=== PATIENT | female | born 1950 | race Caucasian/White ===

== ENCOUNTER 2019-12-28 12:51 | Emergency (ER) | payer MEDICARE, SELFPAY ==
--- NOTE | 2019-12-28 12:58 | ED.GENADULT ---
HPI - General Adult General Chief complaint: Urogenital-Female Stated complaint: POS UTI Time Seen by Provider: 12/28/19 13:18 Source: patient and RN notes reviewed Mode of arrival: ambulatory Limitations: no limitations History of Present Illness HPI narrative: This patient has had frequency of urination with suprapubic discomfort which feels like a cramping sensation of her bladder. This started on 12/24/2019. She is also had malodor to the urine. She is not had any back pain or fever. There has been no dysuria. She has had no vaginal discharge or bleeding. She has had no rashes. She has not had any ear pain, no nasal drainage, no sore throat, and no cough. She has had no nausea, no vomiting, no diarrhea. She has had previous history of cystitis but never any history of pyelonephritis. Her last episode of the cystitis was approximately 1/2 years ago. She has never had any history of kidney stones. She has otherwise felt well and has had no exposure to anyone with respiratory infections that she is aware of. Related Data Home Medications Medication Instructions Recorded Confirmed Vitamin D 12/28/19 amlodipine [Norvasc] 5 mg PO DAILY 12/28/19 12/28/19 aspirin 81 mg PO DAILY 12/28/19 12/28/19 atorvastatin 10 mg PO DAILY 12/28/19 12/28/19 citalopram [Celexa] 20 mg PO DAILY 12/28/19 12/28/19 clopidogrel [Plavix] 75 mg PO DAILY 12/28/19 12/28/19 fluticasone propionate [Flonase 2 spray INTRANASAL DAILY 12/28/19 12/28/19 Allergy Relief] metoprolol tartrate 100 mg PO BID 12/28/19 12/28/19 olmesartan [Benicar] 40 mg PO DAILY 12/28/19 12/28/19 pantoprazole [Protonix] 40 mg PO QAM 12/28/19 12/28/19 ranitidine HCl [Zantac] 150 mg PO DAILY 12/28/19 12/28/19 Allergies Allergy/AdvReac Type Severity Reaction Status Date / Time egg Allergy Severe DIFFICULTY Verified 01/30/18 22:40 BEATHING azithromycin Allergy Mild RASH Verified 01/30/18 22:40 erythromycin base Allergy Mild RASH,HIVES Verified 01/30/18 22:40 iodine Allergy Mild RASH,HIVES Verified 01/30/18 22:40 Penicillins Allergy Mild RASH Verified 01/30/18 22:40 Sulfa (Sulfonamide Allergy Mild RASH Verified 01/30/18 22:40 Antibiotics) trimethoprim Allergy Mild RASH Verified 01/30/18 22:40 sulfite Allergy Unknown Other Verified 01/30/18 22:40 Chocolate Allergy Severe DIFFICULTY Uncoded 01/30/18 22:40 BREATHING Review of Systems Review of Systems: Narrative: CONSTITUTIONAL: Denies fever, chills, or sweats. Noncontributory except as pertains to the past medical history and the history of present illness. EYES: Denies visual changes, redness, or discharge. ENT: Denies rhinorrhea, congestion, sore throat, or otalgia. CARDIOVASCULAR: Denies chest pain, palpitations, or edema. RESPIRATORY: Denies cough or dyspnea. GASTROINTESTINAL: Denies abdominal pain, nausea, vomiting, or diarrhea. GENITOURINARY: Denies dysuria or hematuria. SKIN: Denies rash or itching. MUSCULOSKELETAL: Denies back pain, joint pain, or myalgia. NEUROLOGIC: Denies headache, numbness, or weakness. PSYCHIATRIC: Denies anxiety or depression. PMFSH Social History Social History Gender identity (if verbalized by the patient): Female Comments At time of signature, I have reviewed and agree with nursing past medical, surgical, social, and family history.Please see nursing chart for further information. There is no relevant family history pertinent to the presenting complaint. Exam Narrative: Exam Narrative: GENERAL: Well-appearing, well-nourished, and in no acute distress. HEAD: Normocephalic, atraumatic. EYES: PERRLA and EOMI. EARS: TM's clear bilaterally and the canals are clear. NOSE: Nares clear, no rhinorrhea or epistaxis. THROAT:Mucous membranes moist.Oropharynx normal without erythema or exudates. NECK: Supple. No adenopathy of the neck, supraclavicular, axillary, or inguinal areas. RESPIRATORY: No respiratory distress. Airway patent. Respirations non-labored. Clear to ausculta
[2019-12-28 13:03] VITALS: BP 148/72; PULSE 62; RESP 18; TEMP 36.4; O2SAT 98
== END 2019-12-28 13:32 | disposition home or self-care (01) ==
PROVIDERS: Emergency Provider Family Medicine; PCP Internal Medicine
DX: N30.00 Acute cystitis without hematuria (principal)
CPT/HCPCS: 81003; 87086; 99213; G0463

== ENCOUNTER → 2020-06-26 09:50 | Outpatient (CLI) | payer MEDICARE, SELFPAY ==
--- NOTE | ~2020-06-26 | MM_ITS ---
EXAMINATION: MM screening [facility] BI w damien HISTORY: Screening mammogram TECHNIQUE: Craniocaudal and mediolateral oblique 3-D tomosynthesis images were obtained and synthetic 2-D images were generated. CAD analysis was submitted and interpreted. COMPARISON: 02/15/2018, 11/14/2016, 10/16/2015 bilateral digital screening mammogram examinations BREAST PARENCHYMAL COMPOSITION: There are scattered areas of fibroglandular density. FINDINGS: A child monitor device is present at the upper inner left breast. There is a circumscribed 3 mm opacity in the inferomedial subareolar area of the left breast (cranioc audal Tomosynthesis image 18/76). There is possible additional approximately 4.8 mm subareolar left b reast opacity (CC Tomosynthesis image 22/76). There is an approximately 3 mm circumscribed opacity in the lower inner quadrant of the left breast ( MLO Tomosynthesis image 51/81). Otherwise there is no evidence of suspicious mass, calcification, or architectural distortion to sugg est malignancy in either breast. There has been no other suspicious interval change. IMPRESSION: 1. Bilateral breast masses 2. Bilateral diagnostic mammography and bilateral breast ultrasound examination are recommended. BI-RADS Category 0: Incomplete: Needs additional imaging evaluation. Reviewed, dictated and finalized at location A.
== END ==
PROVIDERS: Visit Provider Obstetrics & Gynecology
DX: Z12.31 Encounter for screening mammogram for malignant neoplasm of breast (principal); R92.8 Other abnormal and inconclusive findings on diagnostic imaging of breast
CPT/HCPCS: 77063; 77067

== ENCOUNTER → 2020-07-11 07:54 | Outpatient (CLI) | payer MEDICARE, SELFPAY ==
--- NOTE | ~2020-07-11 | MMUS_ITS ---
EXAMINATION: MM diagnostic mammo BI, US breast BI complete HISTORY: Follow-up bilateral breast masses TECHNIQUE: Additional 3-D tomosynthesis images of the breasts were performed and synthetic 2-D images were generated. CAD analysis was submitted and interpreted. High resolution bilateral breast ultraso und was performed. COMPARISON: Comparison to multiple prior studies sequentially, with oldest reviewed study dated 08/11. BREAST PARENCHYMAL COMPOSITION: BREAST PARENCHYMAL COMPOSITION: There are scattered areas of fibroglandular density. FINDINGS: MAMMOGRAPHIC FINDINGS: There are persistent small 3 mm periareolar nodules which have a benign appearance in both breasts. T here are benign-appearing calcifications. No suspicious architectural distortion. ULTRASOUND: There are 2 right periareolar cysts, largest measuring 4 mm. There is a left periareolar cyst measuri ng 3 mm. No suspicious masses to suggest malignancy. IMPRESSION: 1. No evidence for malignancy in either breast. Benign findings. 2. Routine yearly screening mammogram and regular clinical breast examination are recommended. BI-RADS Category 2: Benign finding(s). Reviewed, dictated and finalized at location A. IMPRESSION: 1. No evidence for malignancy in either breast. Benign findings. 2. Routine yearly screening mammogram and regular clinical breast examination a re recommended. BI-RADS Category 2: Benign finding(s).
== END ==
PROVIDERS: Visit Provider Obstetrics & Gynecology
DX: R92.8 Other abnormal and inconclusive findings on diagnostic imaging of breast (principal)
CPT/HCPCS: 76641; 77066

== ENCOUNTER 2020-08-23 08:12 | Outpatient (CLI) | payer MEDICARE, SELFPAY ==
--- NOTE | 2020-08-23 08:14 | ECG_ITS ---
Measurements Intervals [place] Rate: 67 P: 62 RI: 227 QRS: 75 QRSD: 149 T: 14 QT: 430 QTc: 455 Interpretive Statements SINUS RHYTHM WITH FIRST DEGREE AV BLOCK RIGHT BUNDLE BRANCH BLOCK BASELINE ARTIFACT- I, II, III, AVR, AVL, AVF ABNORMAL ECG Electronically Signed On 08-23-2020 8:31:20 CDT by Jimbo Ojeda D.O.
== END 2020-08-23 08:13 | disposition home or self-care (01) ==
PROVIDERS: PCP Internal Medicine; Visit Provider Obstetrics & Gynecology
DX: N81.4 Uterovaginal prolapse, unspecified (principal); Z01.818 Encounter for other preprocedural examination; E78.5 Hyperlipidemia, unspecified; I45.10 Unspecified right bundle-branch block
CPT/HCPCS: 36415; 86850; 86900; 86901; 93005

== ENCOUNTER 2020-08-25 00:14 | Outpatient (CLI) | payer MEDICARE, SELFPAY ==
[2020-08-25 18:02] LABS: SARS-CoV-2 RNA PCR Negative
== END 2020-08-25 00:15 | disposition home or self-care (01) ==
LOC: ANHCOVIDDT 00:15
PROVIDERS: PCP Internal Medicine; Visit Provider Obstetrics & Gynecology
DX: Z01.812 Encounter for preprocedural laboratory examination (principal); Z20.828 Contact with and (suspected) exposure to other viral communicable diseases
CPT/HCPCS: 87635; C9803; U0003

== ENCOUNTER 2020-08-28 00:18 | Day surgery (SDC) | payer MEDICARE, SELFPAY ==
[2020-08-18 13:46] VITALS: BMI 29.5
--- NOTE | 2020-08-25 14:06 | PM.IMHP ---
H&P: HPI History of Present Illness Date/Time: 08/25/20 14:06 Chief complaint: uterine prolapse Narrative: Emely Womack is a 70 year old female with prolapse, worse with prolonged sitting, standing, or gardening. She is unable to have intercourse but would like to be able Review of Systems Review of Systems: All systems reviewed & are unremarkable except as noted in HPI and below PMFSH Past Medical History Medical History Acid reflux Cholecystectomy planned Heart attack History of basal cell cancer Hyperlipidemia Hypertension Irritable bowel Migraines Mitral valve disorder Pre-diabetes Stroke Surgical History Surgical History H/O angioplasty H/O dilation and curettage History of cryosurgery Cervical History of removal of cyst Family History Family History Sibling Breast cancer Hypertension Hyperlipidemia Mother Diabetes mellitus Hypertension Social History Social History Smoking status: Never smoker Alcohol intake: never Substance use: never Gender identity (if verbalized by the patient): Female Spiritual care concerns: No Meds Home Medications and Allergies Home Medications Medication Instructions Recorded Confirmed Type amlodipine [Norvasc] 5 mg PO DAILY 12/28/19 08/18/20 History aspirin 81 mg PO DAILY 12/28/19 08/18/20 History atorvastatin 10 mg PO HS 12/28/19 08/18/20 History clopidogrel [Plavix] 75 mg PO DAILY 12/28/19 08/18/20 History fluticasone propionate [Flonase 2 spray INTRANASAL DAILY PRN 12/28/19 08/18/20 History Allergy Relief] metoprolol tartrate 100 mg PO BID 12/28/19 08/18/20 History olmesartan [Benicar] 40 mg PO DAILY 12/28/19 08/18/20 History pantoprazole [Protonix] 40 mg PO QAM 12/28/19 08/18/20 History cholecalciferol (vitamin D3) 25 25 mcg PO DAILY 07/06/20 08/18/20 History mcg (1,000 unit) capsule famotidine 40 mg tablet 40 mg PO HS 07/06/20 08/18/20 History Allergies Allergy/AdvReac Type Severity Reaction Status Date / Time egg Allergy Severe DIFFICULTY Verified 08/18/20 13:36 BEATHING azithromycin Allergy Mild RASH Verified 08/18/20 13:36 erythromycin base Allergy Mild RASH,HIVES Verified 08/18/20 13:36 Penicillins Allergy Mild RASH Verified 08/18/20 13:36 Sulfa (Sulfonamide Allergy Mild RASH Verified 08/18/20 13:36 Antibiotics) trimethoprim Allergy Mild RASH Verified 08/18/20 13:36 sulfite Allergy Unknown Anaphylaxis Verified 08/18/20 13:46 iohexol AdvReac Hives Verified 08/18/20 13:36 [From contrast - CT, X-RAY] Chocolate Allergy Severe DIFFICULTY Uncoded 08/18/20 13:36 BREATHING Exam Const: General: no acute distress Resp: Auscultation: clear to auscultation bilaterally Cardio: Rate: regular rate Rhythm: regular rhythm GI: Inspection: non-distended GI Palp: Yes Soft to palpation and No Tenderness to palpation present (GI) : Other: uterine prolapse. no adnexal masses Assessment and Plan Assessment and plan (1) Uterine prolapse: Code(s): N81.4 - Uterovaginal prolapse, unspecified Status: Acute Assessment and Plan: She opts for TVH/BSO and signed consent after risks, benefits, complications, and alternatives were discussed. She expressed understanding and wishes to proceed. Her manager of photography did give clearance, stating she is at intermediate risk. She was advised to stop plavix 5 days prior to surgery
[2020-08-28] VITALS (16 sets, daily range): BP systolic 122–154; BP diastolic 61–83; PULSE 63–95; RESP 12–18; TEMP 36.3–37.2; O2SAT 94–100
[2020-08-28] MEDS: LACTATED RINGERS 1,000 ML 30 ML IV CONT ×2 (11:00→13:03)
[2020-08-28] MEDS: ACETAMINOPHEN 500 MG TABLET 1000 MG PO (11:03)
[2020-08-28] MEDS: KETOROLAC 15 MG/ML VIAL (*BKC) IV PUSH (11:09)
--- NOTE | 2020-08-28 11:14 | WPDANESEPPF ---
Anes - Initial Pre Proc Eval Procedure: Operation Date: 08/28/20 12:00 Proposed Procedures p Total Vaginal Hysterectomy with Bilateral Salpingo-Oophorectomy - Radha Juarez MD Date/Time: 08/28/20 11:14 Surgeon: Radha Juarez MD Pre Op Diagnosis: uterine prolapse Patient Data Age: 70 Gender: F Height: 5 ft 4 in Weight: 77.2 kg Last Vital Signs Temp 98.9 F 08/28/20 11:10 Pulse 66 08/28/20 11:10 Resp 18 08/28/20 11:10 BP 154/71 H 08/28/20 11:10 Pulse Ox 100 08/28/20 11:10 Allergies Allergy/AdvReac Type Severity Reaction Status Date / Time egg Allergy Severe DIFFICULTY Verified 08/18/20 13:36 BEATHING azithromycin Allergy Mild RASH Verified 08/18/20 13:36 erythromycin base Allergy Mild RASH,HIVES Verified 08/18/20 13:36 Penicillins Allergy Mild RASH Verified 08/18/20 13:36 Sulfa (Sulfonamide Allergy Mild RASH Verified 08/18/20 13:36 Antibiotics) trimethoprim Allergy Mild RASH Verified 08/18/20 13:36 sulfite Allergy Unknown Anaphylaxis Verified 08/18/20 13:46 iohexol AdvReac Hives Verified 08/18/20 13:36 [From contrast - CT, X-RAY] Chocolate Allergy Severe DIFFICULTY Uncoded 08/18/20 13:36 BREATHING Home Medications Medication Instructions Recorded Confirmed Type amlodipine [Norvasc] 5 mg PO DAILY 12/28/19 08/28/20 History aspirin 81 mg PO DAILY 12/28/19 08/28/20 History atorvastatin 10 mg PO HS 12/28/19 08/28/20 History clopidogrel [Plavix] 75 mg PO DAILY 12/28/19 08/28/20 History fluticasone propionate [Flonase 2 spray INTRANASAL DAILY PRN 12/28/19 08/28/20 History Allergy Relief] metoprolol tartrate 100 mg PO BID 12/28/19 08/28/20 History olmesartan [Benicar] 40 mg PO DAILY 12/28/19 08/18/20 History pantoprazole [Protonix] 40 mg PO QAM 12/28/19 08/18/20 History cholecalciferol (vitamin D3) 25 25 mcg PO DAILY 07/06/20 08/28/20 History mcg (1,000 unit) capsule famotidine 40 mg tablet 40 mg PO HS 07/06/20 08/28/20 History olmesartan [Benicar] 40 mg PO DAILY 08/28/20 08/28/20 History pantoprazole 40 mg PO QAM 08/28/20 08/28/20 History Patient hx anesthesia problems: none Family hx anesthesia problems: none PMFSH Past Medical History Medical History Acid reflux Cholecystectomy planned Heart attack History of basal cell cancer Hyperlipidemia Hypertension Irritable bowel Migraines Mitral valve disorder Pre-diabetes Stroke Surgical History Surgical History H/O angioplasty H/O dilation and curettage History of cryosurgery Cervical History of removal of cyst Family History Family History Sibling Breast cancer Hypertension Hyperlipidemia Mother Diabetes mellitus Hypertension Social History Social History Smoking status: Never smoker Alcohol intake: never Substance use: never Living arrangements: with family Gender identity (if verbalized by the patient): Female Spiritual care concerns: No Anes - Eval Final PreProcedure Day of Procedure 08/28/20 11:14 Patient weight: overweight Heart: regular rate and rhythm Lungs: clear to auscultation Airway: Mallampati scale class II Neurological: alert and oriented Last oral intake: >/= 8 hours ASA classification: III Anesthetic plan: proceed Anesthesia type and monitoring: general ETT and standard monitoring Informed Consent: The patient's anesthetic plan and its attendant risks and benefits were discussed with the patient/family/POA. Questions were solicited and answers provided to the satisfaction of the patient/family/POA.
[2020-08-28] MEDS: ONDANSETRON INJ 4 MG/2 ML VIAL IV PUSH ×2 (11:18→14:00)
[2020-08-28] MEDS: SCOPOLAMINE 1.5 MG PATCH TRANSDERM (11:18)
--- NOTE | 2020-08-28 11:44 | WPDHPUPDATE1 ---
History and Physical Update Update Date/Time: 08/28/20 11:44 History and Physical has been reviewed, including an updated exam of the patient. There are NO changes in the patient's condition. Risks, benefits, and alternatives have been discussed and questions answered. Patient agrees to proceed with procedure.
--- NOTE | 2020-08-28 11:57 | SUR.PREOP ---
1150-ANTIBIOTICS AND ALLERGIES DISCUSSED WITH DR. MURCIA, PT WILL RECEIVE ONLY CLINDAMYCIN.
[2020-08-28] MEDS: CLINDAMYCIN 900 MG/NS 50 ML 900 MG/50 ML PIGGYBACK 50 MG IVPB (11:59)
--- NOTE | 2020-08-28 13:03 | P.OP_ITS ---
Procedure Note - Detailed Date of procedure: 08/28/20 Pre-op diagnosis: uterine prolapse Post-op diagnosis: same Procedure performed: TVH Description of procedure: She was taken to the operating room where general anesthesia was obtained. She was prepared and draped in the normal sterile fashion in the dorsal lithotomy position. A weighted speculum was placed in the vagina. The cervix was grasped with 2 single-tooth tenaculum. The cervix was circumferentially incised using a scalpel. The underlying vaginal tissue was dissected off using the Osorio scissors. The posterior cul-de-sac was then entered sharply using the Osorio scissors. That incision was stretched by using the scissors. The long Myke weighted vaginal speculum then was placed. The same procedure was performed on the anterior side of the cervix. The vesicouterine peritoneum was then entered. The LigaSure was then used to clamp coagulate and transect the cardinal and uterosacral ligaments on each side. The uterine arteries were then clamped coagulated and transected. Several more bites were taken up the broad ligament until the cornua were reached. The right coronary was clamped coagulated and transected freeing the right side of the uterus. The same procedure was then performed ligating the left cornua. Using a sponge stick and retractors, attempt was made to visualize the tubes and ovaries. A small paratubal cyst was seen on the left fallopian tube. Attempt was made to grasp that for better visualization of the remainder of the tube; and the cyst pulled away from the remaining fallopian tube. After several minutes of attempting to find the tubes and ovaries without success, that procedure was abandoned and the ovaries were left in place. The peritoneum was then closed using 2 0 Vicryl in a pursestring fashion. The uterosacral liga ments were then tied together using an 0 Vicryl [id number] suture for support of the vaginal cuff. All instruments were removed from the vagina to evaluate for rectocele or cystocele. No cystocele was noted. Very mild grade 1 rectocele was noted. Since the rectocele was minimal, decision was made not to repair it. The vaginal cuff was then closed using 2 0 Vicryl [id number] sutures. All instruments were then removed from the vagina. Sponge, lap, needle, and instrument counts were correct x2. She was taken to the recovery room in stable condition. Anesthesia: GETA Surgeon: Radha Juarez MD Estimated blood loss (mL): 25 Drains: Yes ([place]) Packing: No Pathology: yes Complications: No immediate complications Condition: stable Disposition: PACU Findings: Small uterus with grade III prolapse. Mild rectocele. Ovaries and tubes not visualized
[2020-08-28] MEDS: DEXTROSE 5%/LACTATED RINGERS 1,000 ML 125 ML IV CONT ×2 (15:10→22:54)
[2020-08-28] MEDS: METOCLOPRAMIDE HCL INJ 10 MG/2 ML VIAL IV PUSH (15:43)
--- NOTE | 2020-08-28 16:28 | PC.NURSE ---
1412 Pt admitted to room 285 per bed from PACU after vaginal hysterectomy with Dr. Juarez today at 1200. Pt sleepy. VSS and assessment WNL. Pt is alone at this time. No family present.
[2020-08-28] MEDS: METOPROLOL TARTRATE 50 MG TAB 100 MG PO (18:05)
[2020-08-28] MEDS: ENOXAPARIN 40 MG/0.4 ML SYRINGE SUB-Q (19:58)
[2020-08-28] MEDS: FAMOTIDINE 20 MG TABLET 40 MG PO (21:14)
[2020-08-28] MEDS: ATORVASTATIN 10 MG TABLET PO (21:15)
--- NOTE | 2020-08-28 23:00 | PC.NURSE ---
IV bag hanging was D5 1/2NS at 125 ml/hr. Order is for D5LR. New bag of D5LR hung at 125 ml/hr.
[2020-08-29 05:22] VITALS: BP 156/78; PULSE 88; RESP 14; TEMP 36.7; O2SAT 98
[2020-08-29 05:50] LABS: Basophils Percent Auto 0.2 % (0.2-1.2); Hemoglobin 14.6 g/dL (12.0-15.0); Immature Granulocyte Absolute 0.14 K/mm3 (0.00-0.031); Immature Granulocyte Percent A 0.9 % (0-0.5); Lymphocytes Absolute Auto 1.84 K/mm3 (0.9-3.2); Lymphocytes Percent Auto 12.4 % (18.3-44.2); Mean Corpuscular HGB Conc 33.2 g/dl (32-36); Mean Corpuscular Hemoglobin 29.3 pg (26-34); Mean Corpuscular Volume 88.2 fl (80-100); Mean Platelet Volume 10.1 fl (7.4-10.4); Monocytes Percent Auto 6.7 % (2.6-8.5); Neutrophils Absolute Auto 11.9 K/mm3 (1.3-6.7); Neutrophils Percent Auto 79.8 % (45.5-73.1); Platelet Count Result 291 k/mm3 (150-375); Red Blood Count 4.99 M/mm3 (4.2-5.4); Red Cell Distribution Width 12.9 % (11.5-14.5); White Blood Count 14.9 K/mm3 (4.5-10.0)
[2020-08-29 06:05] LABS: Anion Gap 8 mmol/L (8-16); Blood Urea Nitrogen 9 mg/dL (7-17); Calcium 9.9 mg/dL (8.4-10.2); Carbon Dioxide 30 mmol/L (22-30); Chloride 103 mmol/L (98-107); Estimated CRCL calculation 65 ml/min; Estimated Glomerular Filt Rate > 60; Glucose 162 mg/dL (65-105); Potassium 4.3 mmol/L (3.4-5.0); Sodium 141 mmol/L (137-145)
[2020-08-29 07:09] VITALS: BP 148/88; PULSE 86; RESP 18; TEMP 36.9; O2SAT 99
--- NOTE | 2020-08-29 07:20 | PC.NURSE ---
This RN into room to inquire about pain meds. Pt states she rates pain a 4 but declines any pain medication. This RN informed pt that she will be getting up to use restroom and going home. Pt states she understands and still declines pain meds.
--- NOTE | 2020-08-29 07:47 | PM.GYNPNOP ---
RECEIVING BARN CUSTODIAN - A/P Postoperative Procedures: Procedures Operation Date: 08/28/20 12:00 Actual Procedures Side Surgeon p Total Vaginal Hysterectomy Bilateral Radha Juarez MD Postoperative day: 1 (s/p hysterectomy) Postoperative status: doing well Postoperative plan: routine post-op care and discharge (and follow up in office in 1 week) Time Spent With Patient Time: Total time spent is greater than 50% in coordination of care (as documented) at patient's floor/unit and/or counseling patient: Time with patient: less than 15 minutes RECEIVING BARN CUSTODIAN- PN:Subj Post-Op Subjective Date/time seen: 08/29/20 07:47 Subjective: patient has no complaints, pain is well controlled and other (Tolerating regular diet. + flatus. ) Exam Const: General: no acute distress Resp: Auscultation: clear to auscultation bilaterally Cardio: Rate: regular rate Rhythm: regular rhythm GI: Inspection: non-distended and no incisions (Intact without erythema, drainage, or induration) GI Palp: Yes abdominal tenderness (appropriate) and Yes Soft to palpation Extrem: General: no edema RECEIVING BARN CUSTODIAN - PN: Obj Data Vital Signs Vital Signs: Vital Signs - 24 hr 08/28/20 11:10 08/28/20 13:03 08/28/20 13:15 Temperature 37.2 C 36.4 C L Pulse Rate 66 79 72 Respiratory Rate 18 12 18 Blood Pressure 154/71 H 141/71 H 138/68 Pulse Oximetry 100 98 98 08/28/20 13:30 08/28/20 13:45 08/28/20 14:00 Temperature Pulse Rate 74 63 72 Respiratory Rate 18 18 14 Blood Pressure 122/78 131/67 138/61 Pulse Oximetry 95 96 96 08/28/20 14:15 08/28/20 14:30 08/28/20 15:00 Temperature 36.3 C L Pulse Rate 65 70 67 Respiratory Rate 16 16 16 Blood Pressure 148/64 H 142/66 H 137/66 Pulse Oximetry 94 97 99 08/28/20 15:30 08/28/20 16:00 08/28/20 17:00 Temperature Pulse Rate 78 81 88 Respiratory Rate 16 Blood Pressure 148/75 H 150/71 H 154/82 H Pulse Oximetry 100 100 97 08/28/20 18:00 08/28/20 18:05 08/28/20 20:00 Temperature 36.9 C Pulse Rate 93 95 95 Respiratory Rate 16 Blood Pressure 146/83 H 149/82 H Pulse Oximetry 99 95 08/28/20 23:05 08/29/20 05:22 08/29/20 07:09 Temperature 36.4 C L 36.7 C 36.9 C Pulse Rate 81 88 86 Respiratory Rate 16 14 18 Blood Pressure 147/80 H 156/78 H 148/88 H Pulse Oximetry 95 98 99 Intake/Output Intake/Output: Intake & Output 08/26/20 08/27/20 08/28/20 08/29/20 23:59 23:59 23:59 23:59 Intake Total 2850 Output Total 1375 1425 Balance 1475 -1425 Meds/Results Medications: Active Medications Generic Name Dose Route Start Last Admin Trade Name Freq PRN Reason Stop Dose Admin Hydrocodone Bitart/Acetaminophen 1 tab 08/28/20 14:06 [place] 5-325 Mg PO Q3H PRN Pain Rated 5 or Less Hydrocodone Bitart/Acetaminophen 1 tab 08/28/20 14:06 [place] 10-325 Mg PO Q3H PRN Pain Rated 6 or Greater Amlodipine Besylate 5 mg 08/29/20 09:00 Norvasc PO DAILY ERICH Aspirin 81 mg 08/29/20 09:00 Aspirin Chewable PO DAILY ERICH Atorvastatin Calcium 10 mg 08/28/20 21:00 08/28/20 21:15 Lipitor PO 10 mg HS ERICH Administration Enoxaparin Sodium 40 mg 08/28/20 20:00 08/28/20 19:58 Lovenox SUB-Q 40 mg DAILY ERICH Administration Famotidine 40 mg 08/28/20 21:00 08/28/20 21:14 Pepcid PO 40 mg HS ERICH Administration Fluticasone Propionate 2 spray 08/28/20 14:06 Flonase 0.05% Nasal [place] NASAL DAILY PRN Congestion Dextrose/Lactated Ringer's 1,000 mls @ 125 mls/hr 08/28/20 14:06 08/28/20 22:54 Dextrose 5%/Lactated Ringers IV CONT 125 mls/hr .Q8H ERICH Administration Ibuprofen 600 mg 08/28/20 14:06 Motrin PO Q6H PRN Cramping Ketorolac Tromethamine 30 mg 08/28/20 14:06 Toradol Inj IV PUSH 09/02/20 14:07 Q6H PRN Pain Rated 4-6 Metoclopramide HCl 10 mg 08/28/20 15:31 08/28/20 15:43 Reglan IV PUSH 10 mg Q6HR PRN Administration Nausea Metoprolol Tartrate 100 mg 08/28/20 17
--- NOTE | 2020-08-29 07:49 | PM.DS ---
DS: Admitting Diagnosis Admitting Diagnosis Admitting Diagnosis: uterine prolapse DS: Discharge Diagnosis Discharge Diagnosis (1) Uterine prolapse: Code(s): N81.4 - Uterovaginal prolapse, unspecified Status: Acute DS: Summary Status at Discharge Functional status at discharge: independent ambulation Overall status at discharge: patient is progressing back to baseline Time Spent with Patient Time attestation: Total time spent providing and/or coordinating discharge services: Time spent: Less than 30 minutes DS: Data Data Completed and Pending Pending studies at discharge: Pending at discharge 08/28/20 12:37 Surgical [PTH] Routine Labs on day of discharge: Labs from last 24 hours 08/29/20 08/29/20 04:11 04:11 WBC 14.9 H RBC 4.99 Hgb 14.6 Hct 44.0 MCV 88.2 MCH 29.3 MCHC 33.2 RDW 12.9 Plt Count 291 MPV 10.1 Immature Gran % (Auto) 0.9 H Neut % (Auto) 79.8 H Lymph % (Auto) 12.4 L [place] % (Auto) 6.7 Eos % (Auto) 0.0 Baso % (Auto) 0.2 Lymph # (Auto) 1.84 [place] # (Auto) 1.0 H Eos # (Auto) 0.0 Baso # (Auto) 0.0 Abs Immat Gran (auto) 0.14 H Absolute Neuts (auto) 11.9 H Absolute Nucleated RBC 0.0 Nucleated RBC % 0.0 Sodium 141 Potassium 4.3 Chloride 103 Carbon Dioxide 30 Anion Gap 8 BUN 9 Creatinine 0.70 Estim Creat Clear Calc 65 Estimated GFR > 60 Glucose 162 H Calcium 9.9 Discharge Plan Discharge Patient Disposition: Home, Self-Care Stand Alone Forms: General Discharge Instructions Follow-up/Referrals: Radha Juarez MD [Physician] - 1 Week Discharge Medications: New hydrocodone-acetaminophen 5-325 mg Tablet 1 tab PO Q4H PRN (Reason: Pain Rated 5 Or Less) Qty: 30 RF: 0 Continued atorvastatin 10 mg Tablet 10 mg PO HS RF: 0 metoprolol tartrate 100 mg Tablet 100 mg PO BID RF: 0 clopidogrel [Plavix] 75 mg Tablet 75 mg PO DAILY RF: 0 amlodipine [Norvasc] 5 mg Tablet 5 mg PO DAILY RF: 0 pantoprazole [Protonix] 40 mg Tablet,Delayed Release (Dr/Ec) 40 mg PO QAM RF: 0 aspirin 81 mg Tablet,Chewable 81 mg PO DAILY RF: 0 fluticasone propionate [Flonase Allergy Relief] 50 mcg/actuation [place],Suspension 2 spray INTRANASAL DAILY PRN (Reason: Congestion) RF: 0 olmesartan [Benicar] 40 mg Tablet 40 mg PO DAILY RF: 0 famotidine 40 mg tablet 40 mg PO HS RF: 0 cholecalciferol (vitamin D3) 25 mcg (1,000 unit) capsule 25 mcg PO DAILY RF: 0 pantoprazole 40 mg Tablet,Delayed Release (Dr/Ec) 40 mg PO QAM RF: 0 olmesartan [Benicar] 40 mg Tablet 40 mg PO DAILY RF: 0 Primary Care Provider: Mary,Nina Domínguez Attending physician on admission: Radha Juarez Quality VTE Prophylaxis VTE prophylaxis: mechanical ordered and pharmacologic ordered
[2020-08-29 08:53] VITALS: PULSE 77
[2020-08-29] MEDS: METOPROLOL TARTRATE 50 MG TAB 100 MG PO (08:53)
[2020-08-29] MEDS: OLMESARTAN MEDOXOMIL 20 MG TABLET 40 MG PO (08:53)
[2020-08-29] MEDS: ASPIRIN 81 MG CHEWABLE TABLET PO (08:54)
[2020-08-29] MEDS: CHOLECALCIFEROL 1,000 UNITS TABLET 1000 UNITS PO (08:55)
[2020-08-29] MEDS: amLODIPine BESYLATE 5 MG TABLET PO (08:56)
[2020-08-29] MEDS: ENOXAPARIN 40 MG/0.4 ML SYRINGE SUB-Q (08:57)
[2020-08-29] MEDS: PANTOPRAZOLE 40 MG TABLET PO (08:57)
[2020-08-29] MEDS: FLUTICASONE PROPIONATE 0.05% NA SPR 16 GM BTL (*BKC) 2 SPRAY NASAL (08:57)
--- NOTE | 2020-08-29 10:27 | PC.NURSE ---
Pt taken to exit by maintenance mechanic technician via wheelchair. Discharge instructions were given to pt. NO questions or concerns at this time.
== END 2020-08-29 10:29 | disposition home or self-care (01) ==
LOC: ANHSURGERY 10:02 → ANHOB2 18:04
PROVIDERS: PCP Internal Medicine; Visit Provider Obstetrics & Gynecology
PROC: (CPT 58260; principal; 2020-08-28 12:00)
DX: N81.4 Uterovaginal prolapse, unspecified (principal); E78.5 Hyperlipidemia, unspecified; I10 Essential (primary) hypertension; Z79.02 Long term (current) use of antithrombotics/antiplatelets; Z79.82 Long term (current) use of aspirin; N84.0 Polyp of corpus uteri; N73.6 Female pelvic peritoneal adhesions (postinfective)
CPT/HCPCS: 58260; 36415; 80048; 85025; 88307; 99199; A9270; J0330; J1100; J1650; J1885; J2405; J2704; J2765; J3010; J7120; J7121

== ENCOUNTER 2020-11-11 13:00 | Emergency (ER) | payer MEDICARE, SELFPAY ==
[2020-11-11 13:10] VITALS: BP 166/75; PULSE 67; RESP 16; TEMP 36.9; O2SAT 100
--- NOTE | 2020-11-11 13:33 | ED.FEMALEGU ---
HPI - Female Genitourinary General Chief complaint: Urogenital-Female Stated complaint: UTI Time Seen by Provider: 11/11/20 13:27 Source: patient and RN notes reviewed Mode of arrival: ambulatory Limitations: no limitations History of Present Illness HPI Narrative: Patient presents today complaining of a 3-day history of suprapubic pain, dysuria, malodorous urine, urinary frequency. Symptoms have been worsening since onset. Denies hematuria, back pain, fever. She has been increasing her water intake and has been drinking cranberry juice without relief. No recent antibiotic use. States she gets UTIs 2-3 times a year. MD elicited complaint: dysuria Related Data Home Medications Medication Instructions Recorded Confirmed amlodipine [Norvasc] 5 mg PO DAILY 12/28/19 08/28/20 aspirin 81 mg PO DAILY 12/28/19 08/28/20 atorvastatin 10 mg PO HS 12/28/19 08/28/20 clopidogrel [Plavix] 75 mg PO DAILY 12/28/19 08/28/20 fluticasone propionate [Flonase 2 spray INTRANASAL DAILY PRN 12/28/19 08/28/20 Allergy Relief] metoprolol tartrate 100 mg PO BID 12/28/19 08/28/20 pantoprazole [Protonix] 40 mg PO QAM 12/28/19 08/18/20 cholecalciferol (vitamin D3) 25 25 mcg PO DAILY 07/06/20 08/28/20 mcg (1,000 unit) capsule famotidine 40 mg tablet 40 mg PO HS 07/06/20 08/28/20 olmesartan [Benicar] 40 mg PO DAILY 08/28/20 08/28/20 Allergies Allergy/AdvReac Type Severity Reaction Status Date / Time egg Allergy Severe DIFFICULTY Verified 10/06/20 08:36 BEATHING azithromycin Allergy Mild RASH Verified 10/06/20 08:36 erythromycin base Allergy Mild RASH,HIVES Verified 10/06/20 08:36 Penicillins Allergy Mild RASH Verified 10/06/20 08:36 Sulfa (Sulfonamide Allergy Mild RASH Verified 10/06/20 08:36 Antibiotics) trimethoprim Allergy Mild RASH Verified 10/06/20 08:36 sulfite Allergy Unknown Anaphylaxis Verified 10/06/20 08:36 iohexol AdvReac Hives Verified 10/06/20 08:36 [From contrast - CT, X-RAY] Chocolate Allergy Severe DIFFICULTY Uncoded 09/04/20 09:34 BREATHING Review of Systems Review of Systems: Narrative: CONSTITUTIONAL: Denies body aches, fever, chills, or sweats. EYES: Denies visual changes, redness, or discharge. ENT: Denies rhinorrhea, congestion, sore throat, or otalgia. CARDIOVASCULAR: Denies chest pain, palpitations, or edema. RESPIRATORY: Denies cough or dyspnea. GASTROINTESTINAL: Denies abdominal pain, nausea, vomiting, or diarrhea. GENITOURINARY: Denies hematuria. + Dysuria, frequency, suprapubic pain, malodorous urine SKIN: Denies rash, itching, or wounds. MUSCULOSKELETAL: Denies back pain, joint pain, or myalgia. NEUROLOGIC: Denies headache, numbness, tingling, or weakness. PSYCH: Denies depression or anxiety. [facility] Past Medical History Medical History (Updated 11/11/20 @ 13:34 by Lotus Ness, [facility], ) Acid reflux Cholecystectomy planned Heart attack History of basal cell cancer Hyperlipidemia Hypertension Irritable bowel Migraines Mitral valve disorder Pre-diabetes Stroke Surgical History Surgical History H/O angioplasty H/O dilation and curettage History of cryosurgery Cervical History of removal of cyst Family History Family History Sibling Breast cancer Hypertension Hyperlipidemia Mother Diabetes mellitus Hypertension Social History Social History Smoking status: Never smoker Alcohol intake: never Substance use: never Gender identity (if verbalized by the patient): Female Spiritual care concerns: No Comments At time of signature, I have reviewed and agree with nursing past medical, surgical, social and family history unless otherwise noted. Please see nursing chart for further information. There is no relevant family history pertinent to the presenting complaint Exam N
== END 2020-11-11 13:37 | disposition home or self-care (01) ==
PROVIDERS: Emergency Provider Nurse Practitioner; PCP Internal Medicine
DX: N30.01 Acute cystitis with hematuria (principal); K21.9 Gastro-esophageal reflux disease without esophagitis; I25.2 Old myocardial infarction; E78.5 Hyperlipidemia, unspecified; I10 Essential (primary) hypertension; Z86.73 Personal history of transient ischemic attack (TIA), and cerebral infarction without residual deficits; R73.03 Prediabetes
CPT/HCPCS: 81003; 87077; 87086; 87088; 87186; 99213; G0463

== ENCOUNTER 2021-02-20 16:18 | Emergency (ER) | payer MEDICARE, SELFPAY ==
--- NOTE | ~2021-02-20 | XR_ITS ---
EXAMINATION: XR chest 1V portable EXAM DATE: 02/20/2021 17:17 INDICATION: Dizziness, headache, hx cva, mitral valve replacement. TECHNIQUE: Portable AP frontal chest x-ray was obtained. Comparison is made to prior examination from 01/30/2018. FINDINGS: Cardiac monitoring device. Left-sided coronary artery stent. The lungs are clear. There ar e no pleural effusions. The cardiomediastinal silhouette is within normal limits. There is no pneum othorax suspected. The bones and soft tissues are unremarkable. IMPRESSION: No acute cardiopulmonary findings. Reviewed, dictated and finalized at location A.
--- NOTE | ~2021-02-20 | CT_ITS ---
EXAMINATION: CT brain wo con EXAM DATE: 02/20/2021 17:06 INDICATION: Headache, dizziness. On Plavix. TECHNIQUE: Spiral CT of the head was performed without contrast. Axial, coronal and sagittal images were reviewed. The dose-length product (DLP) for this examination was 605.33 mGy-cm. The exposure w as tailored according to patient size, and iterative reconstruction (ASIR) was used as additional dos e reduction technique. Comparison is made to prior examination from 01/30/2018. FINDINGS: There is no acute intraparenchymal hemorrhage. No evidence of intraparenchymal brain mass lesion. No evidence of acute infarction. Please note that initial head CT has limited sensitivity f or small or acute infarctions. There is mild periventricular and subcortical hypodensity, nonspecifi c but probably related to small vessel ischemic disease. There is mild prominence of the sulci and ventricles related to cerebral atrophy. There is intracranial carotid arteriosclerosis. There are no extra-axial collections. There is no mass effect or midline shift. The orbits are unremarkable. Soft tissue is unremarkable. The visualized sinuses and mastoid air cells are well aerated. IMPRESSION: 1. No acute intracranial findings. 2. Chronic age related findings. Reviewed, dictated and finalized at location A.
--- NOTE | 2021-02-20 16:48 | ECG_ITS ---
Measurements Intervals [place] Rate: 79 P: 51 ND: 184 QRS: 68 QRSD: 160 T: -8 QT: 432 QTc: 496 Interpretive Statements SINUS RHYTHM RIGHT BUNDLE BRANCH BLOCK MINIMAL Q WAVES- INFERIOR LEADS BASELINE ARTIFACT- I, II, III, AVR, AVL, AVF, V1-V3 ABNORMAL ECG Electronically Signed On 02-20-2021 19:42:06 CDT by Jimbo Ojeda D.O.
[2021-02-20 16:49] VITALS: BP 172/74; PULSE 75; RESP 17; TEMP 36.8; O2SAT 98
[2021-02-20 17:08] LABS: Basophils Absolute Auto 0.1 K/mm3 (0.0-0.1); Basophils Percent Auto 0.5 % (0.2-1.2); Eosinophils Absolute Auto 0.2 K/mm3 (0-0.3); Eosinophils Percent Auto 1.9 % (0-4.4); Hematocrit 45.7 % (37.0-47.0); Hemoglobin 14.9 g/dL (12.0-15.0); Immature Granulocyte Absolute 0.08 K/mm3 (0.00-0.031); Immature Granulocyte Percent A 0.8 % (0-0.5); Lymphocytes Absolute Auto 2.06 K/mm3 (0.9-3.2); Lymphocytes Percent Auto 21.6 % (18.3-44.2); Mean Corpuscular HGB Conc 32.6 g/dl (32-36); Mean Corpuscular Volume 89.1 fl (80-100); Mean Platelet Volume 9.3 fl (7.4-10.4); Monocytes Absolute Auto 0.7 K/mm3 (0.1-0.6); Monocytes Percent Auto 7.1 % (2.6-8.5); Neutrophils Absolute Auto 6.5 K/mm3 (1.3-6.7); Neutrophils Percent Auto 68.1 % (45.5-73.1); Platelet Count Result 259 k/mm3 (150-375); Red Blood Count 5.13 M/mm3 (4.2-5.4); Red Cell Distribution Width 13.2 % (11.5-14.5); White Blood Count 9.5 K/mm3 (4.5-10.0)
[2021-02-20 17:19] LABS: INR 0.8; Prothrombin Time 11.8 Seconds (11.1-14.7)
[2021-02-20 17:20] LABS: Partial Thromboplastin Time 27.3 SECONDS (22.3-36.8)
[2021-02-20 17:21] LABS: Anion Gap 5 mmol/L (8-16); Blood Urea Nitrogen 14 mg/dL (7-17); Calcium 9.8 mg/dL (8.4-10.2); Carbon Dioxide 31 mmol/L (22-30); Chloride 104 mmol/L (98-107); Estimated CRCL calculation 57 ml/min; Estimated Glomerular Filt Rate > 60; Glucose 151 mg/dL (65-105); Potassium 4.6 mmol/L (3.4-5.0); Sodium 140 mmol/L (137-145)
[2021-02-20 17:32] LABS: Troponin I < 0.012 ng/mL (0.000-0.034)
--- NOTE | 2021-02-20 18:42 | ED.HA ---
HPI - Headache General Chief Complaint: Headache Stated Complaint: headache Time Seen by Provider: 02/20/21 18:42 History of Present Illness HPI Narrative: Intermittent headache for the past 2 weeks. Increasing in frequency and intensity. wraps around the head and radiates down the back of the neck. Associated with nausea, light headedness, and more recently tingling in the extremities. She has also noted BP increased from [place]. These are new symptoms. She has tried OTC medications without significant relief. Symptoms have improved somewhat sine arrival. Related Data Home Medications Medication Instructions Recorded Confirmed amlodipine [Norvasc] 5 mg PO DAILY 12/28/19 08/28/20 aspirin 81 mg PO DAILY 12/28/19 08/28/20 atorvastatin 10 mg PO HS 12/28/19 08/28/20 clopidogrel [Plavix] 75 mg PO DAILY 12/28/19 08/28/20 fluticasone propionate [Flonase 2 spray INTRANASAL DAILY PRN 12/28/19 08/28/20 Allergy Relief] metoprolol tartrate 100 mg PO BID 12/28/19 08/28/20 pantoprazole [Protonix] 40 mg PO QAM 12/28/19 08/18/20 cholecalciferol (vitamin D3) 25 25 mcg PO DAILY 07/06/20 08/28/20 mcg (1,000 unit) capsule famotidine 40 mg tablet 40 mg PO HS 07/06/20 08/28/20 olmesartan [Benicar] 40 mg PO DAILY 08/28/20 08/28/20 Allergies Allergy/AdvReac Type Severity Reaction Status Date / Time egg Allergy Severe DIFFICULTY Verified 02/20/21 18:54 BEATHING azithromycin Allergy Mild RASH Verified 02/20/21 18:54 erythromycin base Allergy Mild RASH,HIVES Verified 02/20/21 18:54 Penicillins Allergy Mild RASH Verified 02/20/21 18:54 Sulfa (Sulfonamide Allergy Mild RASH Verified 02/20/21 18:54 Antibiotics) trimethoprim Allergy Mild RASH Verified 02/20/21 18:54 sulfite Allergy Unknown Anaphylaxis Verified 02/20/21 18:54 iohexol AdvReac Hives Verified 02/20/21 18:54 [From contrast - CT, X-RAY] Chocolate Allergy Severe DIFFICULTY Uncoded 02/20/21 18:54 BREATHING Review of Systems Review of Systems: All systems reviewed & are unremarkable except as noted in HPI and below Constitutional: Constitutional: Denies fever(s) and Reports weakness Eyes: Eyes: Reports no additional eye complaints ENT: Reports dizziness Cardiovascular: Cardiovascular: Denies chest pain Respiratory: Respiratory: Denies dyspnea Gastrointestinal: Gastrointestinal: Denies abdominal pain and Reports nausea Genitourinary: Genitourinary: Reports no additional female genitourinary complaints Neurologic: Reports as per HPI [facility] Past Medical History Medical History Acid reflux Cholecystectomy planned Heart attack History of basal cell cancer Hyperlipidemia Hypertension Irritable bowel Migraines Mitral valve disorder Pre-diabetes Stroke Surgical History Surgical History H/O angioplasty H/O dilation and curettage History of cryosurgery Cervical History of removal of cyst Family History Family History Sibling Breast cancer Hypertension Hyperlipidemia Mother Diabetes mellitus Hypertension Social History Social History Smoking status: Never smoker Alcohol intake: never Substance use: never Gender identity (if verbalized by the patient): Female Spiritual care concerns: No Exam Const: General: healthy appearing, no acute distress and alert Orientation/consciousness: patient oriented x3 HENMT: Head: normal to inspection Ears: TM's normal bilaterally and EAC's normal Eyes: Conjunctivae: conjunctivae normal Pupils: Equal, round and reactive pupils present EOM: EOMs intact bilaterally Neck: Neck: normal visual inspection Resp: Effort & Inspection: normal respiratory effort Auscultation: clear to auscultation bilaterally, no rales, no rhonchi and no wheezes Cardio: Jugular venou
[2021-02-20 18:53] VITALS: BP 177/89; PULSE 85; RESP 18; O2SAT 98
[2021-02-20] MEDS: METOCLOPRAMIDE HCL INJ 10 MG/2 ML VIAL IV PUSH (19:55)
[2021-02-20] MEDS: KETOROLAC 30 MG/ML VIAL (*BKC) IV PUSH (19:55)
[2021-02-20] MEDS: diphenhydrAMINE HCl INJ 50 MG/ML VIAL 25 MG IV PUSH (19:55)
[2021-02-20 21:00] VITALS: BP 148/86; PULSE 78; RESP 16; TEMP 36.6; O2SAT 98
== END 2021-02-20 21:00 | disposition home or self-care (01) ==
PROVIDERS: Emergency Medicine; Emergency Provider Emergency Medicine; PCP Internal Medicine
DX: G44.209 Tension-type headache, unspecified, not intractable (principal); K21.9 Gastro-esophageal reflux disease without esophagitis; I25.2 Old myocardial infarction; Z85.828 Personal history of other malignant neoplasm of skin; E78.5 Hyperlipidemia, unspecified; I10 Essential (primary) hypertension; K58.9 Irritable bowel syndrome, unspecified; R73.03 Prediabetes; Z98.61 Coronary angioplasty status; I05.9 Rheumatic mitral valve disease, unspecified; Z79.82 Long term (current) use of aspirin
CPT/HCPCS: 36415; 70450; 71045; 80048; 84484; 85025; 85610; 85730; 93005; 96365; 96375; 99284; J0131; J1200; J1885; J2765

== ENCOUNTER → 2021-04-21 02:04 | Outpatient (CLI) | payer MEDICARE, SELFPAY ==
[2021-04-21 19:56] LABS: SARS-CoV-2 RNA PCR Negative
== END ==
PROVIDERS: PCP Internal Medicine; Visit Provider Internal Medicine Cardiovascular Disease
DX: Z01.812 Encounter for preprocedural laboratory examination (principal); Z20.822 Contact with and (suspected) exposure to COVID-19
CPT/HCPCS: C9803; U0003; U0005

== ENCOUNTER 2021-04-24 02:57 | Day surgery (SDC) | payer MEDICARE, SELFPAY ==
[2021-04-23 15:29] VITALS: BMI 29.2
--- NOTE | 2021-04-24 12:11 | WPDMODSED ---
Moderate Sedation Note-Pt Data Patient Data Diagnosis: Patient with loop recorder implant for stroke evaluation, reached [facility]. Desires explant. No atrial fibrillation seen on monitoring period. history of CAD. Present Complaint: Loop recorder at [facility], here for explant Procedure to be performed/Plan: Explant of loop recorder, planning local anesthesia, possible conscious sedation Allergies Allergy/AdvReac Type Severity Reaction Status Date / Time egg Allergy Severe DIFFICULTY Verified 02/20/21 18:54 BEATHING azithromycin Allergy Mild RASH Verified 02/20/21 18:54 erythromycin base Allergy Mild RASH,HIVES Verified 02/20/21 18:54 Penicillins Allergy Mild RASH Verified 02/20/21 18:54 Sulfa (Sulfonamide Allergy Mild RASH Verified 02/20/21 18:54 Antibiotics) trimethoprim Allergy Mild RASH Verified 02/20/21 18:54 sulfite Allergy Unknown Anaphylaxis Verified 02/20/21 18:54 iohexol AdvReac Hives Verified 02/20/21 18:54 [From contrast - CT, X-RAY] Chocolate Allergy Severe DIFFICULTY Uncoded 02/20/21 18:54 BREATHING Home Medications Medication Instructions Recorded Confirmed Type amlodipine [Norvasc] 5 mg PO DAILY 12/28/19 04/23/21 History aspirin 81 mg PO DAILY 12/28/19 04/23/21 History atorvastatin 10 mg PO HS 12/28/19 04/23/21 History clopidogrel [Plavix] 75 mg PO DAILY 12/28/19 04/23/21 History fluticasone propionate [Flonase 2 spray INTRANASAL DAILY PRN 12/28/19 04/23/21 History Allergy Relief] metoprolol tartrate 100 mg PO BID 12/28/19 04/23/21 History pantoprazole [Protonix] 40 mg PO QAM 12/28/19 04/23/21 History cholecalciferol (vitamin D3) 25 25 mcg PO DAILY 07/06/20 04/23/21 History mcg (1,000 unit) capsule famotidine 40 mg tablet 40 mg PO HS 07/06/20 04/23/21 History olmesartan [Benicar] 40 mg PO DAILY 08/28/20 04/23/21 History Current Medications: Active Medications Sodium Chloride (Normal Saline Iv) 500 mls @ 100 mls/hr IV CONT .Q5H ONE Stop: 04/24/21 12:59 Sedation/Anesthesia: No previous sedation/anesthesia problems (including family history). [facility] Past Medical History Medical History Acid reflux Cholecystectomy planned Heart attack History of basal cell cancer Hyperlipidemia Hypertension Irritable bowel Migraines Mitral valve disorder Pre-diabetes Stroke Surgical History Surgical History H/O angioplasty H/O dilation and curettage History of cryosurgery Cervical History of removal of cyst Family History Family History Sibling Breast cancer Hypertension Hyperlipidemia Mother Diabetes mellitus Hypertension Social History Social History Smoking status: Never smoker Second hand tobacco smoke exposure: No Alcohol intake: never Substance use: never Living arrangements: with family Gender identity (if verbalized by the patient): Female Spiritual care concerns: No Mod Sed Physical Exam Physical Exam Pre Procedural Exam: Normal: Appearance, Eyes, Ears, Nose, Neck, Throat, Airway, Lungs, Heart Size, Heart Rate, Heart Rhythm, Neuro Exam, Abdomen, Spleen, Extremities and Skin (Loop recorder palpable along the left parasternal area, well-healed) Hours since solid foods: 12 Hours since liquid intake: 12 Internal Medicine - PN: Obj Da Meds/Results Medications: Active Medications Generic Name Dose Route Start Last Admin Trade Name Freq PRN Reason Stop Dose Admin Sodium Chloride 500 mls @ 100 mls/hr 04/24/21 08:00 Normal Saline Iv IV CONT 04/24/21 12:59 .Q5H ONE ASA Classification/Sedation ASA Classification/Sedation ASA Class: II Emergent: No Risks: Risks, benefits and alternatives explained and patient/family accepted plan for explant, probably local anesthesia, possible conscious sedation. Patient re-evaluated
--- NOTE | 2021-04-24 12:15 | WPDHPUPDATE1 ---
History and Physical Update Update Date/Time: 04/24/21 12:15 Patient with history of stroke, status post loop recorder implant in 2017. Also sees Dr. Sheridan for her CAD. She desires loop recorder explant. Patient has been on dual anti-platelet therapy; Plavix has been held for 5 days. History and Physical has been reviewed, including an updated exam of the patient. There are NO changes in the patient's condition. Risks, benefits, and alternatives have been discussed and questions answered. Patient agrees to proceed with procedure.
--- NOTE | 2021-04-24 13:25 | PM.OP ---
Procedure Note - Brief Procedure Note - Brief Date of procedure: 04/24/21 Pre-op diagnosis: battery end of life Post-op diagnosis: same Procedure performed: Loop recorder explant Description of procedure: Uneventful Anesthesia: local Surgeon: Berta Restrepo MD Complications: No immediate complications Condition: stable Disposition: observation
--- NOTE | 2021-04-24 13:29 | PM.PROC ---
Procedure Note - Detailed Date of procedure: 04/24/21 Pre-op diagnosis: battery end of life Post-op diagnosis: same Procedure performed: Loop recorder explant Description of procedure: After informed consent the patient was taken into the catheterization laboratory technician. The left parasternal area was prepped and draped. Anesthesia was obtained using 1% lidocaine local anesthesia. A skin incision was made and carried down to the loop recorder with blunt and sharp dissection. The capsule was incised. The device was grasped with forceps and delivered from the pocket. The pocket was irrigated with sterile saline. Hemostasis was obtained with local compression. A skin adhesive and sterile dressing were applied. The patient tolerated the procedure well. There were no complications. Blood loss was negligible. Anesthesia: local Surgeon: Berta Restrepo MD Estimated blood loss (mL): 1 Drains: No Packing: No Pathology: none sent Complications: No immediate complications Condition: stable Disposition: observation Findings: Patient will be given a prescription for an antibiotic. Follow up in the office in 1 week for an incision check.
[2021-04-24 13:30] VITALS: BP 153/68; PULSE 61; RESP 18; TEMP 36.5; O2SAT 96
[2021-04-24 13:45] VITALS: BP 151/68; PULSE 63; RESP 18; O2SAT 96
[2021-04-24 14:00] VITALS: BP 144/64; PULSE 60; RESP 13; O2SAT 96
--- NOTE | 2021-04-24 14:36 | SUR.PHASEII ---
Patient discharged following loop recorder explant. Discharge instructions given to patient- patient verbalized understanding. PIV removed intact and dressing applied. Patient ambulated to front hospital entrance accompanied by staff, where she was driven home by her .
== END 2021-04-24 14:38 | disposition home or self-care (01) ==
PROVIDERS: PCP Internal Medicine; Visit Provider Internal Medicine Cardiovascular Disease
PROC: (CPT 33286; principal; 2021-04-24 12:30)
DX: Z45.09 Encounter for adjustment and management of other cardiac device (principal); I25.10 Atherosclerotic heart disease of native coronary artery without angina pectoris; I10 Essential (primary) hypertension; E78.5 Hyperlipidemia, unspecified; R73.03 Prediabetes; Z79.02 Long term (current) use of antithrombotics/antiplatelets; Z79.82 Long term (current) use of aspirin; Z86.73 Personal history of transient ischemic attack (TIA), and cerebral infarction without residual deficits
CPT/HCPCS: 33286; J7040

== ENCOUNTER → 2021-05-19 00:30 | Outpatient (CLI) | payer MEDICARE, SELFPAY ==
[2021-05-19 19:26] LABS: SARS-CoV-2 RNA PCR Negative
== END ==
PROVIDERS: PCP Internal Medicine; Visit Provider Internal Medicine Cardiovascular Disease
DX: Z01.812 Encounter for preprocedural laboratory examination (principal); Z20.822 Contact with and (suspected) exposure to COVID-19
CPT/HCPCS: C9803; U0003; U0005

== ENCOUNTER 2021-05-19 09:11 | Outpatient (CLI) | payer MEDICARE, SELFPAY ==
[2021-05-19 09:58] LABS: Alanine Aminotransferase 21 U/L (4-35); Albumin Level 4.4 g/dL (3.5-5.1); Alkaline Phosphatase 108 U/L (38-126); Anion Gap 10 mmol/L (8-16); Aspartate Amino Transferase 21 U/L (14-36); Bilirubin,Total 0.4 mg/dL (0.2-1.3); Blood Urea Nitrogen 14 mg/dL (7-17); Calcium 9.7 mg/dL (8.4-10.2); Carbon Dioxide 21 mmol/L (22-30); Chloride 110 mmol/L (98-107); Estimated Glomerular Filt Rate > 60; Glucose 119 mg/dL (65-105); Potassium 4.5 mmol/L (3.4-5.0); Sodium 141 mmol/L (137-145)
[2021-05-19 10:30] LABS: Basophils Percent Auto 0.5 % (0.2-1.2); Eosinophils Absolute Auto 0.1 K/mm3 (0-0.3); Eosinophils Percent Auto 1.6 % (0-4.4); Hematocrit 42.7 % (37.0-47.0); Hemoglobin 13.6 g/dL (12.0-15.0); Immature Granulocyte Absolute 0.08 K/mm3 (0.00-0.031); Immature Granulocyte Percent A 0.9 % (0-0.5); Lymphocytes Absolute Auto 1.92 K/mm3 (0.9-3.2); Lymphocytes Percent Auto 21.9 % (18.3-44.2); Mean Corpuscular HGB Conc 31.9 g/dl (32-36); Mean Corpuscular Hemoglobin 28.3 pg (26-34); Mean Platelet Volume 9.7 fl (7.4-10.4); Monocytes Absolute Auto 0.7 K/mm3 (0.1-0.6); Monocytes Percent Auto 7.7 % (2.6-8.5); Neutrophils Absolute Auto 5.9 K/mm3 (1.3-6.7); Neutrophils Percent Auto 67.4 % (45.5-73.1); Platelet Count Result 234 k/mm3 (150-375); Red Cell Distribution Width 13.4 % (11.5-14.5); White Blood Count 8.8 K/mm3 (4.5-10.0)
== END 2021-05-19 09:12 | disposition home or self-care (01) ==
PROVIDERS: PCP Internal Medicine; Visit Provider Internal Medicine Cardiovascular Disease
DX: I25.119 Atherosclerotic heart disease of native coronary artery with unspecified angina pectoris (principal)
CPT/HCPCS: 36415; 80053; 85025; C9803; U0003; U0005

== ENCOUNTER 2021-05-22 00:58 | Day surgery (SDC) | payer MEDICARE, SELFPAY ==
[2021-05-21 10:48] VITALS: BMI 29.2
[2021-05-22] VITALS (8 sets, daily range): BP systolic 134–157; BP diastolic 60–83; PULSE 67–88; RESP 14–21; TEMP 36.1–36.4; O2SAT 93–97; BMI 29.5
[2021-05-22 07:44] LABS: Basophils Percent Auto 0.2 % (0.2-1.2); Hematocrit 45.1 % (37.0-47.0); Hemoglobin 14.8 g/dL (12.0-15.0); Immature Granulocyte Absolute 0.09 K/mm3 (0.00-0.031); Immature Granulocyte Percent A 0.9 % (0-0.5); Lymphocytes Absolute Auto 0.84 K/mm3 (0.9-3.2); Lymphocytes Percent Auto 8.8 % (18.3-44.2); Mean Corpuscular HGB Conc 32.8 g/dl (32-36); Mean Corpuscular Hemoglobin 29.1 pg (26-34); Mean Corpuscular Volume 88.8 fl (80-100); Mean Platelet Volume 9.5 fl (7.4-10.4); Monocytes Absolute Auto 0.1 K/mm3 (0.1-0.6); Monocytes Percent Auto 0.9 % (2.6-8.5); Neutrophils Absolute Auto 8.5 K/mm3 (1.3-6.7); Neutrophils Percent Auto 89.2 % (45.5-73.1); Platelet Count Result 251 k/mm3 (150-375); Red Blood Count 5.08 M/mm3 (4.2-5.4); Red Cell Distribution Width 13.2 % (11.5-14.5); White Blood Count 9.5 K/mm3 (4.5-10.0)
[2021-05-22 07:53] LABS: Anion Gap 12 mmol/L (8-16); Blood Urea Nitrogen 16 mg/dL (7-17); Calcium 10.1 mg/dL (8.4-10.2); Carbon Dioxide 25 mmol/L (22-30); Chloride 106 mmol/L (98-107); Estimated CRCL calculation 57 ml/min; Estimated Glomerular Filt Rate > 60; Glucose 211 mg/dL (65-105); Potassium 4.3 mmol/L (3.4-5.0); Sodium 143 mmol/L (137-145)
--- NOTE | 2021-05-22 08:54 | WPDMODSED ---
Moderate Sedation Note-Pt Data Patient Data Allergies Allergy/AdvReac Type Severity Reaction Status Date / Time egg Allergy Severe DIFFICULTY Verified 02/20/21 18:54 BEATHING azithromycin Allergy Mild RASH Verified 02/20/21 18:54 erythromycin base Allergy Mild RASH,HIVES Verified 02/20/21 18:54 Penicillins Allergy Mild RASH Verified 02/20/21 18:54 Sulfa (Sulfonamide Allergy Mild RASH Verified 02/20/21 18:54 Antibiotics) trimethoprim Allergy Mild RASH Verified 02/20/21 18:54 sulfite Allergy Unknown Anaphylaxis Verified 02/20/21 18:54 iohexol AdvReac Hives Verified 02/20/21 18:54 [From contrast - CT, X-RAY] Chocolate Allergy Severe DIFFICULTY Uncoded 02/20/21 18:54 BREATHING Home Medications Medication Instructions Recorded Confirmed Type amlodipine [Norvasc] 5 mg PO DAILY 12/28/19 05/21/21 History aspirin 81 mg PO DAILY 12/28/19 05/21/21 History atorvastatin 10 mg PO HS 12/28/19 05/21/21 History clopidogrel [Plavix] 75 mg PO DAILY 12/28/19 05/21/21 History fluticasone propionate [Flonase 2 spray INTRANASAL DAILY PRN 12/28/19 05/21/21 History Allergy Relief] metoprolol tartrate 100 mg PO BID 12/28/19 05/21/21 History pantoprazole [Protonix] 40 mg PO QAM 12/28/19 05/21/21 History cholecalciferol (vitamin D3) 25 25 mcg PO DAILY 07/06/20 05/21/21 History mcg (1,000 unit) capsule famotidine 40 mg tablet 40 mg PO HS 07/06/20 05/21/21 History olmesartan [Benicar] 40 mg PO DAILY 08/28/20 05/21/21 History nitroglycerin 0.3 mg SUBLINGUAL Q5M PRN 05/21/21 05/21/21 History Current Medications: Active Medications Sodium Chloride (Normal Saline Iv) 500 mls @ 100 mls/hr IV CONT .Q5H ERICH Sedation/Anesthesia: No previous sedation/anesthesia problems (including family history). [facility] Past Medical History Medical History Acid reflux Cholecystectomy planned Heart attack History of basal cell cancer Hyperlipidemia Hypertension Irritable bowel Migraines Mitral valve disorder Pre-diabetes Stroke Surgical History Surgical History H/O angioplasty H/O dilation and curettage History of cryosurgery Cervical History of removal of cyst Family History Family History Sibling Breast cancer Hypertension Hyperlipidemia Mother Diabetes mellitus Hypertension Social History Social History Smoking status: Never smoker Second hand tobacco smoke exposure: No Alcohol intake: never Substance use: never Substance use type: does not use Living arrangements: with family Additional living arrangements comments: With Gender identity (if verbalized by the patient): Female Sexual Orientation (if Verbalized by the Patient): Straight or Heterosexual Spiritual care concerns: No Mod Sed Physical Exam Physical Exam Pre Procedural Exam: Normal: Airway Hours since solid foods: 10 Hours since liquid intake: 10 Internal Medicine - PN: Obj Da Vital Signs Vital Signs: Vital Signs - 24 hr 05/22/21 07:30 Temperature 36.1 C L Pulse Rate 88 Respiratory Rate 21 H Blood Pressure 157/83 H Pulse Oximetry 97 Meds/Results Medications: Active Medications Generic Name Dose Route Start Last Admin Trade Name Freq PRN Reason Stop Dose Admin Sodium Chloride 500 mls @ 100 mls/hr 05/22/21 07:00 Normal Saline Iv IV CONT .Q5H ERICH Labs CBC & Chem 7: 05/22/21 07:27 05/22/21 07:27 Labs: Laboratory Results - last 24 hr 05/22/21 05/22/21 07:27 07:27 WBC 9.5 RBC 5.08 Hgb 14.8 Hct 45.1 MCV 88.8 MCH 29.1 MCHC 32.8 RDW 13.2 Plt Count 251 MPV 9.5 Immature Gran % (Auto) 0.9 H Neut % (Auto) 89.2 H Lymph % (Auto) 8.8 L [place] % (Auto) 0.9 L Eos % (Auto) 0.0 Baso % (Auto) 0.2 Lymph #
--- NOTE | 2021-05-22 09:16 | PM.IMHP ---
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 Patient has been experiencing symptoms of chest discomfort. Patient had MPI done on 05/02/2021 which reportedly showed small area of mild reversible ischemia in the apical lateral, mid anterior, anterolateral gustafson with hypokinesis in the apical lateral segment; LVEF 62%. Patient has history of dye allergy, and was pretreated with steroids and diphenhydramine. Chief Complaint: chest pain PMFSH Past Medical History Medical History (Updated 05/22/21 @ 09:20 by Kvng Sheridan MD) Acid reflux Cholecystectomy planned Heart attack History of basal cell cancer Hyperlipidemia Hypertension Irritable bowel Migraines Mitral valve disorder Pre-diabetes Stroke Surgical History Surgical History H/O angioplasty H/O dilation and curettage History of cryosurgery Cervical History of removal of cyst Family History Family History Sibling Breast cancer Hypertension Hyperlipidemia Mother Diabetes mellitus Hypertension Social History Social History Smoking status: Never smoker Second hand tobacco smoke exposure: No Alcohol intake: never Substance use: never Substance use type: does not use Living arrangements: with family Additional living arrangements comments: With Gender identity (if verbalized by the patient): Female Sexual Orientation (if Verbalized by the Patient): Straight or Heterosexual Spiritual care concerns: No Meds Home Medications and Allergies Home Medications Medication Instructions Recorded Confirmed Type amlodipine [Norvasc] 5 mg PO DAILY 12/28/19 05/21/21 History aspirin 81 mg PO DAILY 12/28/19 05/21/21 History atorvastatin 10 mg PO HS 12/28/19 05/21/21 History clopidogrel [Plavix] 75 mg PO DAILY 12/28/19 05/21/21 History fluticasone propionate [Flonase 2 spray INTRANASAL DAILY PRN 12/28/19 05/21/21 History Allergy Relief] metoprolol tartrate 100 mg PO BID 12/28/19 05/21/21 History pantoprazole [Protonix] 40 mg PO QAM 12/28/19 05/21/21 History cholecalciferol (vitamin D3) 25 25 mcg PO DAILY 07/06/20 05/21/21 History mcg (1,000 unit) capsule famotidine 40 mg tablet 40 mg PO HS 07/06/20 05/21/21 History olmesartan [Benicar] 40 mg PO DAILY 08/28/20 05/21/21 History nitroglycerin 0.3 mg SUBLINGUAL Q5M PRN 05/21/21 05/21/21 History Allergies Allergy/AdvReac Type Severity Reaction Status Date / Time egg Allergy Severe DIFFICULTY Verified 02/20/21 18:54 BEATHING azithromycin Allergy Mild RASH Verified 02/20/21 18:54 erythromycin base Allergy Mild RASH,HIVES Verified 02/20/21 18:54 Penicillins Allergy Mild RASH Verified 02/20/21 18:54 Sulfa (Sulfonamide Allergy Mild RASH Verified 02/20/21 18:54 Antibiotics) trimethoprim Allergy Mild RASH Verified 02/20/21 18:54 sulfite Allergy Unknown Anaphylaxis Verified 02/20/21 18:54 iohexol AdvReac Hives Verified 02/20/21 18:54 [From contrast - CT, X-RAY] Chocolate Allergy Severe DIFFICULTY Uncoded 02/20/21 18:54 BREATHING Vital Signs Vital Signs - 24 hr 05/22/21 07:30 Temperature 36.1 C L Pulse Rate 88 Respiratory Rate 21 H Blood Pressure 157/83 H Pulse Oximetry 97 Exam Narrative: Exam Narrative: PHYSICAL EXAMINATION: GENERAL: Alert, oriented, no acute distress MENTAL STATUS: affect appropriate to mood EYES: Extraocular movements intact, no pallor EARS: External ears appear normal, hearing grossly normal NOSE: Normal and patent, no discharge MOUTH: Mucous membranes mo
--- NOTE | 2021-05-22 09:45 | WPDCARDPROC ---
Cardiac Cath Procedure Note Date of procedure:: 05/22/21 Performing physician:: Kvng Sheridan MD Procedure Procedure note:: LEFT HEART CATHETERIZATION AND CORONARY ANGIOGRAM REPORT DATE OF PROCEDURE: 05/22/2021 INDICATION FOR PROCEDURE: chest pain, CAD, abnormal MPI BRIEF CLINICAL HISTORY: 71-year-old female with CAD, history of PCI / OLGA x1 mid LAD on 02/06/2017 in the setting of unstable angina, history of mild mitral valve prolapse with mild MR, borderline diabetes mellitus, history of CVA, history of implantable cafeteria monitor on 06/11/2017. Patient has been experiencing symptoms of chest discomfort. Patient had MPI done on 05/02/2021 which reportedly showed small area of mild reversible ischemia in the apical lateral, mid anterior, anterolateral gustafson with hypokinesis in the apical lateral segment; LVEF 62%. Cardiac catheterization was recommended to re-evaluate coronary anatomy and rule out InStent restenosis. Patient has history of dye allergy, and was pretreated with steroids and diphenhydramine. Benefits and risks of the procedure were discussed with the patient in depth, and informed consent was obtained prior to the procedure. Risks of the procedure include but are not limited to vascular complications including groin hematoma, retroperitoneal bleed, vessel perforation; periprocedural NM, cardiac arrhythmias, stroke, contrast induced nephropathy, and . After discussing all the benefits, risks and alternatives, patient was willing to proceed with the procedure. PROCEDURES PERFORMED: 1. Left heart catheterization- Selective left and right coronary angiogram; left ventriculogram and hemodynamic assessment 2. Selective right common femoral angiogram and deployment of Angio-Seal hemostatic device 3. Moderate sedation-CPT code 45487 MODERATE SEDATION: Midazolam 1 mg; fentanyl 25 mcg; Start time 0926 , Stop time 0938 ; Total [id number] time 14 minutes; Lisbeth Lund RN was trained observer for moderate sedation. ACCESS SITE: Right common femoral artery PROCEDURE NOTE: After obtaining informed consent, patient was brought to catheterization lab and prepped and draped in a usual sterile manner. After local anesthesia with lidocaine, right common femoral artery access was taken with micropuncture needle followed by insertion of a 6 Nigerian sheath. Selective left and right coronary angiogram was performed using 5 Nigerian JL4 and JR4 catheters respectively. Orthogonal views were taken. Five Nigerian JR4 catheter was advanced in the LV cavity and was flushed with normal saline. LV pressure measurement was performed. After this, left ventriculogram was performed using minimal dye. The catheter was flushed again, and gradient across the aortic valve was measured on the pullback of the catheter. Finally, selective right common femoral angiogram was performed followed by successful deployment of Angio-Seal vascular closure device. Patient tolerated procedure well without any immediate procedure related complications. FINDINGS: LEFT MAIN CORONARY: the left main coronary is a large caliber vessel, no significant focal stenosis. The vessel bifurcates into LAD and left circumflex branches. LEFT ANTERIOR DESCENDING ARTERY: The proximal LAD is a medium caliber vessel with minor irregularities. Previously placed stent in the mid segment is patent with minimal irregularities. The LAD tapers distally and becomes a diminutive vessel near LV apex. The major diagonal branch arises in the upper part of the stented segment of the mid LAD and has mild disease in the proximal segment. LEFT CIRCUMFLEX ARTERY: The left circumflex artery is a medium caliber vessel, gives rise to small to medium caliber tortuous OM 1 branch without significant focal stenosis. The main vessel continues in the AV groove. RIGHT CORONARY ARTERY: The right coronary artery is a large caliber, dominant vessel. There is minimal eccentric plaque in the mid segment. The ves
--- NOTE | 2021-05-22 09:50 | SUR.PHASEII ---
S/P [facility] W/ DR. ROBB. RETURNS TO POWER SYSTEM ENGINEER 7 VIA STRETCHER. AWAKE AND ALERT. DENIES PAIN OR SOB. ANGIOSEAL CLOSURE TO R. GROIN PUNCTURE SITE. SITE SOFT, NONTENDER. NO BLEEDING OR HEMATOMA NOTED. GAUZE AND TEGADERM DRESSING TO SITE C/D/I. R. PEDAL PULSE EASILY PALP AT 2+. IVF'S RUNNING ORDERED. REVIEWED POST PROCEDURE BEDREST ACTIVITY RESTRICTIONS AND ORDERS FOR 2 HOURS BEDREST. VOICED UNDERSTANDING. WILL CONTINUE TO MONITOR. TO BEDSIDE.
--- NOTE | 2021-05-22 11:45 | SUR.PHASEII ---
BEDREST X 2 HOURS POST ANGIOSEAL DEPLOYMENT COMPLETE. TOLERATED WELL. UP TO CHAIR AT BEDSIDE. STEADY. NO NEW CHANGES.
--- NOTE | 2021-05-22 13:10 | SUR.PHASEII ---
REVIEWED DISCHARGE INSTRUCTIONS W/ PT./. QUESTIONS ANSWERED. VOICED UNDERSTANDING OF ALL. DISCHARGED HOME, OUT VIA WC TO 'S WAITING CAR W/ ALL PERSONAL BELONGINGS AND DISCHARGE PACKET. NO C/O VOICED. NO DISTRESS NOTED.
== END 2021-05-22 13:10 | disposition home or self-care (01) ==
PROVIDERS: PCP Internal Medicine; Visit Provider Internal Medicine Cardiovascular Disease
PROC: 4A023N7 Measurement of Cardiac Sampling and Pressure, Left Heart, Percutaneous Approach (ICD-10-PCS; CPT 93452; principal; 2021-05-22 08:30)
DX: I25.10 Atherosclerotic heart disease of native coronary artery without angina pectoris (principal); R93.1 Abnormal findings on diagnostic imaging of heart and coronary circulation; R07.9 Chest pain, unspecified; I10 Essential (primary) hypertension; I34.1 Nonrheumatic mitral (valve) prolapse; I34.0 Nonrheumatic mitral (valve) insufficiency; Z95.5 Presence of coronary angioplasty implant and graft; I25.2 Old myocardial infarction; E78.5 Hyperlipidemia, unspecified; K21.9 Gastro-esophageal reflux disease without esophagitis; R73.03 Prediabetes; K58.9 Irritable bowel syndrome, unspecified; Z79.02 Long term (current) use of antithrombotics/antiplatelets; Z79.82 Long term (current) use of aspirin
CPT/HCPCS: 36415; 80048; 85025; 93458; C1760; C1887; C1894; G0269; J1644; J2250; J3010; J7040

== ENCOUNTER 2021-07-19 11:15 | Emergency (ER) | payer MEDICARE, SELFPAY ==
--- NOTE | 2021-07-19 12:11 | ED.GENADULT ---
HPI - General Adult General Chief complaint: Urogenital-Female Stated complaint: uti Source: patient Mode of arrival: ambulatory Limitations: no limitations History of Present Illness HPI narrative: Patient is a 71-year-old female presents to the [facility] via POV for evaluation of urinary symptoms that have been present for approximately 1 week. She reports urinary urgency and low abdominal pressure. She reports visiting her PCP on Tuesday, July 13, 2021 and was diagnosed with a urinary tract infection as evidenced by leukocytes in urinalysis. At that time she was prescribed ciprofloxacin 250 mg tabs: 2 tabs twice daily for 3 days. 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 She reports using a heating pad, increasing water intake, and taking cranberry pills as recommended by her SCREW MACHINE REPAIRER. Nothing worsens symptoms. History of UTIs. Today symptoms are similar to previous UTI symptoms. Related Data Home Medications Medication Instructions Recorded Confirmed amlodipine [Norvasc] 5 mg PO DAILY 12/28/19 07/19/21 aspirin 81 mg PO DAILY 12/28/19 07/19/21 atorvastatin 10 mg PO HS 12/28/19 07/19/21 clopidogrel [Plavix] 75 mg PO DAILY 12/28/19 07/19/21 fluticasone propionate [Flonase 2 spray INTRANASAL DAILY PRN 12/28/19 07/19/21 Allergy Relief] metoprolol tartrate 100 mg PO BID 12/28/19 07/19/21 pantoprazole [Protonix] 40 mg PO QAM 12/28/19 07/19/21 cholecalciferol (vitamin D3) 25 25 mcg PO DAILY 07/06/20 07/13/21 mcg (1,000 unit) capsule famotidine 40 mg tablet 40 mg PO HS 07/06/20 07/19/21 olmesartan [Benicar] 40 mg PO DAILY 08/28/20 07/19/21 nitroglycerin 0.3 mg SUBLINGUAL Q5M PRN 05/21/21 07/19/21 Allergies Allergy/AdvReac Type Severity Reaction Status Date / Time egg Allergy Severe DIFFICULTY Verified 07/19/21 11:52 BEATHING azithromycin Allergy Mild RASH Verified 07/19/21 11:52 erythromycin base Allergy Mild RASH,HIVES Verified 07/19/21 11:52 Penicillins Allergy Mild RASH Verified 07/19/21 11:52 Sulfa (Sulfonamide Allergy Mild RASH Verified 07/19/21 11:52 Antibiotics) trimethoprim Allergy Mild RASH Verified 07/19/21 11:52 sulfite Allergy Unknown Anaphylaxis Verified 07/19/21 11:52 iohexol AdvReac Hives Verified 07/19/21 11:52 [From contrast - CT, X-RAY] Chocolate Allergy Severe DIFFICULTY Uncoded 07/19/21 11:52 BREATHING Review of Systems Review of Systems: Denies history of pyelonephritis and renal calculi. Denies fever, chills, sweats, change in appetite, poor p.o. intake, malaise, recent weight loss, myalgias, lymphadenopathy, headache, dizziness, STD exposure, painful intercourse, abdominal pain, constipation, nausea, vomiting, diarrhea, abdominal cramping, dysuria, hematuria, urinary frequency, back pain, urinary incontinence, vaginal bleeding/discharge, penile drainage, testicular pain, shortness of breath, chest pain, and heart palpitations/murmurs. [facility] Past Medical History Medical History (Updated 07/19/21 @ 12:16 by Jaydon Lu, [facility], ) Acid reflux Cholecystectomy planned Heart attack History of basal cell cancer Hyperlipidemia Hypertension Irritable bowel Migraines Mitral valve disorder Pre-diabetes Stroke Surgical History Surgical History H/O angioplasty H/O dilation and curettage History of cryosurgery Cervical History of removal of cyst Family History Family History Sibling Breast cancer Hypertension Hyperlipidemia Mother Diabetes mellitus Hypertension Social History Social History Smoking status: Never smoker Second hand tobacco smoke exposure: No Alcohol intake: never Substance use: never Substance use type: does not use Additional living arrangements comments: With emmett
== END 2021-07-19 12:33 | disposition home or self-care (01) ==
PROVIDERS: Emergency Provider Nurse Practitioner Family; PCP Internal Medicine
DX: N30.01 Acute cystitis with hematuria (principal); K21.9 Gastro-esophageal reflux disease without esophagitis; I25.2 Old myocardial infarction; E78.5 Hyperlipidemia, unspecified; I10 Essential (primary) hypertension; I34.1 Nonrheumatic mitral (valve) prolapse; R73.03 Prediabetes; Z86.73 Personal history of transient ischemic attack (TIA), and cerebral infarction without residual deficits; Z79.82 Long term (current) use of aspirin
CPT/HCPCS: 81003; 87086; 99213; G0463

== ENCOUNTER → 2021-08-15 07:44 | Outpatient (CLI) | payer MEDICARE, SELFPAY ==
--- NOTE | ~2021-08-15 | US_ITS ---
US retroperitoneal comp 08/15/2021 08:19 Procedure: Complicated UTI Indication: Hematuria Comparison: Ultrasound dated 07/10/2017 Findings: Renal echotexture is normal bilaterally without hydronephrosis, contour deforming mass or r enal calculus. There is right renal atrophy. The right kidney measures 7.4 cm and left kidney measure s 10.2 cm. Bladder within normal limits. Impression: 1: Right renal atrophy. Otherwise, unremarkable renal ultrasound. Reviewed, dictated and finalized at location A. Impression: 1: Right renal atrophy. Otherwise, unremarkable renal ultrasound.
== END ==
PROVIDERS: PCP Internal Medicine; Visit Provider Urology
DX: N39.0 Urinary tract infection, site not specified (principal)
CPT/HCPCS: 76770

== ENCOUNTER → 2021-09-04 15:05 | Outpatient (CLI) | payer MEDICARE, SELFPAY ==
--- NOTE | ~2021-09-04 | MM_ITS ---
EXAMINATION: MM screening [facility] BI w damien HISTORY: Screening mammogram, family history of breast cancer in her sister. TECHNIQUE: Craniocaudal and mediolateral oblique 3-D tomosynthesis images were obtained and synthetic 2-D images were generated. CAD analysis was submitted and interpreted. COMPARISON: 07/11/2020, 06/26/2020, 02/05/2018 BREAST PARENCHYMAL COMPOSITION: There are scattered areas of fibroglandular density. FINDINGS: There is no evidence of suspicious mass, calcification, or architectural distortion to sugg est malignancy in either breast. There has been no suspicious interval change. IMPRESSION: 1. No mammographic evidence of malignancy. 2. Recommend routine screening mammography in one year. BI-RADS Category 1: Negative Reviewed, dictated and finalized at location A.
== END ==
PROVIDERS: PCP Internal Medicine; Visit Provider Obstetrics & Gynecology
DX: Z12.31 Encounter for screening mammogram for malignant neoplasm of breast (principal)
CPT/HCPCS: 77063; 77067

== ENCOUNTER 2021-09-21 14:08 | Emergency (ER) | payer MEDICARE, SELFPAY ==
[2021-09-21 14:34] VITALS: BP 151/58; PULSE 70; RESP 16; TEMP 36.3; O2SAT 98
--- NOTE | 2021-09-21 16:05 | PC.NURSE ---
aware of need for higher level of care. director inpatient headache program to do transfer.
--- NOTE | 2021-09-21 16:24 | ED.GENADULT ---
HPI - General Adult General Chief complaint: Ear Stated complaint: Ear Pain History of Present Illness HPI narrative: Patient is a 71 y/o CF who presents to the [facility] via POV for an evaluation of a left ear injury that occurred today. She reports pulling and drying out left ear canal with her finger after the showering and noticed blood shortly thereafter. Additionally, she repots muffled hearing. She believes she abraded her ear canal with her fingernail. She reports using cotton ball to stop bleeding although this method has been ineffective. She is on plavix. She does not recognize aggravating factors. Related Data Home Medications Medication Instructions Recorded Confirmed amlodipine [Norvasc] 5 mg PO DAILY 12/28/19 07/20/21 aspirin 81 mg PO DAILY 12/28/19 07/20/21 atorvastatin 10 mg PO HS 12/28/19 07/20/21 clopidogrel [Plavix] 75 mg PO DAILY 12/28/19 07/20/21 fluticasone propionate [Flonase 2 spray INTRANASAL DAILY PRN 12/28/19 07/20/21 Allergy Relief] metoprolol tartrate 100 mg PO BID 12/28/19 07/20/21 pantoprazole [Protonix] 40 mg PO QAM 12/28/19 07/20/21 cholecalciferol (vitamin D3) 25 25 mcg PO DAILY 07/06/20 07/20/21 mcg (1,000 unit) capsule famotidine 40 mg tablet 40 mg PO HS 07/06/20 07/20/21 olmesartan [Benicar] 40 mg PO DAILY 08/28/20 07/20/21 nitroglycerin 0.3 mg SUBLINGUAL Q5M PRN 05/21/21 07/20/21 citalopram mg 09/21/21 Allergies Allergy/AdvReac Type Severity Reaction Status Date / Time egg Allergy Severe DIFFICULTY Verified 07/20/21 14:49 BEATHING azithromycin Allergy Mild RASH Verified 07/20/21 14:49 erythromycin base Allergy Mild RASH,HIVES Verified 07/20/21 14:49 Penicillins Allergy Mild RASH Verified 07/20/21 14:49 Sulfa (Sulfonamide Allergy Mild RASH Verified 07/20/21 14:49 Antibiotics) trimethoprim Allergy Mild RASH Verified 07/20/21 14:49 sulfite Allergy Unknown Anaphylaxis Verified 07/20/21 14:49 iohexol AdvReac Hives Verified 07/20/21 14:49 [From contrast - CT, X-RAY] Chocolate Allergy Severe DIFFICULTY Uncoded 07/20/21 14:49 BREATHING Review of Systems Review of Systems: Pertinent negatives fever, chills, sweats, change in appetite, poor p.o. intake, malaise, headache, rhinorrhea, sinus problems, tinnitus, vertigo, lightheadedness, hearing loss, nausea, vomiting, sore throat, cough, shortness of breath, lymphadenopathy, chest pain, heart palpitations, and heart murmur. ENT: Comments: Denies headache, hearing loss, dizziness, tinnitus, and otalgia Cardiovascular: Comments: Denies cp, heart palpitations, and edema Respiratory: Comments: Denies shortness of breath Neurologic: Comments: Denies lack of coordination and abnormal gait Hematologic/Lymphatic: Comments: Denies painful and swollen lymphnodes PMFSH Past Medical History Medical History (Updated 09/22/21 @ 00:00 by Juanjose Dabrent) Acid reflux Cholecystectomy planned Heart attack History of basal cell cancer Hyperlipidemia Hypertension Irritable bowel Migraines Mitral valve disorder Pre-diabetes Stroke Surgical History Surgical History H/O angioplasty H/O dilation and curettage History of cryosurgery Cervical History of removal of cyst Family History Family History Sibling Breast cancer Hypertension Hyperlipidemia Mother Diabetes mellitus Hypertension Social History Social History Smoking status: Never smoker Second hand tobacco smoke exposure: No Alcohol intake: never Substance use: never Substance use type: does not use Additional living arrangements comments: With Gender identity (if verbalized by the patient): Female Sexual Orientation (if Verbalized by the Patient): Straight or Heterosexual Spiritual care concerns: No Exam Narrative: GENERAL: Well-a
== END 2021-09-21 16:18 | disposition left against medical advice (07) ==
PROVIDERS: Emergency Provider Nurse Practitioner Family; PCP Internal Medicine
DX: S09.91XA Unspecified injury of ear, initial encounter (principal); X58.XXXA Exposure to other specified factors, initial encounter; K21.9 Gastro-esophageal reflux disease without esophagitis; I25.2 Old myocardial infarction; E78.5 Hyperlipidemia, unspecified; I10 Essential (primary) hypertension; R73.03 Prediabetes; Z86.73 Personal history of transient ischemic attack (TIA), and cerebral infarction without residual deficits; Z85.828 Personal history of other malignant neoplasm of skin; I34.1 Nonrheumatic mitral (valve) prolapse
CPT/HCPCS: 99212; G0463

== ENCOUNTER → 2022-10-04 12:05 | Outpatient (CLI) | payer MEDICARE, SELFPAY ==
--- NOTE | ~2022-10-04 | MM_ITS ---
EXAMINATION: MM screening [facility] BI w damien HISTORY: Screening TECHNIQUE: Craniocaudal and mediolateral oblique 3-D tomosynthesis images were obtained and synthetic 2-D images were generated. CAD analysis was submitted and interpreted. COMPARISON: Comparison to multiple prior studies sequentially, with oldest reviewed study dated 10/01. BREAST PARENCHYMAL COMPOSITION: There are scattered areas of fibroglandular density. FINDINGS: There is no evidence of suspicious mass, calcification, or architectural distortion to sugg est malignancy in either breast. There has been no suspicious interval change. IMPRESSION: 1. No mammographic evidence of malignancy. 2. Recommend routine screening mammography in one year. BI-RADS Category 1: Negative Reviewed, dictated and finalized at location A.
== END ==
PROVIDERS: PCP Internal Medicine; Visit Provider Student in an Organized Health Care Education/Training Program
DX: Z12.31 Encounter for screening mammogram for malignant neoplasm of breast (principal)
CPT/HCPCS: 77063; 77067

== ENCOUNTER → 2022-11-29 11:08 | Outpatient (CLI) | payer MEDICARE, SELFPAY ==
--- NOTE | ~2022-11-29 | DEXA_ITS ---
Bone Density Report Name: ADRIAN ESQUEDA Age: 72 Sex: Female Ethnicity: White Date of : 1950 Indication: osteopenia; height loss; hysterectomy; postmenopausal Referring Provider: Radha Abdullahi Study: Bone densitometry was performed. Exam Date: November 29, 2022 Accession number: [id number] Bone Density: Region BMD T-score Z-score Classification AP Spine (L1-L4) 0.807 -2.2 0.1 Osteopenia Femoral Neck (Left) 0.661 -1.7 0.3 Osteopenia Total Hip (Left) 0.855 -0.7 0.9 Normal Femoral Neck (Right) 0.701 -1.3 0.6 Osteopenia Total Hip (Right) 0.865 -0.6 1.0 Normal Total Hip Mean 0.860 -0.7 1.0 Normal World Health Organization criteria for BMD impression classify patients as: Normal (T-score at or above -1.0), Osteopenia (T-score between -1.0 and -2.5), or Osteoporosis (T-score at or below -2.5). 10-year Fracture Risk(1): Major Osteoporotic Fracture 11% Hip Fracture 2.0% Reported Risk Factors: [place] (), Neck BMD=0.661, BMI=29.5 (1) FRAX(R) Version 3.08. Fracture probability calculated for an untreated patient. Fracture probability may be lower if the patient has received treatment. Previous Exams: Region Exam Age BMD T-score BMD Change BMD Change Date g/cm2 vs Baseline vs Previous AP Spine(L1-L4) 11/29/2022 72 0.807 -2.2 -0.038* -0.014 02/11/2018 68 0.821 -2.1 -0.024* -0.024* 05/29/2009 59 0.845 -1.8 Total Hip(Left) 11/29/2022 72 0.855 -0.7 -0.010 -0.002 02/11/2018 68 0.857 -0.7 -0.008 -0.008 05/29/2009 59 0.865 -0.6 Total Hip(Right) 11/29/2022 72 0.865 -0.6 -0.042* 0.019 02/11/2018 68 0.845 -0.8 -0.062* -0.062* 05/29/2009 59 0.907 -0.3 *Denotes significance at 95% confidence level, LSC for AP Spine = 0.022 g/cm2, LSC for Total Hip = 0.027 g/cm2 Clinical Information Provided by Patient: Has used the following medications: Vitamin D, MTV Has the following medical conditions: Hysterectomy Patient maximum height was 64.0 Menopause Age: 54 Does not regularly consume dairy products Drinks caffeinated beverages Onset of menses at age 13 Number of children 1 Impression: The patient has low bone mass, based on the Total Spine T-score. The patient has an estimated ten-year risk of hip fracture of 2% and an estimated ten-year risk of major fracture of 11%, based on the WHO FRAX algorithm.
== END ==
PROVIDERS: PCP Internal Medicine; Visit Provider Student in an Organized Health Care Education/Training Program
DX: Z78.0 Asymptomatic menopausal state (principal); M85.88 Other specified disorders of bone density and structure, other site; M85.852 Other specified disorders of bone density and structure, left thigh; M85.851 Other specified disorders of bone density and structure, right thigh
CPT/HCPCS: 77080

== ENCOUNTER 2023-01-09 11:08 | Observation (INO) | payer MEDICARE, SELFPAY ==
[2023-01-09] VITALS (22 sets, daily range): BP systolic 92–149; BP diastolic 39–65; PULSE 56–95; RESP 12–80; TEMP 36.3–36.7; O2SAT 95–100
--- NOTE | ~2023-01-09 | CT_ITS ---
Non-contrast Head CT History: Syncope COMPARISON: 02/20/2021 Technique: Axial non-contrast imaging of the brain was performed. Dose reduction technique was used on this scan by utilizing automated exposure control and iterative reconstruction technique. The dose -length product (DLP) was 605.33 mGy-cm. Findings: There is no evidence of intracranial hemorrhage, mass lesion, or acute infarct. Brain par enchyma appears normal. The ventricles and subarachnoid spaces are normal in size. The calvarium ap pears normal. The visualized paranasal sinuses and mastoid air cells are clear. Impression: No significant abnormality seen. Reviewed, dictated and finalized at [facility]. ICAL TANK WORKER Impression: No significant abnormality seen.
--- NOTE | ~2023-01-09 | US_ITS ---
Procedure: Duplex Doppler examination of the bilateral carotids. Indication: Syncope Technique: Real time, color-flow and pulse wave Doppler examination of the bilateral carotids was performed. Findings: Morrison scale ultrasonography of the right neck demonstrated no significant plaque. There was demonstrat ion of normal color-flow and Doppler waveforms within the right common, internal and external carotid arteries. The peak systolic velocities in the right common, internal and external carotid arteries w ere demonstrated to be 81 cm/sec, 68 cm/sec and 104 cm/sec respectively. The right ICA/CCA ratio was 0.8.The proximal right internal carotid artery demonstrates 0% stenosis relative to the normal distal artery lumen diameter. Morrison scale sonography of the left neck demonstrated no significant plaque. There was demonstration of normal color-flow and wave forms within the left common, internal and external carotid arteries. The peak systolic velocities in the left common, internal and external carotid arteries were demonstrate d to be 87cm/sec, 75 cm/sec and 92 cm/sec respectively. The left ICA/CCA ratio was 0.9. The proximal left internal carotid artery demonstrates 0% stenosis relative to the normal distal artery lumen diam eter. There was antegrade flow demonstrated in the bilateral vertebral arteries. Impression: No hemodynamically significant stenosis of the bilateral internal carotid arteries. Antegrade flow in the bilateral vertebral arteries. Note: The methodology used is an indirect measurement validated against a direct method (such as the NASCET criteria) that compares diameters at the stenosis to the distal ICA. Reviewed, dictated and finalized at location . OSOFT NET DEVELOPER Impression: No hemodynamically significant stenosis of the bilateral internal carotid arter ies. Antegrade flow in the bilateral vertebral arteries. Note: The methodology used is an indirect measurement validated against a direct meth od (such as the NASCET criteria) that compares diameters at the stenosis to the distal ICA.
--- NOTE | ~2023-01-09 | CT_ITS ---
EXAMINATION: CT abdomen pelvis wo con DATE: 01/09/2023 12:51 INDICATION: Abdominal pain TECHNIQUE: Computed tomography (CT) of the abdomen and pelvis was performed without intravenous contr ast. The dose-length product (DLP) was 969.96 mGy-cm. Automated exposure control and iterative recons truction technique were employed. COMPARISON: None FINDINGS: Minimal dependent atelectasis is present in the lung bases. The heart size is normal. There is a small sliding hiatal hernia. The gallbladder is surgically absent. The liver is diffusely low i n attenuation when compared with the spleen, consistent with hepatic steatosis. Punctate calcificatio ns in an otherwise normal spleen likely represent healed granulomatous disease. The pancreas and adre nal glands are normal. The kidneys are unremarkable. No pathologically enlarged abdominal or pelvic l ymph nodes are identified. Colonic diverticulosis is present without evidence of diverticulitis. No f ree intraperitoneal gas or evidence of bowel obstruction. There are fat-containing umbilical and righ t a hemangioma is noted in the T8 vertebral body. Inguinal hernias. IMPRESSION: 1. No CT correlate for the patient's symptoms. Reviewed, dictated and finalized at location L. ICE WORKER HELPER
--- NOTE | ~2023-01-09 | XR_ITS ---
EXAMINATION: XR chest 1V portable DATE: 01/09/2023 12:37 INDICATION: Syncope. TECHNIQUE: A single frontal view of the chest was obtained. COMPARISON: Chest single view 02/20/2021 FINDINGS: There is mild atelectasis in left lower lung zone. No pleural effusion or pneumothorax. The heart size is normal. IMPRESSION: 1. Mild atelectasis in left lower lung zone. Reviewed, dictated and finalized at location A. R OPERATOR AUTOMATIC
--- NOTE | 2023-01-09 11:19 | ECG_ITS ---
Measurements Intervals [place] Rate: 54 P: 57 [place]: 187 QRS: 57 QRSD: 168 T: 10 QT: 477 QTc: 453 Interpretive Statements SINUS BRADYCARDIA RIGHT BUNDLE BRANCH BLOCK [120+ ms QRS DURATION, UPRIGHT V1, 40+ ms S IN I/aVL/V4/V5/V6] COMPARED TO ECG 02/20/2021 17:17:18 SINUS BRADYCARDIA NOW PRESENT Electronically Signed On 01-09-2023 15:46:30 FEATHER SEPARATOR by Jem Olivares M.D.
[2023-01-09 11:20] LABS: Glucose Point of Care 186 mg/dl (65-105)
[2023-01-09 12:02] LABS: Basophils Absolute Auto 0.1 K/mm3 (0.0-0.1); Basophils Percent Auto 0.5 % (0.2-1.2); Eosinophils Absolute Auto 0.1 K/mm3 (0-0.3); Eosinophils Percent Auto 0.7 % (0-4.4); Hemoglobin 13.1 g/dL (12.0-15.0); Immature Granulocyte Absolute 0.13 K/mm3 (0.00-0.031); Immature Granulocyte Percent A 1.2 % (0-0.5); Lymphocytes Absolute Auto 2.06 K/mm3 (0.9-3.2); Lymphocytes Percent Auto 19.3 % (18.3-44.2); Mean Corpuscular HGB Conc 32.8 g/dl (32-36); Mean Corpuscular Hemoglobin 28.9 pg (26-34); Mean Corpuscular Volume 88.1 fl (80-100); Mean Platelet Volume 9.6 fl (7.4-10.4); Monocytes Absolute Auto 0.7 K/mm3 (0.1-0.6); Monocytes Percent Auto 6.7 % (2.6-8.5); Neutrophils Absolute Auto 7.7 K/mm3 (1.3-6.7); Neutrophils Percent Auto 71.6 % (45.5-73.1); Platelet Count Result 247 k/mm3 (150-375); Red Blood Count 4.54 M/mm3 (4.2-5.4); Red Cell Distribution Width 12.9 % (11.5-14.5); White Blood Count 10.7 K/mm3 (4.5-10.0)
[2023-01-09 12:12] LABS: Alanine Aminotransferase 24 U/L (6-35); Albumin Level 4.4 g/dL (3.5-5.1); Alkaline Phosphatase 115 U/L (38-126); Anion Gap 7 mmol/L (8-16); Aspartate Amino Transferase 24 U/L (14-36); Bilirubin,Total 0.7 mg/dL (0.2-1.3); Blood Urea Nitrogen 21 mg/dL (7-17); Calcium 9.3 mg/dL (8.4-10.2); Carbon Dioxide 27 mmol/L (22-30); Chloride 102 mmol/L (98-107); Estimated CRCL calculation 35 ml/min; Estimated Glomerular Filt Rate 40; Glucose 160 mg/dL (65-110); Sodium 136 mmol/L (137-145)
--- NOTE | 2023-01-09 12:13 | ED.GENADULT ---
HPI - General Adult General Chief complaint: Syncope Stated complaint: SYNCOPAL X 2 Time Seen by Provider: 01/09/23 12:03 Source: RN notes reviewed History of Present Illness HPI narrative: Patient presents emergency department from home via EMS for syncope. Patient states that this morning she was walking when she began to feel lightheaded and dizzy she states she sat down at that time then suffered a syncopal episode per the patient's . The patient then regained consciousness and EMS was called and the patient had a second syncopal episode in route by EMS. Patient currently is laying in bed states she feels cold. States that she did not feel well yesterday and had general abdominal pain described as cramping as well as a mild generalized headache. States the headache was improved today but still continue to have the abdominal pain and subsequently had an episode of diarrhea when she arrived to the emergency department she states that she has had no measured fevers or chills she denies any chest pain shortness of breath cough or vomiting states she has been feeling nauseous. states that the patient was sitting down when she had the syncopal episode and did not fall or strike her Related Data Home Medications Medication Instructions Recorded Confirmed amlodipine 5 mg tablet (Norvasc) 10 mg PO DAILY 12/28/19 01/09/23 aspirin 81 mg chewable tablet 81 mg PO DAILY 12/28/19 01/09/23 atorvastatin 10 mg tablet 40 mg PO HS 12/28/19 01/09/23 clopidogrel 75 mg tablet (Plavix) 75 mg PO DAILY 12/28/19 01/09/23 pantoprazole 40 mg tablet,delayed 40 mg PO QAM 12/28/19 01/09/23 release (Protonix) cholecalciferol (vitamin D3) 25 25 mcg PO DAILY 07/06/20 01/09/23 mcg (1,000 unit) capsule famotidine 40 mg tablet 40 mg PO HS 07/06/20 01/09/23 olmesartan 40 mg tablet (Benicar) 40 mg PO DAILY 08/28/20 01/09/23 nitroglycerin 0.3 mg sublingual 4 mg sublingual Q5M PRN Chest Pain 05/21/21 01/09/23 tablet lactobacillus combination no.9 4 4,000 mmu cells PO DAILY 08/01/22 01/09/23 billion cell capsule (Adult 50 Plus Probiotic) vitamin B comp and C no.3 15 mg-10 1 cap PO DAILY 08/01/22 01/09/23 mg-50 mg-5 mg-300 mg capsule (B Complex Plus Vitamin C) metoprolol succinate 50 mg 50 mg PO DAILY 01/09/23 01/09/23 tablet,extended release 24 hr Allergies Allergy/AdvReac Type Severity Reaction Status Date / Time egg Allergy Severe DIFFICULTY Verified 01/09/23 16:16 BEATHING azithromycin Allergy Mild RASH Verified 01/09/23 16:16 erythromycin base Allergy Mild RASH,HIVES Verified 01/09/23 16:16 Penicillins Allergy Mild RASH Verified 01/09/23 16:16 Sulfa (Sulfonamide Allergy Mild RASH Verified 01/09/23 16:16 Antibiotics) trimethoprim Allergy Mild RASH Verified 01/09/23 16:16 sulfite Allergy Unknown Anaphylaxis Verified 01/09/23 16:16 iohexol AdvReac Hives Verified 01/09/23 16:16 [From contrast - CT, X-RAY] Chocolate Allergy Severe DIFFICULTY Uncoded 01/09/23 16:16 BREATHING Review of Systems Review of Systems: Gen.: Denies fevers or chills Eyes: Denies eye pain or visual change ENT: Denies congestion Respiratory: Denies shortness of breath or cough CV: Denies chest pain or syncope GI: See HPI Musculoskeletal: Denies back pain or muscle pain Neuro: Ports headache yesterday none today reports loss of consciousness Skin: Denies rash Except as documented, all other systems reviewed and negative PMFSH Past Medical History Medical History (Updated 01/09/23 @ 17:12 by Theron Pérez DO) Acid reflux Cholecystectomy planned Heart attack History of basal cell cancer Hyperlipidemia Hypertension Irritable bowel Migraines Mitral valve disorder Pre-diabetes Stroke Surgical History Surgical History H/O angioplasty H/O dilation and curettage History of cryosurgery Cervical History of removal of cyst Family History Family History (Revie
[2023-01-09] MEDS: SODIUM CHLORIDE 0.9% IV 1,000 ML 999 ML IV CONT (12:28)
[2023-01-09 12:33] LABS: Lipase 44 U/L (23-300); Magnesium 2.1 mg/dL (1.6-2.3)
[2023-01-09 12:35] LABS: Appearance Urine Slightly Cloudy (Clear); Bilirubin Urine 3+ (Negative); Blood Urine Negative (Negative); Color Urine Amber (Yellow); Glucose Urine UA Negative (Negative); Ketones Urine 1+ mg/dL (Negative); Leukocyte Esterase Ur Negative LEU/UL (Negative); Nitrate Urine Negative (Negative); Protein Urine 2+ mg/dL (Negative); Specific Grav Ur >= 1.030 (1.001-1.035)
[2023-01-09 12:39] LABS: Partial Thromboplastin Time 27.8 SECONDS (22.3-36.8)
[2023-01-09 12:45] LABS: Troponin I < 0.012 ng/mL (0.000-0.034)
[2023-01-09 12:48] LABS: Add Urine Microscopic? YES; Bacteria Urine 1+ /hpf; Calcium Oxalate Crystals Urine Many /hpf; Hyaline Casts Urine 20-29 /lpf; Mucus Urine Heavy /lpf; Squamous Epithelial Cell Urine Many /hpf (Few); WBC Urine 16-20 /hpf
[2023-01-09] MEDS: ONDANSETRON INJ 4 MG/2 ML VIAL IV PUSH (12:57)
[2023-01-09 12:59] LABS: Influenza A QL RT-PCR Negative (Negative); Influenza B QL RT-PCR Negative (Negative); RSV RNA, RT-PCR Negative (Negative); SARS-CoV-2 RNA PCR Negative
[2023-01-09 13:29] LABS: Lactic Acid Reflex 1.6 mmol/L (0.7-2.0)
[2023-01-09] MEDS: SODIUM CHLORIDE 0.9% IV 1,000 ML 125 ML IV CONT ×2 (14:18→20:23)
--- NOTE | 2023-01-09 15:53 | ADMGEN ---
This patient, Emely Womack, was admitted to Medical Room 248-01. Patient/family oriented to hospital policies and general routines including ID bracelet, bed and alarms, visiting hours, pain management, procedures, bathroom and other care routines, personal items, smoking policy, room service/diet, and visiting hours. Information on how to activate the Rapid Response Team has been discussed. Patient/Family are encouraged to report perceived risks to care and to ask questions if they do not understand what they are told or what they should do.
[2023-01-09 17:05] LABS: Troponin I < 0.012 ng/mL (0.000-0.034)
[2023-01-09 20:23] LABS: Troponin I < 0.012 ng/mL (0.000-0.034)
--- NOTE | 2023-01-09 21:00 | PM.IMHP ---
H&P: HPI History of Present Illness Date/Time: 01/09/23 21:00 Chief Complaint: Syncope x2. Narrative: This is a very pleasant 72-year-old female with coronary artery disease and history of stent, hypertension, dyslipidemia, mitral valve prolapse, and GERD who presented to the emergency department via EMS for evaluation of syncope x2. Patient provides the following history. She did not feel well yesterday and reports that she had mild, generalized lower abdominal discomfort, nausea,, poor oral intake, and a few loose stools but nothing significant. She also had a bit of a headache and she rested most of the day and had very little in the way of oral intake. She felt better this morning and she and her went to visit friends. While at their home she stood up and began to feel dizzy and lightheaded so she sat down immediately however did have a brief loss of consciousness. EMS was summoned and when they were transferring her to the stretcher she apparently had another brief episode where she lost consciousness. Blood pressures were in the 90s over 40s in the emergency department and they have responded to IV fluids. Her BUN and creatinine are elevated from baseline and her urine was positive for ketones and hyaline casts. She is being admitted in this setting for IV fluid rehydration. She is feeling better at the time my evaluation and has gotten up to the bathroom without any weakness. She denies fever but she did has some chills done in the emergency department. She continues to have a mild, diffuse headache though she goes on to say it is not unusual for her to have headaches. Her nose has been a bit runny but she denies sinus congestion, sore throat, and cough. She has not had sick contacts. He tested negative for influenza and COVID in the emergency department. She has not been having any chest pain, palpitations, or sensations of racing heart. No pleuritic pain. Review of Systems Review of Systems: Twelve systems were reviewed and are negative except for as per HPI. [facility] Past Medical History Medical History Acid reflux History of basal cell cancer Hyperlipidemia Hypertension Irritable bowel Migraines Mitral valve disorder Pre-diabetes Recurrent urinary tract infection Stroke Surgical History Surgical History H/O angioplasty H/O dilation and curettage History of cryosurgery Cervical History of removal of cyst Family History Family History Sibling Breast cancer Hypertension Hyperlipidemia Mother Diabetes mellitus Hypertension Social History Social History (Updated 01/11/23 @ 00:27 by Allyson Alfonso PA-C) Smoking status: Never smoker Second hand tobacco smoke exposure: No Alcohol intake: never Substance use: never Substance use type: does not use Lack of Transportation: No Lack of Food: Never True Current Housing: I Have Housing Concerned About Future Housing: No Difficulty Paying Gas/Electric Bills: No Difficulty Paying for Meds: No Currently Unemployed: No Education: Associate Degree Difficulty w/ Childcare or Family Care: No Living arrangements: with family Additional living arrangements comments: With Spiritual care concerns: No Meds Home Medications and Allergies Home Medications Medication Instructions Recorded Confirmed Type amlodipine 5 mg tablet (Norvasc) 10 mg PO DAILY 12/28/19 01/09/23 History aspirin 81 mg chewable tablet 81 mg PO DAILY 12/28/19 01/09/23 History atorvastatin 10 mg tablet 40 mg PO HS 12/28/19 01/09/23 History clopidogrel 75 mg tablet (Plavix) 75 mg PO DAILY 12/28/19 01/09/23 History pantoprazole 40 mg tablet,delayed 40 mg PO QAM 12/28/19 01/09/23 History release (Protonix) cholecalciferol (vitamin D3) 25 25 mcg PO DAILY 07/06/20 01/09/23 Histor
[2023-01-10] VITALS (10 sets, daily range): BP systolic 132–145; BP diastolic 50–72; PULSE 47–114; RESP 14–17; TEMP 36.3–37.1; O2SAT 99–100
[2023-01-10] MEDS: ATORVASTATIN 40 MG TABLET PO (00:24)
[2023-01-10] MEDS: FAMOTIDINE 20 MG TABLET 40 MG PO (00:24)
[2023-01-10] MEDS: SODIUM CHLORIDE 0.9% IV 1,000 ML 125 ML IV CONT ×2 (04:31→12:38)
[2023-01-10 05:39] LABS: Alanine Aminotransferase 22 U/L (6-35); Albumin Level 3.9 g/dL (3.5-5.1); Alkaline Phosphatase 107 U/L (38-126); Anion Gap 6 mmol/L (8-16); Aspartate Amino Transferase 20 U/L (14-36); Bilirubin,Total 0.6 mg/dL (0.2-1.3); Blood Urea Nitrogen 10 mg/dL (7-17); Calcium 8.8 mg/dL (8.4-10.2); Carbon Dioxide 25 mmol/L (22-30); Chloride 108 mmol/L (98-107); Estimated CRCL calculation 55 ml/min; Estimated Glomerular Filt Rate > 60; Glucose 128 mg/dL (65-110); Potassium 4.1 mmol/L (3.4-5.0); Sodium 139 mmol/L (137-145)
[2023-01-10 05:40] LABS: Basophils Percent Auto 0.4 % (0.2-1.2); Eosinophils Percent Auto 0.3 % (0-4.4); Hematocrit 39.9 % (37.0-47.0); Hemoglobin 12.7 g/dL (12.0-15.0); Immature Granulocyte Absolute 0.06 K/mm3 (0.00-0.031); Immature Granulocyte Percent A 0.7 % (0-0.5); Lymphocytes Absolute Auto 1.61 K/mm3 (0.9-3.2); Lymphocytes Percent Auto 17.9 % (18.3-44.2); Mean Corpuscular HGB Conc 31.8 g/dl (32-36); Mean Corpuscular Hemoglobin 29.1 pg (26-34); Mean Corpuscular Volume 91.5 fl (80-100); Mean Platelet Volume 9.5 fl (7.4-10.4); Monocytes Absolute Auto 0.6 K/mm3 (0.1-0.6); Monocytes Percent Auto 6.6 % (2.6-8.5); Neutrophils Absolute Auto 6.7 K/mm3 (1.3-6.7); Neutrophils Percent Auto 74.1 % (45.5-73.1); Platelet Count Result 221 k/mm3 (150-375); Red Blood Count 4.36 M/mm3 (4.2-5.4)
[2023-01-10 05:46] LABS: Magnesium 2.2 mg/dL (1.6-2.3)
[2023-01-10] MEDS: ASPIRIN 81 MG CHEWABLE TABLET PO (08:20)
[2023-01-10] MEDS: VITAMIN B COMPLEX/VIT C CAPSULE 1 EACH PO (08:21)
[2023-01-10] MEDS: CLOPIDOGREL BISULFATE 75 MG TABLET PO (08:21)
[2023-01-10] MEDS: ACIDOPHILUS/BULGARICUS CHEWABLE TABLET 2 TABLET BY MOUTH (08:21)
[2023-01-10] MEDS: CHOLECALCIFEROL 1,000 UNITS TABLET 1000 UNITS PO (08:21)
[2023-01-10] MEDS: PANTOPRAZOLE 40 MG TABLET PO (08:22)
[2023-01-10] MEDS: METOPROLOL SUCCINATE EXT REL 50 MG TABCR PO (08:24)
--- NOTE | 2023-01-10 15:19 | PM.DS ---
DS: Admitting Diagnosis Discharge Date 01/10/2023 1520 Admitting Diagnosis Syncope Hypotension, unspecified Acute kidney failure, unspecified DS: Discharge Diagnosis Discharge Diagnosis (1) Syncope: Qualifiers: Syncope type: unspecified Qualified Code(s): R55 - Syncope and collapse Code(s): R55 - Syncope and collapse Status: Acute (2) Hypotension: Qualifiers: Hypotension type: orthostatic hypotension Qualified Code(s): I95.1 - Orthostatic hypotension Code(s): I95.9 - Hypotension, unspecified Status: Acute (3) Acute kidney injury: Code(s): N17.9 - Acute kidney failure, unspecified Status: Acute (4) Gastroenteritis: Code(s): K52.9 - Noninfective gastroenteritis and colitis, unspecified Status: Acute DS: Summary Hospital Course Reason for hospitalization: Syncope x2 Hospital Course: Emely Menchaca is a 72-year-old female with coronary artery disease and history of stent, hypertension, dyslipidemia, mitral valve prolapse, and GERD who presented to the emergency department via EMS for evaluation of syncope x2. She reported no feeling well the day prior to admission and had mild, generalized lower abdominal discomfort, nausea, poor oral intake, and a few loose stools. She also reported a mild headache. She felt better on the day of admission and she and her went to visit friends. While at their home, she stood up and began to feel dizzy and lightheaded so she sat down immediately, however she did have a brief loss of consciousness. EMS was summoned and when they were transferring her to the stretcher she apparently had another brief episode where she lost consciousness. Blood pressures were in the 90s/40s in the emergency department and they have responded to IV fluids. Her BUN and creatinine are elevated from baseline and her urine was positive for ketones and hyaline casts. She is being admitted in this setting for IV fluid rehydration. She denied fever, sinus congestion, sore throat, and cough.? She denied sick contacts.? He tested negative for influenza and COVID in the emergency department. She has not been having any chest pain, palpitations, or sensations of racing heart. No pleuritic pain. She was admitted to the medical floor and monitored on telemetry. She was noted to have SR with frequent PVCs, but was not symptomatic at the time. Potassium was 4.1 and magnesium was 2.2. She was continued on beta-everette therapy. Orthostatic vitals were negative after IV fluid resuscitation. Her abdominal pain and diarrhea resolved. WBC was normal. Her diet was advanced and she tolerated it well. She denied dizziness and reported improvement in weakness. Urine culture was negative for acute infection. Carotid US showed <50% stenosis right and left ICA. Echo showed grade 1 diastolic dysfunction and mitral valve prolapse with mild mitral regurgitation. She reported improvement in symptoms and was discharged home in stable condition. Status at Discharge Cognitive/behavioral status at discharge: Alert and oriented x4, baseline. Functional status at discharge: independent ambulation Overall status at discharge: patient is back to baseline Time Spent with Patient Time attestation: Total time spent providing and/or coordinating discharge services: Time spent: Greater than 30 minutes Exam Narrative: General: Well-developed, nontoxic-appearing female supine in bed. Temp 98.7F, HR 81, RR 14, BP 132/61, spO2 99%room air, BMI: 30.5. HEENT: Normocephalic. PERRL, EOMI. Sclera anicteric. Moist mucous membranes. Neck: Supple. No carotid bruits. thyroid without nodularity. Respiratory: Lungs are clear to auscultation bilaterally. RR unlabored. Cardiovascular: Regular rate and rhythm with S1-S2. No murmur Gastrointestinal: Abdomen is soft, nontender, and nondistended with positive bowel sounds. Skin: Warm and dry. No rash or lesions on limited exam. Extremities: N
--- NOTE | 2023-01-10 23:28 | ECHO_ITS ---
Patient Info Name: Emely Womack Age: 72 years : 1950 Gender: Female Ht: 63 in Wt: 171 lbs BSA: 1.88 m2 HR: 47 bpm BP: 136 / 50 mmHg Heart Rhythm: Sinus Rhythm Technical Quality: Fair Exam Date: 01/10/2023 9:19 AM Exam Location: [facility] Card Pulmonary Patient Status: Inpatient Admit Date: 01/09/2023 Staff Ordering Physician: Allyson Alfonso PA-C Traffic Control Officer: Meka Plascencia RDCS Attending Provider: Guillermo Choi MD Referring Physician: Naty GAINES; Exam Type: CA echo doppler color flow Study Info Indications - htn - coronary artery disease, R55 - Syncope and collapse Complete two-dimensional, color flow and Doppler transthoracic echocardiogram is performed. Summary 1. Complete two-dimensional, color flow and Doppler transthoracic echocardiogram is performed. 2. Normal left ventricular size, sigmoid hypertrophy of the septum of the elderly. 3. Vigorous systolic function and grade 1 diastolic noncompliance. 4. Modest left atrial enlargement. 5. Mild bileaflet mitral valve prolapse with trivial MR. Left Ventricle Left ventricular chamber dimension is normal. Left ventricular systolic function is normal, estimated at 65-70%. There is mild concentric increased left ventricular wall thickness. The left ventricular diastolic function is grade I diastolic dysfunction. Right Ventricle Right ventricular chamber dimension is normal. Left Atria Left atrial chamber dimension is mildly enlarged. Right Atria Right atrial chamber dimension is normal. Aortic Valve The aortic valve is trileaflet. There is mild aortic valve sclerosis. Pulmonic Valve The pulmonic valve is normal. Mitral Valve The mitral valve has normal leaflets and bileaflet prolapse. There is trace mitral valve regurgitation. Tricuspid Valve The tricuspid valve leaflets are normal. Pericardium/Pleural The pericardium appears normal. Aorta The aortic root size at the sinus of Valsalva is normal. Left Ventricular Outflow Tract Name Value Normal LVOT 2D LVOT Diameter 2.0 cm LVOT Doppler LVOT Peak Gradient 3 mmHg LVOT Mean Gradient 1 mmHg LVOT VTI 23 cm LVOT VTI/AV VTI Ratio 0.7 LVOT Stroke Volume 71 ml LVOT CO 6.2 l/min LVOT CI 3.3 l/min/m2 Pulmonic Valve Name Value Normal RVOT Doppler RVOT Peak Gradient 2 mmHg PV Doppler PV Peak Gradient 4 mmHg Mitral Valve Name Value Normal
== END 2023-01-10 16:10 | disposition home or self-care (01) ==
LOC: ANHED 12:25 → ANH2MED 15:40
PROVIDERS: Emergency Medicine; Physician Assistant; Admitting Provider Internal Medicine; Emergency Provider Emergency Medicine; PCP Internal Medicine; Visit Provider Student in an Organized Health Care Education/Training Program
DX: R55 Syncope and collapse (principal); I95.9 Hypotension, unspecified; N17.9 Acute kidney failure, unspecified; K52.9 Noninfective gastroenteritis and colitis, unspecified; R42 Dizziness and giddiness; R10.9 Unspecified abdominal pain; R11.0 Nausea; K21.9 Gastro-esophageal reflux disease without esophagitis; Z20.822 Contact with and (suspected) exposure to COVID-19; I25.2 Old myocardial infarction; I25.10 Atherosclerotic heart disease of native coronary artery without angina pectoris; Z95.5 Presence of coronary angioplasty implant and graft; R00.1 Bradycardia, unspecified; I45.10 Unspecified right bundle-branch block; E78.5 Hyperlipidemia, unspecified; J98.11 Atelectasis; I10 Essential (primary) hypertension; I05.9 Rheumatic mitral valve disease, unspecified; Z86.73 Personal history of transient ischemic attack (TIA), and cerebral infarction without residual deficits; Z79.02 Long term (current) use of antithrombotics/antiplatelets; Z79.82 Long term (current) use of aspirin; Z79.899 Other long term (current) drug therapy; Z83.438 Family history of other disorder of lipoprotein metabolism and other lipidemia; Z82.49 Family history of ischemic heart disease and other diseases of the circulatory system
CPT/HCPCS: 36415; 70450; 71045; 74176; 80053; 81001; 82948; 83605; 83690; 83735; 84443; 84484; 85025; 85610; 85730; 87086; 87088; 87637; 93005; 93306; 93880; 96361; 96374; 97161; 97165; 99285; A9270; G0378; J2405; J7030

== ENCOUNTER 2023-04-15 10:58 | Emergency (ER) | payer MEDICARE, SELFPAY ==
[2023-04-15 11:04] VITALS: BP 128/63; PULSE 102; RESP 18; TEMP 36.8; O2SAT 100
--- NOTE | 2023-04-15 11:09 | ED.GENADULT ---
HPI - General Adult General Chief complaint: Upper Respiratory Infection Stated complaint: Sore Throat/Ears Irritation Time Seen by Provider: 04/15/23 11:10 Source: patient, RN notes reviewed and old records reviewed Mode of arrival: ambulatory Limitations: no limitations History of Present Illness HPI narrative: 73-year-old female presents to the [facility] with complaints of a sore throat, sinus congestion, ear pressure for 2 days. Had taking Claritin yesterday. Has been using throat drops. Reports taking 2 COVID test yesterday as well as wants morning which she reports as negative. Onset (ago): day(s) (2) Related Data Home Medications Medication Instructions Recorded Confirmed amlodipine 5 mg tablet (Norvasc) 10 mg PO DAILY 12/28/19 04/15/23 atorvastatin 10 mg tablet 40 mg PO HS 12/28/19 04/15/23 clopidogrel 75 mg tablet (Plavix) 75 mg PO DAILY 12/28/19 04/15/23 pantoprazole 40 mg tablet,delayed 40 mg PO QAM 12/28/19 04/15/23 release (Protonix) cholecalciferol (vitamin D3) 25 25 mcg PO DAILY 07/06/20 04/15/23 mcg (1,000 unit) capsule famotidine 40 mg tablet 40 mg PO HS 07/06/20 04/15/23 olmesartan 40 mg tablet (Benicar) 40 mg PO DAILY 08/28/20 04/15/23 nitroglycerin 0.3 mg sublingual 4 mg sublingual Q5M PRN Chest Pain 05/21/21 04/15/23 tablet lactobacillus combination no.9 4 4,000 mmu cells PO DAILY 08/01/22 04/15/23 billion cell capsule (Adult 50 Plus Probiotic) vitamin B comp and C no.3 15 mg-10 1 cap PO DAILY 08/01/22 04/15/23 mg-50 mg-5 mg-300 mg capsule (B Complex Plus Vitamin C) metoprolol succinate 50 mg 50 mg PO DAILY 01/09/23 04/15/23 tablet,extended release 24 hr Allergies Allergy/AdvReac Type Severity Reaction Status Date / Time egg Allergy Severe DIFFICULTY Verified 01/09/23 16:16 BEATHING azithromycin Allergy Mild RASH Verified 01/09/23 16:16 erythromycin base Allergy Mild RASH,HIVES Verified 01/09/23 16:16 Penicillins Allergy Mild RASH Verified 01/09/23 16:16 Sulfa (Sulfonamide Allergy Mild RASH Verified 01/09/23 16:16 Antibiotics) trimethoprim Allergy Mild RASH Verified 01/09/23 16:16 sulfite Allergy Unknown Anaphylaxis Verified 01/09/23 16:16 iohexol AdvReac Hives Verified 01/09/23 16:16 [From contrast - CT, X-RAY] Chocolate Allergy Severe DIFFICULTY Uncoded 01/09/23 16:16 BREATHING Review of Systems Review of Systems: All systems reviewed & are unremarkable except as noted in HPI and below Constitutional: Constitutional: Reports no additional constitutional complaints Eyes: Eyes: Reports no additional eye complaints ENT: Reports as per HPI Cardiovascular: Cardiovascular: Reports no additional cardiovascular complaints, Denies chest pain and Denies dyspnea Respiratory: Respiratory: Reports no additional respiratory complaints, Denies chest congestion, Denies cough and Denies dyspnea Gastrointestinal: Gastrointestinal: Reports no additional gastrointestinal complaints, Denies abdominal pain, Denies nausea and Denies vomiting Musculoskeletal: Musculoskeletal: Reports no additional musculoskeletal complaints Integumentary/Breasts: Skin/Breast: Reports system reviewed and no additional complaints, except as docu Neurologic: Reports system reviewed and no additional complaints, except as documented Psychiatric: Psychiatric: Reports no additional psychiatric complaints Allergic/Immunologic: Allergic/Immunologic: Reports no additional allergic/immunologic complaints [facility] Past Medical History Medical History Acid reflux History of basal cell cancer Hyperlipidemia Hypertension Irritable bowel Migraines Mitral valve disorder Pre-diabetes Recurrent urinary tract infection Stroke Surgical History Surgical History H/O angioplasty H/O dilation and curettage History of cryosurgery Cervical History of removal of cyst Family History F
== END 2023-04-15 11:34 | disposition home or self-care (01) ==
PROVIDERS: Emergency Provider Nurse Practitioner; PCP Internal Medicine
DX: J06.9 Acute upper respiratory infection, unspecified (principal); K21.9 Gastro-esophageal reflux disease without esophagitis; E78.5 Hyperlipidemia, unspecified; I10 Essential (primary) hypertension; I34.1 Nonrheumatic mitral (valve) prolapse; R73.03 Prediabetes; Z86.73 Personal history of transient ischemic attack (TIA), and cerebral infarction without residual deficits
CPT/HCPCS: 87081; 87880; 99213; G0463

== ENCOUNTER → 2024-01-20 13:16 | Outpatient (CLI) | payer MEDICARE, SELFPAY ==
--- NOTE | ~2024-01-20 | MM_ITS ---
EXAMINATION: MM screening [facility] BI w damien HISTORY: Screening TECHNIQUE: Craniocaudal and mediolateral oblique 3-D tomosynthesis images were obtained and synthetic 2-D images were generated. CAD analysis was submitted and interpreted. COMPARISON: Comparison to multiple prior studies sequentially, with oldest reviewed study dated 10/31. BREAST PARENCHYMAL COMPOSITION: Not dense: There are scattered areas of fibroglandular density. FINDINGS: Stable benign appearing bilateral breast masses, previously characterized as cysts. There i s no evidence of suspicious mass, calcification, or architectural distortion to suggest malignancy in either breast. There has been no suspicious interval change. IMPRESSION: 1. No mammographic evidence of malignancy. 2. Recommend routine screening mammography in one year. BI-RADS Category 2: Benign finding(s). Reviewed, dictated and finalized at location A. N RESOURCE MANAGEMENT INSTRUCTOR
== END ==
PROVIDERS: PCP Internal Medicine; Visit Provider Registered Nurse
DX: Z12.31 Encounter for screening mammogram for malignant neoplasm of breast (principal)
CPT/HCPCS: 77063; 77067

== ENCOUNTER 2024-02-13 01:35 | Emergency (ER) | payer MEDICARE, SELFPAY ==
--- NOTE | ~2024-02-13 | CT_ITS ---
NAME: Emely Womack DATE OF : 50 EXAMINATION: CT ABDPEL WO DATE: 02/13/2024 at 2:29 AM INDICATION: Abdominal pain. Nausea and vomiting. TECHNIQUE: Computed tomography (CT) of the abdomen and pelvis was performed without intravenous contr ast. Automated exposure control and iterative reconstruction technique were employed. The dose-length product was 524 mGy-cm. COMPARISON: CT abdomen and pelvis 01/09/2023 FINDINGS: The visualized portions of the lung bases demonstrate mild atelectasis. No pleural effusion . Cardiomegaly is noted. No pericardial effusion. There are coronary artery calcifications. There is a small sliding hiatal hernia. There is diffuse hepatic steatosis. There are changes of cholecystecto my. Calcifications in the spleen are consistent with old granulomatous disease. The pancreas, adrenal glands, and kidneys are normal. There is no urolithiasis. There is a right inguinal hernia containin g fat. There is diverticulosis of the colon without evidence of diverticulitis. The appendix is tyrese l. There are no pathologically enlarged lymph nodes. There is no free intraperitoneal fluid. There is mild aortic atherosclerosis. There is mild thoracic and lumbar spondylosis. There is a hemangioma in T8 vertebral body. IMPRESSION: 1. Small sliding hiatal hernia. 2. Diffuse hepatic steatosis. 3. Right inguinal hernia containing fat. Reviewed, dictated and finalized at location A.
--- NOTE | 2024-02-13 04:22 | ED.GENADULT ---
HPI - General Adult General Chief complaint: Nausea/Vomiting/Diarrhea History of Present Illness HPI narrative: this is a 74-year-old female presenting ED with sudden onset of dizziness and diarrhea. Patient says she has been having trouble sleeping so she took a trazodone. Hour and half later she developed sudden onset of dizziness, Nausea, vomiting, diaphoresis and diarrhea. No hives. No wheezing or swelling. Patient has taken trazodone past without allergic reaction. EMS was called and she was brought to the hospital. patient also knows she has some left lower quadrant abdominal pain. She denies fevers chest pain or shortness breath. No urinary symptoms. Related Data Home Medications Medication Instructions Recorded Confirmed amlodipine 5 mg tablet (Norvasc) 10 mg PO DAILY 12/28/19 04/15/23 atorvastatin 10 mg tablet 40 mg PO HS 12/28/19 04/15/23 clopidogrel 75 mg tablet (Plavix) 75 mg PO DAILY 12/28/19 04/15/23 pantoprazole 40 mg tablet,delayed 40 mg PO QAM 12/28/19 04/15/23 release (Protonix) cholecalciferol (vitamin D3) 25 25 mcg PO DAILY 07/06/20 04/15/23 mcg (1,000 unit) capsule famotidine 40 mg tablet 40 mg PO HS 07/06/20 04/15/23 olmesartan 40 mg tablet (Benicar) 40 mg PO DAILY 08/28/20 04/15/23 nitroglycerin 0.3 mg sublingual 4 mg sublingual Q5M PRN Chest Pain 05/21/21 04/15/23 tablet lactobacillus combination no.9 4 4,000 mmu cells PO DAILY 08/01/22 04/15/23 billion cell capsule (Adult 50 Plus Probiotic) vitamin B comp and C no.3 15 mg-10 1 cap PO DAILY 08/01/22 04/15/23 mg-50 mg-5 mg-300 mg capsule (B Complex Plus Vitamin C) metoprolol succinate 50 mg 50 mg PO DAILY 01/09/23 04/15/23 tablet,extended release 24 hr Allergies Allergy/AdvReac Type Severity Reaction Status Date / Time egg Allergy Severe DIFFICULTY Verified 09/22/23 08:03 BEATHING azithromycin Allergy Mild RASH Verified 09/22/23 08:03 erythromycin base Allergy Mild RASH,HIVES Verified 09/22/23 08:03 Penicillins Allergy Mild RASH Verified 09/22/23 08:03 Sulfa (Sulfonamide Allergy Mild RASH Verified 09/22/23 08:03 Antibiotics) trimethoprim Allergy Mild RASH Verified 09/22/23 08:03 sulfite Allergy Unknown Anaphylaxis Verified 09/22/23 08:03 trazodone Allergy Anaphylaxis Verified 02/13/24 06:24 iohexol AdvReac Hives Verified 09/22/23 08:03 [From contrast - CT, X-RAY] Chocolate Allergy Severe DIFFICULTY Uncoded 09/22/23 08:03 BREATHING PMFSH Past Medical History Medical History (Updated 02/13/24 @ 06:24 by Emeka Rush MD) Acid reflux Allergies CAD (coronary artery disease) History of basal cell cancer Hyperlipidemia Hypertension Irritable bowel Migraines Mitral valve disorder Pre-diabetes Recurrent urinary tract infection Stroke Surgical History Surgical History (Updated 09/22/23 @ 08:06 by Beena Roy CMA) H/O angioplasty H/O dilation and curettage H/O: hysterectomy History of cholecystectomy History of cryosurgery Cervical History of removal of cyst Family History Family History Sibling Breast cancer Hypertension Hyperlipidemia Mother Diabetes mellitus Hypertension Heart disease Father Heart disease Grandparent Diabetes mellitus Social History Social History Smoking status: Never smoker Second hand tobacco smoke exposure: No Alcohol intake: never Substance use: never Substance use type: does not use Lack of Transportation: No Lack of Food: Never True Current Housing: I Have Housing Concerned About Future Housing: No Difficulty Paying Gas/Electric Bills: No Difficulty Paying for Meds: No Currently Unemployed: No Education: Associate Degree Difficulty w/ Childcare or Family Care: No Living arrangements: with family Additional living arrangements comments: With Spiritual care concerns: No
[2024-02-13 04:24] LABS: Anion Gap 7 mmol/L (8-16); Blood Urea Nitrogen 25 mg/dL (7-17); Calcium 8.9 mg/dL (8.4-10.2); Carbon Dioxide 24 mmol/L (22-30); Chloride 108 mmol/L (98-107); Estimated Glomerular Filt Rate > 60; Glucose 148 mg/dL (65-110); Potassium 3.9 mmol/L (3.4-5.0)
[2024-02-13 04:25] LABS: Alanine Aminotransferase 17 U/L (6-35); Albumin Level 3.8 g/dL (3.5-5.1); Alkaline Phosphatase 126 U/L (38-126); Aspartate Amino Transferase 18 U/L (14-36); Bilirubin,Total 0.6 mg/dL (0.2-1.3); Total Protein 6.2 g/dL (6.3-8.2); Troponin I < 0.012 ng/mL (0.000-0.034)
[2024-02-13 04:29] LABS: Basophils Percent Auto 0.4 % (0.2-1.2); Eosinophils Absolute Auto 0.1 K/mm3 (0-0.3); Eosinophils Percent Auto 1.3 % (0-4.4); Hemoglobin 12.1 g/dL (12.0-15.0); Immature Granulocyte Absolute 0.09 K/mm3 (0.00-0.031); Lymphocytes Absolute Auto 1.98 K/mm3 (0.9-3.2); Lymphocytes Percent Auto 21.8 % (18.3-44.2); Mean Corpuscular HGB Conc 31.8 g/dl (32-36); Mean Corpuscular Hemoglobin 28.9 pg (26-34); Mean Corpuscular Volume 90.9 fl (80-100); Monocytes Absolute Auto 0.7 K/mm3 (0.1-0.6); Monocytes Percent Auto 7.3 % (2.6-8.5); Neutrophils Absolute Auto 6.2 K/mm3 (1.3-6.7); Neutrophils Percent Auto 68.2 % (45.5-73.1); Platelet Count Result 195 k/mm3 (150-375); Red Blood Count 4.18 M/mm3 (4.2-5.4); Red Cell Distribution Width 13.3 % (11.5-14.5); White Blood Count 9.1 K/mm3 (4.5-10.0)
[2024-02-13 04:49] VITALS: TEMP 36.9
--- NOTE | 2024-02-13 04:50 | PC.NURSE ---
This RN went to see how pt was responding to fluids and medications. Pt states she is feeling much better. Denies light headedness/dizziness/nausea.
[2024-02-13 05:04] LABS: Appearance Urine Clear (Clear); Bacteria Urine None Seen /hpf; Bilirubin Urine Negative (Negative); Blood Urine Negative (Negative); Color Urine Yellow (Yellow); Glucose Urine UA Negative (Negative); Ketones Urine Negative (Negative); Leukocyte Esterase Ur Trace LEU/UL (Negative); Nitrate Urine Negative (Negative); Non Pathogenic Casts 0-2; Protein Urine Negative (Negative); RBC Urine 0-2 /hpf (0-2); Specific Grav Ur 1.013 (1.001-1.035); Squamous Epithelial Cell Urine None Seen /hpf (Few); Urobilinogen Urine 0.2 mg/dL (<2.0); WBC Urine 0-5 /hpf (0-3); pH Urine 6.5 (5.0-9.0)
[2024-02-13 05:07] LABS: Influenza A QL RT-PCR Negative (Negative); Influenza B QL RT-PCR Negative (Negative); RSV RNA, RT-PCR Negative (Negative); SARS-CoV-2 RNA PCR Negative (Negative)
[2024-02-13 05:14] LABS: Add Urine Microscopic? YES
[2024-02-13 06:03] VITALS: BP 120/65; PULSE 95; RESP 15; O2SAT 96
[2024-02-13 06:05] LABS: Troponin I < 0.012 ng/mL (0.000-0.034)
[2024-02-13 06:37] VITALS: BP 128/70; PULSE 96; RESP 16; O2SAT 95
[2024-02-16 10:08] LABS: Sodium 139 mmol/L (137-145)
[2024-02-16 10:25] LABS: Estimated Glomerular Filt Rate > 60
== END 2024-02-13 06:44 | disposition home or self-care (01) ==
PROVIDERS: Emergency Provider Emergency Medicine; PCP Internal Medicine
DX: T78.40XA Allergy, unspecified, initial encounter (principal); Z20.822 Contact with and (suspected) exposure to COVID-19; I25.10 Atherosclerotic heart disease of native coronary artery without angina pectoris; I10 Essential (primary) hypertension; E78.5 Hyperlipidemia, unspecified; K21.9 Gastro-esophageal reflux disease without esophagitis; K58.9 Irritable bowel syndrome, unspecified; R73.03 Prediabetes; Z98.61 Coronary angioplasty status; Z87.440 Personal history of urinary (tract) infections; Z86.73 Personal history of transient ischemic attack (TIA), and cerebral infarction without residual deficits; Z90.710 Acquired absence of both cervix and uterus; Z90.49 Acquired absence of other specified parts of digestive tract; Z79.02 Long term (current) use of antithrombotics/antiplatelets; X58.XXXA Exposure to other specified factors, initial encounter
CPT/HCPCS: 36415; 74176; 80053; 82565; 84484; 85025; 87637; 99284

== ENCOUNTER 2024-08-19 07:50 | Emergency (ER) | payer MEDICARE, SELFPAY ==
--- NOTE | ~2024-08-19 | XR_ITS ---
EXAMINATION: XR chest 2V DATE: 08/19/2024 08:15 INDICATION: Chest pain TECHNIQUE: PA and lateral views of the chest were obtained. COMPARISON: Chest radiograph dated 01/09/2023 FINDINGS: The lungs remain clear with no focal airspace opacities, pulmonary edema, pleural effusion or pneumot horax. The cardiomediastinal silhouette is normal. Cholecystectomy clips in right upper quadrant. IMPRESSION: 1. No acute cardiopulmonary disease. Reviewed, dictated and finalized at location B.
--- NOTE | 2024-08-19 07:51 | ECG_ITS ---
Test Date: 2024-08-19 07:56:48 Measurements Intervals [place] Rate: 91 P: 63 NH: 185 QRS: 66 QRSD: 158 T: -12 QT: 408 QTc: 502 Interpretive Statements SINUS RHYTHM RIGHT BUNDLE BRANCH BLOCK BASELINE ARTIFACT- I, II, III, AVR, AVL, AVF CONSIDER INFERIOR INFARCT, AGE INDETERMINATE ABNORMAL ECG No previous ECG available for comparison Electronically Signed On 08-19-2024 08:16:43 CDT by Jimbo Ojeda D.O.
[2024-08-19 07:56] VITALS: BP 155/73; PULSE 93; RESP 16; TEMP 36.6; O2SAT 100
--- NOTE | 2024-08-19 08:04 | ED.CHESTPAIN ---
HPI - Chest Pain General Chief Complaint: Chest Pain Stated Complaint: chest pain Time Seen by Provider: 08/19/24 07:55 History of Present Illness HPI narrative: This is a 74-year-old female with a past medical history significant for hypertension, hyperlipidemia, coronary disease with 1 drug-eluting stent placed in 2016. Previous coronary catheterization in 2020 with nonocclusive coronary disease. Today she presents to the emergency department with vague left-sided chest discomfort radiating down her left arm. She describes as electrical sensation and feels very dissimilar to the last time she had a heart attack. She states that the symptoms are waxing and waning intermittent without any exacerbating or alleviating factors. She has tried some medications at home but not had any relief of her symptoms. Denies any trauma recent injuries or neck pain. Denies any upper abdominal pain, epigastric pain, anterior chest pain, shortness a breath, nausea, vomiting, headache, vision changes, leg swelling. No history of DVT or PE. No recent procedures a long travels. She is otherwise in her normal state of health. Patient does not believe this is cardiac in nature but wants to be sure. Related Data Home Medications Medication Instructions Recorded Confirmed amlodipine 5 mg tablet (Norvasc) 10 mg PO DAILY 12/28/19 04/15/23 atorvastatin 10 mg tablet 40 mg PO HS 12/28/19 04/15/23 clopidogrel 75 mg tablet (Plavix) 75 mg PO DAILY 12/28/19 04/15/23 pantoprazole 40 mg tablet,delayed 40 mg PO QAM 12/28/19 04/15/23 release (Protonix) cholecalciferol (vitamin D3) 25 25 mcg PO DAILY 07/06/20 04/15/23 mcg (1,000 unit) capsule famotidine 40 mg tablet 40 mg PO HS 07/06/20 04/15/23 olmesartan 40 mg tablet (Benicar) 40 mg PO DAILY 08/28/20 04/15/23 nitroglycerin 0.3 mg sublingual 4 mg sublingual Q5M PRN Chest Pain 05/21/21 04/15/23 tablet lactobacillus combination no.9 4 4,000 mmu cells PO DAILY 08/01/22 04/15/23 billion cell capsule (Adult 50 Plus Probiotic) vitamin B comp and C no.3 15 mg-10 1 cap PO DAILY 08/01/22 04/15/23 mg-50 mg-5 mg-300 mg capsule (B Complex Plus Vitamin C) metoprolol succinate 50 mg 50 mg PO DAILY 01/09/23 04/15/23 tablet,extended release 24 hr Allergies Allergy/AdvReac Type Severity Reaction Status Date / Time chocolate Allergy Severe Difficulty Verified 08/19/24 07:53 Breathing egg Allergy Severe DIFFICULTY Verified 09/22/23 08:03 BEATHING iohexol Allergy Severe Hives Verified 08/19/24 07:54 [From contrast - CT, X-RAY] azithromycin Allergy Mild RASH Verified 09/22/23 08:03 erythromycin base Allergy Mild RASH,HIVES Verified 09/22/23 08:03 Penicillins Allergy Mild RASH Verified 09/22/23 08:03 Sulfa (Sulfonamide Allergy Mild RASH Verified 09/22/23 08:03 Antibiotics) trimethoprim Allergy Mild RASH Verified 09/22/23 08:03 sulfite Allergy Unknown Anaphylaxis Verified 09/22/23 08:03 trazodone Allergy Anaphylaxis Verified 02/13/24 06:24 Review of Systems Review of Systems: As reviewed above in the [facility] Past Medical History Medical History Acid reflux Allergies CAD (coronary artery disease) History of basal cell cancer Hyperlipidemia Hypertension Irritable bowel Migraines Mitral valve disorder Pre-diabetes Recurrent urinary tract infection Stroke Surgical History Surgical History H/O angioplasty H/O dilation and curettage H/O: hysterectomy History of cholecystectomy History of cryosurgery Cervical History of removal of cyst Family History Family History Sibling Breast cancer Hypertension Hyperlipidemia Mother Diabetes mellitus Hypertension Heart disease Father Heart disease Grandparent Diabetes mellitus Social History Social History (Reviewed 08/19/24 @ 08
[2024-08-19 08:19] LABS: Basophils Percent Auto 0.6 % (0.2-1.2); Eosinophils Absolute Auto 0.1 K/mm3 (0-0.3); Eosinophils Percent Auto 1.7 % (0-4.4); Hematocrit 45.1 % (37.0-47.0); Hemoglobin 14.7 g/dL (12.0-15.0); Immature Granulocyte Absolute 0.05 K/mm3 (0.00-0.031); Immature Granulocyte Percent A 0.7 % (0-0.5); Lymphocytes Absolute Auto 1.85 K/mm3 (0.9-3.2); Lymphocytes Percent Auto 25.4 % (18.3-44.2); Mean Corpuscular HGB Conc 32.6 g/dl (32-36); Mean Corpuscular Hemoglobin 29.1 pg (26-34); Mean Corpuscular Volume 89.1 fl (80-100); Mean Platelet Volume 9.7 fl (7.4-10.4); Monocytes Absolute Auto 0.6 K/mm3 (0.1-0.6); Monocytes Percent Auto 7.6 % (2.6-8.5); Neutrophils Absolute Auto 4.7 K/mm3 (1.3-6.7); Platelet Count Result 249 k/mm3 (150-375); Red Blood Count 5.06 M/mm3 (4.2-5.4); Red Cell Distribution Width 13.2 % (11.5-14.5); White Blood Count 7.3 K/mm3 (4.5-10.0)
[2024-08-19] MEDS: LACTATED RINGERS 1,000 ML 999 ML IV CONT (08:28)
[2024-08-19] MEDS: ASPIRIN 81 MG CHEWABLE TABLET 324 MG PO (08:28)
[2024-08-19 08:29] LABS: Alanine Aminotransferase 21 U/L (6-35); Albumin Level 4.8 g/dL (3.5-5.1); Alkaline Phosphatase 138 U/L (38-126); Anion Gap 11 mmol/L (4-12); Aspartate Amino Transferase 23 U/L (14-36); Bilirubin,Total 0.7 mg/dL (0.2-1.3); Blood Urea Nitrogen 17 mg/dL (7-17); Calcium 10.2 mg/dL (8.4-10.2); Carbon Dioxide 26 mmol/L (22-30); Chloride 101 mmol/L (98-107); Estimated CRCL calculation 47 ml/min; Estimated Glomerular Filt Rate > 60; Glucose 185 mg/dL (65-110); Lipase 64 U/L (23-300); Potassium 4.4 mmol/L (3.4-5.0); Sodium 138 mmol/L (137-145)
--- NOTE | 2024-08-19 08:29 | PC.NURSE ---
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
[2024-08-19 08:31] LABS: INR 0.9; Prothrombin Time 12.5 Seconds (11.1-14.7)
[2024-08-19 08:33] LABS: Partial Thromboplastin Time 25.1 Seconds (22.3-36.8)
[2024-08-19 08:40] LABS: Troponin I < 0.012 ng/mL (0.000-0.034)
[2024-08-19 08:45] LABS: D Dimer < 0.27 ug/mL (<0.48)
[2024-08-19 09:00] VITALS: BP 148/78; PULSE 74; RESP 16; TEMP 36.6; O2SAT 100
[2024-08-19 10:00] VITALS: BP 142/76; PULSE 74; RESP 16; TEMP 36.6; O2SAT 98
== END 2024-08-19 10:16 | disposition home or self-care (01) ==
PROVIDERS: Emergency Provider Student in an Organized Health Care Education/Training Program; PCP Internal Medicine
DX: R07.89 Other chest pain (principal); I25.10 Atherosclerotic heart disease of native coronary artery without angina pectoris; I10 Essential (primary) hypertension; I34.1 Nonrheumatic mitral (valve) prolapse; I25.2 Old myocardial infarction; E78.5 Hyperlipidemia, unspecified; K21.9 Gastro-esophageal reflux disease without esophagitis; K58.9 Irritable bowel syndrome, unspecified; R73.03 Prediabetes; Z95.1 Presence of aortocoronary bypass graft; Z86.73 Personal history of transient ischemic attack (TIA), and cerebral infarction without residual deficits; Z87.440 Personal history of urinary (tract) infections; Z85.828 Personal history of other malignant neoplasm of skin; Z79.02 Long term (current) use of antithrombotics/antiplatelets; I45.10 Unspecified right bundle-branch block
CPT/HCPCS: 36415; 71046; 80053; 83690; 84484; 85025; 85380; 85610; 85730; 93005; 96360; 96361; 99284; A9270; J7120

== ENCOUNTER 2025-01-14 12:00 | Emergency (ER) | payer MEDICARE, SELFPAY ==
[2025-01-14] VITALS (12 sets, daily range): BP systolic 131–163; BP diastolic 65–90; PULSE 76–108; RESP 14–22; TEMP 36.4–36.9; O2SAT 97–100
--- NOTE | ~2025-01-14 | XR_ITS ---
EXAMINATION: XR chest 2V DATE: 01/14/2025 14:42 INDICATION: Lightheadedness. TECHNIQUE: Frontal and lateral views of the chest were obtained. COMPARISON: Chest 2 views 08/19/2024 FINDINGS: There is mild atelectasis in lingula. No pleural effusion or pneumothorax. The heart size i s normal. Surgical clips in the right upper quadrant are likely from cholecystectomy. IMPRESSION: 1. Mild atelectasis in lingula. Reviewed, dictated and finalized at location A. OL COMMUNITY SERVICE OFFICER
--- OUTSIDE RECORDS SUMMARY | 2025-01-14 12:03 | XMS_ITS | Encounter Summary ---
Author Organization [facility] Facility Care Team Providers Care Hotel Or Motel Room Service Supervisor Name Role Phone Radha Mitchell DO Primary Care Provider [phone]- [phone] Nina Hernandez DO Primary Care Provider [phone]- [phone] Encounter Details Date Type Department Care Team (Latest Contact Info) Description 12/16/2016 Orders Only [facility] CLINCONV ProviderDean MD [address] [place] [address] Social History Tobacco Use Types Packs/Day Years Used Date Smoking Tobacco: Never Assessed Comments Unknown Sex and Gender Information Value Date Recorded Sex Assigned at Not on file Legal Sex Female 10:49 PM HEALTH SAFETY AND ENVIRONMENT MANAGER Gender Identity Not on file Sexual Orientation Not on file documented as of this encounter Plan of Treatment Not on file documented as of this encounter Procedures Procedure Name Priority Date/Time Associated Diagnosis Comments CARDIOLOGY REPORT 12/17/2016 12: 00 AM HEALTH SAFETY AND ENVIRONMENT MANAGER documented in this encounter Results * CARDIOLOGY REPORT (12/17/2016 12:00 AM HEALTH SAFETY AND ENVIRONMENT MANAGER) Anatomical Region Laterality Modality Other Narrative 12/17/2016 12:00 AM HEALTH SAFETY AND ENVIRONMENT MANAGER Ordered by an unspecified provider. Historical Provider [facility] MONALISA PARIKH Final Result documented in this encounter Visit Diagnoses Not on filedocumented in this encounter Care Teams Hotel Or Motel Room Service Supervisor Relationship Specialty Start Date End Date Radha Mitchell DO PCP - General 02/28/17 08/31/18 Nina Hernandez DO [address] [place] [id number] PCP - General Internal Medicine 09/01/18 documented as of this encounter
--- OUTSIDE RECORDS SUMMARY | 2025-01-14 12:04 | XMS_ITS | Continuity of Care Document ---
Author Organization [facility] [place] [address] [place] [address] Phone Care Team Providers Care Licensed Reactor Operator Name Role Phone [facility] Unavailable Unavail able Sickage, Taty Unavailable Unavailable Procedures Procedure Date Progressive Lens, Polycarb Anti-reflective Coating Frames Deluxe Medical Tax BF Polycarb Sph [place] To +/- 4d 010 BF Polycarb Sphcyl [place] To +/-4d .12-2d Anti-reflective Coating Miscellaneous Vision Service - Supplies Vision Svcs Frames Purchases Lens-Index 1.54-1.79 Glass Progressive Lens, Polycarb Eye Exam & Treatment Refraction Eye Exam & Treatment Refraction Eye Exam & Treatment Refraction Fundus Photography W/ Report Progressive Lens, Plastic Tax - Medical Anti-reflective Coating Advance Directives Directive Yes / No Effective Date File Name No Information Encounters Encounter Description Practice Location Reason(s) For Visit Diagnoses Date Provider Providers Copied on [facility], [address], [place], [place], [id number], [place] tel:[phone] [facility] No Information Aug- 5201 0 [facility] . [address] [facility], [address], [place], [place], [address], . tel:[phone] Consulting Provider: Taty Garcia, [address] [place] [address], [address]. tel:[phone] [facility], [address] [place] [address] [address], [place], [place], [id number], [place] tel:[phone] [facility] No Information Sep-1 4-201 0 [facility] . [address], [address], [place], [place], [id number], . tel:[phone] Referring Provider: Urbano Pennington, [address], [place], [place], [facility]. tel:[phone] g Provider: Taty Garcia, [address] [place] [address], [facility]. tel:[phone] [facility], [address] [place] [address] [address], [place], [place], [id number], [place] tel:[phone] [facility] No Information Pipo-1 4-201 0 Wisam Clement. [address] , [address], [place], [place], [facility], [place]. tel:[phone] [facility], [address], [place], [place], [id number], [place] tel:[phone] [facility] No Information Mar-0 4-200 9 Wisam Clement. [address] , [address], [place], [address], [place]. tel:[phone] [facility], [address] [place] [address] [address], [place], [place], [address], [place] tel:[phone] [facility] No Information Dec-2 6-200 7 Wisam Clement. [address] , [address], [place], [place], [facility], [place]. tel:[phone] Referring Provider: Urbano Pennington [address], [place], [address]. tel:[phone] [facility], [address], [place], [place], [id number], [place] tel:[phone] [facility] No Information Dec-2 2-200 6 [facility] . [address], [address], [place], [place], [address], [place]. tel:[phone] Referring Provider: Urbano Pennington [address], [place], [address]. tel:[phone] wu Provider: Brigida Brooks, [address] [place] [address], [place], [address]. tel:[phone] Family History Family Member Type Diagnosis Age At Onset No Information Payers Payer name Insurance type Covered alliance party ID Authoriza tion(s) No Information Social History Type Description Quantity Date Captured Comments Sex Female Smoking Status No Information Chief Complaint And Reason For Visit No Information Reason For Referral Reason For Referral No Information History Of Present Illness Encounter Date Complaint History Of Prese nt Illness No Information Functional Status Date Functional Assessmen t No Information Instructions Date Instruction Additional Infor mation No Information Assessments Type Assessment Date No Information Patient Care Teams Name Effective Dates (start - stop) Status Members No Information
--- OUTSIDE RECORDS SUMMARY | 2025-01-14 12:04 | XMS_ITS | Encounter Summary ---
Author Organization [facility] Address [address] [place] [address] Care Team Providers Care Vp Human Resources Name Role Phone Radha Mitchell DO Primary Care Provider +1- [phone] Nina Hernandez DO Primary Care Provider [phone]- [phone] Encounter Details Date Type Department Care Team (Late st Contact Info) Description 02/07/2017 Orders Only [facility] ProviderDean MD [address] [place] [address] Social History Tobacco Use Types Packs/Day Years Used Date Smoking Tobacco: Never Assessed Comments Unknown Sex and Gender Information Value Date Recorded Sex Assigned at Not on file Legal Sex Female 10:49 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 Historical Provider [facility] MONALISA PARIKH Final Result documented in this encounter Visit Diagnoses Not on filedocumented in this encounter Care Teams Vp Human Resources Relationship Specialty Start Date End Date Radha Mitchell DO PCP - General 02/28/17 08/31/18 Nina Hernandez DO [facility] [place] [address] PCP - General Internal Medicine 09/01/18 documented as of this encounter
--- OUTSIDE RECORDS SUMMARY | 2025-01-14 12:04 | XMS_ITS | Referral Summary ---
Author Organization [facility] [address] [facility] [address] Address [address] [place] [address] Care Team Providers Care Grocery Checker Name Role Phone MaryNina Leatha ARRIETA Primary Care Provider [phone]- [phone] Encounters Date Type Department Care Team Description 01/12/2025 9:45 AM WAREHOUSE PACKER Office Visit [facility] Cardiology [address] [facility] [address] [place] [address] Kvng Sheridan MD Coronary artery disease involving lime coronary artery of lime heart without angina pectoris (Primary Dx); Status post angioplasty with stent; Orthostatic dizziness; Mitral valve prolapse from Last 3 Months Allergies Active Allergy Reactions Criticality Noted Date Comments Azithromycin Rash Medium 12/17/2004 Chocolate Flavor Other (See comments) Low Throat swelling Egg Yolk Anaphylaxis High Erythromycin Rash Medium 12/17/2004 Iodine And Iodide Containing Products Anaphylaxis High Reaction: Anaphylaxis, Penicillin V Rash Medium 12/17/2004 Penicillins Rash Medium 02/02/2012 Sulfa (Sulfonamide Antibiotics) Rash Medium Sulfamethoxazole Rash Medium 04/22/2006 Sulfisomidine Unknown 02/19/2018 Trazodone Diarrhea,Dizziness,H eadache,Nausea & Vomiting,Stomach upset,Sweating Low 02/13/2024 Trimethoprim Rash Medium 04/22/2006 Medications clopidogrel (PLAVIX) 75 mg tablet take 1 tablet by oral route every day 0 0 7 Active cholecalciferol (VITAMIN D3) 2,000 unit tablet take one daily 0 0 7 Active Additional Information Patient not taking.Reported on 01/12/[address] (PROTONIX) 40 mg EC tablet take 1 tablet by oral route every day 0 0 7 Active fluticasone propionate (FLONASE) 50 mcg/actuation nasal spray Administer 1 spray into each nostril daily Active famotidine (PEPCID) 40 mg tablet Take 1 tablet (40 mg total) by mouth daily Active metoprolol XL (TOPROL-XL) 50 mg extended release tablet Take 1 tablet (50 mg total) by mouth daily 30 tablet 11 2 Active EPINEPHrine 0.3 mg/0.3 mL auto-injection syringe 4 Active amLODIPine (NORVASC) 10 mg tablet TAKE 1 TABLET(10 MG) BY MOUTH DAILY 90 tablet 3 4 Active [id number] -Lmfolate-algal 27 mg iron-1.13 mg-581.92 mg capsule Take by mouth Active midodrine (PROAMATINE) 5 mg tabletIndicatio ns:Symptomatic Orthostatic Hypotension Take 1 tablet (5 mg total) by mouth 3 (three) times a day 90 tablet 1 5 025 Active atorvastatin (LIPITOR) 80 mg tablet Take 1 tablet (80 mg total) by mouth nightly 90 tablet 3 5 Active olmesartan (BENICAR) 40 mg tablet TAKE 1 TABLET(40 MG) BY MOUTH DAILY 90 tablet 3 8 025 Discontin ued(Thera py completed ) atorvastatin (LIPITOR) 20 mg tablet Take 1 tablet (20 mg total) by mouth daily 30 tablet 11 4 025 Discontin ued(Dupli aliyah order) atorvastatin (LIPITOR) 40 mg tablet Take 1 tablet (40 mg total) by mouth daily 025 Discontin ued(Alter maine therapy) Active Problems Problem Noted Date Diagnosed Date Visit for wound check 05/01/2021 Cardiomyopathy 02/19/2018 Dyslipidemia 02/19/2018 History of CVA (cerebrovascular accident) 2017 Essential hypertension 09/05/2017 Other insomnia 09/05/2017 Statin intolerance 09/05/2017 Status post placement of implantable loop record er 06/19/2017 Overview (06/19/2017): [employer] Implantable Loop Recorder for Palpitations, DOI 06/11/[address] Ball[address] [employer] remote home monitoring. JR Coronary artery disease invo lving lime coronary artery of lime heart with angina pectoris 06/06/2017 Hx of heart artery stent 06/06/2017 Palpitations 06/06/2017 Prominent abdominal aortic pulsation 06/06/2017 Preoperative state 03/28/2017 Overview (04/25/2017): Preoperative cardiovascular examination Mitral valve prolapse 03/28/2017 Overview (04/25/2017): Mitral valve prolapse Disorder of uterus 03/28/2017 Overview (04/25/2017): Uterine mass Social History Tobacco Use Types Packs/Day Years Used Date Smoking Tobacco: Never Smokeless Tobacco: Never Tobacco Cessation:Counseling Given: Not Answered Alcohol Use Standard Drinks/Week Comments No 0 (1 standard drink = 0.6 oz pur e alcohol) Comments No Sex and Gender Information Value Date Recorded Sex Assigned at Not on file Legal Sex Female 10:49 PM WAREHOUSE PACKER Gender Identity Not on file Sexual Orientation Not on file Last Filed Vital Signs Vital Sign Reading Time Taken Comments Blood Pressure 96/62 01/12/2025 9:53 AM WAREHOUSE PACKER Pulse 97 01/12/2025 9:53 AM WAREHOUSE PACKER Temperature 36.8 C (98.3 F) 09/22/2021 10:38 AM CDT Respiratory Rate 18 09/22/2021 11:36 AM CDT Oxygen Saturation 99% 01/12/2025 9:53 AM WAREHOUSE PACKER Inhaled Oxygen Concentration - - Weight 74.7 kg (164 lb 9.6 oz) 01/12/2025 9:53 A M WAREHOUSE PACKER Height 165.1 cm (5' 5 ) 01/12/2025 9:53 AM WAREHOUSE PACKER Body Mass Index 27.39 01/12/2025 9:53 AM WAREHOUSE PACKER Plan of Treatment Not on file Procedures Procedure Name Priority Date/Time Associated Diagnosis Comments POCT LIPID PANEL Routine 01/12/2025 10:4 0 AM WAREHOUSE PACKER Coronary artery disease involving lime coronary artery of lime heart without angina pectoris from Last 3 Months Results * POCT lipid panel (01/12/2025 10:40 AM WAREHOUSE PACKER) Cholesterol, POC 158 mg/dL Comment:GLU = 198 HDL, POC 31 mg/dL Triglycerides, POC 135 mg/dL LDL Cholesterol POC 100 mg/dL Chol/HDL Ratio, POC 3.2 Non-HDL Cholesterol, POC 127 mg/dL Cholesterol Total, POC 158 mg/dL Capillary blood 01/12/2025 1 0:40 AM WAREHOUSE PACKER Kvng Sheridan MD POINT OF CARE TEST ORDERABLES Fi nal Result from Last 3 Months Insurance [facility] MEDICARE MEDICARE [facility] Care Teams Grocery Checker Relationship Specialty Start Date End Date Nina Hernandez DO [address] [place] [address] PCP - General Internal Medicine 09/01/18
--- OUTSIDE RECORDS SUMMARY | 2025-01-14 12:04 | XMS_ITS | Continuity of Care Document ---
Author Organization [employer] [place] Address [address] [place] [address] Phone Care Team Providers Care Head Of Advertising Name Role Phone Nina Hernandez DO Unavailable Unavailable Allergies, Adverse Reactions, Alerts Substance Reaction Status Criticality trazodone Unknown Active No Information citalopram InsomniaHallucinations Active No In formation sulfamethoxazole Other Active No Informat ion trimethoprim Other Active No Information azithromycin Other Active No Information erythromycin base Rash Active No Informa tion penicillin V Rash Active No Information Medications Medication Instructions Dosage Effective Dates (start - stop) Status Comments FAMOTIDINE 40MG TABLETS TAKE 1 TABLET BY MOUTH EVERY NIGHT AT BEDTIME - Active pantoprazole 40 mg tablet,delayed release TAKE 1 TABLET BY MOUTH TWICE A DAY - Active dose increased 1.13.25 CLOPIDOGREL 75MG TABLETS TAKE 1 TABLET BY MOUTH EVERY DAY - Active atorvastatin 20 mg tablet take 1 tablet by oral route every day 20 MG - Active METOPROLOL ER SUCCINATE 50MG TABS TAKE 1 TABLET BY MOUTH EVERY DAY - Active OLMESARTAN MEDOXOMIL 40MG TABLETS TAKE 1 TABLET BY MOUTH EVERY DAY - Active azelastine 137 mcg (0.1 %) nasal spray aerosol spray 1 spray by intranasal route 2 times every day in each nostril 1 spray - Active EpiPen 2-Dev 0.3 mg/0.3 mL injection, auto-injector inject 0.3 milliliter by intramuscular route once as needed for anaphylaxis as needed 0.3 MG - Active nitroglycerin 0.4 mg sublingual tablet 1 tablet under tongue at the 1st sign of pain; may repeat every 5 min until relief; if pain persists after 3 tablets in 15 min call 911 - Active fluticasone 50 mcg/actuation nasal spray,suspension INHALE 2 SPRAY BY INTRANASAL ROUTE EVERY DAY IN EACH NOSTRIL 100 MCG - Active Vitamin D3 1,000 unit capsule take 1 capsule by oral route every day 1 capsule - Active amlodipine 10 mg tablet take 1 tablet by oral route every day 10 MG - Active FAMOTIDINE 40MG TABLETS TAKE 1 TABLET BY MOUTH EVERY NIGHT AT BEDTIME - No Longer Active Procedures Procedure Date AMYLASE C-REACTIVE PROTEIN (CRP) CBC, INC PLATELETS AND DIFFERENTIAL COMPREHEN METABOLIC PANEL CMP HEMOGLOBIN A1C HGA1C, GLYCO LIPASE RBC SED RATE, AUTOMATED THYROID STIMULATION HORMONE(TSH) 2024 URINALYSIS, DIPSTICK (UA) - Office Lab J ROUTINE VENIPUNCTURE [place] OFFICE [id number] SYST BP LT 130 MM HG DIAST BP < 80 MM HG CBC, INC PLATELETS AND DIFFERENTIAL COMPREHEN METABOLIC PANEL [facility] CREATINE KINASE, TOTAL (CPK,CK) 024 HEMOGLOBIN A1C HGA1C, GLYCO LIPID PANEL ROUTINE VENIPUNCTURE IL OFFICE [id number] SYST BP LT 130 MM HG DIAST BP < 80 MM HG DSCHRG MED/CURRENT MED MERGE X-RAY SPINE, CERVICAL, 2 Or 3 VIEWS OFFICE [id number]-[id number] Visit Complexity Inherent To E/M 2023 SYST BP LT 130 MM HG DIAST BP < 80 MM HG X-RAY SPINE, CERVICAL, 2 Or 3 VIEWS C-REACTIVE PROTEIN (CRP) CBC, INC PLATELETS AND DIFFERENTIAL COMPREHEN METABOLIC PANEL [facility] 4 CREATINE KINASE, TOTAL (CPK,CK) 024 FOLIC ACID (S) (FOLATE) HEMOGLOBIN A1C HGA1C, GLYCO LIPID PANEL MICROALBUMIN, QN (URINE) CREATININE, (U-R) BRAIN NATRIURETIC PEPTIDE (BNP) RBC SED RATE, AUTOMATED THYROID STIMULATION HORMONE(TSH) 2023 VITAMIN B12 (SERUM) VITAMIN D, 25-HYDROXY FALL RISK ASSESSMENT DOC'D PRES/ABSN URINE INCON ASSESS Pt inelig neg scrn depres ROUTINE VENIPUNCTURE [place] Depression screen annual Clin depression screen doc PPPS, subseq visit SYST BP LT 130 MM HG DIAST BP < 80 MM HG DSCHRG MED/CURRENT MED MERGE Pt inelig neg scrn deprloren OFFICE [id number] SYST BP LT 130 MM HG DIAST BP < 80 MM HG CBC, INC PLATELETS AND DIFFERENTIAL COMPREHEN METABOLIC PANEL CMP 4 CREATINE KINASE, TOTAL (CPK,CK) 024 HEMOGLOBIN A1C HGA1C, GLYCO LIPID PANEL MICROALBUMIN, QN (URINE) CREATININE, (U-R) PARATHYROID HORMONE (PTH) THYROID STIMULATION HORMONE(TSH) 2023 VITAMIN D, 25-HYDROXY Pt inelig neg scrn depres URINALYSIS, DIPSTICK (UA) - Office Lab J an-09-2024 ROUTINE VENIPUNCTURE IL OFFICE [id number] SYST BP LT 130 MM HG DIAST BP < 80 MM HG CBC, INC PLATELETS AND DIFFERENTIAL COMPREHEN METABOLIC PANEL [facility] 3 HEMOGLOBIN A1C HGA1C, GLYCO PARATHYROID HORMONE (PTH) THYROID STIMULATION HORMONE(TSH) 2022 URINALYSIS, REFLEX (UA) VITAMIN D, 25-HYDROXY Pt inelig neg scrn depres ROUTINE VENIPUNCTURE [place] OFFICE [id number] SYST BP LT 130 MM HG DIAST BP < 80 MM HG BASIC METABOLIC PANEL(BMP) ROUTINE VENIPUNCTURE [place] CBC, INC PLATELETS AND DIFFERENTIAL COMPREHEN METABOLIC PANEL [facility] 3 HEMOGLOBIN A1C HGA1C, GLYCO LIPID PANEL PARATHYROID HORMONE (PTH) THYROID STIMULATION HORMONE(TSH) 2022 VITAMIN D, 25-HYDROXY DSCHRG MED/CURRENT MED MERGE ROUTINE VENIPUNCTURE IL OFFICE [id number] SYST BP LT 130 MM HG DIAST BP < 80 MM HG Pt inelig neg scrn depres CBC, INC PLATELETS AND DIFFERENTIAL COMPREHEN METABOLIC PANEL CMP 2 HEMOGLOBIN A1C HGA1C, GLYCO LIPID PANEL PARATHYROID HORMONE (PTH) THYROID STIMULATION HORMONE(TSH) 2021 VITAMIN D, 25-HYDROXY URINALYSIS, DIPSTICK (UA) - Office Lab A ROUTINE VENIPUNCTURE IL OFFICE [id number] SYST BP LT 130 MM HG DIAST BP < 80 MM HG CBC, INC PLATELETS AND DIFFERENTIAL COMPREHEN METABOLIC PANEL [facility] 2 CREATINE KINASE, TOTAL (CPK,CK) 022 HEMOGLOBIN A1C HGA1C, GLYCO LIPID PANEL MICROALBUMIN, QN (URINE) CREATININE, (U-R) PARATHYROID HORMONE (PTH) RBC SED RATE, AUTOMATED THYROID STIMULATION HORMONE(TSH) 2021 URINALYSIS W MICROSCOPIC (UA) VITAMIN D, 25-HYDROXY ROUTINE VENIPUNCTURE OFFICE [id number] SYST BP LT 130 MM HG DIAST BP < 80 MM HG Pt inelig neg scrn depres CBC, INC PLATELETS AND DIFFERENTIAL COMPREHEN METABOLIC PANEL [facility] 1 HEMOGLOBIN A1C HGA1C, GLYCO LIPID PANEL THYROID STIMULATION HORMONE(TSH) 2020 URINALYSIS W MICROSCOPIC (UA) ROUTINE VENIPUNCTURE [place] OFFICE [id number] SYST BP LT 130 MM HG DIAST BP < 80 MM HG URINALYSIS, DIPSTICK (UA) - Office Lab A FALL RISK ASSESSMENT DOC'D PRES/ABSN URINE INCON ASSESS OFFICE [id number] SYST BP GE 130 - 139MM HG DIAST BP < 80 MM HG CREATINE KINASE, TOTAL (CPK,CK) 021 FERRITIN LEVEL FOLIC ACID (S) (FOLATE) VITAMIN B12 (SERUM) ROUTINE VENIPUNCTURE OFFICE IDEIP-[id number] SYST BP GE 130 - 139MM HG DIAST BP < 80 MM HG C-REACTIVE PROTEIN (CRP) CBC, INC PLATELETS AND DIFFERENTIAL COMPREHEN METABOLIC PANEL CMP CREATINE KINASE, TOTAL (CPK,CK) 021 HEMOGLOBIN A1C HGA1C, GLYCO LIPID PANEL RBC SED RATE, AUTOMATED THYROID STIMULATION HORMONE(TSH) 2020 ROUTINE VENIPUNCTURE IL OFFICE [id number] SYST BP >= 140 MM HG6 IT DIAST BP < 80 MM HG Pt inelig neg scrn depres OFFICE [id number] SYST BP LT 130 MM HG DIAST BP < 80 MM HG URINALYSIS, DIPSTICK (UA) - Office Lab J CBC, INC PLATELETS AND DIFFERENTIAL COMPREHEN METABOLIC PANEL CMP 0 HEMOGLOBIN A1C HGA1C, GLYCO ROUTINE VENIPUNCTURE IL OFFICE [id number] SYST BP GE 130 - 139MM HG DIAST BP < 80 MM HG NUTRITIONAL THERAPY; REASSES SMENT AND INTERVENTION, INDIVIDUAL, EACH 15 MINUTES FALL RISK ASSESSMENT DOC'D PRES/ABSN URINE INCON ASSESS URINALYSIS, DIPSTICK (UA) - Office Lab J OFFICE [id number] SYST BP LT 130 MM HG DIAST BP < 80 MM HG NUTRITIONAL THERAPY; INITIAL ASSESSMENT AND INTERVENTION, INDIVIDUAL, EACH 15 [place] CBC, INC PLATELETS AND DIFFERENTIAL COMPREHEN METABOLIC PANEL CMP 0 HEMOGLOBIN A1C HGA1C, GLYCO LIPID PANEL THYROID STIMULATION HORMONE(TSH) 2019 VITAMIN D, 25-HYDROXY ROUTINE VENIPUNCTURE IL OFFICE [id number] SYST BP GE 130 - 139MM HG DIAST BP < 80 MM HG FALL PLAN OF CARE DOC'D URINE INCON PLAN DOC'D PRES/ABSN URINE INCON ASSESS Pt inelig neg scrn depres CBC, INC PLATELETS AND DIFFERENTIAL COMPREHEN METABOLIC PANEL CMP 9 CREATINE KINASE, TOTAL (CPK,CK) 019 HEMOGLOBIN A1C HGA1C, GLYCO LIPID PANEL MICROALBUMIN, QN (URINE) CREATININE, (U-R) PARATHYROID HORMONE (PTH) SED RATE , RBC SEDIMENTATION RATE,(ESR) THYROID STIMULATION HORMONE(TSH) 2018 ROUTINE VENIPUNCTURE OFFICE [id number] SYST BP LT 130 MM HG DIAST BP < 80 MM HG Advance Directives Directive Yes / No Effective Date File Name No Information Encounters Encounter Description Practice Location Reason(s) For Visit Diagnoses Date Provider Providers Copied on Encounter [employer] [place], [address], [place], [place], [address] , [place] tel: [phone] [facility] [employer] [facility] No Information 5 Mary Wood. [address] [place] [address], [id number], [place]. [phone] [facility], [address], [place], [place], [address] , [place] tel:[phone] [facility] No Information 5 Angel Merida. [address] [facility], [address] [address], [place], [place], [id number], [place]. tel:[phone] Referring Provider: Carlos Keene, [address] [place] [address], [address]. tel:[phone] OFFICE XLKHY-RPN-BC [facility], [address], [place], [place], [address] , tel: [phone] [facility] GI (chief complaint)C hronic Conditions (chief complaint)c hronic conditions (chief complaint) Body mass index [BMI] 28.0-28.9, adultAbdominal pain, unspecified abdominal locationDiarrhea , unspecified typeEssential (primary) hypertensionGast ro-esophageal reflux disease without esophagitisType 2 diabetes mellitus with other circulatory complicationsEllieu faye in urineColon cancer screening 3 5 Jassi Gonzalez. [address] [place] [address], [address], [place]. tel:[phone] Kvng Sheridan.Refer ring Provider: Nina Pennington, [address] [place] [address], [address] . tel:[phone] [facility], [address], [place], [place], [address] , tel: [phone] [facility] No Information 5 Mary Wood. [address] [place] [address], [id number], [place]. tel:[phone] [facility], [address], [place], [place], [address] , [place] tel: [phone] [facility] No Information 4 Mary Wood. [address] [place] [address], [id number], [place]. tel:[phone] [facility], [address], [place], [place], [address] , [place] tel: [phone] [facility] No Information 4 Angel Merida. [address], [id number], . tel:[phone] Referring Provider: Nina Pennington, [address] [place] [address], [address] . tel:[phone] OFFICE BWGXA-FLS-SV [facility], [address], [place], [place], [address] , tel:[phone] [facility] 3-4 month appt (chief complaint)C hronic Conditions (chief complaint)c hronic conditions (chief complaint) Body mass index [BMI] 28.0-28.9, adultEssential (primary) hypertensionAthe rosclerotic heart disease of douglas coronary artery with other forms of angina pectorisGastro-e sophageal reflux disease without esophagitisType 2 diabetes mellitus with other circulatory complicationsPai n in unspecified knee 0- 4 Mary Wood. [address] [place] [address], [id number], . tel:[phone] Specialist : Kvng Sheridan, [address] [place] [address], [address]. tel:[phone] cialist:, [address] [facility] [address], [place], [address]. tel:[phone] erring Provider: Nina Pennington, [address] [place] [address], [address] . tel:[phone] OFFICE QJCNJ-NMP-ZX [facility], [address], [place], [place], [address] , tel:[phone] [facility] ER fu (chief complaint) Body mass index [BMI] 29.0-29.9, adultAtheroscler otic heart disease of douglas coronary artery with other forms of angina pectorisEssentia l (primary) hypertensionChes t pain, unspecified typeCervical radiculopathy Aug-2 4- 4 Jassi Gonzalez. [address] [place] [address], [address], . tel:[phone] Referring Provider: Nina Pennington, [address] [place] [address], [address] . tel:[phone] [facility], [address], [place], [place], [address] , tel: [phone] [facility] No Information 4 Mary Wood. [address] [place] [address], [id number], [place]. tel:[phone] Referring Provider: Nina Pennington, [address] [place] [address], [address] . tel:[phone] [facility], [address], [place], [place], [address] , [place] tel: [phone] [facility] No Information 4 Mary Wood. [address] [place] [address], [id number], [place]. tel:[phone] [facility], [address], [place], [place], [address] , tel: [phone] [facility] No Information 4 Marycharis Wood. [address] [place] [address], [id number], [place]. tel: [phone] [facility], [address], [place], [place], [address] , [place] tel: [phone] [facility] Services No Information 0 4 Angel Fuad. [address] [place] [address], [id number], . tel:[phone] Referring Provider: Nina Pennington, [address] [place] [address], [address] . tel:[phone] [facility], [address], [place], [place], [address] , [place] tel: [phone] [facility] Medicare preventive (chief complaint)6 month appt (chief complaint)c hronic conditions (chief complaint)C hronic Conditions (chief complaint) Encntr for general adult medical exam w/o abnormal findingsType 2 diabetes mellitus with other circulatory complicationsEss ential (primary) hypertensionAthe rosclerotic heart disease of douglas coronary artery with other forms of angina pectorisSecondar y hyperparathyroid ism, not elsewhere classifiedGastro -esophageal reflux disease without esophagitisVitam in D deficiency, unspecifiedMyalg ia, other sitePost-traumat ic stress disorder, acute 4 Mary Wood. [address] [place] [address], [id number], [place]. tel:[phone] Kvng Sheridan.Refer ring Provider: Nina Pennington, [address] [place] [address], [address] . tel:[phone] [facility], [address], [place], [place], [address] , [place] tel: [phone] [facility] No Information 4 Mary Wood. [address] [place] [address], [id number], [place]. tel:[phone] OFFICE CINOI-NXT-AA PANDED [facility], [address], [place], [place], [address] , [place] tel: [phone] [facility] ER f/u (chief complaint) Body mass index [BMI] 29.0-29.9, adultDiarrhea, unspecified typeJaw pain 4 Kartik Maldonado. [address] [place] [address], [id number], [place]. tel:[phone] Referring Provider: Nina Pennington, [address] [place] [address], [address] . tel:[phone] [facility], [address], [place], [place], [address] , [place] tel: [phone] [facility] No Information 4 Angel Merida. [address] [facility], [address] [address], [place], [place], [address], [place]. tel:[phone] Referring Provider: Erica Verdugo, [address] [place] [address], [address] . tel:[phone] OFFICE IOWIN-CBV-NW [facility], [address], [place], [place], [address] , [place] tel: [phone] [facility] Chronic Conditions (chief complaint)c hronic conditions (chief complaint) Essential (primary) hypertensionBody mass index [BMI] 29.0-29.9, adultType 2 diabetes mellitus with other circulatory complicationsAth erosclerotic heart disease of douglas coronary artery with other forms of angina pectorisPersonal history of transient ischemic attack (TIA), and cerebral infarction without residual deficitsVitamin D deficiency, unspecifiedInsom jeffrey, unspecified typeUrine leukocytes 4 Kartik Maldonado. [address] [place] [address], [id number], [place]. tel:[phone] Kvng Sheridan.Refer ring Provider: Nina Pennington, [address] [place] [address], [address] . tel:[phone] [facility], [address], [place], [place], [address] , [place] [phone] [facility] No Information 3 Angel Merida. [address], [id number], [place]. tel:[phone] Referring Provider: Carlos Keene, [address] [place] [address], [address]. tel:[phone] OFFICE RVLIZ-HNV-YO [facility], [address], [place], [place], [address] , [place] tel: [phone] [facility] 4 mo appt (chief complaint)C hronic Conditions (chief complaint) Body mass index [BMI] 29.0-29.9, adultType 2 diabetes mellitus with other circulatory complicationsAth erosclerotic heart disease of douglas coronary artery with other forms of angina pectorisEssentia l (primary) hypertensionGast ro-esophageal reflux disease without esophagitisSecon johana hyperparathyroid ism, not elsewhere classifiedInsomn ia, unspecified typeAllergic rhinitis, unspecified seasonality, unspecified trigger 3 Jassi Gonzalez. [address] [place] [address], [address], . tel:[phone] Kvng Sheridan.Refer ring Provider: Nina Pennington, [address] [place] [address], [address] . tel:[phone] [facility], [address] [place] [address], [id number] , tel: [phone] [facility] No Information 3 Angel Merida. [address] [place] [address], [id number], . tel:[phone] Referring Provider: Nina Pennington, [address] [place] [address], [address] . tel:[phone] [facility], [address], [place], [place], [address] , tel: [phone] [facility] Essential (primary) hypertensionOthe r chronic cystitis without hematuria 3 Mary Wood. [address] [place] [address], [id number], [place]. tel:[phone] Kvng Sheridan.Refer ring Provider: Nina Pennington, [address] [place] [address], [address] . tel:[phone] [facility], [address] [place] [address], [id number] , [place] tel: [phone] [facility] No Information 3 Angel Merida. [address], [id number], . tel:[phone] Referring Provider: Nina Pennington, [address] [place] [address], [address] . tel:[phone] OFFICE FAZWW-XQT-BT TAILED [facility], [address], [place], [place], [address] , tel: [phone] Pending sale to [facility] Follow-Up (chief complaint)O ther (chief complaint)C hronic Conditions (chief complaint)c hronic conditions (chief complaint) 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Secondar y hyperparathyroid ism, not elsewhere classifiedVitami n D deficiency, unspecifiedPerso nal history of transient ischemic attack (TIA), and cerebral infarction without residual deficitsType 2 diabetes mellitus with other circulatory complicationsOth er chronic cystitis without hematuria 3 Mary Wood. [address] [place] [address], [id number], . tel:[phone] Specialist : Kvng Sheridan, [address] [place] [address], [address]. tel:[phone] erring Provider: Nina Pennington, [address] [place] [address], [address] . tel:[phone] OFFICE [facility], [address], [place], [place], [address] , tel: [phone] [facility] Internal Medicine Chronic Conditions (chief complaint)m usculoskele shabbir pain (chief complaint) Body mass index [BMI] 29.0-29.9, adultPersonal history of transient ischemic attack (TIA), and cerebral infarction without residual deficitsCoronary artery disease of douglas artery of douglas heart with stable angina pectorisHistory of recurrent UTIsAcute pain of right kneeSecondary hyperparathyroid ismEssential (primary) hypertensionType 2 diabetes mellitus with other circulatory complicationsVit rivas D deficiency 2 Kartik Maldonado. [address] [place] [address], [id number], [place]. tel:[phone] Referring Provider: Nina Pennington, [address] [place] [address], [address] . tel:[phone] [facility]ICE [facility], [address], [place], [place], [address] , tel: [phone] [facility] 4 month appt (chief complaint)O ther (chief complaint)C hronic Conditions (chief complaint) Type 2 diabetes mellitus with other circulatory complicationsEss ential (primary) hypertensionCoro nary artery disease of douglas artery of douglas heart with stable angina pectorisAcute pain of right kneePersonal history of transient ischemic attack (TIA), and cerebral infarction without residual deficitsHistory of recurrent UTIsDysuriaOther disorders of peripheral nervous systemGastro-eso phageal reflux disease without esophagitisSecon johana hyperparathyroid ism Apr-0 2 Mary Wood. [address] [place] [address], [id number], [place]. tel:[phone] Referring Provider: Nina Pennington, [address] [place] [address], [address] . tel:[phone] OFFICE FBWSB-ALZ-JT [facility], [address], [place], [place], [address] , tel: [phone] [facility] Chronic Conditions (chief complaint) Body mass index [BMI] 30.0-30.9, adultEssential (primary) hypertensionPers onal history of transient ischemic attack (TIA), and cerebral infarction without residual deficitsType 2 diabetes mellitus with other circulatory complicationsCor onary artery disease of douglas artery of douglas heart with stable angina pectorisHistory of recurrent UTIsDiverticulos isAcute pain of right knee 1 Yosef Rosales. [address] [place] [address], [id number], [place]. tel:[phone] Referring Provider: Nina Pennington, [address] [place] [address], [address] . tel:[phone] OFFICE DJOAT-WMO-NA [facility], [address], [place], [place], [address] , tel:[phone] [facility] dysuria (chief complaint) DysuriaBody mass index (BMI) 30.0-30.9, adultHematuria, unspecified type 1 Kartik Maldonado. [address] [place] [address], [id number], . [phone] Referring Provider: Nina Pennington, [address] [place] [address], [address] . tel:[phone] OFFICE FRZEP-PAV-FW [facility], [address], [place], [place], [address] , tel: [phone] [facility] Internal Medicine Chronic Conditions (chief complaint) Type 2 diabetes mellitus with other circulatory complicationsEss ential (primary) hypertensionPers onal history of transient ischemic attack (TIA), and cerebral infarction without residual deficitsOther disorders of peripheral nervous systemGastro-eso phageal reflux disease without esophagitis 1 Mary Wood. [address] [place] [address], [id number], . [phone] Referring Provider: Nina Pennington, [address] [place] [address], [address] . tel:[phone] OFFICE LFFDH-RBD-TP [facility], [address], [place], [place], [address] , tel: [phone] [facility] neuropathy (chief complaint)r james (chief complaint)C hronic Conditions (chief complaint) Body mass index (BMI) 30.0-30.9, adultType 2 diabetes mellitus with other circulatory complicationsEss ential (primary) hypertensionSkin rashNeuropathy 1 Yosef Rosales. [address] [place] [address], [id number], . [phone] Referring Provider: Nina Pennington, [address] [place] [address], [address] . tel:[phone] OFFICE JWZGK-BJD-WJ [facility], [address], [place], [place], [address] , tel: [phone] [facility] Internal Medicine dysuria (chief complaint)C hronic Conditions (chief complaint) Body mass index (BMI) 30.0-30.9, adultType 2 diabetes mellitus with other circulatory complicationsEss ential (primary) hypertensionSeco ndary hyperparathyroid ismCoronary artery disease of douglas artery of douglas heart with stable angina pectorisDysuria 1 Tresvivian Rosales. [address] [facility], [place], [place], [id number], [place]. tel:[phone] Referring Provider: Nina Pennington, [address] [place] [address], [place], [address] . tel:[phone] OFFICE LLYXB-IOY-JA [facility] [facility], [address], [place], [place], [address] , tel: [phone] [facility] Other (chief complaint)a cute visit (chief complaint)C hronic Conditions (chief complaint) Body mass index (BMI) 30.0-30.9, adultType 2 diabetes mellitus with other circulatory complicationsPai n in right footEssential (primary) hypertensionAcut e bilateral low back pain without sciaticaSecondar y hyperparathyroid ism 0 Jassi Gonzalez. [address] [facility], [place], [address], [place]. tel:[phone] Referring Provider: Nina Pennington, [address] [place] [address], [place], [address] . tel:[phone] [facility], [address], [place], [place], [address] , [place] tel: [phone] [facility] Type 2 diabetes mellitus without complications [address] [facility] [address], [place], [place], [address], [place]. tel:[phone] Referring Provider: Nina Pennington, [address] [place] [address], [place], [address] . tel: OFFICE LBDST-GAR-TG PANDED [facility], [address], [place], [place], [address] , tel:[phone] [facility] dysuria (chief complaint) Body mass index (BMI) 30.0-30.9, adultDysuriaLeuk ocytes in urine 0 Kartik Maldoando. [address] [place] [address], [id number], [place]. tel:[phone] Referring Provider: Nina Pennington, [address] [place] [address], [address] . tel:[phone] [facility], [address], [place], [place], [address] , tel: [phone] [facility] Type 2 diabetes mellitus without complications 0 Arnold Wang. [facility], [id number], . tel:[phone] Referring Provider: Nina Pennington, [address] [place] [address], [place], [address] . 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 [address] [place] [address], [id number], . tel:[phone] Referring Provider: Nina Pennington, [address] [place] [address], [place], [address] . tel:[phone] OFFICE IYRYW-ERU-JP [facility], [address], [place], [place], [address] , tel: [phone] [facility] Chronic Conditions (chief complaint) Right medial knee painGastroesopha geal reflux disease without esophagitisCoron ar artery disease of douglas artery of douglas heart with stable angina pectorisType 2 diabetes mellitus without complications 9 Mary Wood. [address] [place] [address], [id number], . tel:[phone] Referring Provider: Nina Pennington, [address] [place] [address], [address] . tel:[phone] [facility], [address], [place], [place], [address] , tel:[phone] [facility] No Information 9 Mary Wood. [address] [place] [address], [id number], . tel:[phone] [facility], [address], [place], [place], [address] , tel:[phone] [facility] Dysuria 8 Mary Wood. [address] [place] [address], [id number], . tel:[phone] Referring Provider: Nina Pennington, [address] [place] [address], [address] . tel:[phone] [facility], [address], [place], [place], [address] , tel:[phone] [facility] Body mass index (BMI) 30.0-30.9, adultEssential hypertensionCoro nary artery disease of douglas artery of douglas heart with stable angina pectorisGastroes ophageal reflux disease without esophagitisVitam in D deficiencyType 2 diabetes mellitus without complicationsHis tory of stroke 8 Kartik Maldonado. [address] [place] [address], [id number], [place]. tel:[phone] Referring Provider: Nina Pennington, [address] [place] [address], [address] . tel:[phone] [facility], [address], [place], [place], [address] , [place] tel: [phone] [facility] Body mass index (BMI) 29.0-29.9, [facility]Med[facility]ari[facility] annual wellness visit, initial 8 Jassi Gonzalez. [address] [place] [address], [address], [place]. tel:[phone] Referring Provider: Nina Pennington, [address] [place] [address], [address] . tel:[phone] [facility], [address], [place], [place], [address] , [place] tel: [phone] [facility] Body mass index (BMI) 29.0-29.9, adultEssential hypertensionAnxi etyDysfunction of left eustachian tube Mar- 8 Stephen Garcia. [address] [place] [address], [address], [address], [place]. tel:[phone] Referring Provider: Radha Sam, [address] [place] [address] Suite [facility], [place], [address]. tel:[phone] [facility], [address], [place], [place], [address] , [place] tel: [phone] [facility] Body mass index (BMI) 29.0-29.9, adultAnxietyEsse ntial hypertensionHist ory of strokeScreening for osteoporosisEmbo lism and thrombosis of unspecified artery Jan- 8 Stephen Garcia. [address] [facility], [address], [place], [address], [place]. tel:[phone] Referring Provider: Radha Sam, [address] [facility] [address] [facility], [place], [address]. tel:[phone] [facility], [address], [place], [place], [address] , tel: [phone] [facility] Body mass index (BMI) 29.0-29.9, adultEssential hypertensionCoro nary artery disease of douglas artery of douglas heart with stable angina pectorisGastroes ophageal reflux disease without esophagitisHyper glycemiaVivid dreamEncntr screen mammogram for malignant neoplasm of breast 8 Stephen Garcia. [address] [facility] , [address], [place], [facility], [place]. [phone] Referring Provider: Radha Sam, [address] [facility] [facility], [place], [facility]. tel:[phone] [facility], [address], [place], [place], [address] , tel: [phone] [facility] Body mass index (BMI) 29.0-29.9, adultCoronary artery disease of douglas artery of douglas heart with stable angina pectorisEssentia l hypertensionPAD (peripheral artery disease)Atrial tachycardiaMyalg iaHyperglycemia 7 Stephen Garcia. [address] [facility] , [address] [place] [address], [facility], [place]. [phone] Referring Provider: Radha Sam, [address] [facility] [facility], [place], [facility]. tel:[phone] [facility], [address], [place], [place], [address] , tel: [phone] Chris CUMMINS Annual physical exam 6 Stephen Garcia. [address], [address] [place] [address], [address], [place]. tel:[phone] Referring Provider: Radha Sma, [address] [facility] [facility], [place], [facility]. tel:[phone] [facility], [address], [place], [place], [address] , tel: [phone] [facility] Type 2 diabetes mellitus without complications 5 Stephen Garcia. [address] [facility], [address], [place], [address], [place]. tel:[phone] [facility], [address], [place], [place], [address] , [place] tel: [phone] [facility] Migraine with aura and with status migrainosus, not intractableEssen tial hypertensionAlle rgic sinusitisHistory of CVA in adulthoodIrritab le bowel syndrome with diarrheaGastroes ophageal reflux disease without esophagitis 5 Stephen Garcia. [address] [facility], [address], [place], [address], [place]. [phone] Referring Provider: Radha Sam, [address] [facility] [address] [facility], [place], [facility]. tel:[phone] [facility], [address], [place], [place], [address] , [place] tel: [phone] [facility] HTNHX TIA/STROKE W/O RESIDDiabetes Mellitus Type 2, UncomplicatedMit ral valve prolapseHistory of chest pain Stephen Garcia. [address] [facility], [address], [place], [address], [place]. tel:[phone] Referring Provider: Radha Sam, [address] [facility] [address], [place], [facility]. tel:[phone] [facility], [address], [place], [place], [address] , [place] tel: [phone] [facility] Diabetes Mellitus Type 2, UncomplicatedHTN HX TIA/STROKE W/O RESID 4 Malcolm Little. [address] [facility], [address], [place], [place], [address]. tel:[phone] Referring Provider: Anabel Fowler, [address] [facility] [address], [place], [address] . tel:[phone] [facility], [address], [place], [place], [address] , [place] tel: [phone] [facility] History of fall/At Risk For FallingDiabetes Mellitus Type 2, UncomplicatedAnx ietyGERDHTNHX TIA/STROKE W/O RESID 4 Malcolm Little. [address] [facility], [address], [place], [place], [address]. tel:[phone] Referring Provider: Anabel Fowler, [address] [facility] [address], [place], [address] . tel:[phone] [facility], [address], [place], [place], [address] , tel: [phone] [facility] HTNIMPAIRED FASTING GLUCOSEPolycythe nikki vera 4 Malcolm Little. [address] [facility], [address], [place], [place], [address]. tel:[phone] [facility], [address], [place], [place], [address] , tel: [phone] [facility] Superficial phlebitis 3 Malcolm Little. [address] [facility], [address], [place], [place], [address]. tel:[phone] Referring Provider: Anabel Fowler, [address] [facility] [address], [place], [address] . tel:[phone] [facility], [address], [place], [place], [address] , tel: [phone] [facility] Unspecified essential hypertensionAnxi ety state, unspecifiedEsoph ageal refluxUnspecifie d transient cerebral ischemiaImpaired fasting glucose 3 Malcolm Little. [address] [facility], [address], [place], [address]. tel:[phone] Referring Provider: Anabel Fowler, [address] [facility] [address], [place], [address] . tel:[phone] [facility], [address], [place], [place], [address] , [place] tel: [phone] [facility] Left shoulder painUnspecified essential hypertensionPoly cythemiaAnxiety state, unspecifiedVitam in d deficiency 3 Malcolm Little. [address] [facility], [address], [place], [place], [address]. tel:[phone] Referring Provider: Anabel Fowler, [address] [facility] [address], [place], [address] . tel:[phone] [facility], [address], [place], [place], [address] , [place] tel: [phone] [facility] Left shoulder painEsophageal refluxUnspecifie d essential hypertensionAnxi ety state, unspecifiedHX TIA/STROKE W/O RESIDHyperglycem ia 3 Mary Wood. [address] [place] [address], [id number], [place]. tel:[phone] Referring Provider: Anabel Fowler, [address] [facility] [address], [place], [address] . tel:[phone] [facility], [address], [place], [place], [address] , [place] tel: [phone] [facility] Unspecified transient cerebral ischemiaUnspecif ied essential hypertensionAnxi ety state, unspecifiedMitra l valve disordersPain in joint/arthralgia Shoulder region 2 Malcolm Little. [address] [facility], [address], [place], [place], [address]. tel:[phone] Referring Provider: Anabel Fowler, [address] [facility] [address], [place], [address] . tel:[phone] [facility], [address], [place], [place], [address] , tel: [phone] [facility] HYPERTENSION NOS 1 Malcolm Little. [address] [facility], [address], [place], [place], [address]. tel: [phone] [facility], [address], [place], [place], [address] , [place] tel: [phone] [facility] ACUTE URI NOSTRANS CEREB ISCHEMIA NOS 0-201 0 Malcolm Little. [address] [facility], [address], [place], [place], [address]. tel: [phone] [facility], [address], [place], [place], [address] , [place] tel: [phone] [facility] IMPAIRED FASTING GLUCOSEESOPHAGEA L REFLUX 1-201 0 Malcolm Little. [address] [facility], [address], [place], [place], [address]. tel: [phone] [facility] [email or web address], [address], [place], [place], [address] , [place] tel: [phone] [facility] HX TIA/STROKE W/O RESIDMGRN W AURA WO NTRC MGRN 4-201 0 Malcolm Little. [address] [facility], [address], [place], [place], [address]. tel: [phone] [facility] [email or web address], [address], [place], [place], [address] , [place] tel: [phone] [facility] MITRAL VALVE DISORDER Apr-0 1-200 9 Malcolm Little. [address] [facility], [address], [place], [place], [address]. tel: [phone] [facility] [email or web address], [address], [place], [place], [address] , [place] tel: [phone] [facility] HX-CIRCULATORY DIS NECJOINT PAIN-SHLDER Jan-3 0-200 9 Malcolm Little. [address] [facility], [address], [place], [place], [address]. tel: [phone] [facility] [email or web address], [address], [place], [place], [address] , [place] tel: [phone] [facility] ANXIETY STATE NOS 5200 7 [employer] [facility]. [address] [place], [address], . [facility], [address], [place], [place], [address] , tel: [phone] [facility] No Information 3200 6 Malcolm Matuteth. [address] [facility], [address], [place], [place], [address]. tel: [phone] [facility], [address], [place], [place], [address] , tel: [phone] [facility] DVRTCLO COLON W/O HMRHG 5 [facility]. [address] [facility], [address], [place], [place], [address]. tel: [phone] [facility], [address], [place], [place], [address] , tel: [phone] [facility] No Information 200 5 [facility]. [address] [facility], [address], [place], [place], [address]. tel: [phone] [facility], [address], [place], [place], [address] , tel: [phone] [facility] CHEST PAIN NOS 9200 3 [facility]. [facility] [place], [address], . [facility], [address], [place], [place], [address] , tel: [phone] [facility] FAM HX-CARDIOVAS DIS NEC 7200 2 [employer] [address]. [facility] [place], [address], . [facility] [email or web address], [address], [place], [place], [address] , tel: [phone] [facility] FAMILY HX-GI MALIGNANCY 3[address] 1 [address] [address]. [facility] [place], [address], . Family History Family Member Type Diagnosis Age At Onset Sister Problem (finding) Mother Problem (finding) Sister Problem (finding) malignant neop lasm of breast in first degree relative (Cause Of ) Mother Problem (finding) Diabetes, hear t disease and peripheral vascular (Cause Of ) Father Problem (finding) Father Problem (finding) Heart disease (Cause Of ) Immunizations Vaccine Date Status Comments Moderna (Low Dose) COVID19 Vaccine, 0.25mL per dose, booster dose administered Note: [facility] ; So urce: Other Provider Moderna (Low Dose) COVID19 Vaccine, 0.25mL per dose, booster dose administered Note: [facility] ; So urce: Other Provider Moderna COVID19 Vaccine, 0.5 mL per dose, 2 doses, administered 28 days apart [facility] ; Cyn rce: Other Provider Moderna COVID19 Vaccine, 0.5 mL per dose, 2 doses, administered 28 days apart [facility] ; Cyn rce: Other Provider Pneumococcal conjugate PCV administere d Source: New Immunization Record Pneumococcal conjugate PCV 13 refused Source: New Immunization Record Pneumococcal polysaccharide PPV23 refused Source: New Immuniza tion Record Fluzone Quad , spli t virus, 0.5mL dosage refused Source: New Immuniza tion Record Td (adult), adsorbed administered Source: New Immunization Record influenza, injectable, quadrivalent, (3 years or older) refused Source: New Immuniza tion Record Pneumococcal conjugate PCV 13 refused Source: New Immunization Record Zoster refused Source: New Imm unization Record Td (adult) preservative free refused Source: New Immunization Record influenza, injectable, quadrivalent, (3 years or older) refused Source: New Immuniza tion Record Influenza, injectable, quadrivalent, preservative free, 3 yrs or older refused Source: New Immuniz ation Record Payers Payer name Insurance type Covered democrat ID Authoriza tion(s) [place] [id number] [facility] MDCR SUPPLEMENT ONLY CI [id number] [place] [id number] AAR MDCR SUPPLEMENT ONLY CI [id number] [place] [id number] AAR MDCR SUPPLEMENT ONLY CI [id number] [place] [id number] AAR MDCR SUPPLEMENT ONLY CI [id number] [facility] CI [id number] [facility] CI [id number] [facility] CI [id number] Social History Type Description Quantity Date Captured Comments Sex Female Smoking Status No Information Gender Identity Female Chief Complaint And Reason For Visit No Information Reason For Referral Reason For Referral No Information Plan Of Treatment Date Type Action Status Goal Dietary manageme nt education, guidance, and counseling completed Goal Dietary manageme nt education, guidance, and counseling completed Goal Dietary manageme nt education, guidance, and counseling completed Goal Dietary manageme nt education, guidance, and counseling completed Goal Dietary manageme nt education, guidance, and counseling completed Goal Dietary manageme nt education, guidance, and counseling completed Goal Dietary manageme nt education, guidance, and counseling completed Goal Dietary manageme nt education, guidance, and counseling completed Goal Dietary manageme nt education, guidance, and counseling completed Goal Dietary manageme nt education, guidance, and counseling completed Goal Dietary manageme nt education, guidance, and counseling completed Goal Dietary manageme nt education, guidance, and counseling completed Goal Dietary manageme nt education, guidance, and counseling completed Goal Dietary manageme nt education, guidance, and counseling completed Goal Dietary manageme nt education, guidance, and counseling completed Goal Dietary manageme nt education, guidance, and counseling completed Goal Dietary manageme nt education, guidance, and counseling completed Goal Dietary manageme nt education, guidance, and counseling completed Referral Referred To: [employer]
[address], [phone] Ordered: CT abdomen and pelvis with IV and oral contrast Appointment date/timeframe: 01/14/2025 ordered Referral Referred To: Wilner Ge MD [address] [facility] [address] [place], [phone] Ordered: Referrals: Gastroenterology. Wilner Ge MD. Evaluation/diagnostic/treatment - Level 3 Appointment date/timeframe: 03/14/2025 ordered Referral Ordered: X-RAY SPINE, CERVICAL, 2 Or 3 VIEWS ordered Referral Referred To: [facility] Ordered: Referrals: Physical Therapy. [facility]. Evaluation/diagnostic/treatment - Level 3 ordered Referral Referred To: Antonio Nelson MD [address] [place] [address]
[place], [phone] Ordered: Referrals: Neurology. Antonio Nelson MD. Evaluation/diagnostic/treatment - Level 3 ordered Referral Referred To: Tariq [address]ver[address] Dr
[facility] [address] [place], [phone] Ordered: Complete x-ray series of right knee Appointment date/timeframe: 06/11/2019 ordered Appointment Emely Menchaca BOOKED Patient Education Neck: Exercises complet ed Patient Education Plantar Fasciitis: Charles valente completed History Of Present Illness Encounter Date Complaint History Of Prese nt Illness GI She had food poi soning the Friday before . Said it was pretty severe. Had vomiting and diarrhea for 12 hours.She is having intermittent nausea, heartburn, diarrhea and cramping in her right lower abdomen.She is having heartburn despite taking PPI and H2 everette.Her stools are very watery. States she has IBS leaning more toward diarrhea side.no history of colitis but was told she had diverticulosis.She has a history of cholecystectomy.She takes pantoprazole and famotidine.no fever or weight lossShe ate a bagel with cream cheese today and had diarrhea and some lower abdominal discomfort.tried taking antidiarrheal without relief.stools are not foul smelling. states they look yellow/green in color at times.Last colonoscopy was in [address] Ge. She tried calling their office but couldn't get through. Chronic Conditions *See Chronic Conditions HPI chronic conditions *See Chronic Conditions HPI chronic conditions Chronic Conditions *See Chronic Conditions HPI 3-4 month appt pt due for:Layne costa Dr. visits:n/aFuture appt:n/aVaccinations due:Flu - pt refusesPneumo - pt has not receivedTDAP - pt denies recentSHINGRIX - pt has not receivedRSV - pt has not receivedOutstanding referrals:n/a ER fu [facility] on August 19 with chest discomfort and pain down her left arm.She had cardiac workup. EKG without any signs of ischemia.1 set of troponins were done. D-dimerLabs were unremarkable.Was discharged home.She was advised to take Tylenol more flminj-pqf-uvfek to help with her pain. She has that has been helping.She did not take today to be able to describe how she is feeling. left arm and shoulder burning.normal shoulder ROM.She keeps getting random pains. Initially thought she slept wrong.pain in left shoulder, armpit, breast, and ribs.She described the pian as tenderness with touching.she still has burning in arm and shoulder.Previously she was on a statin and was changed by Dr. 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 She is not taking efO08Tdr does have coronary artery disease and follows with cardiology once a year. She had stent placement in 2017.Continues on clopidogrel.She has hypertension b lood pressure stable on current medication. Medicare preventive Recently, th e patient has felt down, depressed or hopeless and has felt little interest or pleasure in doing things. Functional Status: (Functional status has not changed) on 06/09/2024. Cognitive Status: (Cognitive status has not changed) on 06/09/2024. The ''Up and Go'' test took less than 30 seconds andthe patient does not need help with activities of daily living. The patient is not at risk for falls. The patient has not fallen in the last year. The fall(s) did not result in injury. Patient's activity level is moderate. Patient exercises occasionally. The patient has smoke detectors, carbon monoxide detectors, electric heating in the home. The patient does not have firearms in the home. There is no radon in the patient's home. Patient reports using a seatbelt in vehicles. Patient denies recent weight gain. Patient denies recent weight loss. Patient does not take calcium. Patient reports taking a vitamin D supplement. Patient does not take a multivitamin. Patient does not take folic acid. Relevant history is positive for passive smoke exposure. Relevant history is negative for tobacco use, passive vaping exposure and alcohol use. In the past year the patient has had 4 or more drinks in a day 0 time(s). Screening services were reviewed and updated. 6 month appt pt due for:Fall risk/urinary incontinence information provided to patient Adv care planning - pt does not have LW/POA - pt has information alreadyEye exam - pt denies recent eye [id number] visits:Dr Kvng Sheridan - Cardiology - about 2 to 3 months agoFuture appt:n/aVaccinations due:Pneumo - pt has not receivedTDAP - pt denies recentSHINGRIX - pt has not receivedRSV - pt has not receivedOutstanding referrals:n/a -Diabetespt denies increase urinary frequency, blurred vision, dry mouthpt does monitor BG levels at home. pt did not check it this morning -GERDpt denies nausea, regurgitation chronic conditions *See Chronic Conditions HPI Chronic Conditions *See Chronic Conditions HPI ER f/u Patient presents for ER follow-up. She was transported to [facility] via EMS on 02/12.She reports taking a trazodone and developing dizziness, nausea, vomiting, diarrhea, and diaphoresis approximately an hour later. She was given IV fluids and treated for an allergic reaction with dexamethasone, Benadryl, Pepcid, Reglan, and Zofran.CT of the abdomen pelvis and laboratory workup was negative for acute issues.She was discharged home with an EpiPen and a prescription for Benadryl 25 mg to take 3 times daily as needed.She reports feeling better but states she did not eat much over the weekend.She did have an episode of diarrhea yesterday after eating. She denies issues with hypoglycemia. chronic conditions *See Chronic Conditions HPI Chronic Conditions *See Chronic Conditions HPI Chronic Conditions *See Chronic Conditions HPI 4 mo appt Pt states has co mplaints of stuffy nose, puffy eyes, and throat drainage. States that she does garden work and could be possible allergiesDenies being exposed to covid. Pt has done at home Covid test x3 negative. She has OTC flonase and is using it. Also taking claritin.Denies any chest pain, SOB, or dizziness. She was hospitalized earlier this year with syncope. Pierce she was dehydrated. Saw cardiology subsequently. no issues since.Pt declines Flu vaccine, due to sensitivity to eggs.trouble with sleeping.sometimes it can be 4am and she isn't tired.has taken up to 3mg of melatonin.she is a light sleeper. spent long hours caring for her . She feels that stress changed her pattern and she never was able to get back. no caffeine after morning coffee.she does not drink alcohol.she is not regularly exercising. Hospital Follow-Up The patient w as seen today for a hospital follow-up visit, after being discharged on 01/10/2023. Details regarding this most recent admission include: Reason for admission:SyncopeHypotensionAcute kidney failureMedication changes:No changes Other pt due for:Bone density - Oct 2022 - see scanned reportMammogram - Oct 2022 - see scanned report.A1c Eye exam - pt denies recent testABIRecent visits:n/aFuture appt:Dr Sheridan - 01/17/23Dr Aliperti - MayRecent vaccinations:Flu - pt denies - allergic to eggs.Pneumo - pt denies Tdap - pt denies Shingrix - pt deniesOutstanding referrals:n/aQuestions:questions regarding Kidney function. chronic conditions *See Chronic Conditions HPI Chronic Conditions *See Chronic Conditions HPI Chronic Conditions *See Chronic Conditions HPI musculoskeletal pain It occurs i ntermittently and is improving. Location: right knee. The pain is relieved by physical therapy. Hand Dominance: right. 4 month appt -Hypertensionpt denies headaches, dizziness, nausea, lightheadedness, chest pain, palpitationspt monitor BP at home 1 - 2 times a week.pt compliant w/ medication-Diabetespt denies blurred visionpt monitor BG levels at homept compliant w/ medication pt has not had Eye Exam yet, nor has appt scheduled-Pain of right kneeWorsening x 6 months ago. intermittent sharp/ shooting pain. pt taking Tylenol, heat pads, and exercise w/ mild to no relief. Chronic Conditions *See Chronic Conditions HPI Other Recent DrMaicol visit s:Mammogram March 2021. Future appt:Dr. Diaz MarchBGYN, Dr. Juarez Julyr. Arvin Julyecent vaccinations:COVID booster Moderna [facility] 11/01/2021t denies Pneumo, Tdap, ShingrixQuestions:increase urinary frequency, burning sensation w/ urination x 1 week. worsening. pt taking AZO cranberry tab, and increased water intakeBG levels readings around 200 4 - 5 times since last month. pt stated checking BG 1 hr after eating.Pain of right kneeWorsening x 6 months ago. intermittent sharp/ shooting pain. pt taking Tylenol, heat pads, and exercise w/ mild to no relief. 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 Juarez's office on 07/20 and was prescribed Diflucan for vaginal burning but states her swab return negative for yeast.She still reports burning after urination but denies redness and itching.also report pelvic pressureUrine is positive for a trace amount of blood today.Patient has had intermittent hematuria in the past likely due to infection; last urinalysis in December showed no evidence of blood.Patient has multiple allergies to antibiotics.Previous UTIs have been due to klebsiella arogenes and is resistant to nitrofurantoin, Augmentin, cefazolin, and cefuroxime.will refer to urology for further workup Chronic Conditions *See Chronic Conditions HPI neuropathy pt presented for an acute visit for c/o burning, numbness, and pain to extremitiesshe states these feelings can occur in her hands, arms, legs at various timesthis is been going on for at least a year, she states I never thought anything about it she states now it has been constant for about one week, stating either hands, legs, or feet are always feeling either burning, pain, or numbnesshistory of diabetes, well controlleddenies weakness to extremities, no falls, no change to color or temperature of extremitiesstates she recalls illness about one year ago, questions if it was covid, and is this relateddenies cp, palpitations, sob, fever/chills Chronic Conditions *See Chronic Conditions HPI rash left deltoidcovi d vaccine 1 week ago, started with rash at that location x1 dayhas not taken anything for symptomsdenies significant itchingcontinues to endorse pain to the site since injection dysuria pt presented for acute visit, c/o urinary sxfirst noticed in Oct, went to and took abx as directedone week after abx she felt like it returned x1 week endorses frequency and burning and suprapubic pressureincreased vitamin c, started cranberry and increased water intakedenies hematuria, fever, nausea, flank painstarted macrobid yesterday after calling officewill monitor for recurrencehx prolapsed uterus and hysterectomy Chronic Conditions *See Chronic Conditions HPI Chronic Conditions *See Chronic Conditions [facility] acute visit Soreness in righ t heel of foot for three weeks.comes and goesbetter with arch supportDenies injury. Requests a referral to a [employer].Intermittent lower back pain several months.Was sedentary after hysterectomy.Pain was aggravated once she became active again.no bowel or bladder incontinenceno sciatica or weakness Other 08/28/2020 partia l hysterectomy.Will be scheduling an eye exam this year.Had mammogram and breast US at [facility]. Normal results. Will have reports faxed to our office. dysuria The patient pres ents for acute encounter with complaints of dysuria and urinary frequency for one week.Urine is positive for leukocytes today.Patient denies fever, chills, nausea, vomiting, and flank pain.has been taking Azo with cranberry and hydrating with no relief Chronic Conditions *See Chronic Conditions HPI Chronic Conditions *See Chronic Conditions HPI Functional Status Date Functional Assessmen t No Information Instructions Date Instruction Additional Infor gerald I would like you to start on a probiotic.As above.It is unclear the source of this diarrhea but I would like you to try cutting out gluten for short period of time and restarting it and then try to cut out dairy and see if that helps as well. Neither of these should be cut out completely for a long period of time but rather to see if it helps determine the cause of stool issues Related to Diarrhea, unspecified type Given the duration o f your symptoms, I will order a CT scan to be done at [facility].You are due to have your colonoscopy done. I will send an order for you to be seen by Dr. Ge.Labs will also be done today. See belowIncrease the pantoprazole to twice a day Related to Abdominal pain, unspecified abdominal location A1c will be checked today.Call with any questions or concernsLabs todayReturn as scheduled in January Related to Type 2 diabetes mellitus with other circulatory complications Increase the pantopr azole to twice a day. As above will refer you back to GI for upper and lower endoscopy Related to Gastro-esophageal reflux disease without esophagitis your blood pressure is stableno changes recommended Related to Essential (primary) hypertension Disease process Dietary management e ducation, guidance, and counseling Related to Body mass index (BMI) 28.0-28.9, adult Giving encouragement to exercise Related to Body mass index (BMI) 28.0-28.9, adult try the exercises yo u learned in therapyif the pain does not improve please call me and we can get an xray and try formal PT Related to Pain in unspecified knee levels will be checked Related t o Type 2 diabetes mellitus with other circulatory complications call me if your acid reflux is getting worse Related to Gastro-esophageal reflux disease without esophagitis keep scheduled follo w up with Dr. 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 There may be a pinched nerve.If it shows that we can discuss whether you would like to try a muscle relaxer or nerve pill called gabapentin.Exercises printed Related to Cervical radiculopathy Your cardiac workup was negative.Continue with the Tylenol more [id number]. Related to Chest pain, unspecified type Blood pressure stabl e.Call any questions or concernsNo labs todayReturn as scheduled Related to Essential (primary) hypertension Continue on current medication.You could try taking co-Q10 with the atorvastatin. 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 Dietary management e ducation, guidance, and counseling Related to Body mass index (BMI) 29.0-29.9, adult Disease process Giving encouragement to exercise Related to Body mass index (BMI) 29.0-29.9, adult we discussed the tra umatic events of the last yearIf you would like a referral for counseling or feel you would like to try medication please call and let me know Related to Post-traumatic stress disorder, acute old your statin for 2 weeks and call me with an update on how you are feeling Related to Myalgia, other site levels will be check Allison would recommend to go back to taking your vitamin D supplementation Related to Secondary hyperparathyroidism, not elsewhere classified levels will be check edcontinue with the current supplement Related to Vitamin D deficiency, unspecified call me if you feel your acid reflux is getting worse Related to Gastro-esophageal reflux disease without esophagitis keep scheduled follo w up with cardiologyI will send a copy of the labs checked today 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 your blood pressure is stableno changes recommended Related to Essential (primary) hypertension levels will be checked Related t o Type 2 diabetes mellitus with other circulatory complications routine labs checked todayreturn to me in 3-4 monthscall me with questions or concerns Related to Encntr for general adult medical exam w/o abnormal findings Disease process Dietary management e ducation, guidance, and counseling Related to Body mass index (BMI) 28.0-28.9, adult Fall Risk Prevention Prescribed activity/exercise edu cation Related to Body mass index (BMI) 28.0-28.9, adult Urinary Incontinence Trazodone will be ad ded to your allergy list so we avoid this in the future.I would recommend following a bland diet and work on increasing your water intake to help with hydration.You can continue the Benadryl once daily as needed.Make sure you are not having any issues with low blood sugars when you are feeling shaky.Please call us if issues worsen or if you develop any other problems prior to your next visit.Follow-up with Dr. Hernandez in May as scheduled Related to Diarrhea, unspecified type likely due to TMJCon tinue with the ice packs and Tylenol.Please call us if the jaw pain does not improve Related to Jaw pain Giving encouragement to exercise Related to Body mass index (BMI) 29.0-29.9, adult Dietary management e ducation, guidance, and counseling Related to Body mass index (BMI) 29.0-29.9, adult I sent a prescriptio n for trazodone 50 mg which you can take daily as needed at bedtime to help with your insomnia.You can increase this to 100 mg if the 50 mg dose is not providing benefit.Please call with an update prior to running out of your prescription so I can send refills Related to Insomnia, unspecified type Continue your vitami n D supplementation as prescribed.We will check you level again today Related to Vitamin D deficiency, unspecified Continue with your current medic ation Related to Personal history of transient ischemic attack (TIA), and cerebral infarction without residual deficits Continue your curren t medications as prescribed.Follow up with Dr. 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 This is managed with diet.Diabetic eye exam is up-to-date.We will check your hemoglobin A1c again today Related to Type 2 diabetes mellitus with other circulatory complications Your blood pressure is well controlled today.Continue your current medications.We will check routine labs today.Please call the office with any issues, questions, or concerns prior to your next appointment.Follow up again in 6 months Related to Essential (primary) hypertension Giving encouragement to exercise Related to Body mass index (BMI) 29.0-29.9, adult Disease process Dietary management e ducation, guidance, and counseling Related to Body mass index (BMI) 29.0-29.9, adult Okay to increase the melatonin up to 10 mg.If this does not help then we could consider prescribing trazodone.Please make sure that you are avoiding caffeine after lunch. Try to incorporate exercise. Try not to eat late at night. Related to Insomnia, unspecified type I sent in a nasal sp ray called azelastine.You can use this to help with your symptoms.Please call if you do not get any better.Call with any questions or concernsCBC, CMP, A1c, TSH, intact PTH, vitamin D todayReturn in 4 monthsYou declined vaccines Related to Allergic rhinitis, unspecified seasonality, unspecified trigger Your blood pressure is controlled on current medication Related to Essential (primary) hypertension Continue on pantopra zole. Avoid foods that cause problems. Call with any worsening of symptoms. Related to Gastro-esophageal reflux disease without esophagitis Is probably related to vitamin D deficiency. We will check levels today. Related to Secondary hyperparathyroidism, not elsewhere classified We will check A1c to day.Please call your eye doctor to schedule diabetic eye exam. Related to Type 2 diabetes mellitus with other circulatory complications Continue on current medication and follow-up with cardiology. 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 Disease process Dietary management e ducation, guidance, and counseling Related to Body mass index (BMI) 29.0-29.9, adult Giving encouragement to exercise Related to Body mass index (BMI) 29.0-29.9, adult this is related to y our low vitamin D I will continue to monitor this in the labs Related to Secondary hyperparathyroidism, not elsewhere classified continue with your current medic ation Related to Personal history of transient ischemic attack (TIA), and cerebral infarction without residual deficits continue with the haynes pplementlevels will be checked Related to Vitamin D deficiency, unspecified keep scheduled follo w up with urologymake sure you are staying well hydrated with water Related to Other chronic cystitis without hematuria labs checked today Related to Ty pe 2 diabetes mellitus with other circulatory complications keep scheduled follo w up with Dr. 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 Sheridan as scheduled.Labs will be faxed.Status: Able to self-manage condition. Goals: Your goal is to reduce risks associated with your heart disease. Barriers: No barriers to goal achievement have been identified. 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 Goals: Your goal is to reduce risks associated with your diabetes. Barriers: You are not sure you understand how to change your habits to achieve your goal. Related to Type 2 diabetes mellitus with other circulatory complications Continue with the cu rrent aspirin and Plavix Related to Personal history of transient ischemic attack (TIA), and cerebral infarction without residual deficits X-ray 2019 showed mi ld arthritis.You report significant improvement with physical therapy in March.Return to doing her exercises at home and call the office if the pain does not improve.Continue taking Tylenol and applying Aspercreme as needed Related to Acute pain of right knee Your blood pressure is well controlled today.Continue your current medications.We will check routine labs today.CBC, CMP, lipid panel, TSH, A1c, PTH, vitamin D, and urinalysis.Please call the office with any issues, questions, or concerns prior to your next appointment.Follow up again in 6 months Related to Essential (primary) hypertension You have not had iss ues with recent UTIs.Follow with Dr. Alvarez as scheduled Related to History of recurrent UTIs This can happen with aging and vitamin d deficiency.We will continue to monitor this with labs.Continue on vitamin d supplementation Related to Secondary hyperparathyroidism Medication management Dietary management e ducation, guidance, and counseling Related to Body mass index (BMI) 29.0-29.9, adult Giving encouragement to exercise Related to Body mass index (BMI) 29.0-29.9, adult continue with your c urrent medicationreturn to me as scheduledcall me with questions or concerns Related to Gastro-esophageal reflux disease without esophagitis This can happen with aging and vitamin d deficiencywe will monitor this. continue on vitamin d supplementationI will get your mammogram results from [facility] Related to Secondary hyperparathyroidism continue with the cu rrent aspirin and plavix Related to Personal history of transient ischemic attack (TIA), and cerebral infarction without residual deficits see above Related to Dysur ia CT scan and Ultrasou nd completed per Dr Moran checked todaykeep scheduled follow with urology Related to History of recurrent UTIs continue to monitorn o need for medication Related to Other disorders of peripheral nervous system Watch for chest pain /pressure, heart racing, shortness of breath, nausea, dizziness, sweating; call 911 if you have these symptomsContinue current medicationsStatus: Able to self-manage condition. Goals: Your goal is to reduce risks associated with your heart disease. Barriers: No barriers to goal achievement have been identified. 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 Goals: Your goal is to reduce risks associated with your diabetes. Barriers: You are not sure you understand how to change your habits to achieve your goal. Related to Type 2 diabetes mellitus with other circulatory complications Dietary management e ducation, guidance, and counseling Related to Body mass index (BMI) 30.0-30.9, adult Disease process Giving encouragement to exercise Related to Body mass index (BMI) 30.0-30.9, adult xray 2019 showed mil d arthritiswe discussed pain cream, soft knee brace and the elliptical machine instead of the treadmillstart with home exercisesif no improvement please call the office for physical therapy referral Related to Acute pain of right knee we discussed the fin ding on the CT scanalso present on colonoscopy 2013call with any concerns Related to Diverticulosis CT scan and Ultrasou nd completed per Dr Jenkins with them as scheduledcall with any concerns about symptoms Related to History of recurrent UTIs blood pressure is st ableno changes Labs todayReturn in 4 monthsCall with any questions or concernsflu shot and covid booster recommendedContinue covid precautions - Related to Essential (primary) hypertension check blood sugar at least once a dayyearly eye examcheck your feet dailywe will monitor the blood [id number] todayStatus: Meeting treatment plan goals. Goals: Your goal is to reduce risks associated with your diabetes. Barriers: You are not sure you understand how to change your habits to achieve your goal. Related to Type 2 diabetes mellitus with other circulatory complications Watch for chest pain /pressure, heart racing, shortness of breath, nausea, dizziness, sweating; call 911 if you have these symptomsContinue current medicationsStatus: Able to self-manage condition. Goals: Your goal is to reduce risks associated with your heart disease. Barriers: No barriers to goal achievement have been identified. 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 continue with the cu rrent aspirin and plavix Related to Personal history of transient ischemic attack (TIA), and cerebral infarction without residual deficits Giving encouragement to exercise Related to Body mass index (BMI) 30.0-30.9, adult Disease process Dietary management e ducation, guidance, and counseling Related to Body mass index (BMI) 30.0-30.9, adult as stated above Related to Hemat uria, unspecified type Urine did not show e vidence of bacteria today.A small amount of blood was noted.We will send this for culture to confirm there is no evidence of infection.I will also send a referral to urology, Dr. Alvarez for further work up considering your antibiotic resistance and blood in your urine.Please call You can take Azo over the counter to help with the pain.We will call you Friday with your culture results and see how you're feeling.Continue with social distancing.AVOID CROWDS AVOID TOUCHING YOUR FACE AVOID UNNECESSARY TRAVEL. WASH HANDS OFTEN. CALL WITH QUESTIONS/CONCERNS Please call the office with any issues, questions, or concerns prior to your next appointment.Follow up in October for your routine visit Related to Dysuria Urinary Incontinence Fall Risk Prevention Dietary management e ducation, guidance, and counseling Related to Body mass index (BMI) 30.0-30.9, adult Giving encouragement to exercise Related to Body mass index (BMI) 30.0-30.9, adult I will check thyroid and other vitamin levels todayI will send a referral to neurology to look into this furtherreturn to me as scheduled call me with questions or concerns Related to Other disorders of peripheral nervous system continue with your c urrent medicationreturn to me as scheduledcall me with questions or concerns Related to Gastro-esophageal reflux disease without esophagitis continue with the cu rrent aspirin and plavix regimen Related to Personal history of transient ischemic attack (TIA), and cerebral infarction without residual deficits blood pressure is stableno musa es Related to Essential (primary) hypertension Giving encouragement to exercise Related to Body mass index (BMI) 30.0-30.9, adult Dietary management e ducation, guidance, and counseling Related to Body mass index (BMI) 30.0-30.9, adult Disease process blood pressure is up todaycheck it at home daily about 2 hours after you take medicationsplease call in 2 weeks with readingslimit salty foodreturn as scheduled in with questions AVOID CROWDS - REMAIN 6 FEET APART FROM PEOPLE. WEAR A MASK. AVOID TOUCHING YOUR FACE. AVOID UNNECESSARY TRAVEL. WASH HANDS OFTEN. CALL WITH QUESTIONS/CONCERNS Related to Essential (primary) hypertension you report numbness tingling and burningwe will check labs todayincrease exercisecall if this gets worse or you notice change in color, temperature of the hands/feet Related to Neuropathy check blood sugar at least once a dayyearly eye examcheck your feet dailywe will monitor the blood [id number] todayStatus: Meeting treatment plan goals. Goals: Your goal is to reduce risks associated with your diabetes. Barriers: You are not sure you understand how to change your habits to achieve your goal. Related to Type 2 diabetes mellitus with other circulatory complications site of pb griggs ele shouldercall if it gets worsetake benadryl as needed Related to Skin rash Dietary management e ducation, guidance, and counseling Related to Body mass index (BMI) 30.0-30.9, adult Giving encouragement to exercise Related to Body mass index (BMI) 30.0-30.9, adult Disease process will treat you for u rinary tract infectiontake medication as directedcontinue to drink plenty of water and take cranberrywill send urine for culture, we may need to adjust antibiotics based on these results and we will notify you Related to Dysuria Watch for chest pain /pressure, heart racing, shortness of breath, nausea, dizziness, sweating; call 911 if you have these symptomsContinue current medicationsStatus: Able to self-manage condition. Goals: Your goal is to reduce risks associated with your heart disease. Barriers: No barriers to goal achievement have been identified. 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 continue on vitamin d supplementation Related to Secondary hyperparathyroidism Your blood pressure is well controlled todayno change in medications at this timemonitor from home and call if you notice it consistently above 140/90call Friday with update on urinary symptomsreturn as scheduled (6 months from Nov visit)call with questions/concerns AVOID CROWDS - REMAIN 6 FEET APART FROM PEOPLE. WEAR A MASK. AVOID TOUCHING YOUR FACE. AVOID UNNECESSARY TRAVEL. WASH HANDS OFTEN. 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 Please schedule this yearFoot care is important. Check your feet every day, and notify us immediately of any problems. The [place] [employer] recommends 30 minutes of exercise daily.A1c in October 06.4Status: Meeting treatment plan goals. Goals: Your goal is to monitor your diabetes. Barriers: No barriers to goal achievement have been identified. Related to Type 2 diabetes mellitus with other circulatory complications Giving encouragement to exercise Related to Body mass index (BMI) 30.0-30.9, adult Dietary management e ducation, guidance, and counseling Related to Body mass index (BMI) 30.0-30.9, adult Disease process one of your hormone levels was elevated. This can happen with aging and vitamin d deficiencywe will monitor this. continue on vitamin d supplementation Related to Secondary hyperparathyroidism stretches given toda ytry to be active as possiblelisten to your bodystart off with walking and do back stretches once a day.Call with any questions or concernscbc, cmp, A1c todayreturn in 6 monthsplease get flu shot at pharmacy Continue with social distancing.AVOID CROWDS, STAY 6 FEET APART FROM OTHERS OUTSIDE YOUR HOUSEHOLD, WEAR A MASK, AVOID TOUCHING YOUR FACE, AVOID UNNECESSARY TRAVEL. WASH HANDS OFTEN. CALL WITH QUESTIONS/CONCERNS Related to Acute bilateral low back pain without sciatica Your blood pressure is well controlled todayno change in medications at this timemonitor from home and call if you notice it consistently above 140/90 Related to Essential (primary) hypertension make sure you are we aring good supportive shoes with arch supportyou can ice the foot using a water bottle that is frozencan take tylenol as needed for painwill print out stretchesthere is Dr. Louie Conner and Dr. Shawn Guerrier in the area for podiatry if interested. Related to Pain in right foot Please make sure you see your retail performance coach for an eye exam once per year. Foot care is important. Check your feet every day, and notify us immediately of any problems. The [place] [employer] recommends 30 minutes of exercise daily.A1c todayStatus: Meeting treatment plan goals. Goals: Your goal is to monitor your diabetes. Barriers: No barriers to goal achievement have been identified. Related to Type 2 diabetes mellitus with other circulatory complications Dietary management e ducation, guidance, and counseling Related to Body mass index (BMI) 30.0-30.9, adult Giving encouragement to exercise Related to Body mass index (BMI) 30.0-30.9, adult Disease process We will send your ur ine or culture today to confirm a UTI and determine what bacteria is causing your infection.We will call you with the culture results on Friday or Friday Related to Leukocytes in urine Urine was positive f or bacteria and blood today.I sent a prescription for Cipro 500 mg once a day for five days to the pharmacy.Continue drinking plenty of water and call the office if symptoms are not improving with the antibiotics or you develop fever, chills, nausea, vomiting, or back pain Related to Dysuria Dietary management e ducation, guidance, and counseling Related to Body mass index (BMI) 30.0-30.9, adult Giving encouragement to exercise Related to Body mass index (BMI) 30.0-30.9, adult will try the buspiro ne, take at nightcheck electrolytestry pickle juice before bedepson salt bathscall if it worsens Related to Muscle spasms of both lower extremities meclizine as neededcall if it wo rsens Related to Tinnitus of both ears stopped Celexasleepi ng is not greatwill send new prescription : buspirone (Buspar) up to 3 times a day as neededcall if symptoms worsen Related to Anxiety avoid fatty, greasy, spicy and acidic food/beveragesavoid late night eatingcontinue Protonixwill send new prescription for Pepcid, this may be on backorder Related to Gastroesophageal reflux disease without esophagitis Watch for chest pain /pressure, heart racing, shortness of breath, nausea, dizziness, sweating; call 911 if you have these symptomsContinue current medicationsfollow up with cardiology yearly; echo next yearwill check labs today and call you with resultsreturn in 4-6 months call with questions/concerns AVOID CROWDS - REMAIN 6 FEET APART FROM PEOPLE. WEAR A MASK. AVOID TOUCHING YOUR FACE. AVOID UNNECESSARY TRAVEL. WASH HANDS OFTEN. CALL WITH QUESTIONS/CONCERNS Status: Able to self-manage condition. Goals: Your goal is to reduce risks associated with your heart disease. Barriers: No barriers to goal achievement have been identified. 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 Related to Essential hypertension stablewill check A1c todayno medication, diet controlledincrease exerciseStatus: Able to self-manage condition. Goals: Your goal is to reduce risks associated with your diabetes. Barriers: No barriers to goal achievement have been identified. 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 continue with the cu rrent medicationpantoprazole - you want to take about 30 minutes before the first meal of the daythe ranitidine - take both tablets in the evening before bedif still no better then we should send you back to GI Related to Gastroesophageal reflux disease without esophagitis Try to take at least 2 tylenol per day and up to 6 per day as needed for painice three times per dayXRAY will be doneI will call with resultsif no better will try oral steroids as the other anti inflammatories upset your acid refluxmay require therapy Related to Right medial knee pain call and set up your mammogramreturn to me in 6 monthscall me with questions or concernscmp cbc hga1c lipids ua to be checkedI will send labs to the heart doctorI would recommend the new shingles vaccine at the local pharmacy Related to Type 2 diabetes mellitus without complications Disease process Fall Risk Prevention Dietary management e ducation, guidance, and counseling Related to Body mass index (BMI) 29.0-29.9, adult Urinary Incontinence Disease process Giving encouragement to exercise Related to Body mass index (BMI) 29.0-29.9, adult Assessments Type Assessment Date No Information Patient Care Teams Name Effective Dates (start - stop) Status Members No Information
--- OUTSIDE RECORDS SUMMARY | 2025-01-14 12:04 | XMS_ITS | Encounter Summary ---
Author Organization [facility] Address [address] [place] [address] Care Team Providers Care Air Conditioning Mechanic Industrial Name Role Phone StephenRadha DO Primary Care Provider [phone] Nina Hernandez DO Primary Care Provider [phone] Encounter Details Date Type Department Care Team (Late st Contact Info) Description 02/06/2017 Orders Only [facility] ProviderDean MD [address] [place] [id number] Social History Tobacco Use Types Packs/Day Years Used Date Smoking Tobacco: Never Assessed Comments Unknown Sex and Gender Information Value Date Recorded Sex Assigned at Not on file Legal Sex Female 10:49 PM BARYTES GRINDER Gender Identity Not on file Sexual Orientation Not on file documented as of this encounter Plan of Treatment Not on file documented as of this encounter Procedures Procedure Name Priority Date/Time Associated Diagnosis Comments CARDIOLOGY REPORT 02/06/2017 CARDIOLOGY REPORT 02/06/2017 documented in this encounter Results * CARDIOLOGY REPORT (02/06/2017) Anatomical Region Laterality Modality Other Narrative 02/06/2017 Ordered by an unspecified provider. Historical Provider [facility] PROCE JL Final Result * CARDIOLOGY REPORT (02/06/2017) Anatomical Region Laterality Modality Other Narrative 02/06/2017 Ordered by an unspecified provider. us Historical Provider [facility] MONALISA PARIKH Final Result documented in this encounter Visit Diagnoses Not on filedocumented in this encounter Care Teams Air Conditioning Mechanic Industrial Relationship Specialty Start Date End Date Radha Mitchell DO PCP - General 02/28/17 08/31/18 Nina Hernandez DO [address] [place] [id number] PCP - General Internal Medicine 09/01/18 documented as of this encounter
--- OUTSIDE RECORDS SUMMARY | 2025-01-14 12:04 | XMS_ITS | Patient Health Summary ---
Author Organization [facility] Address [address] [place] [address] Care Team Providers Care Ror Engineer Name Role Phone Nina Hernandez MD Primary Care Provider [phone] Note from [facility],non-owned Affiliates and Associated Physician Practices is amultiple site organization consisting of ambulatory clinics and hospital sitesin [place], [place]. This disclosure is being madepursuant to the Care Everywhere program and may not contain all information available regarding this patient. Last updated 18.[facility] Allergies * Azithromycin(Rash) -Medium Criticality * Chocolate(Rash) -Medium Criticality * Egg Yolk(Unknown) * Contrast-Iodinated Agents For Ct/Other(Rash) -Medium Criticality * Penicillins(Rash) -Medium Criticality * Sulfa Drugs(Rash) -Medium Criticality * Sulfites(Rash) -Medium Criticality * Sulfamethoxazole W-Trimethoprim(Rash) -Medium Criticality Social History Tobacco Use Types Packs/Day Years Used Date Smoking Tobacco: Never Assessed Sex and Gender Information Value Date Recorded Sex Assigned at Not on file Gender Identity Not on file Sexual Orientation Not on file Last Filed Vital Signs Vital Sign Reading Time Taken Comments Blood Pressure 157/69 09/21/2021 5:08 PM CDT Pulse 77 09/21/2021 5:08 PM CDT Temperature 36.4 C (97.6 F) 09/21/2021 5:08 PM CDT Respiratory Rate 16 09/21/2021 5:08 PM CDT Oxygen Saturation 100% 09/21/2021 5:08 PM CDT Inhaled Oxygen Concentration - - Weight 77.1 kg (170 lb) 09/21/2021 5:08 PM CDT Height 160 cm (5' 3 ) 09/21/2021 5:08 PM CDT Body Mass Index 30.11 09/21/2021 5:08 PM CDT Care Teams Ror Engineer Relationship Specialty Start Date End Date Nina Hernandez MD [address] [place] [id number] PCP - General Family Medicine 09/21/21
--- OUTSIDE RECORDS SUMMARY | 2025-01-14 12:04 | XMS_ITS | Clinical Summary ---
Author Organization [facility] Address [address] [place] [address] Care Team Providers Care Vacuum Tank Tender Name Role Phone Nina Hernandez MD Primary Care Provider [phone] Source Comments [facility],non-owned Affiliates and Associated Physician Practices is amultiple site organization consisting of ambulatory clinics and hospital sitesin [place], [place], [place] and [place]. This disclosure is being madepursuant to the Care Everywhere program and may not contain all information available regarding this patient. Last updated 18.[facility] Allergies Active Allergy Reactions Criticality Noted Date Comments Azithromycin Rash Medium 09/21/2021 Chocolate Rash Medium 09/21/2021 Egg Yolk Unknown 09/21/2021 Contrast-Iodinated Agents For Ct/Other Rash Medium 09/21/2021 Penicillins Rash Medium 09/21/2021 Sulfa Drugs Rash Medium 09/21/2021 Sulfites Rash Medium 09/21/2021 Sulfamethoxazole W-Trimethoprim Rash Medium 09/01 Social History Tobacco Use Types Packs/Day Years [...] Mass Index 30.11 09/21/2021 5:08 PM CDT Plan of Treatment Health Maintenance Due Date Last Done Comments BONE DENSITY TESTING 1950 COLOGUARD (AGES 45-75) - COL ON CA SCREENING 1950 COLON MONITORING 1950 COLONOSCOPY - COLON CA SCREENING 1950 CT COLONOGRAPHY - COLON CA SCREENING 1950 Colorectal Cancer Screening 1950 FIT - COLON CA SCREENING 1950 FLEX SIG - COLON CA SCREENING 1950 LIPID TESTING 1950 MAMMOGRAM 1950 MEDICARE AWV 12 MONTHS 1950 HEPATITIS C SCREENING 01/19/1968 DTAP/TDAP/TD VACCINES (1 - Tdap) 1969 PNEUMOCOCCAL VACCINE 50+ (1 of 1 - PCV) 2000 ZOSTER VACCINE (1 of 2) 2000 COVID-19 VACCINE (3 - 2023-2 5 season) 2024 02/21/2021, 01/24/2021 INFLUENZA VACCINE (#1) 2024 DEPRESSION SCREENING 12/01/2024 Respiratory Syncytial Virus (RSV) Vaccine Pt: or over 60 yrs (1 - 1-dose 75+ series) 2025 HEPATITIS B VACCINE Aged Out No longe r eligible based on patient's age to complete this topic HIB VACCINE Aged Out No longer eligi ble based on patient's age to complete this topic HPV VACCINE Aged Out No longer eligi ble based on patient's age to complete this topic MENINGOCOCCAL (Group B) VACCINE Aged Out No longer eligible b ased on patient's age to complete this topic MENINGOCOCCAL VACCINE Aged Out No valery gerardo eligible based on patient's age to complete this topic Care Teams Vacuum Tank Tender Relationship Specialty Start Date End Date Nina Hernandez MD [address] [place] [id number] PCP - General Family Medicine 09/21/21
--- OUTSIDE RECORDS SUMMARY | 2025-01-14 12:04 | XMS_ITS | Clinical Summary ---
Author Organization [facility] Address [address] [place] [address] Care Team Providers Care Injury Prevention Coordinator Name Role Phone Moris Saldaña MD Primary Care Provider [phone] Social History Tobacco Use Types Packs/Day Years Used Date Smoking Tobacco: Never Comments Unknown Sex and Gender Information Value Date Recorded Sex Assigned at Not on file Legal Sex Female 11:35 PM CDT Gender Identity Not on file Sexual Orientation Not on file Plan of Treatment Health Maintenance Due Date Last Done Comments Colorectal Cancer Screening Colonoscopy (10 Years) 1950 Hepatitis C 1968 DTaP, Tdap and Td Vaccines ( 1 - Tdap) 1969 Mammogram Screening 1990 Zoster Vaccines (1 of 2) 2000 Dexa Scan (General) 2015 Pneumococcal Vaccine: 65+ Ye ars (1 of 1 - PCV) 2015 COVID-19 Vaccine ( - 2023-2 5 season) 2024 Influenza Adult (#1) 2024 RSV Immunization or 60+ Years (1 - 1-dose 75+ series) 2025 Meningococcal B Vaccine Aged Out No l onger eligible based on patient's age to complete this topic Meningococcal Vaccine Aged Out No valery gerardo eligible based on patient's age to complete this topic RSV Immunizations Under 20 Months Aged Out No longer eligible based on patient's age to complete this topic Care Teams Injury Prevention Coordinator Relationship Specialty Start Date End Date Moris Saldaña MD [address] [place] [address] PCP - General 08/18/13
--- OUTSIDE RECORDS SUMMARY | 2025-01-14 12:04 | XMS_ITS | Clinical Summary ---
Author Organization [facility] [address] [facility] [address] Address [address] [place] [address] Care Team Providers Care Biscuit Machine Operator Name Role Phone Nina Hernandez DO Primary Care Provider [phone] Allergies Active Allergy Reactions Criticality Noted Date [...] MOUTH DAILY 90 tablet 3 4 Active gzrelyaz63-xrsp -Lmfolate-algal 27 mg iron-1.13 mg-581.92 mg capsule [...] for Palpitations, DOI 06/11/[address] Ball[address] [employer] remote home monitoring. JR Coronary artery disease invo lving [place] coronary artery of [place] heart with angina pectoris 06/06/2017 Hx of heart artery stent 06/06/2017 Palpitations 06/06/2017 Prominent abdominal aortic pulsation 06/06/2017 Preoperative state 03/28/2017 Overview (04/25/2017): Preoperative cardiovascular examination Mitral valve prolapse 03/28/2017 Overview (04/25/2017): Mitral valve prolapse Disorder of uterus 03/28/2017 Overview (04/25/2017): Uterine mass Encounters Date Type Department Care Team Description 01/12/2025 9:45 AM SURVEILLANCE SUPERVISOR Office Visit [facility] Cardiology [address] [place] [address] Kvng Sheridan MD Coronary artery disease involving [place] coronary artery of [place] heart without angina pectoris (Primary Dx); Status post angioplasty with stent; Orthostatic dizziness; Mitral valve prolapse from Last 3 Months Surgical History Surgery Date Site/Laterality Comments CHOLECYSTECTOMY Cholecystectomy HYSTERECTOMY 12/01/2019 - 11/30/2020 ANGIOPLASTY 2016 Medical History Medical History Date Comments Superficial basal cell carcinoma Cancer, basal Cell Hx Other Medical Allergies, seas onal Hx Other Medical diverticulitis Hx Other Medical Stroke 2001 Hx Other Medical Cataracts Heart valve disease Valvular dis ease Hypertension Hypertension Coronary artery disease invo lving [place] coronary artery of [place] heart with angina pectoris (HCC) 06/06/2017 Hx of heart artery stent 06/06/2017 Palpitations 06/06/2017 Prominent abdominal aortic pulsation 06/06/2017 Other insomnia 09/05/2017 Statin intolerance 09/05/2017 GERD (gastroesophageal reflux disease) Arthritis Migraines 1980s Heart disease 1980s Stroke (HCC) 2001 Diabetes mellitus (HCC) Prediabetic Family History Medical History Relation Name Comments Heart attack Brother Ulisses Heart disease Brother Ulisses Cardiovascular disease; Hypertension Brother Ulisses Kidney disease Brother Ulisses Heart disease Father Thomas Cardiovascular disease; Cause of : Cardiovascular disease Diabetes Maternal Grandfather Peter Diabetes Mother Pet Heart disease Mother Pet Cardiovascular disease; Cause of : Cardiovascular disease Kidney disease Mother Pet Renal disease ; Cause of : Renal disease Breast cancer Sister 4 Noelle Cancer, breast ; Cause of : Cancer, breast Cancer Sister 4 Noelle Diabetes Sister 4 Noelle Hyperlipidemia Sister 4 Noelle Hypertension Sister 4 Noelle Diabetes Sister 5 Diabetes mellit us; Hyperlipidemia Sister 6 Hyperlipidemi a; Hypertension Sister 7 Hypertension; Relation Name Status Comments Brother Ulisses Father Thomas (Age 50) Maternal Grandfather Cong Mother Pet (Age 77) Sister 1 (Age 56) Sister 2 (Age 56) Sister 3 (Age 56) Sister 4 Noelle Sister 5 Sister 6 Sister 7 Social History Tobacco Use Types Packs/Day Years Used Date Smoking Tobacco: Never Smokeless Tobacco: Never Tobacco Cessation:Counseling Given: Not Answered Alcohol Use Standard Drinks/Week Comments No 0 (1 standard drink = 0.6 oz pur e alcohol) Comments No Sex and Gender Information Value Date Recorded Sex Assigned at Not on file Legal Sex Female 10:49 PM SURVEILLANCE SUPERVISOR Gender Identity Not on file Sexual Orientation Not on file Obstetrics History Last Filed Vital Signs Vital Sign Reading Time Taken Comments Blood Pressure 96/62 01/12/2025 9:53 AM SURVEILLANCE SUPERVISOR Pulse 97 01/12/2025 9:53 AM SURVEILLANCE SUPERVISOR Temperature 36.8 C (98.3 F) 09/22/2021 10:38 AM CDT Respiratory Rate 18 09/22/2021 11:36 AM CDT Oxygen Saturation 99% 01/12/2025 9:53 AM SURVEILLANCE SUPERVISOR Inhaled Oxygen Concentration - - Weight 74.7 kg (164 lb 9.6 oz) 01/12/2025 9:53 A M SURVEILLANCE SUPERVISOR Height 165.1 cm (5' 5 ) 01/12/2025 9:53 AM SURVEILLANCE SUPERVISOR Body Mass Index 27.39 01/12/2025 9:53 AM SURVEILLANCE SUPERVISOR Plan of Treatment Health Maintenance Due Date Last Done Comments Breast Cancer Screening-Mammogram 1950 Colon Cancer Screening-Colonoscopy 1950 Depression Screening 1950 Fall Risk Assessment 1950 Hepatitis C Screening 1950 Osteoporosis Screening-Bone Density Scan 1950 DTaP/Tdap/Td Vaccine (1 - Tdap) 1961 Hepatitis B Screening 1968 Zoster Vaccine (1 of 2) 2000 Pneumococcal vaccine 65+ (1 of 1 - PCV) 2015 Well Visit 65+ 2015 Influenza Vaccine (#1) 2024 Procedures Procedure Name Priority Date/Time Associated Diagnosis Comments POCT LIPID PANEL Routine 01/12/2025 10:4 0 AM SURVEILLANCE SUPERVISOR Coronary artery disease involving [place] coronary artery of [place] heart without angina pectoris from Last 3 Months Results * POCT lipid panel (01/12/2025 10:40 AM SURVEILLANCE SUPERVISOR) Cholesterol, POC 158 mg/dL Comment:GLU = 198 HDL, POC 31 mg/dL Triglycerides, POC 135 mg/dL LDL Cholesterol POC 100 mg/dL Chol/HDL Ratio, POC 3.2 Non-HDL Cholesterol, POC 127 mg/dL Cholesterol Total, POC 158 mg/dL Capillary blood 01/12/2025 1 0:40 AM SURVEILLANCE SUPERVISOR Kvng Sheridan MD POINT OF CARE TEST ORDERABLES Fi nal Result from Last 3 Months Insurance [facility] MEDICARE MEDICARE [facility] Care Teams Biscuit Machine Operator Relationship Specialty Start Date End Date Nina Hernandez DO [address] [place] [address] PCP - General Internal Medicine 09/01/18
--- OUTSIDE RECORDS SUMMARY | 2025-01-14 12:04 | XMS_ITS | Referral Summary ---
Author Organization [facility] Address [address] [facility] [place] [address] Care Team Providers Care Building Appraiser Name Role Phone Nina Hernandez MD Primary Care Provider [phone] Source Comments [facility],non-owned Affiliates and Associated Physician Practices is amultiple site organization consisting of ambulatory clinics and hospital sitesin [place], [place], [place] and [place]. This disclosure is being madepursuant to the Care Everywhere program and may not contain all information available regarding this patient. Last updated 18.[facility] [employer] Allergies Active Allergy Reactions Criticality Noted Date [...] 09/21/2021 5:08 PM CDT Plan of Treatment Not on file Care Teams Building Appraiser Relationship Specialty Start Date End Date Nina Hernandez MD [address] [place] [id number] PCP - General Family Medicine 09/21/21
--- NOTE | 2025-01-14 12:05 | ECG_ITS ---
Test Date: 2025-01-14 12:11:37 Measurements Intervals [place] Rate: 102 P: 56 VA: 169 QRS: 84 QRSD: 154 T: -18 QT: 394 QTc: 515 Interpretive Statements SINUS TACHYCARDIA RIGHT BUNDLE BRANCH BLOCK BASELINE ARTIFACT- I, II, III, AVR, AVL, AVF, V2, V4-V6 ABNORMAL ECG Compared to ECG 08/19/2024 07:56:48 HEART RATE HAS INCREASED Electronically Signed On 01-14-2025 12:40:07 MATTRESS SPECIALIST by Jimbo Ojeda D.O.
--- NOTE | 2025-01-14 14:07 | ED_ITS ---
HPI - Arrhythmia/Palpitations General Chief Complaint: Arrhythmia/Palpitations <Sue Dudley PA-C - Last Filed: 01/14/25 18:28> Stated Complaint: inc hr, light headed <Sue Duldey PA-C - Last Filed: 01/14/25 18:28> Time Seen by Provider: 01/14/25 15:55 <Sue Dudley PA-C - Last Filed: 01/14/25 18:28> Focused HPI: 74-year-old female with history of hypertension, hyperlipidemia, CAD, s/p cardiac stent placement in 2017 presents to the emergency department for about 1 week of lightheadedness when going from sitting to standing position and palpitations. Patient states she has had GI issues since she had a GI bug before . For the past 5 days she has had bowel movements that are firm in the morning and then turn to diarrhea throughout the day. States she has been attempting to eat and drink well but has been feeling nauseous. Over the past few days she feels lightheaded when going from sitting to standing position and feels like her heart is beating very quickly. She saw her tooth polisher, Dr. Sheridan, a couple days ago he discontinued her olmesartan in case this was causing her symptoms. States she has noticed much improvement but has noticed her blood pressure is increased since discontinuation of this medication. States she is post be scheduled for a outpatient nuclear stress test soon. She denies chest pain or shortness of breath but does state last night she did have some pain in her jaw which was abnormal. Denies abdominal pain, fevers. GENERAL: Well-appearing, well-nourished, and in no acute distress. HEAD: Normocephalic, atraumatic. CHEST: Clear to auscultation. ?No respiratory distress. HEART: Regular rate and rhythm.? NEURO: ?Alert and oriented x3. Patient screened in triage and initial orders placed.? ?Additional care and disposition to be based upon?diagnostic testing and treatment. <Sue Dudley PA-C - Last Filed: 01/14/25 18:28> History of Present Illness HPI narrative: I agree with the above HPI <Woodrow Gracia MD - Last Filed: 01/14/25 21:59> Related Data Home Medications: Home Medications ?Medication ?Instructions ?Recorded ?Confirmed ?Last Taken ?Type amlodipine 5 mg tablet (Norvasc) 10 mg PO DAILY 12/28/19 01/14/25 01/13/25 History atorvastatin 10 mg tablet 20 mg PO HS 12/28/19 01/14/25 01/13/25 History clopidogrel 75 mg tablet (Plavix) 75 mg PO DAILY 12/28/19 01/14/25 01/14/25 History pantoprazole 40 mg tablet,delayed 40 mg PO QAM 12/28/19 01/14/25 01/14/25 History release (Protonix) famotidine 40 mg tablet 40 mg PO HS 07/06/20 01/14/25 01/14/25 History olmesartan 40 mg tablet (Benicar) 40 mg PO DAILY 08/28/20 01/14/25 01/13/25 History nitroglycerin 0.3 mg sublingual 4 mg sublingual Q5M PRN Chest Pain 05/21/21 01/14/25 Unknown History tablet metoprolol succinate 50 mg 50 mg PO DAILY 01/09/23 01/14/25 01/14/25 History tablet,extended release 24 hr aspirin 81 mg capsule 81 mg PO DAILY 01/14/25 01/14/25 Unknown History <Sue Dudley PA-C - Last Filed: 01/14/25 18:28> Allergies/Adverse Reactions: Allergies Allergy/AdvReac Type Severity Reaction Status Date / Time chocolate Allergy Severe Difficulty Verified 01/14/25 16:34 Breathing egg Allergy Severe DIFFICULTY Verified 01/14/25 16:34 BEATHING iohexol (From contrast - CT, Allergy Severe Hives Verified 01/14/25 16:34 X-RAY) azithromycin Allergy Mild RASH Verified 01/14/25 16:34 erythromycin base Allergy Mild RASH,HIVES Verified 01/14/25 16:34 Penicillins Allergy Mild RASH Verified 01/14/25 16:34 Sulfa (Sulfonamide Allergy Mild RASH Verified 01/14/25 16:34 Antibiotics) trimethoprim Allergy Mild RASH Verified 01/14/25 16:34 sulfite Allergy Unknown Anaphylaxis Verified 01/14/25 16:34 trazodone Allergy Anaphylaxis Verified 01/14/25 16:34 <Sue Dudley PA-C - Last Filed: 01/14/25 18:28> Review of Systems 2 Review of Systems: All systems reviewed & are unremarkable except as noted in HPI and below <Woodrow Gracia MD - Last Filed: 01/14/25 21:59> PMFSH Past Medical History Medical History: Medical History Acid reflux Allergies CAD (coronary artery disease) History of basal cell cancer Hyperlipidemia Hypertension Irritable bowel Migraines Mitral valve disorder Pre-diabetes Recurrent urinary tract infection Stroke <Sue Dudley PA-C - Last Filed: 01/14/25 18:28> Surgical History Surgical History: Surgical History H/O angioplasty H/O dilation and curettage H/O: hysterectomy History of cholecystectomy History of cryosurgery Cervical History of removal of cyst <Sue Dudley PA-C - Last Filed: 01/14/25 18:28> Family History Family History: Family History Sibling Breast cancer Hypertension Hyperlipidemia Mother Diabetes mellitus Hypertension Heart disease Father Heart disease Grandparent Diabetes mellitus <Sue Dudley PA-C - Last Filed: 01/14/25 18:28> Social History Social History: Social History Smoking status: Never smoker Second hand tobacco smoke exposure: No Alcohol intake: never Substance use: never Substance use type: does not use Lack of Transportation: No Lack of Food: Never True Current Housing: I Have Housing Concerned About Future Housing: No Difficulty Paying Gas/Electric Bills: No Difficulty Paying for Meds: No Currently Unemployed: No Education: Associate Degree Difficulty w/ Childcare or Family Care: No Living arrangements: with family Additional living arrangements comments: With Spiritual care concerns: No <Sue Dudley PA-C - Last Filed: 01/14/25 18:28> Exam 2 Narrative: APPEARANCE: Well appearing, no pain, no distress, well-nourished. HEAD: normocephalic, atraumatic. EYES: PERRLA/EOMI, conjunctivae clear. NOSE: Normal no drainage EARS:TMS clear with good light reflex. THROAT: Pharynx clear, no exudate. NECK: Supple. No adenopathy, no masses. RESPIRATORY: Airway patent, respirations nonlabored. Clear to auscultation bilaterally, no rales, rhonchi, wheezing. CARDIOVASCULAR: Regular rate and rhythm without murmurs rubs or gallops. ABDOMINAL: Soft, nontender, nondistended, normal bowel sounds MUSCULOSKELETAL: Moves all extremities. Strength/ROM intact, No edema, No calf tenderness. NEURO: Alert. Cranial nerves II through XII intact. Grossly intact SKIN: Warm, dry. Normal Color <Woodrow Gracia MD - Last Filed: 01/14/25 21:59> Course Vital Signs Vital signs: Vital Signs Temperature 97.6 F 01/14/25 12:05 Pulse Rate 108 H 01/14/25 12:05 Respiratory Rate 16 01/14/25 12:05 Blood Pressure 152/68 H 01/14/25 12:05 Pulse Oximetry 100 01/14/25 12:05 Temperature 98.5 F 01/14/25 19:14 Pulse Rate 81 01/14/25 19:14 Respiratory Rate 20 01/14/25 19:14 Blood Pressure 131/69 01/14/25 19:14 Pulse Oximetry 97 01/14/25 19:14 <Sue Dudley PA-C - Last Filed: 01/14/25 18:28> Vital Signs Temperature 97.6 F 01/14/25 12:05 Pulse Rate 108 H 01/14/25 12:05 Respiratory Rate 16 01/14/25 12:05 Blood Pressure 152/68 H 01/14/25 12:05 Pulse Oximetry 100 01/14/25 12:05 Temperature 98.5 F 01/14/25 19:14 Pulse Rate 81 01/14/25 19:14 Respiratory Rate 20 01/14/25 19:14 Blood Pressure 131/69 01/14/25 19:14 Pulse Oximetry 97 01/14/25 19:14 <Woodrow Gracia MD - Last Filed: 01/14/25 21:59> MDM - Arrhythmia/Palpitations MDM Narrative Medical decision making narrative: [age] old female presented emergency department for evaluation for hypertension and heart palpitation this and feeling ill. Patient did feel improved with IV fluid that was able to ambulate in the emergency department with out hypoxia without tachycardia. Patient is afebrile with no leukocytosis and hemoglobin of 14.5. INR 0.9. No significant abnormalities on the patient's CMP. UA was negative for infection. Patient was negative for COVID RSV and influenza. Chest x-ray showed mild atelectasis. EKG showed no evidence of acute STEMI. Patient family updated the results of the workup they are comfortable plan for discharge and close follow-up. <Woodrow Gracia MD - Last Filed: 01/14/25 21:59> Differential Diagnosis Differential diagnosis: Likely palpitations, anxiety, sinus tachycardia, artial fibrillation, artial flutter, ventricular premature beats, supraventricular tachycardia and ventricular tachycardia <Woodrow Gracia MD - Last Filed: 01/14/25 21:59> Lab Data Attestation: I reviewed the patient's lab results. <Woodrow Gracia MD - Last Filed: 01/14/25 21:59> Result diagrams: 01/14/25 16:08 01/14/25 16:08 <Sue Dudley PA-C - Last Filed: 01/14/25 18:28> Labs: Lab Results 01/14/25 Range/Units 16:08 WBC 10.0 (4.5-10.0) K/mm3 RBC 4.98 (4.2-5.4) M/mm3 Hgb 14.5 (12.0-15.0) g/dL Hct 44.2 (37.0-47.0) % MCV 88.8 (80-100) fl MCH 29.1 (26-34) pg MCHC 32.8 (32-36) g/dl RDW 13.2 (11.5-14.5) % Plt Count 281 (150-375) k/mm3 MPV 9.4 (7.4-10.4) fl Immature Gran % (Auto) 0.8 H (0-0.5) % Neut % (Auto) 76.1 H (45.5-73.1) % Lymph % (Auto) 16.2 L (18.3-44.2) % Victoria % (Auto) 6.0 (2.6-8.5) % Eos % (Auto) 0.5 (0-4.4) % Baso % (Auto) 0.4 (0.2-1.2) % Lymph # (Auto) 1.62 (0.9-3.2) K/mm3 Victoria # (Auto) 0.6 (0.1-0.6) K/mm3 Eos # (Auto) 0.1 (0-0.3) K/mm3 Baso # (Auto) 0.0 (0.0-0.1) K/mm3 Abs Immat Gran (auto) 0.08 H (0.00-0.031) K/mm3 Absolute Neuts (auto) 7.6 H (1.3-6.7) K/mm3 Absolute Nucleated RBC 0.000 (0.0-0.012) K/mm3 Nucleated RBC % 0.0 (0.0-0.2) % PT 12.6 (11.1-14.7) Seconds INR 0.9 APTT 29.1 (22.3-36.8) Seconds Sodium 143 (137-145) mmol/L Potassium 4.4 (3.4-5.0) mmol/L Chloride 104 (98-107) mmol/L Carbon Dioxide 28 (22-30) mmol/L Anion Gap 11 (4-12) mmol/L BUN 12 D (7-17) mg/dL Creatinine 0.79 (0.7-1.0) mg/dL Estim Creat Clear Calc 54 ml/min Estimated GFR > 60 (59 - ) Glucose 127 H (65-110) mg/dL Calcium 10.4 H (8.4-10.2) mg/dL Magnesium 2.2 (1.6-2.3) mg/dL Total Bilirubin 0.8 (0.2-1.3) mg/dL AST 22 (14-36) U/L ALT 24 (6-35) U/L Alkaline Phosphatase 159 H (38-126) U/L Troponin I < 0.012 (0.000-0.034) ng/mL NT-Pro-B Natriuret Pep 187 H (19.9-100) pg/mL Total Protein 8.0 (6.3-8.2) g/dL Albumin 4.8 (3.5-5.1) g/dL Urine Color Yellow (Yellow) Urine Appearance Clear (Clear) Urine pH 5.0 (5.0-9.0) Ur Specific [place] 1.017 (1.001-1.035) Urine Protein Negative (Negative) mg/dL Urine Glucose (UA) Negative (Negative) mg/dL Urine Ketones Trace H (Negative) mg/dL Ur Blood (Man) Negative (Negative) Urine Nitrate Negative (Negative) Urine Bilirubin Negative (Negative) Urine Urobilinogen 0.2 (<2.0) mg/dL Leukocyte Esterase Rfl 1+ H (Negative) KARI/UL Urine RBC 0-2 (0-2) /hpf Urine WBC 6-10 H (0-3) /hpf Ur Squamous Epith Cells Occasional (Few) /hpf Urine Bacteria None seen /hpf Urine Casts 0-2 Influenza A (RT-PCR) Negative (Negative) Influenza B (RT-PCR) Negative (Negative) RSV (RT-PCR) Negative (Negative) SARS-CoV-2 RNA (RT-PCR) Negative (Negative) <Sue Dudley PA-C - Last Filed: 01/14/25 18:28> Lab Results 01/14/25 Range/Units 16:08 WBC 10.0 (4.5-10.0) K/mm3 RBC 4.98 (4.2-5.4) M/mm3 Hgb 14.5 (12.0-15.0) g/dL Hct 44.2 (37.0-47.0) % MCV 88.8 (80-100) fl MCH 29.1 (26-34) pg MCHC 32.8 (32-36) g/dl RDW 13.2 (11.5-14.5) % Plt Count 281 (150-375) k/mm3 MPV 9.4 (7.4-10.4) fl Immature Gran % (Auto) 0.8 H (0-0.5) % Neut % (Auto) 76.1 H (45.5-73.1) % Lymph % (Auto) 16.2 L (18.3-44.2) % Victoria % (Auto) 6.0 (2.6-8.5) % Eos % (Auto) 0.5 (0-4.4) % Baso % (Auto) 0.4 (0.2-1.2) % Lymph # (Auto) 1.62 (0.9-3.2) K/mm3 Victoria # (Auto) 0.6 (0.1-0.6) K/mm3 Eos # (Auto) 0.1 (0-0.3) K/mm3 Baso # (Auto) 0.0 (0.0-0.1) K/mm3 Abs Immat Gran (auto) 0.08 H (0.00-0.031) K/mm3 Absolute Neuts (auto) 7.6 H (1.3-6.7) K/mm3 Absolute Nucleated RBC 0.000 (0.0-0.012) K/mm3 Nucleated RBC % 0.0 (0.0-0.2) % PT 12.6 (11.1-14.7) Seconds INR 0.9 APTT 29.1 (22.3-36.8) Seconds Sodium 143 (137-145) mmol/L Potassium 4.4 (3.4-5.0) mmol/L Chloride 104 (98-107) mmol/L Carbon Dioxide 28 (22-30) mmol/L Anion Gap 11 (4-12) mmol/L BUN 12 D (7-17) mg/dL Creatinine 0.79 (0.7-1.0) mg/dL Estim Creat Clear Calc 54 ml/min Estimated GFR > 60 (59 - ) Glucose 127 H (65-110) mg/dL Calcium 10.4 H (8.4-10.2) mg/dL Magnesium 2.2 (1.6-2.3) mg/dL Total Bilirubin 0.8 (0.2-1.3) mg/dL AST 22 (14-36) U/L ALT 24 (6-35) U/L Alkaline Phosphatase 159 H (38-126) U/L Troponin I < 0.012 (0.000-0.034) ng/mL NT-Pro-B Natriuret Pep 187 H (19.9-100) pg/mL Total Protein 8.0 (6.3-8.2) g/dL Albumin 4.8 (3.5-5.1) g/dL Urine Color Yellow (Yellow) Urine Appearance Clear (Clear) Urine pH 5.0 (5.0-9.0) Ur Specific [place] 1.017 (1.001-1.035) Urine Protein Negative (Negative) mg/dL Urine Glucose (UA) Negative (Negative) mg/dL Urine Ketones Trace H (Negative) mg/dL Ur Blood (Man) Negative (Negative) Urine Nitrate Negative (Negative) Urine Bilirubin Negative (Negative) Urine Urobilinogen 0.2 (<2.0) mg/dL Leukocyte Esterase Rfl 1+ H (Negative) KARI/UL Urine RBC 0-2 (0-2) /hpf Urine WBC 6-10 H (0-3) /hpf Ur Squamous Epith Cells Occasional (Few) /hpf Urine Bacteria None seen /hpf Urine Casts 0-2 Influenza A (RT-PCR) Negative (Negative) Influenza B (RT-PCR) Negative (Negative) RSV (RT-PCR) Negative (Negative) SARS-CoV-2 RNA (RT-PCR) Negative (Negative) <Woodrow Gracia MD - Last Filed: 01/14/25 21:59> Imaging Data Radiologist's impression: Impressions Chest X-Ray 01/14/25 14:43 IMPRESSION: 1. Mild atelectasis in lingula. <Woodrow Gracia MD - Last Filed: 01/14/25 21:59> Discharge Plan Discharge Clinical Impression: Heart palpitations, Hypertension <Sue Dudley PA-C - Last Filed: 01/14/25 18:28> Patient Disposition: Home, Self-Care <Sue Dudley PA-C - Last Filed: 01/14/25 18:28> Condition: Stable <Sue Dudley PA-C - Last Filed: 01/14/25 18:28> Instructions: Antibiotic Form, Heart Palpitations (DC), Hypertension (ED) <Sue Dudley PA-C - Last Filed: 01/14/25 18:28> Additional Instructions: Continue to have close follow-up with your primary care physician and cardiology. If you have any worsening symptoms then please call or return to the emergency department. <Sue Dudley PA-C - Last Filed: 01/14/25 18:28> Patient Language: Turkish <Sue Dudley PA-C - Last Filed: 01/14/25 18:28> Prescriptions: No Action atorvastatin 10 mg Tablet 20 mg PO HS clopidogrel [Plavix] 75 mg Tablet 75 mg PO DAILY amlodipine [Norvasc] 5 mg Tablet 10 mg PO DAILY pantoprazole [Protonix] 40 mg Tablet,Delayed Release (Dr/Ec) 40 mg PO QAM famotidine 40 mg tablet 40 mg PO HS olmesartan [Benicar] 40 mg Tablet 40 mg PO DAILY metoprolol succinate 50 mg tablet extended release 24 hr 50 mg PO DAILY nitroglycerin 0.3 mg Tablet, Sublingual 4 mg SUBLINGUAL Q5M PRN (Reason: Chest Pain) aspirin 81 mg capsule 81 mg PO DAILY <Sue Dudley PA-C - Last Filed: 01/14/25 18:28> Follow-up/Referrals: Mary,Nina Domínguez DO [Primary Care Provider] - <Sue Dudley PA-C - Last Filed: 01/14/25 18:28>
--- OUTSIDE RECORDS SUMMARY | 2025-01-14 14:14 | XMS_ITS | Encounter Summary ---
Author Organization [facility] Care Team Providers Care Amortization Schedule Clerk Name Role Phone Radha Mitchell DO Primary Care Provider [phone] Nina Hernandez DO Primary Care Provider [phone] Encounter Details Date Type Department Care Team (Latest Contact Info) Description 12/16/2016 Orders Only [facility] ProviderDean MD [address] [place] [id number] Social History Tobacco Use Types Packs/Day Years Used Date Smoking Tobacco: Never Assessed Comments Unknown Sex and Gender Information Value Date Recorded Sex Assigned at Not on file Legal Sex Female 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 Historical Provider [facility] MONALISA PARIKH Final Result documented in this encounter Visit Diagnoses Not on filedocumented in this encounter Care Teams Amortization Schedule Clerk Relationship Specialty Start Date End Date Radha Mitchell DO PCP - General 02/28/17 08/31/18 Nina Hernandez DO [address] [place] [id number] PCP - General Internal Medicine 09/01/18 documented as of this encounter
--- OUTSIDE RECORDS SUMMARY | 2025-01-14 14:14 | XMS_ITS | Continuity of Care Document ---
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 Name Role Phone Nina Hernandez DO Unavailable [...] Office Lab J ROUTINE VENIPUNCTURE IL OFFICE [id number]-NVS-[id number] SYST BP LT 130 MM HG DIAST BP < 80 MM HG CBC, INC PLATELETS AND DIFFERENTIAL COMPREHEN METABOLIC PANEL [facility] CREATINE KINASE, TOTAL (CPK,CK) 024 HEMOGLOBIN A1C HGA1C, GLYCO LIPID PANEL ROUTINE VENIPUNCTURE IL OFFICE [id number] SYST BP LT 130 MM HG DIAST BP < 80 MM HG DSCHRG MED/CURRENT MED MERGE X-RAY SPINE, CERVICAL, 2 Or 3 VIEWS OFFICE [id number] Visit Complexity Inherent To E/M 2023 SYST BP LT 130 MM HG DIAST BP < 80 MM HG X-RAY SPINE, CERVICAL, 2 Or 3 VIEWS C-REACTIVE PROTEIN (CRP) CBC, INC PLATELETS AND DIFFERENTIAL COMPREHEN METABOLIC PANEL [facility] 4 CREATINE KINASE, TOTAL (CPK,CK) 024 FOLIC [...] MERGE Pt inelig neg scrn deprloren OFFICE [id number] SYST BP LT 130 MM HG DIAST [...] Lab J an-09-2024 ROUTINE VENIPUNCTURE IL OFFICE [id number]-[id number] SYST BP LT 130 MM HG DIAST BP < 80 MM HG CBC, INC PLATELETS AND DIFFERENTIAL COMPREHEN METABOLIC PANEL [facility] 3 HEMOGLOBIN A1C HGA1C, GLYCO PARATHYROID HORMONE (PTH) THYROID STIMULATION HORMONE(TSH) 2022 URINALYSIS, REFLEX (UA) VITAMIN D, 25-HYDROXY Pt inelig neg scrn depres ROUTINE VENIPUNCTURE IL OFFICE [id number] SYST BP LT 130 MM HG DIAST BP < 80 MM HG BASIC METABOLIC PANEL(BMP) ROUTINE VENIPUNCTURE NV CBC, INC PLATELETS AND DIFFERENTIAL COMPREHEN METABOLIC PANEL [facility] 3 HEMOGLOBIN A1C HGA1C, GLYCO LIPID PANEL PARATHYROID HORMONE (PTH) THYROID STIMULATION HORMONE(TSH) 2022 VITAMIN D, 25-HYDROXY DSCHRG MED/CURRENT MED MERGE ROUTINE VENIPUNCTURE IL OFFICE [id number] SYST BP LT 130 MM HG DIAST BP < 80 MM HG Pt inelig neg scrn depres CBC, INC PLATELETS AND DIFFERENTIAL COMPREHEN METABOLIC PANEL CMP 2 HEMOGLOBIN A1C HGA1C, GLYCO LIPID PANEL PARATHYROID HORMONE (PTH) THYROID STIMULATION HORMONE(TSH) 2021 VITAMIN D, 25-HYDROXY URINALYSIS, DIPSTICK (UA) - Office Lab A ROUTINE VENIPUNCTURE IL OFFICE [id number]-[id number]-[id number] SYST BP LT 130 MM HG DIAST BP < 80 MM HG CBC, INC PLATELETS AND DIFFERENTIAL COMPREHEN METABOLIC PANEL [facility] 2 CREATINE KINASE, TOTAL (CPK,CK) 022 HEMOGLOBIN A1C HGA1C, GLYCO LIPID PANEL MICROALBUMIN, QN (URINE) CREATININE, (U-R) PARATHYROID HORMONE (PTH) RBC SED RATE, AUTOMATED THYROID STIMULATION HORMONE(TSH) 2021 URINALYSIS W MICROSCOPIC (UA) VITAMIN D, 25-HYDROXY ROUTINE VENIPUNCTURE OFFICE [id number] SYST BP LT 130 MM HG DIAST BP < 80 MM HG Pt inelig neg scrn depres CBC, INC PLATELETS AND DIFFERENTIAL COMPREHEN METABOLIC PANEL [facility] 1 HEMOGLOBIN A1C HGA1C, GLYCO LIPID PANEL THYROID STIMULATION HORMONE(TSH) 2020 URINALYSIS W MICROSCOPIC (UA) ROUTINE VENIPUNCTURE NV OFFICE HZDMS-OUF-PNEANRRI SYST BP LT 130 MM HG DIAST BP < 80 MM HG URINALYSIS, DIPSTICK (UA) - Office Lab A FALL RISK ASSESSMENT DOC'D PRES/ABSN URINE INCON ASSESS OFFICE [id number]-[id number]-[id number] SYST BP GE 130 - 139MM HG DIAST BP < 80 MM HG CREATINE KINASE, TOTAL (CPK,CK) 021 FERRITIN LEVEL FOLIC ACID (S) (FOLATE) VITAMIN B12 (SERUM) ROUTINE VENIPUNCTURE OFFICE EOZCI-QMP-[id number] SYST BP GE 130 - 139MM HG DIAST BP < 80 MM HG C-REACTIVE PROTEIN (CRP) CBC, INC PLATELETS AND DIFFERENTIAL COMPREHEN METABOLIC PANEL CMP CREATINE KINASE, TOTAL (CPK,CK) 021 HEMOGLOBIN A1C HGA1C, GLYCO LIPID PANEL RBC SED RATE, AUTOMATED THYROID STIMULATION HORMONE(TSH) 2020 ROUTINE VENIPUNCTURE IL OFFICE GROQU-VPK-LIMZIIUX SYST BP >= 140 MM HG6 IT DIAST BP < 80 MM HG Pt inelig neg scrn depres OFFICE [id number]-[id number] SYST BP LT 130 MM HG DIAST BP < 80 MM HG URINALYSIS, DIPSTICK (UA) - Office Lab J CBC, INC PLATELETS AND DIFFERENTIAL COMPREHEN METABOLIC PANEL CMP 0 HEMOGLOBIN A1C HGA1C, GLYCO ROUTINE VENIPUNCTURE IL OFFICE HASSA-FKE-[id number] SYST BP GE 130 - 139MM HG DIAST BP < 80 MM HG NUTRITIONAL THERAPY; REASSES SMENT AND INTERVENTION, INDIVIDUAL, EACH 15 MINUTES FALL RISK ASSESSMENT DOC'D PRES/ABSN URINE INCON ASSESS URINALYSIS, DIPSTICK (UA) - Office Lab J OFFICE [id number]-[id number]-[id number] SYST BP LT 130 MM HG DIAST BP < 80 MM HG NUTRITIONAL THERAPY; INITIAL ASSESSMENT AND INTERVENTION, INDIVIDUAL, EACH 15 DE CBC, INC PLATELETS AND DIFFERENTIAL COMPREHEN METABOLIC PANEL CMP 0 HEMOGLOBIN A1C HGA1C, GLYCO LIPID PANEL THYROID STIMULATION HORMONE(TSH) 2019 VITAMIN D, 25-HYDROXY ROUTINE VENIPUNCTURE IL OFFICE [id number]-KFW-[id number] SYST BP GE 130 - 139MM HG [...] THYROID STIMULATION HORMONE(TSH) 2018 ROUTINE VENIPUNCTURE OFFICE [id number] SYST BP LT 130 MM HG DIAST BP < 80 MM HG Advance Directives Directive Yes / No Effective Date File Name No Information Encounters Encounter Description Practice Location Reason(s) For Visit Diagnoses Date Provider Providers Copied on Encounter [employer], [address], [place], [place], [id number] , [place] tel: [phone] [employer] [facility] No Information 5 Mary Wood. [address] [place] [address], [id number], [place]. [phone] [facility], [address], [place], [place], [address] , [place] tel:[phone] [facility] No Information 5 Angel Merida. [address] [facility], [address] [address], [place], [place], [id number], [place]. tel:[phone] Referring Provider: Carlos Keene, [address] [place] [address], [address]. tel:[phone] OFFICE WDONS-LYI-BV [facility], [address], [place], [place], [address] , tel: [phone] [facility] GI (chief complaint)C hronic Conditions (chief complaint)c hronic conditions (chief complaint) Body mass index [BMI] 28.0-28.9, adultAbdominal pain, unspecified abdominal locationDiarrhea , unspecified typeEssential (primary) hypertensionGast ro-esophageal reflux disease without esophagitisType 2 diabetes mellitus with other circulatory complicationsEllieu faye in urineColon cancer screening 3 5 Jassi Gonzalez. [address] [place] [address], [address], [place]. tel:[phone] Kvng Sheridan.Refer ring Provider: Nina Pennington, [address] [place] [address], [address] . tel:[phone] [facility], [address], [place], [place], [address] , tel: [phone] [facility] No Information 5 Mary Wood. [address] [place] [address], [id number], [place]. tel:[phone] [facility], [address], [place], [place], [address] , [place] tel: [phone] [facility] No Information 4 Mary Wood. [address] [place] [address], [id number], [place]. tel:[phone] [facility], [address], [place], [place], [address] , [place] tel: [phone] [facility] No Information 4 Angel Merida. [address], [id number], . tel:[phone] Referring Provider: Nina Pennington, [address] [place] [address], [address] . tel:[phone] OFFICE FWSRY-UEH-CZ [facility], [address], [place], [place], [address] , tel:[phone] [facility] 3-4 month appt (chief complaint)C hronic Conditions (chief complaint)c hronic conditions (chief complaint) Body mass index [BMI] 28.0-28.9, adultEssential (primary) hypertensionAthe rosclerotic heart disease of mus[place] coronary artery with other forms of angina pectorisGastro-e sophageal reflux disease without esophagitisType 2 diabetes mellitus with other circulatory complicationsPai n in unspecified knee 0- 4 Mary Wood. [address] [place] [address], [id number], . tel:[phone] Specialist : Kvng Sheridan, [address] [place] [address], [address]. tel:[phone] cialist:, [address] [facility] [address], [place], [address]. tel:[phone] erring Provider: Nina Pennington, [address] [place] [address], [address] . tel:[phone] OFFICE WWGHA-CLZ-MU [facility], [address], [place], [place], [address] , tel:[phone] [facility] ER fu (chief complaint) Body mass index [BMI] 29.0-29.9, adultAtheroscler otic heart disease of musc[place] coronary artery with other forms of angina pectorisEssentia l (primary) hypertensionChes t pain, unspecified typeCervical radiculopathy Aug-2 4- 4 Jassi Gonzalez. [address] [place] [address], [address], . tel:[phone] Referring Provider: Nina Pennington, [address] [place] [address], [address] . tel:[phone] [facility], [address], [place], [place], [address] , tel: [phone] [facility] No Information 4 Mary Wood. [address] [place] [address], [id number], [place]. tel:[phone] Referring Provider: Nina Pennington, [address] [place] [address], [address] . tel:[phone] [facility], [address], [place], [place], [address] , [place] tel: [phone] [facility] No Information 4 Mary Wood. [address] [place] [address], [id number], [place]. tel:[phone] [facility], [address], [place], [place], [address] , tel: [phone] [facility] No Information 4 Marycharis Wood. [address] [place] [address], [id number], [place]. tel: [phone] [facility], [address], [place], [place], [address] , [place] tel: [phone] [facility] No Information 0 4 Angel Fuad. [address] [place] [address], [id number], . tel:[phone] Referring Provider: Nina Pennington, [address] [place] [address], [address] . tel:[phone] [facility], [address], [place], [place], [address] , [place] tel: [phone] [facility] Medicare preventive (chief complaint)6 month appt (chief complaint)c hronic conditions (chief complaint)C hronic Conditions (chief complaint) Encntr for general adult medical exam w/o abnormal findingsType 2 diabetes mellitus with other circulatory complicationsEss ential (primary) hypertensionAthe rosclerotic heart disease of mus[place] coronary artery with other forms of angina pectorisSecondar y hyperparathyroid ism, not elsewhere classifiedGastro -esophageal reflux disease without esophagitisVitam in D deficiency, unspecifiedMyalg ia, other sitePost-traumat ic stress disorder, acute 4 Mary Wood. [address] [place] [address], [id number], [place]. tel:[phone] Kvng Sheridan.Refer ring Provider: Nina Pennington, [address] [place] [address], [address] . tel:[phone] [facility], [address], [place], [place], [address] , [place] tel: [phone] [facility] No Information 4 Mary Wood. [address] [place] [address], [id number], [place]. tel:[phone] OFFICE OUNJU-RYX-VQ PANDED [facility], [address], [place], [place], [address] , [place] tel: [phone] [facility] ER f/u (chief complaint) Body mass index [BMI] 29.0-29.9, adultDiarrhea, unspecified typeJaw pain 4 Kartik Maldonado. [address] [place] [address], [id number], [place]. tel:[phone] Referring Provider: Nina Pennington, [address] [place] [address], [address] . tel:[phone] [facility], [address], [place], [place], [address] , [place] tel: [phone] [facility] No Information 4 Angel Merida. [address] [facility], [address] [address], [place], [place], [address], [place]. tel:[phone] Referring Provider: Erica Verdugo, [address] [place] [address], [address] . tel:[phone] OFFICE RNLKX-FVD-PY [facility], [address], [place], [place], [address] , [place] tel: [phone] [facility] Chronic Conditions (chief complaint)c hronic conditions (chief complaint) Essential (primary) hypertensionBody mass index [BMI] 29.0-29.9, adultType 2 diabetes mellitus with other circulatory complicationsAth erosclerotic heart disease of muscogee coronary artery with other forms of angina pectorisPersonal history of transient ischemic attack (TIA), and cerebral infarction without residual deficitsVitamin D deficiency, unspecifiedInsom jeffrey, unspecified typeUrine leukocytes 4 Kartik Maldonado. [address] [place] [address], [id number], [place]. tel:[phone] Kvng Sheridan.Refer ring Provider: Nina Pennington, [address] [place] [address], [address] . tel:[phone] [facility], [address], [place], [place], [address] , [place] tel:[phone] [facility] No Information 3 Angel Merida. [address], [id number], [place]. tel:[phone] Referring Provider: Carlos Keene, [address] [place] [address], [address]. tel:[phone] OFFICE ZKJGS-ZFI-KA [facility], [address], [place], [place], [address] , [place] tel: [phone] [facility] 4 mo appt (chief complaint)C hronic Conditions (chief complaint) Body mass index [BMI] 29.0-29.9, adultType 2 diabetes mellitus with other circulatory complicationsAth erosclerotic heart disease of muscogee coronary artery with other forms of angina pectorisEssentia l (primary) hypertensionGast ro-esophageal reflux disease without esophagitisSecon johana hyperparathyroid ism, not elsewhere classifiedInsomn ia, unspecified typeAllergic rhinitis, unspecified seasonality, unspecified trigger 3 Jassi Gonzalez. [address] [place] [address], [address], . tel:[phone] Kvng Sheridan.Refer ring Provider: Nina Pennington, [address] [place] [address], [address] . tel:[phone] [facility], [address] [place] [address], [id number] , tel: [phone] [facility] No Information 3 Angel Merida. [address] [place] [address], [id number], . tel:[phone] Referring Provider: Nina Pennington, [address] [place] [address], [address] . tel:[phone] [facility], [address], [place], [place], [address] , tel: [phone] [facility] [place] Essential (primary) hypertensionOthe r chronic cystitis without hematuria 3 Mary Wood. [address] [place] [address], [id number], [place]. tel:[phone] Kvng Sheridan.Refer ring Provider: Nina Pennington, [address] [place] [address], [address] . tel:[phone] [facility], [address] [place] [address], [id number] , [place] tel: [phone] [facility] No Information 3 Angel Merida. [address], [id number], . tel:[phone] Referring Provider: Nina Pennington, [address] [place] [address], [address] . tel:[phone] OFFICE WECHW-CCN-LM TAILED [facility], [address], [place], [place], [address] , tel: [phone] [facility] Follow-Up (chief complaint)O ther (chief complaint)C hronic Conditions (chief complaint)c hronic conditions (chief complaint) Atherosclerotic heart disease of muscogee coronary artery with other forms of angina pectorisSecondar y hyperparathyroid ism, not elsewhere classifiedVitami n D deficiency, unspecifiedPerso nal history of transient ischemic attack (TIA), and cerebral infarction without residual deficitsType 2 diabetes mellitus with other circulatory complicationsOth er chronic cystitis without hematuria 3 Mary Wood. [address] [place] [address], [id number], . tel:[phone] Specialist : Kvng Sheridan, [address] [place] [address], [address]. tel:[phone] erring Provider: Nina Pennington, [address] [place] [address], [address] . tel:[phone] OFFICE [facility], [address], [place], [place], [address] , tel: [phone] [facility] Chronic Conditions (chief complaint)m usculoskele shabbir pain (chief complaint) Body mass index [BMI] 29.0-29.9, adultPersonal history of transient ischemic attack (TIA), and cerebral infarction without residual deficitsCoronary artery disease of muscogee artery of mus[place] heart with stable angina pectorisHistory of recurrent UTIsAcute pain of right kneeSecondary hyperparathyroid ismEssential (primary) hypertensionType 2 diabetes mellitus with other circulatory complicationsVit rivas D deficiency 2 Kartik Maldonado. [address] [place] [address], [id number], [place]. tel:[phone] Referring Provider: Nina Pennington, [address] [place] [address], [address] . tel:[phone] [facility]ICE [facility], [address], [place], [place], [address] , tel: [phone] [facility] 4 month appt (chief complaint)O ther (chief complaint)C hronic Conditions (chief complaint) Type 2 diabetes mellitus with other circulatory complicationsEss ential (primary) hypertensionCoro nary artery disease of muscogee artery of mus[place] heart with stable angina pectorisAcute pain of right kneePersonal history of transient ischemic attack (TIA), and cerebral infarction without residual deficitsHistory of recurrent UTIsDysuriaOther disorders of peripheral nervous systemGastro-eso phageal reflux disease without esophagitisSecon johana hyperparathyroid ism Apr-0 2 Mary Wood. [address] [place] [address], [id number], [place]. tel:[phone] Referring Provider: Nina Pennington, [address] [place] [address], [address] . tel:[phone] OFFICE EXKMD-EEG-JC [facility], [address], [place], [place], [address] , tel: [phone] [facility] Chronic Conditions (chief complaint) Body mass index [BMI] 30.0-30.9, adultEssential (primary) hypertensionPers onal history of transient ischemic attack (TIA), and cerebral infarction without residual deficitsType 2 diabetes mellitus with other circulatory complicationsCor onary artery disease of muscogee artery of mus[place] heart with stable angina pectorisHistory of recurrent UTIsDiverticulos isAcute pain of right knee 1 Yosef Rosales. [address] [place] [address], [id number], [place]. tel:[phone] Referring Provider: Nina Pennington, [address] [place] [address], [address] . tel:[phone] OFFICE OFION-OWU-TG [facility], [address], [place], [place], [address] , tel:[phone] [facility] dysuria (chief complaint) DysuriaBody mass index (BMI) 30.0-30.9, adultHematuria, unspecified type 1 Kartik Maldonado. [address] [place] [address], [id number], . [phone] Referring Provider: Nina Pennington, [address] [place] [address], [address] . tel:[phone] OFFICE ZGTEO-IKE-AK [facility], [address], [place], [place], [address] , tel: [phone] [facility] Chronic Conditions (chief complaint) Type 2 diabetes mellitus with other circulatory complicationsEss ential (primary) hypertensionPers onal history of transient ischemic attack (TIA), and cerebral infarction without residual deficitsOther disorders of peripheral nervous systemGastro-eso phageal reflux disease without esophagitis 1 Mary Wood. [address] [place] [address], [id number], . [phone] Referring Provider: Nina Pennington, [address] [place] [address], [address] . tel:[phone] OFFICE RXTLF-QLP-TF [facility], [address], [place], [place], [address] , tel: [phone] [facility] neuropathy (chief complaint)r james (chief complaint)C hronic Conditions (chief complaint) Body mass index (BMI) 30.0-30.9, adultType 2 diabetes mellitus with other circulatory complicationsEss ential (primary) hypertensionSkin rashNeuropathy 1 Yosef Rosales. [address] [place] [address], [id number], . [phone] Referring Provider: Nina Pennington, [address] [place] [address], [address] . tel:[phone] OFFICE QRINM-DFT-GY [facility], [address], [place], [place], [address] , tel: [phone] [facility] dysuria (chief complaint)C hronic Conditions (chief complaint) Body mass index (BMI) 30.0-30.9, adultType 2 diabetes mellitus with other circulatory complicationsEss ential (primary) hypertensionSeco ndary hyperparathyroid ismCoronary artery disease of muscogee artery of mus[place]ogee heart with stable angina pectorisDysuria 1 Tresvivian Rosales. [address] [facility], [place], [place], [id number], [place]. tel:[phone] Referring Provider: Nina Pennington, [address] [place] [address], [place], [address] . tel:[phone] OFFICE MLYDC-FQE-OU [facility], [address], [place], [place], [address] , tel: [phone] [facility] Other (chief complaint)a cute visit (chief complaint)C hronic Conditions (chief complaint) Body mass index (BMI) 30.0-30.9, adultType 2 diabetes mellitus with other circulatory complicationsPai n in right footEssential (primary) hypertensionAcut e bilateral low back pain without sciaticaSecondar y hyperparathyroid ism 0 Jassi Gonzalez. [address] [facility], [place], [address], [place]. tel:[phone] Referring Provider: Nina Pennington, [address] [place] [address], [place], [address] . tel:[phone] [facility], [address], [place], [place], [address] , [place] tel: [phone] [facility] Type 2 diabetes mellitus without complications 0 Arnold Wang. [address] [facility] [address], [place], [place], [address], [place]. tel:[phone] Referring Provider: Nina Pennington, [address] [place] [address], [place], [address] . tel: OFFICE ZMAFP-UDP-VK PANDED [facility], [address], [place], [place], [address] , tel:[phone] [facility] dysuria (chief complaint) Body mass index (BMI) 30.0-30.9, adultDysuriaLeuk ocytes in urine 0 Kartik Maldonado. [address] [place] [address], [id number], [place]. tel:[phone] Referring Provider: Nina Pennington, [address] [place] [address], [address] . tel:[phone] [facility], [address], [place], [place], [address] , tel: [phone] [facility] Type 2 diabetes mellitus without complications 0 Arnold Wang. [facility], [id number], . tel:[phone] Referring Provider: Nina Pennington, [address] [place] [address], [place], [address] . tel: OFFICE IAQDN-PFM-CY [facility], [address], [place], [place], [address] , tel: [phone] [facility] Chronic Conditions (chief complaint) Coronary artery disease of mus[place] artery of mus[place]ee heart with stable angina pectorisEssentia l hypertensionGast roesophageal reflux disease without esophagitisType 2 diabetes mellitus without complicationsVit rivas D deficiencyAnxiet yTinnitus of both earsMuscle spasms of both lower extremities 0 Yosef Rosales. [address] [place] [address], [id number], . tel:[phone] Referring Provider: Nina Pennington, [address] [place] [address], [place], [address] . tel:[phone] OFFICE UNYWN-EYG-BT [facility], [address], [place], [place], [address] , tel: [phone] [facility] [facility] Chronic Conditions (chief complaint) Right medial knee painGastroesopha geal reflux disease without esophagitisCoron ar artery disease of muscogee artery of muscogee heart with stable angina pectorisType 2 diabetes mellitus without complications 9 Mary Wood. [address] [place] [address], [id number], . tel:[phone] Referring Provider: Nina Pennington, [address] [place] [address], [address] . tel:[phone] [facility], [address], [place], [place], [address] , tel:[phone] [facility] No Information 9 Mary Wood. [address] [place] [address], [id number], . tel:[phone] [facility], [address], [place], [place], [address] , tel:[phone] [facility] Dysuria 8 Mary Wood. [address] [place] [address], [id number], . tel:[phone] Referring Provider: Nina Pennington, [address] [place] [address], [address] . tel:[phone] [facility], [address], [place], [place], [address] , tel:[phone] [facility] Body mass index (BMI) 30.0-30.9, adultEssential hypertensionCoro nary artery disease of muscogee artery of muscogee heart with stable angina pectorisGastroes ophageal reflux disease without esophagitisVitam in D deficiencyType 2 diabetes mellitus without complicationsHis tory of stroke 8 Kartik Maldonado. [address] [place] [address], [id number], [place]. tel:[phone] Referring Provider: Nina Pennington, [address] [place] [address], [address] . tel:[phone] [facility], [address], [place], [place], [address] , [place] tel: [phone] [facility] Body mass index (BMI) 29.0-29.9, [facility]Medithe [facility] annual [facility], initial 8 Jassi Gonzalez. [address] [place] [address], [address], [place]. tel:[phone] Referring Provider: Nina Pennington, [address] [place] [address], [address] . tel:[phone] [facility], [address], [place], [place], [address] , [place] tel: [phone] [facility] Body mass index (BMI) 29.0-29.9, adultEssential hypertensionAnxi etyDysfunction of left eustachian tube Mar- 8 Stephen Garcia. [address] [place] [address], [address], [address], [place]. tel:[phone] Referring Provider: Radha Sam, [address] [place] [address] [address] [facility], [place], [address]. tel:[phone] [facility], [address], [place], [place], [address] , [place] tel: [phone] [facility] Body mass index (BMI) 29.0-29.9, adultAnxietyEsse ntial hypertensionHist ory of strokeScreening for osteoporosisEmbo lism and thrombosis of unspecified artery Jan- 8 Stephen Garcia. [address] [facility], [address], [place], [address], [place]. tel:[phone] Referring Provider: Radha Sam, [address] [facility] [address] [facility], [place], [address]. tel:[phone] [facility], [address], [place], [place], [address] , tel: [phone] [facility] Body mass index (BMI) 29.0-29.9, adultEssential hypertensionCoro nary artery disease of muscogee artery of muscogee heart with stable angina pectorisGastroes ophageal reflux disease without esophagitisHyper glycemiaVivid dreamEncntr screen mammogram for malignant neoplasm of breast 8 Stephen Garcia. [address], [place], [place], [facility], [place]. [phone] Referring Provider: Radha Sam, [address] [facility], [place], [place], [facility]. tel:[phone] [facility], [address], [place], [place], [address] , tel: [phone] [facility] Body mass index (BMI) 29.0-29.9, adultCoronary artery disease of muscogee artery of muscogee heart with stable angina pectorisEssentia l hypertensionPAD (peripheral artery disease)Atrial tachycardiaMyalg iaHyperglycemia 7 Stephen Garcia. [address] , [address] [place] [address], [facility], [place]. [phone] Referring Provider: Radha Sam, [address] [facility], [place], [place], [facility]. tel:[phone] [facility], [address], [place], [place], [address] , tel: [phone] Chris CUMMINS Annual physical exam 6 Stephen Garcia. [address] [place] [address], [address], [place]. tel:[phone] Referring Provider: Radha Sam, [address] [facility], [place], [place], [facility]. tel:[phone] [facility], [address], [place], [place], [address] , tel: [phone] Chris IM Type 2 diabetes mellitus without complications 5 Stephen Garcia. [address] [facility], [address], [place], [address], [place]. tel:[phone] [facility], [address], [place], [place], [address] , [place] tel: [phone] [facility] Migraine with aura and with status migrainosus, not intractableEssen tial hypertensionAlle rgic sinusitisHistory of CVA in adulthoodIrritab le bowel syndrome with diarrheaGastroes ophageal reflux disease without esophagitis 5 Stephen Garcia. [address] [facility], [address], [place], [address], [place]. [phone] Referring Provider: Radha Sam, [address] [facility] [address] [facility], [place], [place], [facility]. tel:[phone] [facility], [address], [place], [place], [address] , [place] tel: [phone] [facility] HTNHX TIA/STROKE W/O RESIDDiabetes Mellitus Type 2, UncomplicatedMit ral valve prolapseHistory of chest pain Stephen Garcia. [address] [facility], [address], [place], [address], [place]. tel:[phone] Referring Provider: Radha Sam, [address] [facility] [address], [place], [place], [facility]. tel:[phone] [facility], [address], [place], [place], [address] , [place] tel: [phone] [facility] Diabetes Mellitus Type 2, UncomplicatedHTN HX TIA/STROKE W/O RESID 4 Malcolm Little. [address] [facility], [address], [place], [place], [address]. tel:[phone] Referring Provider: Anabel Fowler, [address] [facility] [address], [place], [address] . tel:[phone] [facility], [address], [place], [place], [address] , [place] tel: [phone] [facility] History of fall/At Risk For FallingDiabetes Mellitus Type 2, UncomplicatedAnx ietyGERDHTNHX TIA/STROKE W/O RESID 4 Malcolm Little. [address] [facility], [address], [place], [place], [address]. tel:[phone] Referring Provider: Anabel Fowler, [address] [facility] [address], [place], [address] . tel:[phone] [facility], [address], [place], [place], [address] , tel: [phone] [facility] HTNIMPAIRED FASTING GLUCOSEPolycythe nikki vera 4 Malcolm Little. [address] [facility], [address], [place], [place], [address]. tel:[phone] [facility], [address], [place], [place], [address] , tel: [phone] [facility] Superficial phlebitis 3 Malcolm Little. [address] [facility], [address], [place], [place], [address]. tel:[phone] Referring Provider: Anabel Fowler, [address] [facility] [address], [place], [address] . tel:[phone] [facility], [address], [place], [place], [address] , tel: [phone] [facility] Unspecified essential hypertensionAnxi ety state, unspecifiedEsoph ageal refluxUnspecifie d transient cerebral ischemiaImpaired fasting glucose 3 Malcolm Little. [address] [facility], [address], [place], [address]. tel:[phone] Referring Provider: Anabel Fowler, [address] [facility] [address], [place], [address] . tel:[phone] [facility], [address], [place], [place], [address] , [place] tel: [phone] [facility] Left shoulder painUnspecified essential hypertensionPoly cythemiaAnxiety state, unspecifiedVitam in d deficiency 3 Malcolm Little. [address] [facility], [address], [place], [place], [address]. tel:[phone] Referring Provider: Anabel Fowler, [address] [facility] [address], [place], [address] . tel:[phone] [facility], [address], [place], [place], [address] , [place] tel: [phone] [facility] Left shoulder painEsophageal refluxUnspecifie d essential hypertensionAnxi ety state, unspecifiedHX TIA/STROKE W/O RESIDHyperglycem ia 3 Mary Wood. [address] [place] [address], [id number], [place]. tel:[phone] Referring Provider: Anabel Fowler, [address] [facility] [address], [place], [address] . tel:[phone] [facility], [address], [place], [place], [address] , [place] tel: [phone] [facility] Unspecified transient cerebral ischemiaUnspecif ied essential hypertensionAnxi ety state, unspecifiedMitra l valve disordersPain in joint/arthralgia Shoulder region 2 Malcolm Little. [address] [facility], [address], [place], [place], [address]. tel:[phone] Referring Provider: Anabel Fowler, [address] [facility] [address], [place], [address] . tel:[phone] [facility], [address], [place], [place], [address] , tel: [phone] [facility] HYPERTENSION NOS 1 Malcolm Little. [address] [facility], [address], [place], [place], [address]. tel: [phone] [facility], [address], [place], [place], [address] , [place] tel: [phone] [facility] ACUTE URI NOSTRANS CEREB ISCHEMIA NOS 0-201 0 Malcolm Little. [address] [facility], [address], [place], [place], [address]. tel: [phone] [facility], [address], [place], [place], [address] , [place] tel: [phone] [facility] IMPAIRED FASTING GLUCOSEESOPHAGEA L REFLUX 1-201 0 Malcolm Little. [address] [facility], [address], [place], [place], [address]. tel: [phone] [employer] [place], [address], [place], [place], [address] , [place] tel: [phone] [facility] HX TIA/STROKE W/O RESIDMGRN W AURA WO NTRC MGRN 4-201 0 Malcolm Little. [address] [facility], [address], [place], [place], [address]. tel: [phone] [employer] [place], [address], [place], [place], [address] , [place] tel: [phone] [facility] MITRAL VALVE DISORDER Apr-0 1-200 9 Malcolm Little. [address] [facility], [address], [place], [place], [address]. tel: [phone] [employer] [place], [address], [place], [place], [address] , [place] tel: [phone] [facility] HX-CIRCULATORY DIS NECJOINT PAIN-SHLDER Jan-3 0-200 9 Malcolm Little. [address] [facility], [address], [place], [place], [address]. tel: [phone] [facility] [place], [address], [place], [place], [address] , [place] tel: [phone] [facility] ANXIETY STATE NOS 5200 7 Conversion Doctor. [address] [place], [address], . [facility], [address], [place], [place], [address] , tel: [phone] [facility] No Information 3200 6 Malcolm Matuteth. [address] [facility], [address], [place], [place], [address]. tel: [phone] [facility], [address], [place], [place], [address] , tel: [phone] [facility] DVRTCLO COLON W/O HMRHG 5 [facility]. [address] [facility], [address], [place], [place], [address]. tel: [phone] [facility], [address], [place], [place], [address] , tel: [phone] [facility] No Information 200 5 [facility]. [address] [facility], [address], [place], [place], [address]. tel: [phone] [facility], [address], [place], [place], [address] , tel: [phone] [facility] CHEST PAIN NOS 9200 3 Conversion Doctor. [facility] [place], [address], . [facility], [address], [place], [place], [address] , tel: [phone] [facility] FAM HX-CARDIOVAS DIS NEC 7200 2 Conversion Doctor. [facility] [place], [address], . [facility] [place], [address], [place], [place], [address] , tel: [phone] [facility] FAMILY HX-GI MALIGNANCY 3200 1 Conversion Doctor. [facility] [place], [address], . Family History Family Member Type Diagnosis [...] Record Payers Payer name Insurance type Covered constitution party ID Authoriza tion(s) [place] [id number] [facility] MDCR SUPPLEMENT ONLY CI [id number] [place] [id number] AAR MDCR SUPPLEMENT ONLY CI [id number] [place] [id number] AAR MDCR SUPPLEMENT ONLY CI [id number] [place] [id number] AAR MDCR SUPPLEMENT ONLY CI [id number] [facility] CI [id number] [facility] CI [id number] [facility] CI [id number] Social History Type Description Quantity Date Captured [...] and counseling completed Referral Referred To: 20[address] [employer]
[address], [phone] Ordered: CT abdomen and pelvis with IV and oral contrast Appointment date/timeframe: 01/14/2025 ordered Referral Referred To: Wilner Ge MD [address] [facility] [address] [place], [phone] Ordered: Referrals: Gastroenterology. Wilner Ge MD. Evaluation/diagnostic/treatment - Level 3 Appointment date/timeframe: 03/14/2025 ordered Referral Ordered: X-RAY SPINE, CERVICAL, 2 Or 3 VIEWS ordered Referral Referred To: [facility] Ordered: Referrals: Physical Therapy. [facility]. Evaluation/diagnostic/treatment - Level 3 ordered Referral Referred To: Antonio Nelson MD [address] [place] [address]
[place], [phone] Ordered: Referrals: Neurology. Antonio Nelson MD. Evaluation/diagnostic/treatment - Level 3 ordered Referral Referred To: Tariq Valverde Dr
[facility] [address] [place], [phone] Ordered: Complete x-ray series of right knee [...] has not receivedOutstanding referrals:n/a ER fu To [facility] on August 19 with chest discomfort and pain down her left arm.She had cardiac workup. EKG without any signs of ischemia.1 set of troponins were done. D-dimerLabs were unremarkable.Was discharged home.She was advised to take Tylenol more [id number] to help with her pain. She has [...] never took the medication and alerted her role player who lowered the atorvastatin.She feels it may have helped. She is not taking [id number] does have coronary artery disease and follows [...] alreadyEye exam - pt denies recent eye [id number] visits:Dr Kvng Sheridan - Cardiology - about [...] for ER follow-up. She was transported to [facility] via EMS on 02/12.She reports [...] was hospitalized earlier this year with syncope. [place] she was dehydrated. Saw cardiology subsequently. 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 Requests a referral to a Corporate Associate Attorney.Intermittent lower back pain several months.Was sedentary after hysterectomy.Pain was aggravated once she became active again.no bowel or bladder incontinenceno sciatica or weakness Other 08/28/2020 partia l hysterectomy.Will be scheduling an eye exam this year.Had mammogram and breast US at [facility]. Normal results. Will have reports [...] a CT scan to be done at [facility].You are due to have your colonoscopy done. [...] [place] Related to Atherosclerotic heart disease of muscogee coronary artery with other forms of angina [...] workup was negative.Continue with the Tylenol more [id number]. Related to Chest pain, unspecified type Blood pressure stabl e.Call any questions or concernsNo labs todayReturn as scheduled Related to Essential (primary) hypertension Continue on current medication.You could try taking co-Q10 with the atorvastatin. Related to Atherosclerotic heart disease of muscogee coronary artery with other forms of angina [...] today Related to Atherosclerotic heart disease of muscogee coronary artery with other forms of angina [...] scheduled Related to Atherosclerotic heart disease of muscogee coronary artery with other forms of angina [...] cardiology. Related to Atherosclerotic heart disease of muscogee coronary artery with other forms of angina [...] follo w up with Dr. Sheridan your Accounts Receivable Bookkeeper Related to Atherosclerotic heart disease of muscogee coronary artery with other forms of angina [...] identified. Related to Coronary artery disease of muscogee artery of muscogee heart with stable angina pectoris Your A1c [...] supplementationI will get your mammogram results [facility] Related to Secondary hyperparathyroidism continue with [...] identified. 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 Goals: Your [...] your feet dailywe will monitor the blood ihqkwegwm0u todayStatus: Meeting treatment plan goals. Goals: Your [...] identified. 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 Goals: Your [...] identified. 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 Please schedule this yearFoot care is important. Check your feet every day, and notify us immediately of any problems. The [place] [employer] recommends 30 minutes of exercise [...] foot Please make sure you see your hardboard supervisor for an eye exam once per year. Foot care is important. Check your feet every day, and notify us immediately of any problems. The [place] [employer] recommends 30 minutes of exercise [...] identified. 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
--- OUTSIDE RECORDS SUMMARY | 2025-01-14 14:15 | XMS_ITS | Clinical Summary ---
Author Organization [facility] [address] [facility] [address] [place] [address] Care Team Providers Care Trial Justice Name Role Phone Nina Hernandez DO Primary Care Provider [phone] Allergies Active Allergy Reactions Criticality Noted Date [...] MOUTH DAILY 90 tablet 3 4 Active evbuhodc91-buff -Lmfolate-algal 27 mg iron-1.13 mg-581.92 mg capsule [...] for Palpitations, DOI 06/11/[address] Ball[address] [employer] remote home monitoring. JR Coronary artery disease invo lving iqugmiut coronary artery of iqugmiut heart with angina pectoris 06/06/2017 Hx of heart artery stent 06/06/2017 Palpitations 06/06/2017 Prominent abdominal aortic pulsation 06/06/2017 Preoperative state 03/28/2017 Overview (04/25/2017): Preoperative cardiovascular examination Mitral valve prolapse 03/28/2017 Overview (04/25/2017): Mitral valve prolapse Disorder of uterus 03/28/2017 Overview (04/25/2017): Uterine mass Encounters Date Type Department Care Team Description 01/12/2025 9:45 AM NATURAL HISTORY COLLECTIONS CURATOR Office Visit [facility] Cardiology [address] [place] [address] Kvng Sheridan MD Coronary artery disease involving iqugmiut coronary artery of iqugmiut heart without angina pectoris (Primary Dx); Status [...] Hypertension Hypertension Coronary artery disease invo lving iqugmiut coronary artery of iqugmiut heart with angina pectoris (HCC) 06/06/2017 Hx [...] on file Legal Sex Female 10:49 PM NATURAL HISTORY COLLECTIONS CURATOR Gender Identity Not on file Sexual Orientation Not on file Obstetrics History Last Filed Vital Signs Vital Sign Reading Time Taken Comments Blood Pressure 96/62 01/12/2025 9:53 AM NATURAL HISTORY COLLECTIONS CURATOR Pulse 97 01/12/2025 9:53 AM NATURAL HISTORY COLLECTIONS CURATOR Temperature 36.8 C (98.3 F) 09/22/2021 10:38 AM CDT Respiratory Rate 18 09/22/2021 11:36 AM CDT Oxygen Saturation 99% 01/12/2025 9:53 AM NATURAL HISTORY COLLECTIONS CURATOR Inhaled Oxygen Concentration - - Weight 74.7 kg (164 lb 9.6 oz) 01/12/2025 9:53 A M NATURAL HISTORY COLLECTIONS CURATOR Height 165.1 cm (5' 5 ) 01/12/2025 9:53 AM NATURAL HISTORY COLLECTIONS CURATOR Body Mass Index 27.39 01/12/2025 9:53 AM NATURAL HISTORY COLLECTIONS CURATOR Plan of Treatment Health Maintenance Due Date [...] LIPID PANEL Routine 01/12/2025 10:4 0 AM NATURAL HISTORY COLLECTIONS CURATOR Coronary artery disease involving iqugmiut coronary artery of iqugmiut heart without angina pectoris from Last 3 Months Results * POCT lipid panel (01/12/2025 10:40 AM NATURAL HISTORY COLLECTIONS CURATOR) Cholesterol, POC 158 mg/dL Comment:GLU = 198 HDL, POC 31 mg/dL Triglycerides, POC 135 mg/dL LDL Cholesterol POC 100 mg/dL Chol/HDL Ratio, POC 3.2 Non-HDL Cholesterol, POC 127 mg/dL Cholesterol Total, POC 158 mg/dL Capillary blood 01/12/2025 1 0:40 AM NATURAL HISTORY COLLECTIONS CURATOR Kvng Sheridan MD POINT OF CARE TEST ORDERABLES Fi nal Result from Last 3 Months Insurance [facility] MEDICARE MEDICARE [facility] Care Teams Trial Justice Relationship Specialty Start Date End Date Nina Hernandez DO [address] [place] [address] PCP - General Internal Medicine 09/01/18
--- OUTSIDE RECORDS SUMMARY | 2025-01-14 14:15 | XMS_ITS | Encounter Summary ---
Author Organization [facility] Address [address] [facility] [address] [place] [address] Care Team Providers Care Auxiliary Plant Operator Name Role Phone StephenRadha DO Primary Care Provider [phone] Nina Hernandez DO Primary Care Provider [phone] Encounter Details Date Type Department Care Team (Late st Contact Info) Description 02/06/2017 Orders Only [facility] ProviderDean MD [address] [place] [address] Social History Tobacco Use Types Packs/Day Years Used Date Smoking Tobacco: Never Assessed Comments Unknown Sex and Gender Information Value Date Recorded Sex Assigned at Not on file Legal Sex Female 10:49 PM 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
--- OUTSIDE RECORDS SUMMARY | 2025-01-14 14:15 | XMS_ITS | Patient Health Summary ---
Author Organization [facility] Address [address] [place] [address] Care Team Providers Care Tool And Cutter Grinder Name Role Phone Nina Hernandez MD Primary Care Provider [phone] Note from [facility][note 3],non-owned Affiliates and Associated Physician Practices is amultiple site organization consisting of ambulatory clinics and hospital sitesin [place], [place], [place] and [place]. This disclosure is being madepursuant to the Care Everywhere program and may not contain all information available regarding this patient. Last updated 18.[facility] Allergies * Azithromycin(Rash) -Medium Criticality * Chocolate(Rash) [...] 30.11 09/21/2021 5:08 PM CDT Care Teams Tool And Cutter Grinder Relationship Specialty Start Date End Date Nina Hernandez MD [address] [place] [id number] PCP - General Family Medicine 09/21/21
--- OUTSIDE RECORDS SUMMARY | 2025-01-14 14:15 | XMS_ITS | Encounter Summary ---
Author Organization [facility] Address [address] [place] [address] Care Team Providers Care Cnc Lathe Machine Operator Name Role Phone Radha Mitchell DO Primary Care Provider [phone] Nina Hernandez DO Primary Care Provider [phone] Encounter Details Date Type Department Care Team (Late st Contact Info) Description 02/07/2017 Orders Only [facility] ProviderDean MD [address] [place] [address] Social History Tobacco Use Types Packs/Day Years Used Date Smoking Tobacco: Never Assessed Comments Unknown Sex and Gender Information Value Date Recorded Sex Assigned at Not on file Legal Sex Female 10:49 PM COW TENDER Gender Identity Not on file Sexual [...] on filedocumented in this encounter Care Teams Cnc Lathe Machine Operator Relationship Specialty Start Date End Date Radha Mitchell DO PCP - General 02/28/17 08/31/18 Nina Hernandez DO [facility] [place] [address] PCP - General Internal Medicine 09/01/18 documented as of this encounter
--- OUTSIDE RECORDS SUMMARY | 2025-01-14 14:15 | XMS_ITS | Continuity of Care Document ---
Author Organization [facility] [place] [address] [place] [address] Phone Care Team Providers Care Cnc Milling Machinist Name Role Phone [facility] Unavailable Unavail able Sickage, Taty Unavailable Unavailable Procedures Procedure Date Progressive Lens, Polycarb Anti-reflective Coating Frames [employer] BF Polycarb Sph [place] To +/- 4d 010 BF Polycarb Sphcyl [place] To +/-4d .12-2d Anti-reflective Coating Miscellaneous Vision [...] Diagnoses Date Provider Providers Copied on [facility]counter [facility] [address], [place], [place], [id number], [place] tel:[phone] [facility] No Information Aug- 5201 0 [facility] . [address], [address], [place], [place], [id number], . tel:[phone] Consulting Provider: Taty Garcia, [address] [place] [address], [address]. tel:[phone] [facility], [address] [place] [address] [address], [place], [place], [id number], [place] tel:[phone] [facility] No Information Sep-1 4-201 0 [facility] . [address], [address], [place], [place], [id number], . tel:[phone] Referring Provider: Urbano Pennington, [address], [place], [place], [facility][note 2]. tel:[phone] g Provider: Taty Garcia, [address] [place] [address], [facility][note 2]. tel:[phone] 8144 [facility], [address] [place] [address] [address], [place], [place], [id number], [place] tel:[phone] [facility] No Information Pipo-1 4-201 0 Wisam Clement. [address] , [address], [place], [place], [facility][note 2], [place]. tel:[phone] [facility], [address], [place], [place], [id number], [place] tel:[phone] [facility] No Information Mar-0 4-200 9 Wisam Clement. [address] , [address], [place], [address], [place]. tel:[phone] [facility], [address] [place] [address] [address], [place], [place], [id number], [place] tel:[phone] [facility] No Information Dec-2 6-200 7 Wisam Clement. [address] , [address], [place], [place], [facility][note 2], [place]. tel:[phone] Referring Provider: Urbano Pennington [address], [place], [address]. tel:[phone] [facility], [address], [place], [place], [id number], [place] tel:[phone] [facility] No Information Dec-2 2-200 6 [facility] . [address], [address], [place], [place], [address], [place]. tel:[phone] Referring Provider: Urbano Pennington [address] [facility] [address], [place], [address]. tel:[phone] wu Provider: Brigida Brooks, [address] [place] [address], [place], [address]. tel:[phone] Family History Family Member Type Diagnosis Age At Onset No Information Payers Payer name Insurance type Covered libertarian ID Authoriza tion(s) No Information Social History [...]
--- OUTSIDE RECORDS SUMMARY | 2025-01-14 14:15 | XMS_ITS | Clinical Summary ---
Author Organization [facility] Address [address] [place] [address] Care Team Providers Care Color Stripper Name Role Phone Moris Saldaña MD Primary Care Provider [phone] Social History Tobacco Use Types Packs/Day Years [...] age to complete this topic Care Teams Color Stripper Relationship Specialty Start Date End Date Moris Saldaña MD [address] [address] PCP - General 08/18/13
--- OUTSIDE RECORDS SUMMARY | 2025-01-14 14:15 | XMS_ITS | Referral Summary ---
Author Organization [facility] Address [address] [place] [address] Care Team Providers Care Sweatband Shaper Name Role Phone Nina Hernandez MD Primary Care Provider [phone] Source Comments [facility],non-owned Affiliates and Associated Physician Practices is amultiple site organization consisting of ambulatory clinics and hospital sitesin [place], [place], [place] and [place]. This disclosure is being madepursuant to the Care Everywhere program and may not contain all information available regarding this patient. Last updated 18.[facility] Reveal Allergies Active Allergy Reactions Criticality Noted Date [...] of Treatment Not on file Care Teams Sweatband Shaper Relationship Specialty Start Date End Date Nina Hernandez MD [address] [place] [id number] PCP - General Family Medicine 09/21/21
--- OUTSIDE RECORDS SUMMARY | 2025-01-14 14:15 | XMS_ITS | Clinical Summary ---
Author Organization [facility] Address [address] [place] [address] Care Team Providers Care Assessment Counselor Name Role Phone Nina Hernandez MD Primary Care Provider [phone] Source Comments [facility] [employer],non-owned Affiliates and Associated Physician Practices is amultiple site organization consisting of ambulatory clinics and hospital sitesin [place], [place] and [place]. This disclosure is being madepursuant to the Care Everywhere program and may not contain all information available regarding this patient. Last updated 18.[facility] Allergies Active Allergy Reactions Criticality Noted Date [...] age to complete this topic Care Teams Assessment Counselor Relationship Specialty Start Date End Date Nina Hernandez MD [address] [place] [phone] PCP - General Family Medicine 09/21/21
--- OUTSIDE RECORDS SUMMARY | 2025-01-14 14:15 | XMS_ITS | Referral Summary ---
Author Organization [facility] [address] Address [address] [place] [address] Care Team Providers Care Care Transport Nurse Name Role Phone MaryNina Leatha ARRIETA Primary Care Provider [phone] Encounters Date Type Department Care Team Description 01/12/2025 9:45 AM DOCUMENT IMPROVEMENT SPECIALIST Office Visit 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 JR Coronary artery disease invo lving comanche coronary artery of comanche heart with angina pectoris 06/06/2017 Hx of [...] on file Legal Sex Female 10:49 PM DOCUMENT IMPROVEMENT SPECIALIST Gender Identity Not on file Sexual Orientation Not on file Last Filed Vital Signs Vital Sign Reading Time Taken Comments Blood Pressure 96/62 01/12/2025 9:53 AM DOCUMENT IMPROVEMENT SPECIALIST Pulse 97 01/12/2025 9:53 AM DOCUMENT IMPROVEMENT SPECIALIST Temperature 36.8 C (98.3 F) 09/22/2021 10:38 AM CDT Respiratory Rate 18 09/22/2021 11:36 AM CDT Oxygen Saturation 99% 01/12/2025 9:53 AM DOCUMENT IMPROVEMENT SPECIALIST Inhaled Oxygen Concentration - - Weight 74.7 kg (164 lb 9.6 oz) 01/12/2025 9:53 A M DOCUMENT IMPROVEMENT SPECIALIST Height 165.1 cm (5' 5 ) 01/12/2025 9:53 AM DOCUMENT IMPROVEMENT SPECIALIST Body Mass Index 27.39 01/12/2025 9:53 AM DOCUMENT IMPROVEMENT SPECIALIST Plan of Treatment Not on file Procedures Procedure Name Priority Date/Time Associated Diagnosis Comments POCT LIPID PANEL Routine 01/12/2025 10:4 0 AM DOCUMENT IMPROVEMENT SPECIALIST 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 from Last 3 Months Results * POCT lipid panel (01/12/2025 10:40 AM DOCUMENT IMPROVEMENT SPECIALIST) Cholesterol, POC 158 mg/dL Comment:GLU = 198 HDL, POC 31 mg/dL Triglycerides, POC 135 mg/dL LDL Cholesterol POC 100 mg/dL Chol/HDL Ratio, POC 3.2 Non-HDL Cholesterol, POC 127 mg/dL Cholesterol Total, POC 158 mg/dL Capillary blood 01/12/2025 1 0:40 AM DOCUMENT IMPROVEMENT SPECIALIST Kvng Sheridan MD POINT OF CARE TEST ORDERABLES Fi nal Result from Last 3 Months Insurance [facility] MEDICARE MEDICARE [facility] Care Teams Care Transport Nurse Relationship Specialty Start Date End Date Nina Hernandez DO [address] [place] [address] PCP - General Internal Medicine 09/01/18
[2025-01-14 16:19] LABS: Add Urine Microscopic? YES; Appearance Urine Clear (Clear); Bacteria Urine None Seen /hpf; Basophils Percent Auto 0.4 % (0.2-1.2); Bilirubin Urine Negative (Negative); Blood Urine Negative (Negative); Color Urine Yellow (Yellow); Eosinophils Absolute Auto 0.1 K/mm3 (0-0.3); Eosinophils Percent Auto 0.5 % (0-4.4); Glucose Urine UA Negative (Negative); Hematocrit 44.2 % (37.0-47.0); Hemoglobin 14.5 g/dL (12.0-15.0); Immature Granulocyte Absolute 0.08 K/mm3 (0.00-0.031); Immature Granulocyte Percent A 0.8 % (0-0.5); Ketones Urine Trace mg/dL (Negative); Leukocyte Esterase Ur 1+ LEU/UL (Negative); Lymphocytes Absolute Auto 1.62 K/mm3 (0.9-3.2); Lymphocytes Percent Auto 16.2 % (18.3-44.2); Mean Corpuscular HGB Conc 32.8 g/dl (32-36); Mean Corpuscular Hemoglobin 29.1 pg (26-34); Mean Corpuscular Volume 88.8 fl (80-100); Mean Platelet Volume 9.4 fl (7.4-10.4); Monocytes Absolute Auto 0.6 K/mm3 (0.1-0.6); Neutrophils Absolute Auto 7.6 K/mm3 (1.3-6.7); Neutrophils Percent Auto 76.1 % (45.5-73.1); Nitrate Urine Negative (Negative); Non Pathogenic Casts 0-2; Platelet Count Result 281 k/mm3 (150-375); Protein Urine Negative (Negative); RBC Urine 0-2 /hpf (0-2); Red Blood Count 4.98 M/mm3 (4.2-5.4); Red Cell Distribution Width 13.2 % (11.5-14.5); Specific Grav Ur 1.017 (1.001-1.035); Squamous Epithelial Cell Urine Occasional /hpf (Few); Urobilinogen Urine 0.2 mg/dL (<2.0)
[2025-01-14 16:31] LABS: INR 0.9; Prothrombin Time 12.6 Seconds (11.1-14.7)
[2025-01-14 16:32] LABS: Alanine Aminotransferase 24 U/L (6-35); Albumin Level 4.8 g/dL (3.5-5.1); Alkaline Phosphatase 159 U/L (38-126); Anion Gap 11 mmol/L (4-12); Aspartate Amino Transferase 22 U/L (14-36); Bilirubin,Total 0.8 mg/dL (0.2-1.3); Blood Urea Nitrogen 12 mg/dL (7-17); Calcium 10.4 mg/dL (8.4-10.2); Carbon Dioxide 28 mmol/L (22-30); Chloride 104 mmol/L (98-107); Estimated CRCL calculation 54 ml/min; Estimated Glomerular Filt Rate > 60; Glucose 127 mg/dL (65-110); Magnesium 2.2 mg/dL (1.6-2.3); Partial Thromboplastin Time 29.1 Seconds (22.3-36.8); Potassium 4.4 mmol/L (3.4-5.0); Sodium 143 mmol/L (137-145)
[2025-01-14 16:42] LABS: NT Pro B Type Natriuretic Pept 187 pg/mL (19.9-100)
[2025-01-14 16:44] LABS: Troponin I < 0.012 ng/mL (0.000-0.034)
[2025-01-14 16:52] LABS: Influenza A QL RT-PCR Negative (Negative); Influenza B QL RT-PCR Negative (Negative); RSV RNA, RT-PCR Negative (Negative); SARS-CoV-2 RNA PCR Negative (Negative)
[2025-01-14] MEDS: SODIUM CHLORIDE 0.9% IV 1,000 ML 999 ML IV CONT (17:04)
--- NOTE | 2025-01-14 18:40 | ECG_ITS ---
Test Date: 2025-01-14 19:09:52 Measurements Intervals [place] Rate: 83 P: 49 [place]: 212 QRS: 79 QRSD: 151 T: 3 QT: 423 QTc: 499 Interpretive Statements SINUS RHYTHM WITH OCCASIONAL VENTRICULAR PREMATURE COMPLEXES RIGHT BUNDLE BRANCH BLOCK BASELINE ARTIFACT- I, III, AVR, AVL, AVF ABNORMAL ECG Compared to ECG 01/14/2025 12:11:37 HEART RATE HAS DECREASED Ventricular premature complex(es) now present Electronically Signed On 01-14-2025 19:40:20 MANAGER UNDERWRITING by Jimbo Ojeda D.O.
== END 2025-01-14 19:56 | disposition home or self-care (01) ==
PROVIDERS: Physician Assistant; Emergency Provider Emergency Medicine; PCP Internal Medicine
DX: R00.2 Palpitations (principal); I10 Essential (primary) hypertension; I25.10 Atherosclerotic heart disease of native coronary artery without angina pectoris; E78.5 Hyperlipidemia, unspecified; K58.9 Irritable bowel syndrome, unspecified; K21.9 Gastro-esophageal reflux disease without esophagitis; Z85.828 Personal history of other malignant neoplasm of skin; R73.03 Prediabetes; Z86.73 Personal history of transient ischemic attack (TIA), and cerebral infarction without residual deficits; Z95.5 Presence of coronary angioplasty implant and graft; Z87.440 Personal history of urinary (tract) infections; Z90.710 Acquired absence of both cervix and uterus; Z90.49 Acquired absence of other specified parts of digestive tract; Z79.82 Long term (current) use of aspirin; Z79.899 Other long term (current) drug therapy; Z79.02 Long term (current) use of antithrombotics/antiplatelets; I45.10 Unspecified right bundle-branch block; I49.3 Ventricular premature depolarization; R00.0 Tachycardia, unspecified
CPT/HCPCS: 36415; 71046; 80053; 81001; 83735; 83880; 84484; 85025; 85610; 85730; 87086; 87637; 93005; 96360; 99284; J7030

== ENCOUNTER 2025-01-28 00:29 | Day surgery (SDC) | payer MEDICARE, SELFPAY ==
[2025-01-17 08:45] VITALS: BMI 29.2
--- NOTE | 2025-01-20 14:51 | PC.NURSE ---
Spoke with patient regarding medication PLAVIX. PATIENT verbalizes understanding that the last dose is to be taken on 01/23/25 and the Endoscopist will instruct them when to restart after the procedure.
[2025-01-28 08:52] VITALS: BP 125/66; PULSE 96; RESP 16; TEMP 36.6; O2SAT 98; BMI 28.8
--- NOTE | 2025-01-28 09:02 | WPDANESEPPF ---
Anes - Initial Pre Proc Eval Procedure: Operation Date: 01/28/25 10:00 Proposed Procedures p Esophagogastroduodenoscopy&Screen Colon - Addison Hicks MD Date/Time: 01/28/25 09:02 Surgeon: Addison Hicks MD Pre Op Diagnosis: Screening,GERD Patient Data Age: 75 Gender: F Height: 1.6 m Weight: 73.9 kg Last Vital Signs Temp 36.6 C 01/28/25 08:52 Pulse 96 01/28/25 08:52 Resp 16 01/28/25 08:52 BP 125/66 01/28/25 08:52 Pulse Ox 98 01/28/25 08:52 O2 Del Method Room Air 01/28/25 08:52 Allergies Allergy/AdvReac Type Severity Reaction Status Date / Time chocolate Allergy Severe Difficulty Verified 01/28/25 08:51 Breathing egg Allergy Severe DIFFICULTY Verified 01/28/25 08:51 BEATHING iohexol (From contrast - CT, Allergy Severe Hives Verified 01/28/25 08:51 X-RAY) azithromycin Allergy Mild RASH Verified 01/28/25 08:51 erythromycin base Allergy Mild RASH,HIVES Verified 01/28/25 08:51 Penicillins Allergy Mild RASH Verified 01/28/25 08:51 Sulfa (Sulfonamide Allergy Mild RASH Verified 01/28/25 08:51 Antibiotics) trimethoprim Allergy Mild RASH Verified 01/28/25 08:51 sulfite Allergy Unknown Anaphylaxis Verified 01/28/25 08:51 trazodone Allergy Anaphylaxis Verified 01/28/25 08:51 Home Medications ?Medication ?Instructions ?Recorded ?Confirmed ?Type amlodipine 5 mg tablet (Norvasc) 10 mg PO DAILY 12/28/19 01/28/25 History atorvastatin 10 mg tablet 20 mg PO HS 12/28/19 01/28/25 History clopidogrel 75 mg tablet (Plavix) 75 mg PO DAILY 12/28/19 01/28/25 History pantoprazole 40 mg tablet,delayed 40 mg PO QAM 12/28/19 01/28/25 History release (Protonix) famotidine 40 mg tablet 40 mg PO HS 07/06/20 01/28/25 History olmesartan 40 mg tablet (Benicar) 40 mg PO DAILY 08/28/20 01/28/25 History nitroglycerin 0.3 mg sublingual 4 mg sublingual Q5M PRN Chest Pain 05/21/21 01/17/25 History tablet metoprolol succinate 50 mg 50 mg PO DAILY 01/09/23 01/28/25 History tablet,extended release 24 hr aspirin 81 mg capsule 81 mg PO DAILY 01/14/25 01/28/25 History Results Review: All pre-operative results and documents have been reviewed as part of the pre-operative evaluation. [facility] Past Medical History Medical History (Updated 01/15/25 @ 00:00 by Juanjose Hoffman) CAD (coronary artery disease) Allergies Recurrent urinary tract infection Migraines Hypertension Pre-diabetes History of basal cell cancer Irritable bowel Stroke Mitral valve disorder Hyperlipidemia Acid reflux Surgical History Surgical History (Updated 01/28/25 @ 09:05 by Antonio Zepeda DO) History of coronary artery stent placement x1 2016 History of cholecystectomy H/O: hysterectomy History of removal of cyst H/O dilation and curettage H/O angioplasty History of cryosurgery Cervical Family History Family History Sibling Breast cancer Hypertension Hyperlipidemia Mother Diabetes mellitus Hypertension Heart disease Father Heart disease Grandparent Diabetes mellitus Social History Social History Smoking status: Never smoker Second hand tobacco smoke exposure: No Alcohol intake: never Substance use: never Substance use type: does not use Lack of Transportation: No Lack of Food: Never True Current Housing: I Have Housing Concerned About Future Housing: No Difficulty Paying Gas/Electric Bills: No Difficulty Paying for Meds: No Currently Unemployed: No Education: Associate Degree Difficulty w/ Childcare or Family Care: No Living arrangements: with family Additional living arrangements comments: With Spiritual care concerns: No Anes - Eval Final PreProcedure Day of Procedure 01/28/25 09:02 Patient weight: overweight Heart: regular rate and rhythm Lungs: clear to auscultation Airway: Mallampati scale class II Neurological: alert and oriented Last oral intake: >/= 8 hours ASA classification: III Emergent: no Anesthetic plan: proceed Anesthesia type and monitoring: general GIVS and standard monitoring Results Review: All pre-operative results and documents have been reviewed as part of the pre-operative evaluation. Informed Consent: The patient's anesthetic plan and its attendant risks and benefits were discussed with the patient/family/POA. Questions were solicited and answers provided to the satisfaction of the patient/family/POA.
[2025-01-28] MEDS: LACTATED RINGERS 1,000 ML 150 ML IV CONT (09:13)
--- NOTE | 2025-01-28 09:20 | PM.HPGS ---
History of Present Illness History of Present Illness Consent: Risks, benefits, and alternatives have been discussed and questions answered. Patient agrees to proceed with procedure. Chief complaint: Screening,GERD Narrative: Emely Womack is a 75 year old female here for colonoscopy (last one 2013) and egd. She had food poison Xmas time and came to ER, since she has not been completely back to her baseline, still some gerd and occasional loose stools. 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 Review of Systems Review of Systems: All systems reviewed & are unremarkable except as noted in HPI and below PMFSH Past Medical History Medical History (Updated 01/28/25 @ 09:22 by Addison Hicks MD) CAD (coronary artery disease) Allergies Recurrent urinary tract infection Migraines Hypertension Pre-diabetes History of basal cell cancer Irritable bowel Stroke Mitral valve disorder Hyperlipidemia Acid reflux Surgical History Surgical History (Updated 01/28/25 @ 09:05 by Antonio Zepeda DO) History of coronary artery stent placement x1 2017 History of cholecystectomy H/O: hysterectomy History of removal of cyst H/O dilation and curettage H/O angioplasty History of cryosurgery Cervical Family History Family History Sibling Breast cancer Hypertension Hyperlipidemia Mother Diabetes mellitus Hypertension Heart disease Father Heart disease Grandparent Diabetes mellitus Social History Social History Smoking status: Never smoker Second hand tobacco smoke exposure: No Alcohol intake: never Substance use: never Substance use type: does not use Lack of Transportation: No Lack of Food: Never True Current Housing: I Have Housing Concerned About Future Housing: No Difficulty Paying Gas/Electric Bills: No Difficulty Paying for Meds: No Currently Unemployed: No Education: Associate Degree Difficulty w/ Childcare or Family Care: No Living arrangements: with family Additional living arrangements comments: With Spiritual care concerns: No Meds Home Medications and Allergies Home Medications ?Medication ?Instructions ?Recorded ?Confirmed ?Type amlodipine 5 mg tablet (Norvasc) 10 mg PO DAILY 12/28/19 01/28/25 History atorvastatin 10 mg tablet 20 mg PO HS 12/28/19 01/28/25 History clopidogrel 75 mg tablet (Plavix) 75 mg PO DAILY 12/28/19 01/28/25 History pantoprazole 40 mg tablet,delayed 40 mg PO QAM 12/28/19 01/28/25 History release (Protonix) famotidine 40 mg tablet 40 mg PO HS 07/06/20 01/28/25 History olmesartan 40 mg tablet (Benicar) 40 mg PO DAILY 08/28/20 01/28/25 History nitroglycerin 0.3 mg sublingual 4 mg sublingual Q5M PRN Chest Pain 05/21/21 01/17/25 History tablet metoprolol succinate 50 mg 50 mg PO DAILY 01/09/23 01/28/25 History tablet,extended release 24 hr aspirin 81 mg capsule 81 mg PO DAILY 01/14/25 01/28/25 History Allergies Allergy/AdvReac Type Severity Reaction Status Date / Time chocolate Allergy Severe Difficulty Verified 01/28/25 08:51 Breathing egg Allergy Severe DIFFICULTY Verified 01/28/25 08:51 BEATHING iohexol (From contrast - CT, Allergy Severe Hives Verified 01/28/25 08:51 X-RAY) azithromycin Allergy Mild RASH Verified 01/28/25 08:51 erythromycin base Allergy Mild RASH,HIVES Verified 01/28/25 08:51 Penicillins Allergy Mild RASH Verified 01/28/25 08:51 Sulfa (Sulfonamide Allergy Mild RASH Verified 01/28/25 08:51 Antibiotics) trimethoprim Allergy Mild RASH Verified 01/28/25 08:51 sulfite Allergy Unknown Anaphylaxis Verified 01/28/25 08:51 trazodone Allergy Anaphylaxis Verified 01/28/25 08:51 Vital Signs Vital Signs - 24 hr 01/28/25 08:52 Temperature 97.9 F Pulse Rate 96 Respiratory Rate 16 Blood Pressure 125/66 Pulse Oximetry 98 Oxygen Delivery Room Air Exam Const: General: comfortable and no acute distress HENMT: Face/Nose/Sinus: Normal nares present Eyes: General: appearance normal, both eyes and all related structures Neck: Neck: no JVD Resp: Auscultation: clear to auscultation bilaterally Cardio: Rate: regular rate Rhythm: regular rhythm GI: Inspection: non-distended GI Palp: Yes Soft to palpation Skin: General skin exam: normal color Neuro: Speech: normal speech Extrem: General: normal to inspection Psych: Mental Status: mental status grossly normal Assessment and Plan Assessment and plan (1) Gastroenteritis: Code(s): K52.9 - Noninfective gastroenteritis and colitis, unspecified Status: Acute Assessment and Plan: resolved but still having some issues colonoscopy (2) Acid reflux: Code(s): K21.9 - Gastro-esophageal reflux disease without esophagitis Status: Acute Assessment and Plan: egd
--- NOTE | 2025-01-28 09:33 | SUR.OPER ---
egd ended at 928 and colon started at 932
[2025-01-28] MEDS: BENZOCAINE (*SP) 60 ML SPRAY CAN (HURRICAINE) 1 SPRAY MUCOUS MEM (09:35)
[2025-01-28 09:44] VITALS: BP 116/59; PULSE 81; RESP 20; O2SAT 99
[2025-01-28 09:54] VITALS: BP 116/59; PULSE 81; RESP 20; O2SAT 100
[2025-01-28 10:04] VITALS: BP 124/68; PULSE 79; RESP 20; O2SAT 100
== END 2025-01-28 10:12 | disposition home or self-care (01) ==
PROVIDERS: PCP Internal Medicine; Visit Provider Internal Medicine Gastroenterology
PROC: 0DJ08ZZ Inspection of Upper Intestinal Tract, Via Natural or Artificial Opening Endoscopic (ICD-10-PCS; CPT 45378; principal; 2025-01-28 10:00)
DX: Z12.11 Encounter for screening for malignant neoplasm of colon (principal); K57.30 Diverticulosis of large intestine without perforation or abscess without bleeding; K64.8 Other hemorrhoids; D12.0 Benign neoplasm of cecum; K29.50 Unspecified chronic gastritis without bleeding; K52.9 Noninfective gastroenteritis and colitis, unspecified; K21.9 Gastro-esophageal reflux disease without esophagitis; K29.70 Gastritis, unspecified, without bleeding; I25.10 Atherosclerotic heart disease of native coronary artery without angina pectoris; I10 Essential (primary) hypertension; E78.5 Hyperlipidemia, unspecified
CPT/HCPCS: 43239; 45380; 45385; 88305; J2003; J2704; J7120

== ENCOUNTER 2025-02-08 10:12 | Outpatient (CLI) | payer MEDICARE, SELFPAY ==
--- NOTE | ~2025-02-08 | CT_ITS ---
CT of the Abdomen and Pelvis: Indication: Abdominal pain Technique: 2.5 mm axial scans were obtained through the abdomen and pelvis following intravenous adm inistration of 100 cc of Omnipaque 350. Dose reduction technique was used on this scan by utilizing a utomated exposure control and iterative reconstruction technique. The dose-length product (DLP) was 7 16.31 mGy-cm. COMPARISON: 02/13/2024 Findings: Scans through the lung bases are unremarkable. There is diffuse hepatic steatosis. Cholecystectomy clips are present. The spleen, pancreas, adrenals and kidneys are within normal limits. No evidence of aortic aneurysm. No lymphadenopathy. No bowel obstruction or bowel wall thickening. There is sigmoid diverticulosis. Small fat-containing umbilical hernia. Images through the pelvis were performed. Urinary bladder unremarkable. No pelvic mass seen. No ascit es. Impression: No acute abnormality. Diffuse hepatic steatosis. Small fat-containing umbilical hernia. Reviewed, dictated and finalized at [facility]. Impression: No acute abnormality. Diffuse hepatic steatosis. Small fat-containing umbilical hernia.
[2025-02-08 10:41] LABS: Estimated Glomerular Filt Rate 54
== END 2025-02-08 10:13 | disposition home or self-care (01) ==
LOC: MICIMG 10:13
PROVIDERS: PCP Internal Medicine; Visit Provider Internal Medicine
DX: R10.9 Unspecified abdominal pain (principal); K76.0 Fatty (change of) liver, not elsewhere classified; K42.9 Umbilical hernia without obstruction or gangrene
CPT/HCPCS: 74177; Q9967

== ENCOUNTER 2025-02-26 17:49 | Inpatient (IN) | payer MEDICARE, SELFPAY ==
--- NOTE | ~2025-02-26 | XR_ITS ---
CHEST RADIOGRAPH, PA AND LATERAL CLINICAL HISTORY: chest pain . COMPARISON: 01/14/2025 TECHNIQUE: PA and lateral views of the chest. FINDINGS The cardiomediastinal silhouette is unremarkable. The lungs are clear. Visualized osseous structures and soft tissues are unremarkable. IMPRESSION: No focal infiltrate or effusion. Reviewed, dictated and finalized at location A.
[2025-02-26 17:48] VITALS: BP 115/61; PULSE 75; RESP 18; TEMP 36.7; O2SAT 99
--- NOTE | 2025-02-26 17:54 | ECG_ITS ---
Test Date: 2025-02-26 21:38:03 Measurements Intervals [place] Rate: 77 P: 56 CT: 192 QRS: 57 QRSD: 164 T: -15 QT: 429 QTc: 487 Interpretive Statements SINUS RHYTHM WITH OCCASIONAL VENTRICULAR PREMATURE COMPLEXES RIGHT BUNDLE BRANCH BLOCK [120+ ms QRS DURATION, UPRIGHT V1, 40+ ms S IN I/aVL/V4/V5/V6] INFERIOR T-WAVE ABNORMALITY, CONSIDER ISCHEMIA ABNORMAL ECG Electronically Signed On 02-27-2025 07:41:53 CDT by Don Rhodes M.D.
--- NOTE | 2025-02-26 17:59 | ECG_ITS ---
Test Date: 2025-02-26 17:59:13 Measurements Intervals [place] Rate: 81 P: 73 MN: 184 QRS: 66 QRSD: 162 T: -11 QT: 431 QTc: 502 Interpretive Statements SINUS RHYTHM RIGHT BUNDLE BRANCH BLOCK [120+ ms QRS DURATION, UPRIGHT V1, 40+ ms S IN I/aVL/V4/V5/V6] T-WAVE ABNORMALITY INFERIOR LEADS, CONSIDER ISCHEMIA ABNORMAL ECG Compared to ECG 01/14/2025 19:09:52 Ventricular premature complex(es) no longer present Electronically Signed On 02-27-2025 14:18:27 CDT by Don Rhodes M.D.
--- NOTE | 2025-02-26 18:03 | ED.CHESTPAIN ---
HPI - Chest Pain General Chief Complaint: Chest Pain <Grant Mayberry MD - Last Filed: 02/26/25 20:11> Stated Complaint: Chest Pain <Grant Mayberry MD - Last Filed: 02/26/25 20:11> Time Seen by Provider: 02/26/25 17:53 <Grant Mayberry MD - Last Filed: 02/26/25 20:11> History of Present Illness HPI narrative: 75-year-old female with a past medical history including coronary artery disease with stents, hypertension, GERD. She presents to the emergency department today with ongoing chest pain for last week. She states the pain is burning and pressure in quality. Denies any shortness a breath, no pain radiating towards her back or neck, abdomen. Went to her primary care provider's office, went to her speech teacher office and saw the TALENT ACQUISITION DIRECTOR who prescribed nitro tablets which have not been helping her. Her speech teacher Dr. Sheridan has not seen her for this episode of chest pain. States that she had a stent placed in 2017 after she was admitted regardless of negative cardiac enzymes. She had 90% occluded LAD. States this feels somewhat similar. No present nausea, vomiting, abdominal pain. Got aspirin and nitroglycerin in route by EMS. No history of thromboembolic disease. <Grant Mayberry MD - Last Filed: 02/26/25 20:11> Related Data Home Medications: Home Medications ?Medication ?Instructions ?Recorded ?Confirmed ?Last Taken ?Type amlodipine 5 mg tablet (Norvasc) 10 mg PO DAILY 12/28/19 02/26/25 02/25/25 History atorvastatin 10 mg tablet 20 mg PO HS 12/28/19 02/26/25 02/25/25 History clopidogrel 75 mg tablet (Plavix) 75 mg PO DAILY 12/28/19 02/26/25 02/26/25 History pantoprazole 40 mg tablet,delayed 40 mg PO [facility] 12/28/19 02/26/25 02/26/25 History release (Protonix) famotidine 40 mg tablet 40 mg PO HS 07/06/20 02/26/25 02/25/25 History olmesartan 40 mg tablet (Benicar) 40 mg PO DAILY 08/28/20 02/26/25 02/25/25 History nitroglycerin 0.3 mg sublingual 4 mg sublingual Q5M PRN Chest Pain 05/21/21 02/26/25 Unknown History tablet metoprolol succinate 50 mg 50 mg PO DAILY 01/09/23 02/26/25 02/26/25 History tablet,extended release 24 hr aspirin 81 mg capsule 81 mg PO DAILY 01/14/25 02/26/25 01/27/25 History <Grant Mayberry MD - Last Filed: 02/26/25 20:11> Allergies/Adverse Reactions: Allergies Allergy/AdvReac Type Severity Reaction Status Date / Time chocolate Allergy Severe Difficulty Verified 02/26/25 18:09 Breathing egg Allergy Severe DIFFICULTY Verified 02/26/25 18:09 BEATHING iohexol (From contrast - CT, Allergy Severe Hives Verified 02/26/25 18:09 X-RAY) azithromycin Allergy Mild RASH Verified 02/26/25 18:09 erythromycin base Allergy Mild RASH,HIVES Verified 02/26/25 18:09 Penicillins Allergy Mild RASH Verified 02/26/25 18:09 Sulfa (Sulfonamide Allergy Mild RASH Verified 02/26/25 18:09 Antibiotics) trimethoprim Allergy Mild RASH Verified 02/26/25 18:09 sulfite Allergy Unknown Anaphylaxis Verified 02/26/25 18:09 trazodone Allergy Anaphylaxis Verified 02/26/25 18:09 <Grant Mayberry MD - Last Filed: 02/26/25 20:11> Review of Systems Review of Systems: As reviewed above in HPI <Grant Mayberry MD - Last Filed: 02/26/25 20:11> [facility] Past Medical History Medical History: Medical History History of adenomatous polyp of colon CAD (coronary artery disease) Allergies Recurrent urinary tract infection Migraines Hypertension Pre-diabetes History of basal cell cancer Irritable bowel Stroke Mitral valve disorder Hyperlipidemia Acid reflux <Grant Mayberry MD - Last Filed: 02/26/25 20:11> Surgical History Surgical History: Surgical History History of coronary artery stent placement x1 2017 History of cholecystectomy H/O: hysterectomy History of removal of cyst H/O dilation and curettage H/O angioplasty History of cryosurgery Cervical <Grant Mayberry MD - Last Filed: 02/26/25 20:11> Family History Family History: Family History Sibling Breast cancer Hypertension Hyperlipidemia Mother Diabetes mellitus Hypertension Heart disease Father Heart disease Grandparent Diabetes mellitus <Grant Mayberry MD - Last Filed: 02/26/25 20:11> Social History Social History: Social History Smoking status: Never smoker Second hand tobacco smoke exposure: No Alcohol intake: never Substance use: never Substance use type: does not use Lack of Transportation: No Lack of Food: Never True Current Housing: I Have Housing Concerned About Future Housing: No Difficulty Paying Gas/Electric Bills: No Difficulty Paying for Meds: No Currently Unemployed: No Education: Associate Degree Difficulty w/ Childcare or Family Care: No Living arrangements: with family Additional living arrangements comments: With Spiritual care concerns: No <Grant Mayberry MD - Last Filed: 02/26/25 20:11> Exam Narrative: GENERAL: [Well-appearing, well-nourished, and in no acute distress.] HEAD: [Normocephalic, atraumatic.] EYES: [PERRLA and EOMI.] ENT: Nares clear, no rhinorrhea or epistaxis. Mucous membranes moist. NECK: Supple. CHEST: [Clear to auscultation. No respiratory distress.] HEART: [Regular rate and rhythm]. No murmur heard. [Normal peripheral pulses.] ABDOMEN: [Soft, nondistended], [nontender], [No rigidity or guarding] EXTREMITIES: Normal range of motion. [No edema.] SKIN: Warm, dry, no rash. NEURO: [No focal deficits]. Alert and oriented [x3.] PSYCH: [Normal mood and affect.] <Grant Mayberry MD - Last Filed: 02/26/25 20:11> Course Course Emergency Course: ZYCH: Patient signed out to me delta troponin and re-evaluation. Second troponin was negative. EKG is unchanged. Re-evaluation the patient is still having pressure in the center of her chest that is radiating to her jaw and left arm. She says that she had a nuclear stress test performed on jan 27 and while she doesn't remember the specifics but she was told she has an area of ischemia in the bottom of her heart. Current presentation may represent unstable angina. Patient was given Dilaudid as she cannot tolerate morphine and placed on oxygen. Nitro paste applied. Started on heparin/ASA. Case was discussed with Dr. Mcpherson and she requested by make Interventional Cardiology aware of the patient. Dr. Rubio has been consulted and agrees with maximal medical management. They will see the patient tomorrow.. <Emeka Rush MD - Last Filed: 02/27/25 02:12> Vital Signs Vital signs: Vital Signs Temperature 98.1 F 02/26/25 17:48 Pulse Rate 75 02/26/25 17:48 Respiratory Rate 18 02/26/25 17:48 Blood Pressure 115/61 02/26/25 17:48 Pulse Oximetry 99 02/26/25 17:48 Oxygen Delivery Room Air 02/26/25 17:48 Temperature 98.1 F 02/26/25 17:48 Pulse Rate 74 02/26/25 22:14 Respiratory Rate 14 02/26/25 22:14 Blood Pressure 123/63 02/26/25 22:14 Pulse Oximetry 97 02/26/25 22:14 Oxygen Delivery Room Air 02/26/25 18:07 <Grant Mayberry MD - Last Filed: 02/26/25 20:11> Vital Signs Temperature 98.1 F 02/26/25 17:48 Pulse Rate 75 02/26/25 17:48 Respiratory Rate 18 02/26/25 17:48 Blood Pressure 115/61 02/26/25 17:48 Pulse Oximetry 99 02/26/25 17:48 Oxygen Delivery Room Air 02/26/25 17:48 Temperature 98.1 F 02/26/25 17:48 Pulse Rate 74 02/26/25 22:14 Respiratory Rate 14 02/26/25 22:14 Blood Pressure 123/63 02/26/25 22:14 Pulse Oximetry 97 02/26/25 22:14 Oxygen Delivery Room Air 02/26/25 18:07 <Emeka Rush MD - Last Filed: 02/27/25 02:12> MDM - Chest Pain MDM Narrative Medical decision making narrative: 75-year-old female with history of coronary disease with stent, hypertension, GERD. She presents with ongoing chest pain she describes as a burning sensation with chest pressure. States this feels somewhat similar to the time she had a LAD occlusion in 2017. She is not any distress, resting comfortably in a stretcher, vital signs are otherwise reassuring. No significant hypertension, tachycardia, fever or hypoxia. She has strong symmetric pulses, warm well-perfused extremities, clear breath sounds to auscultation. Patient already saw her cardiology TALENT ACQUISITION DIRECTOR earlier this week and prescribed nitro tablets which have not been helping. Differential diagnosis includes acute coronary syndrome, angina, pneumonia, pneumothorax, costochondritis, musculoskeletal chest pain, GERD. Laboratory studies were ordered including a CBC, CMP, troponin x2, lipase, chest x-ray. She was provided Pepcid and Toradol and re-evaluated. Patient's initial troponin is negative, no leukocytosis or anemia. Chest x-ray with any focal infiltrates. Patient is pending repeat troponin and then re-evaluation. Signed out to oncoming ER physician Dr. Rush at 8:00 p.m. <Grant Mayberry MD - Last Filed: 02/26/25 20:11> Medical Records Data Attestation: I reviewed the patient's medical records. <Grant Mayberry MD - Last Filed: 02/26/25 20:11> Lab Data Attestation: I reviewed the patient's lab results. <Grant Mayberry MD - Last Filed: 02/26/25 20:11> Result diagrams: 02/26/25 17:58 02/26/25 17:58 <Grant Mayberry MD - Last Filed: 02/26/25 20:11> Labs: Lab Results 02/26/25 02/26/25 02/26/25 Range/Units 17:58 18:03 21:30 WBC 10.1 H (4.5-10.0) K/mm3 RBC 4.46 (4.2-5.4) M/mm3 Hgb 13.3 (12.0-15.0) g/dL Hct 40.4 (37.0-47.0) % MCV 90.6 (80-100) fl MCH 29.8 (26-34) pg MCHC 32.9 (32-36) g/dl RDW 13.1 (11.5-14.5) % Plt Count 254 (150-375) k/mm3 MPV 9.5 (7.4-10.4) fl Immature Gran % (Auto) 0.6 H (0-0.5) % Neut % (Auto) 63.5 (45.5-73.1) % Lymph % (Auto) 27.0 (18.3-44.2) % Edmunds % (Auto) 7.7 (2.6-8.5) % Eos % (Auto) 0.8 (0-4.4) % Baso % (Auto) 0.4 (0.2-1.2) % Lymph # (Auto) 2.72 (0.9-3.2) K/mm3 Edmunds # (Auto) 0.8 H (0.1-0.6) K/mm3 Eos # (Auto) 0.1 (0-0.3) K/mm3 Baso # (Auto) 0.0 (0.0-0.1) K/mm3 Abs Immat Gran (auto) 0.06 H (0.00-0.031) K/mm3 Absolute Neuts (auto) 6.4 (1.3-6.7) K/mm3 Absolute Nucleated RBC 0.000 (0.0-0.012) K/mm3 Nucleated RBC % 0.0 (0.0-0.2) % PT 12.9 (11.1-14.7) Seconds INR 0.9 APTT 26.2 (22.3-36.8) Seconds Sodium 139 (137-145) mmol/L Potassium 4.2 (3.4-5.0) mmol/L Chloride 102 (98-107) mmol/L Carbon Dioxide 24 (22-30) mmol/L Anion Gap 13 H (4-12) mmol/L BUN 14 (7-17) mg/dL Creatinine 0.88 (0.7-1.0) mg/dL Estim Creat Clear Calc 48 ml/min Estimated GFR > 60 (59 - ) Glucose 136 H (65-110) mg/dL Calcium 9.7 (8.4-10.2) mg/dL Total Bilirubin 0.6 (0.2-1.3) mg/dL AST 19 (14-36) U/L ALT 20 (6-35) U/L Alkaline Phosphatase 143 H (38-126) U/L Troponin I < 0.012 < 0.012 (0.000-0.034) ng/mL Total Protein 7.0 (6.3-8.2) g/dL Albumin 4.5 (3.5-5.1) g/dL Lipase 50 (23-300) U/L Influenza A (RT-PCR) Negative (Negative) Influenza B (RT-PCR) Negative (Negative) RSV (RT-PCR) Negative (Negative) SARS-CoV-2 RNA (RT-PCR) Negative (Negative) <Grant Mayberry MD - Last Filed: 02/26/25 20:11> Lab Results 02/26/25 02/26/25 02/26/25 Range/Units 17:58 18:03 21:30 WBC 10.1 H (4.5-10.0) K/mm3 RBC 4.46 (4.2-5.4) M/mm3 Hgb 13.3 (12.0-15.0) g/dL Hct 40.4 (37.0-47.0) % MCV 90.6 (80-100) fl MCH 29.8 (26-34) pg MCHC 32.9 (32-36) g/dl RDW 13.1 (11.5-14.5) % Plt Count 254 (150-375) k/mm3 MPV 9.5 (7.4-10.4) fl Immature Gran % (Auto) 0.6 H (0-0.5) % Neut % (Auto) 63.5 (45.5-73.1) % Lymph % (Auto) 27.0 (18.3-44.2) % Edmunds % (Auto) 7.7 (2.6-8.5) % Eos % (Auto) 0.8 (0-4.4) % Baso % (Auto) 0.4 (0.2-1.2) % Lymph # (Auto) 2.72 (0.9-3.2) K/mm3 Edmunds # (Auto) 0.8 H (0.1-0.6) K/mm3 Eos # (Auto) 0.1 (0-0.3) K/mm3 Baso # (Auto) 0.0 (0.0-0.1) K/mm3 Abs Immat Gran (auto) 0.06 H (0.00-0.031) K/mm3 Absolute Neuts (auto) 6.4 (1.3-6.7) K/mm3 Absolute Nucleated RBC 0.000 (0.0-0.012) K/mm3 Nucleated RBC % 0.0 (0.0-0.2) % PT 12.9 (11.1-14.7) Seconds INR 0.9 APTT 26.2 (22.3-36.8) Seconds Sodium 139 (137-145) mmol/L Potassium 4.2 (3.4-5.0) mmol/L Chloride 102 (98-107) mmol/L Carbon Dioxide 24 (22-30) mmol/L Anion Gap 13 H (4-12) mmol/L BUN 14 (7-17) mg/dL Creatinine 0.88 (0.7-1.0) mg/dL Estim Creat Clear Calc 48 ml/min Estimated GFR > 60 (59 - ) Glucose 136 H (65-110) mg/dL Calcium 9.7 (8.4-10.2) mg/dL Total Bilirubin 0.6 (0.2-1.3) mg/dL AST 19 (14-36) U/L ALT 20 (6-35) U/L Alkaline Phosphatase 143 H (38-126) U/L Troponin I < 0.012 < 0.012 (0.000-0.034) ng/mL Total Protein 7.0 (6.3-8.2) g/dL Albumin 4.5 (3.5-5.1) g/dL Lipase 50 (23-300) U/L Influenza A (RT-PCR) Negative (Negative) Influenza B (RT-PCR) Negative (Negative) RSV (RT-PCR) Negative (Negative) SARS-CoV-2 RNA (RT-PCR) Negative (Negative) <Emeka Rush MD - Last Filed: 02/27/25 02:12> ECG Data EKG #1: Attestation: I personally reviewed and interpreted this ECG as follows: <Grant Mayberry MD - Last Filed: 02/26/25 20:11> ECG completion date: 02/26/25 <Grant Mayberry MD - Last Filed: 02/26/25 20:11> ECG completion time: 17:59 <Grant Mayberry MD - Last Filed: 02/26/25 20:11> Prior ECG tracings: available for review <Grant Mayberry MD - Last Filed: 02/26/25 20:11> Interpretation: Sinus rhythm, right bundle branch block, no acute ST segment elevations, depressions or inversions. Compared to prior EKG from January 14 of this year no interval change. QTC 468 milliseconds, QRS 162 milliseconds, CO interval 184 milliseconds. Final interpretation sinus rhythm with a chronic right bundle branch block. <Grant Mayberry MD - Last Filed: 02/26/25 20:11> Discharge Plan Discharge Clinical Impression: Chest pain <Grant Mayberry MD - Last Filed: 02/26/25 20:11> Patient Disposition: Still a Patient <Grant Mayberry MD - Last Filed: 02/26/25 20:11> Condition: Stable <Grant Mayberry MD - Last Filed: 02/26/25 20:11> Patient Language: Martiniquais <Grant Mayberry MD - Last Filed: 02/26/25 20:11> Prescriptions: No Action atorvastatin 10 mg Tablet 20 mg PO HS clopidogrel [Plavix] 75 mg Tablet 75 mg PO DAILY amlodipine [Norvasc] 5 mg Tablet 10 mg PO DAILY pantoprazole [Protonix] 40 mg Tablet,Delayed Release (Dr/Ec) 40 mg PO QAM dicyclomine 10 mg capsule 10 mg PO BID PRN (Reason: abdominal pain) Qty: 60 5RF famotidine 40 mg tablet 40 mg PO HS olmesartan [Benicar] 40 mg Tablet 40 mg PO DAILY metoprolol succinate 50 mg tablet extended release 24 hr 50 mg PO DAILY nitroglycerin 0.3 mg Tablet, Sublingual 4 mg SUBLINGUAL Q5M PRN (Reason: Chest Pain) aspirin 81 mg capsule 81 mg PO DAILY <Grant Mayberry MD - Last Filed: 02/26/25 20:11> Follow-up/Referrals: Mary,Nina Domínguez DO [Primary Care Provider] - <Grant Mayberry MD - Last Filed: 02/26/25 20:11> Quality HEART score for chest pain patients History: slightly suspicious <Grant Mayberry MD - Last Filed: 02/26/25 20:11> ECG: normal <Grant Mayberry MD - Last Filed: 02/26/25 20:11> Age: > or = to 65 years <Grant Mayberry MD - Last Filed: 02/26/25 20:11> Risk factors: > or = to 3 risk factors of atherosclerotic disease <Grant Mayberry MD - Last Filed: 02/26/25 20:11> Troponin: < or = to 1x normal limit <Grant Mayberry MD - Last Filed: 02/26/25 20:11> Heart score: 4 <Grant Mayberry MD - Last Filed: 02/26/25 20:11> 4 <Emeka Rush MD - Last Filed: 02/27/25 02:12>
[2025-02-26 18:07] VITALS: BP 115/61; PULSE 76; RESP 21; O2SAT 99
[2025-02-26 18:09] LABS: Basophils Percent Auto 0.4 % (0.2-1.2); Eosinophils Absolute Auto 0.1 K/mm3 (0-0.3); Eosinophils Percent Auto 0.8 % (0-4.4); Hematocrit 40.4 % (37.0-47.0); Hemoglobin 13.3 g/dL (12.0-15.0); Immature Granulocyte Absolute 0.06 K/mm3 (0.00-0.031); Immature Granulocyte Percent A 0.6 % (0-0.5); Lymphocytes Absolute Auto 2.72 K/mm3 (0.9-3.2); Mean Corpuscular HGB Conc 32.9 g/dl (32-36); Mean Corpuscular Hemoglobin 29.8 pg (26-34); Mean Corpuscular Volume 90.6 fl (80-100); Mean Platelet Volume 9.5 fl (7.4-10.4); Monocytes Absolute Auto 0.8 K/mm3 (0.1-0.6); Monocytes Percent Auto 7.7 % (2.6-8.5); Neutrophils Absolute Auto 6.4 K/mm3 (1.3-6.7); Neutrophils Percent Auto 63.5 % (45.5-73.1); Platelet Count Result 254 k/mm3 (150-375); Red Blood Count 4.46 M/mm3 (4.2-5.4); Red Cell Distribution Width 13.1 % (11.5-14.5); White Blood Count 10.1 K/mm3 (4.5-10.0)
--- OUTSIDE RECORDS SUMMARY | 2025-02-26 18:19 | XMS_ITS | Encounter Summary ---
Author Organization [facility] Address [address] [place] [address] Care Team Providers Care Home Staging Specialist Name Role Phone MaryNina Leatha ARRIETA Primary Care Provider +1- [phone] Reason for Visit * Reason Comments Follow-up Chest Pain Encounter Details Date Type Department Care Team (Late st Contact Info) Description 02/24/2025 3:00 PM CDT Office Visit [facility] Cardiology [address] [place] [id number] Carrie Heller NP [address] [place] [address] Coronary artery disease of [place] artery of [place] heart with stable angina pectoris (Primary Dx) Social History Tobacco Use Types Packs/Day Years Used Date Smoking Tobacco: Never Smokeless Tobacco: Never Alcohol Use Standard Drinks/Week Comments No 0 (1 standard drink = 0.6 oz pur e alcohol) Comments No Sex and Gender Information Value Date Recorded Sex Assigned at Not on file Legal Sex Female 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 Gender Identity Not on file Sexual Orientation Not on file documented as of this encounter Last Filed Vital Signs Vital Sign Reading Time Taken Comments Blood Pressure 126/74 02/24/2025 2:58 PM CDT Pulse 83 02/24/2025 2:58 PM CDT Temperature - - Respiratory Rate - - Oxygen Saturation 98% 02/24/2025 2:58 PM CDT Inhaled Oxygen Concentration - - Weight 73.9 kg (163 lb) 02/24/2025 2:58 PM CDT Height 165.1 cm (5' 5 ) 02/24/2025 2:58 PM CDT Body Mass Index 27.12 02/24/2025 2:58 PM CDT documented in this encounter Ordered Prescriptions Prescription Sig Dispense Quantity Refills Last Filled Start Date End Date nitroglycerin (NITROSTAT) 0.4 mg SL tabletIndications: Coronary artery disease of [place] artery of [place] heart with stable angina pectoris Place 1 tablet (0.4 mg total) under the tongue every 5 (five) minutes as needed for chest pain Up to 3 doses, if 3rd dose is needed call 911 25 tablet 3 02/24/2025 isosorbide mononitrate ER (IMDUR) 30 mg 24 hr tabletIndications: Coronary artery disease of [place] artery of [place] heart with stable angina pectoris Take 1 tablet (30 mg total) by mouth daily 90 tablet 3 02/24/2025 documented in this encounter Progress Notes * Carrie Heller NP - 02/24/2025 3:00 PM CDT Images from the original note were not included. [facility] [address] [place] [address] Date of Visit: 02/24/2025 Patient ID: Emely Womack 1950 Chief Complaint Patient presents with Follow-up Chest Pain Emely Womack is a 75 y.o. female who is an established patient of Dr. Sheridan with a history of CAD coming to the office or complaint of chest pain. History of Present Illness: Emely Womack is a 75 y.o. female with CAD, history of PCI/OLGA x1 mid LAD on 02/06/2017 in the setting of unstable angina; borderline diabetes, history of CVA without significant residual defects.Patient is a former patient of Dr. Ball. Patient had PCI/OLGA x1 mid LAD and POBA D2 on 02/06/2017 in the setting of unstable angina. She hadrepeat coronary angiogram on 09/12/2017 in the setting of recurrent chest discomfort at which time she was found to have patent stent, however, her EF was reported to be 40%. She was continued on optimal medical treatment. Since last coronary event, she has not had any recurrent anginal chest pain.She denies dyspnea on exertion for level of activity. No palpitation, dizziness or syncope. She reports compliance with current medical regimen. 04/26/2020-patient is here for the follow-up visit. She denies angina or shortness of breath. Reports lipids in regular aerobic exercise. She states that occasionally she gets a sore muscle after exercise next day. She has occasional palpitations without dizziness or loss of consciousness. She reports compliance with current medical regimen. Denies any bleeding complications. 04/18/2021-on the follow-up visit today, patient reports episodes of substernal pressure-like sensation after she walks about 5 minutes. She also has occasional episodes of discomfort with heavy exertion. No dyspnea on exertion. No palpitation, dizziness or syncope. Reports compliance with current medical regimen. Has history of implantable heel emery buffer, with depleted battery. 07/18/2021-based on patient's previous symptoms of chest pain and abnormal MPI, she underwent cardiac catheterization on 05/22/2021 which showed patent previously placed stent; and mild disease in the proximal diagonal branch; minimal plaque RCA. LVEF was preserved. She was continued on optimal medical treatment. On the follow-up visit today, patient reports occasional, transient chest discomfort, not always related to exertion. No other major cardiovascular symptoms. She reports compliance with current medical regimen. 07/24/2022-on the follow-up visit today, patient reports occasional episodes of orthostatic dizziness without syncope. She denies chest pain at present. No significant shortness of breath for level activity. She has occasional palpitations. She states that heart rate is usually in 60s at home. She is currently on metoprolol tartrate. 03/05/2023- She was hospitalized to [facility] on 01/09/2023 with brief loss of consciousness, which was attributed to orthostatic syncope secondary to dehydration. She was observed overnight.Carotid Doppler was reported to show less than 50% stenosis bilateral ICA. On telemetry, she was found to have PC and, hence had ambulatory heel emery buffer. She reports occasional palpitations without associated symptoms. Previous ambulatory heel emery buffer showed PVCs and episodes of NSVT. She hasbeen on beta-everette. 03/10/2024-patient is here for routine follow-up visit. She denies any major cardiovascular symptoms at present including chest pain, shortness breath, dizziness or syncope. She is occasional palpitations. She states that she was prescribed trazodone for insomnia by her primary care physician but was unable to tolerate it. On 02/13/2024, after taking trazodone, patient states that she felt dizzy,diaphoretic and was taken to the emergency room. Her symptoms got better after IV hydration. Reports compliance with current medical regimen. 01/12/2025-on the follow-up visit today, patient reports recurrent episodes of orthostatic dizziness associated with palpitations. These symptoms started couple of months ago after she had what she described as GI upset No chest pain. Compliant with current medical regimen. 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 It lasted about 5 minutes andthen subsided, but ever since then she has had various aches and pains along upper and lower back, along ribs, shoulders, upper chest, neck and upper arms. It seems better when she lays down and is more noticeable when she is standing or doing something. Currently she feels a burning sensation in the shoulders and upper chest. She has been taking Tylenol without relief. Of note, she did not need to start the midodrine after the last visit, the orthostatic dizziness subsided. 12-lead ECG performed in the office today was independently interpreted by me and showed sinus rhythm, RBBB, RAD, rate 81 beats per minute Medical History: Past Medical History: Diagnosis Date Arthritis Coronary artery disease involving [place] coronary artery of [place] heart with angina pectoris 06/06/2017 Diabetes mellitus (HCC) Prediabetic GERD (gastroesophageal reflux disease) Heart disease Heart valve disease Valvular disease Hx of heart artery stent 06/06/2017 HX OTHER MEDICAL Allergies, seasonal HX OTHER MEDICAL diverticulitis HX OTHER MEDICAL Stroke 2001 HX OTHER MEDICAL Cataracts Hypertension Hypertension Migraines 1980s Other insomnia 09/05/2017 Palpitations 06/06/2017 Prominent abdominal aortic pulsation 06/06/2017 Statin intolerance 09/05/2017 Stroke (HCC) 2002 Superficial basal cell carcinoma Cancer, basal Cell Past Surgical History: Procedure Laterality Date ANGIOPLASTY 2016 CHOLECYSTECTOMY Cholecystectomy HYSTERECTOMY 2019 Social History Tobacco Use Smoking Status Never Smokeless Tobacco Never Social History Tobacco Use Smoking status: Never Smokeless tobacco: Never Substance and Sexual Activity Drug use: Never Sexual activity: Not Currently Partners: Male control/protection: Post-menopausal Alcohol Use: Not on file Family History Problem Relation Age of Onset Heart disease Father Cardiovascular disease; Cause of : Cardiovascular disease Heart disease Mother Cardiovascular disease; Cause of : Cardiovascular disease Kidney disease Mother Renal disease; Cause of : Renal disease Diabetes Mother Heart disease Brother Cardiovascular disease; Heart attack Brother Hypertension Brother Kidney disease Brother Breast cancer Sister Cancer, breast; Cause of : Cancer, breast Cancer Sister Hypertension Sister Diabetes Sister Hyperlipidemia Sister Diabetes Sister Diabetes mellitus; Hyperlipidemia Sister Hyperlipidemia; Hypertension Sister Hypertension; Diabetes Maternal Grandfather Review of Systems Constitutional: Negative for malaise/fatigue, weight gain and weight loss. Cardiovascular: Positive for chest pain. Negative for dyspnea on exertion, leg swelling, near-syncope, orthopnea, palpitations, paroxysmal nocturnal dyspnea and syncope. Respiratory: Negative for cough, shortness of breath and sleep disturbances due to breathing. Hematologic/Lymphatic: Negative for bleeding problem. Does not bruise/bleed easily. Musculoskeletal: Positive for back pain. Vital Signs: BP 126/74 (BP Location: Left arm, Patient Position: Sitting) Pulse 83 Ht 165.1 cm (5' 5 ) Wt 73.9 kg (163 lb) SpO2 98% BMI 27.12 kg/m?? Physical Exam Constitutional: General: She is not in acute distress. Appearance: She is well-developed. HENT: Head: Normocephalic and atraumatic. Eyes: General: No scleral icterus. Conjunctiva/sclera: Conjunctivae normal. Neck: Vascular: No JVD. Trachea: No tracheal deviation. Cardiovascular: Rate and Rhythm: Normal rate and regular rhythm. Heart sounds: Normal heart sounds. No murmur heard. Pulmonary: Effort: Pulmonary effort is normal. No respiratory distress. Breath sounds: Normal breath sounds. Musculoskeletal: Comments: Muscles of the back and shoulders palpated, no noticeable tightness or knots were felt Skin: General: Skin is warm and dry. Neurological: Mental Status: She is alert and oriented to person, place, and time. Psychiatric: Mood and Affect: Mood normal. Behavior: Behavior normal. Allergies Allergen Reactions Egg Yolk Anaphylaxis Iodine And Iodide Containing Products Anaphylaxis Reaction: Anaphylaxis, Azithromycin Rash Chocolate Hives and Rash Erythromycin Rash Iodinated Contrast Media Hives Penicillin V Rash Penicillins Rash Sulfa (Sulfonamide Antibiotics) Rash Sulfamethoxazole Rash Sulfamethoxazole-Trimethoprim Rash Sulfites Rash Trimethoprim Rash Sulfisomidine Unknown Chocolate Flavor Other (See comments) Throat swelling Trazodone Diarrhea, Dizziness, Headache, Nausea & Vomiting, Stomach upset and Sweating Current Outpatient Medications: amLODIPine (NORVASC) 10 mg tablet, TAKE 1 TABLET(10 MG) BY MOUTH DAILY, Disp: 90 tablet, Rfl: 3 atorvastatin (LIPITOR) 80 mg tablet, Take 1 tablet (80 mg total) by mouth nightly (Patient taking differently: Take 0.5 tablets (40 mg total) by mouth daily), Disp: 90 tablet, Rfl: 3 clopidogrel (PLAVIX) 75 mg tablet, take 1 tablet by oral route every day, Disp: 0, Rfl: 0 EPINEPHrine 0.3 mg/0.3 mL auto-injection syringe, , Disp: , Rfl: famotidine (PEPCID) 40 mg tablet, Take 1 tablet (40 mg total) by mouth daily, Disp: , Rfl: fluticasone propionate (FLONASE) 50 mcg/actuation nasal spray, Administer 1 spray into each nostrildaily, Disp: , Rfl: metoprolol XL (TOPROL-XL) 50 mg extended release tablet, Take 1 tablet (50 mg total) by mouth daily, Disp: 30 tablet, Rfl: 11 [id number] 27 mg iron-1.13 mg-581.92 mg capsule, Take by mouth, Disp: , Rfl: pantoprazole DR (PROTONIX) 40 mg EC tablet, take 1 tablet by oral route every day, Disp: 0, Rfl: 0 dicyclomine (BENTYL) 10 mg capsule, Take 1 capsule (10 mg total) by mouth 4 (four) times a day before meals and nightly (Patient not taking: Reported on 02/24/2025), Disp: , Rfl: isosorbide mononitrate ER (IMDUR) 30 mg 24 hr tablet, Take 1 tablet (30 mg total) by mouth daily, Disp: 90 tablet, Rfl: 3 midodrine (PROAMATINE) 5 mg tablet, Take 1 tablet (5 mg total) by mouth 3 (three) times a day (Patient not taking: Reported on 02/24/2025), Disp: 90 tablet, Rfl: 1 nitroglycerin (NITROSTAT) 0.4 mg SL tablet, Place 1 tablet (0.4 mg total) under the tongue every 5 (five) minutes as needed for chest pain Up to 3 doses, if 3rd dose is needed call 911, Disp: 25 tablet, Rfl: 3 olmesartan (BENICAR) 40 mg tablet, Take 1 tablet (40 mg total) by mouth daily, Disp: , Rfl: Lab Results Component Value Date CHOL 145 2018 TRIG 97 2018 LDLCALC 78 2018 HDL 48 2018 No results found for: WBC , HGB , HCT , MCV , PLT No results found for this or any previous visit (from the past 4 hours). Lab Results Component Value Date POCCHOL 158 01/12/2025 POCHDL 31 01/12/2025 POCTRIG 135 01/12/2025 POCLDL 100 01/12/2025 POCNONHDL 127 01/12/2025 POCCHLPL 158 01/12/2025 Assessment: Diagnoses and all orders for this visit: Coronary artery disease of [place] artery of [place] heart with stable angina pectoris (Primary) - isosorbide mononitrate ER (IMDUR) 30 mg 24 hr tablet; Take 1 tablet (30 mg total) by mouth daily - nitroglycerin (NITROSTAT) 0.4 mg SL tablet; Place 1 tablet (0.4 mg total) under the tongue every 5 (five) minutes as needed for chest pain Up to 3 doses, if 3rd dose is needed call 911 Plan/Recommendations: She has a history of CAD with previous PCI. She had a recent stress test with a small reversible defect at the apex. Recurrent symptoms sound like they could be angina and less likely musculoskeletalbecause there has not been improvement with time and acetaminophen. I explained to her that we willfirst try medical therapy: Begin isosorbide mononitrate 30 mg daily. Continue aspirin, statin, metoprolol. Update me on symptoms in a week. If symptom improves, we will continue medical therapy. His symptom does not improve, we will proceed with scheduling coronary angiogram. If symptom worsens andis not relieved with sublingual nitroglycerin, go to the ER. I gave her a fresh prescription of nitr oglycerin and reviewed the appropriate use. Patient verbalized understanding. Keep the previously scheduled follow-up visit with Dr. Sheridan in 3 weeks. 02/24/2025 MILLY Emery- Nurse Practitioner with [facility] Cardiology This note is dictated and transcribed using [employer] Direct Software. Salvager Helper variancesmay occur. Despite proofreading, typographical errors may occur. documented in this encounter Miscellaneous Notes * Addendum Note - Julien Guadalupe MA - 02/24/2025 3:00 PM CDTAddended by: JULIEN GUADALUPE on: 02/25/2025 04:03 PM Modules accepted: Orders documented in this encounter Plan of Treatment Not on file documented as of this encounter Procedures Procedure Name Priority Date/Time Associated Diagnosis Comments ELECTROCARDIOGRAM REPORT Routine 025 4:03 PM CDT Coronary artery disease of [place] artery of [place] heart with stable angina pectoris documented in this encounter Results * Electrocardiogram Report (02/24/2025 4:03 PM CDT) Carrie Heller NP ECG ORDERABLES Final Res ult documented in this encounter Visit Diagnoses Diagnosis Coronary artery disease of [place] artery of [place] heart with stable angina pectoris- Primary documented in this encounter Discontinued Medications Medication Sig Discontinue Reason Start Date End Da te cholecalciferol (VITAMIN D3) 2,000 unit tablet take one daily Patient Reported 02/20/2017 isosorbide mononitrate ER (IMDUR) 30 mg 24 hr tablet Take 1 tablet (30 mg total) by mouth daily. 06/06/2017 06/06/2018 nitroglycerin (NITROSTAT) 0.[address] 1 tablet (0.4 mg total) under the tongue every 5 (five) minutes as needed for chest pain Reorder 02/24/2025 documented as of this encounter Historical Medications * This list may reflect changes made after this encounter. olmesartan (BENICAR) 40 mg tablet Take 1 tablet (40 mg total) by mouth daily dicyclomine (BENTYL) 10 mg capsule Take 1 capsule (10 mg total) by mouth 4 (four) times a day before meals and nightly 02/16/2025 nitroglycerin (NITROSTAT) 0.[address] 1 tablet (0.4 mg total) under the tongue every 5 (five) minutes as needed for chest pain 02/24/2025 added in this encounter Care Teams Home Staging Specialist Relationship Specialty Start Date End Date Nina Hernandez DO PCP - General Internal Medicine 09/01/18 documented as of this encounter
--- OUTSIDE RECORDS SUMMARY | 2025-02-26 18:19 | XMS_ITS | Clinical Summary ---
Author Organization [facility] Address [address] [place] [address] Care Team Providers Care Physical Therapist Clinic Director Name Role Phone Moris Saldaña MD Primary Care Provider +1- [phone] Social History Tobacco Use Types Packs/Day Years [...] Td Vaccines ( 1 - Tdap) 1969 Zoster Vaccines (1 of 2) 2000 Dexa [...] age to complete this topic Care Teams Physical Therapist Clinic Director Relationship Specialty Start Date End Date Moris Saldaña MD [address] [place] [address] PCP - General 08/18/13
--- OUTSIDE RECORDS SUMMARY | 2025-02-26 18:19 | XMS_ITS | Encounter Summary ---
Author Organization [facility] Address [address] [place] [address] Care Team Providers Care Manager Medicaid Name Role Phone Radha Mitchell DO Primary Care Provider +1- [phone] Nina Hernandez DO Primary Care Provider +1- [phone] Encounter Details Date Type Department Care Team (Late st Contact Info) Description 02/07/2017 Orders Only [facility] ProviderDean MD [address] [place] [id number] Social History Tobacco Use Types Packs/Day Years Used Date Smoking Tobacco: Never Assessed Comments Unknown Sex and Gender Information Value Date Recorded Sex Assigned at Not on file 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
--- OUTSIDE RECORDS SUMMARY | 2025-02-26 18:19 | XMS_ITS | Continuity of Care Document ---
Author Organization [employer] [facility] Address [address] [place] [address] Phone Care Team Providers Care Staker Surveying Name Role Phone Mary Nina ARRIETA Unavailable Unavailable Allergies, Adverse Reactions, Alerts Substance Reaction Status Criticality chocolate HivesHives Active No Information egg HivesHives Active No Information Iodinated Contrast Media HivesHives Active No Information trazodone Unknown Active No Information citalopram InsomniaHallucinations Active No In formation sulfamethoxazole Other Active No Informat ion trimethoprim Other Active No Information azithromycin Other Active No Information erythromycin base Rash Active No Informa tion penicillin V Rash Active No Information Medications Medication Instructions Dosage Effective Dates (start - stop) Status Comments dicyclomine 10 mg capsule take 1 capsule by oral route up to 3 times a day for cramping - Active diphenhydramine 50 mg capsule take 1 capsule by oral route 1 hour prior to procedure - Active FAMOTIDINE 40MG TABLETS TAKE 1 [...] route every day 10 MG - Active Procedures Procedure Date CBC, INC PLATELETS AND DIFFERENTIAL COMPREHEN METABOLIC PANEL [facility] HEMOGLOBIN A1C HGA1C, GLYCO MICROALBUMIN, QN (URINE) CREATININE, (U-R) PARATHYROID HORMONE (PTH) VITAMIN D, 25-HYDROXY Pt inelig neg scrn depres ROUTINE VENIPUNCTURE [place] OFFICE [id number] SYST BP LT 130 MM HG DIAST BP < 80 MM HG DSCHRG MED/CURRENT MED MERGE OFFICE [id number] Visit Complexity Inherent To E/M 2024 SYST BP GE 130 - 139MM HG DIAST BP < 80 MM HG AMYLASE C-REACTIVE PROTEIN (CRP) CBC, INC PLATELETS AND DIFFERENTIAL COMPREHEN METABOLIC PANEL CMP HEMOGLOBIN A1C HGA1C, GLYCO LIPASE RBC SED RATE, AUTOMATED THYROID STIMULATION HORMONE(TSH) 2024 URINALYSIS, DIPSTICK (UA) - Office Lab J ROUTINE VENIPUNCTURE IL OFFICE [id number] SYST BP LT 130 MM HG DIAST BP < 80 MM HG CBC, INC PLATELETS AND DIFFERENTIAL COMPREHEN METABOLIC PANEL CMP 4 CREATINE KINASE, TOTAL (CPK,CK) 024 HEMOGLOBIN A1C HGA1C, GLYCO LIPID PANEL ROUTINE VENIPUNCTURE IL OFFICE [id number] SYST BP LT 130 MM HG DIAST BP < 80 MM HG DSCHRG MED/CURRENT MED MERGE X-RAY SPINE, CERVICAL, 2 Or 3 VIEWS OFFICE [id number] Visit Complexity Inherent To E/M 2023 SYST BP LT 130 MM HG DIAST BP < 80 MM HG X-RAY SPINE, CERVICAL, 2 Or 3 VIEWS C-REACTIVE PROTEIN (CRP) CBC, INC PLATELETS AND DIFFERENTIAL COMPREHEN METABOLIC PANEL CMP 4 CREATINE KINASE, TOTAL (CPK,CK) 024 FOLIC [...] MERGE Pt inelig neg scrn deprloren OFFICE [id number] SYST BP LT 130 MM HG DIAST BP < 80 MM HG CBC, INC PLATELETS AND DIFFERENTIAL COMPREHEN METABOLIC PANEL [facility] CREATINE KINASE, TOTAL (CPK,CK) 024 HEMOGLOBIN A1C HGA1C, GLYCO LIPID PANEL MICROALBUMIN, QN (URINE) CREATININE, (U-R) PARATHYROID HORMONE (PTH) THYROID STIMULATION HORMONE(TSH) 2023 VITAMIN D, 25-HYDROXY Pt inelig neg scrn deprloren URINALYSIS, DIPSTICK (UA) - Office Lab J ROUTINE VENIPUNCTURE [place] OFFICE [id number] SYST BP LT 130 MM HG DIAST BP < 80 MM HG CBC, INC PLATELETS AND DIFFERENTIAL COMPREHEN METABOLIC PANEL [facility] HEMOGLOBIN A1C HGA1C, GLYCO PARATHYROID HORMONE (PTH) THYROID STIMULATION HORMONE(TSH) 2022 URINALYSIS, REFLEX (UA) VITAMIN D, 25-HYDROXY Pt inelig neg scrn depres ROUTINE VENIPUNCTURE [place] OFFICE [id number] SYST BP LT 130 MM HG DIAST BP < 80 MM HG BASIC METABOLIC PANEL(BMP) ROUTINE VENIPUNCTURE [place] CBC, INC PLATELETS AND DIFFERENTIAL COMPREHEN METABOLIC PANEL CMP 3 HEMOGLOBIN A1C HGA1C, GLYCO LIPID PANEL PARATHYROID HORMONE (PTH) THYROID STIMULATION HORMONE(TSH) 2022 VITAMIN D, 25-HYDROXY DSCHRG MED/CURRENT MED MERGE ROUTINE VENIPUNCTURE IL OFFICE [id number] SYST BP LT 130 MM HG DIAST BP < 80 MM HG Pt inelig neg scrn depres CBC, INC PLATELETS AND DIFFERENTIAL COMPREHEN METABOLIC PANEL [facility] 2 HEMOGLOBIN A1C HGA1C, GLYCO LIPID PANEL PARATHYROID HORMONE (PTH) THYROID STIMULATION HORMONE(TSH) 2021 VITAMIN D, 25-HYDROXY URINALYSIS, DIPSTICK (UA) - Office Lab A ROUTINE VENIPUNCTURE IL OFFICE [id number] SYST BP LT 130 MM HG DIAST BP < 80 MM HG CBC, INC PLATELETS AND DIFFERENTIAL COMPREHEN METABOLIC PANEL [facility] 2 CREATINE KINASE, TOTAL (CPK,CK) 022 HEMOGLOBIN A1C HGA1C, GLYCO LIPID PANEL MICROALBUMIN, QN (URINE) CREATININE, (U-R) PARATHYROID HORMONE (PTH) RBC SED RATE, AUTOMATED THYROID STIMULATION HORMONE(TSH) 2021 URINALYSIS W MICROSCOPIC (UA) 2 VITAMIN D, 25-HYDROXY ROUTINE VENIPUNCTURE OFFICE [id number] SYST BP LT 130 MM HG DIAST BP < 80 MM HG Pt inelig neg scrn depres CBC, INC PLATELETS AND DIFFERENTIAL COMPREHEN METABOLIC PANEL CMP HEMOGLOBIN A1C HGA1C, GLYCO LIPID PANEL THYROID STIMULATION HORMONE(TSH) 2020 URINALYSIS W MICROSCOPIC (UA) ROUTINE VENIPUNCTURE IL OFFICE [id number] SYST BP LT 130 MM HG DIAST BP < 80 MM HG URINALYSIS, DIPSTICK (UA) - Office Lab A FALL RISK ASSESSMENT DOC'D PRES/ABSN URINE INCON ASSESS OFFICE [id number] SYST BP GE 130 - 139MM HG DIAST BP < 80 MM HG CREATINE KINASE, TOTAL (CPK,CK) FERRITIN LEVEL FOLIC ACID (S) (FOLATE) VITAMIN B12 (SERUM) ROUTINE VENIPUNCTURE OFFICE [id number] SYST BP GE 130 - 139MM HG DIAST BP < 80 MM HG C-REACTIVE PROTEIN (CRP) CBC, INC PLATELETS AND DIFFERENTIAL COMPREHEN METABOLIC PANEL CMP CREATINE KINASE, TOTAL (CPK,CK) 021 HEMOGLOBIN A1C HGA1C, GLYCO LIPID PANEL RBC SED RATE, AUTOMATED THYROID STIMULATION HORMONE(TSH) 2020 ROUTINE VENIPUNCTURE IL OFFICE [id number] SYST BP >= 140 MM HG6 IT DIAST BP < 80 MM HG Pt inelig neg scrn depres OFFICE [id number] SYST BP LT 130 MM HG DIAST BP < 80 MM HG URINALYSIS, DIPSTICK (UA) - Office Lab J CBC, INC PLATELETS AND DIFFERENTIAL COMPREHEN METABOLIC PANEL [facility] 0 HEMOGLOBIN A1C HGA1C, GLYCO ROUTINE VENIPUNCTURE IL OFFICE [id number] SYST BP GE 130 - 139MM HG DIAST BP < 80 MM HG NUTRITIONAL THERAPY; REASSES SMENT AND INTERVENTION, INDIVIDUAL, EACH 15 MINUTES FALL RISK ASSESSMENT DOC'D PRES/ABSN URINE INCON ASSESS URINALYSIS, DIPSTICK (UA) - Office Lab J OFFICE [id number] SYST BP LT 130 MM HG DIAST BP < 80 MM HG NUTRITIONAL THERAPY; INITIAL ASSESSMENT AND INTERVENTION, INDIVIDUAL, EACH 15 IL CBC, INC PLATELETS AND DIFFERENTIAL COMPREHEN METABOLIC PANEL [facility] 0 HEMOGLOBIN A1C HGA1C, GLYCO LIPID PANEL THYROID STIMULATION HORMONE(TSH) 2019 VITAMIN D, 25-HYDROXY ROUTINE VENIPUNCTURE IL OFFICE [id number] SYST BP GE 130 - 139MM HG DIAST BP < 80 MM HG FALL PLAN OF CARE DOC'D URINE INCON PLAN DOC'D PRES/ABSN URINE INCON ASSESS Pt inelig neg scrn depres CBC, INC PLATELETS AND DIFFERENTIAL COMPREHEN METABOLIC PANEL [facility] 9 CREATINE KINASE, TOTAL (CPK,CK) 019 HEMOGLOBIN A1C HGA1C, GLYCO LIPID PANEL MICROALBUMIN, QN (URINE) CREATININE, (U-R) PARATHYROID HORMONE (PTH) SED RATE , RBC SEDIMENTATION RATE,(ESR) THYROID STIMULATION HORMONE(TSH) 2018 ROUTINE VENIPUNCTURE OFFICE [id number] SYST BP LT 130 MM HG DIAST BP < 80 MM HG Advance Directives Directive Yes / No Effective Date File Name Life Support Not Answered N/A N/A Intubation Not Answered N/A N/A Antibiotics Not Answered N/A N/A IV Fluid Support Not Answered N/A N/A Tube Feed Not Answered N/A N/A Other Directive N/A N/A WARNING:The information contained in this section is historical and is provided for information only and does not constitute a legal document or any assurance that the information is still accurate. Please verify the information with the enciso of the legal document before using it for clinical purposes. Encounters Encounter Description Practice Location Reason(s) For Visit Diagnoses Date Provider Providers Copied on Encounter [facility] [facility], [address], [place], [place], [address] , tel: [phone] [facility] No Information 5 Mary Wood. [address] [place] [address], [id number], [place]. [phone] [facility], [address], [place], [place], [address] , [place] tel: [phone] [facility] No Information 5 Angel Merida. [address], [id number], . tel:[phone] Referring Provider: Carlos Keene, [address] [place] [address], [address]. tel:[phone] OFFICE BTAPX-FLU-SI TAILED [facility], [address], [place], [place], [address] , tel: [phone] [facility] 4 month (chief complaint)c hronic conditions (chief complaint)C hronic Conditions (chief complaint) Body mass index [BMI] 29.0-29.9, adultType 2 diabetes mellitus with other circulatory complicationsAth erosclerotic heart disease of [place] coronary artery with other forms of angina pectorisEssentia l (primary) hypertensionGast ro-esophageal reflux disease without esophagitisSecon johana hyperparathyroid ism, not elsewhere classifiedFatty (change of) liver, not elsewhere classifiedVitami n D deficiency, unspecifiedStoma ch discomfort 5 [facility]. [address] [place] [address], [address], [place]. tel:[phone] Kvng Koedson.Refer ring Provider: Nina Pennington, [address] [place] [address], [address] . tel:[phone] [facility], [address], [place], [place], [address] , tel: [phone] [facility] No Information 5 [facility]. [address] [place] [address], [address], [place]. tel:[phone] OFFICE MWNTR-PJG-KC TAILED [facility], [address], [place], [place], [address] , tel: [phone] [facility] ER (chief complaint)c hronic conditions (chief complaint) Body mass index [BMI] 29.0-29.9, adultAtheroscler otic heart disease of [place] coronary artery with other forms of angina pectorisType 2 diabetes mellitus with other circulatory complicationsEss ential (primary) hypertensionAbdo cat pain, unspecified abdominal locationLoose stools 5 [facility]. [address] [place] [address], [address], [place]. tel:[phone] Referring Provider: Nina Pennington, [address] [place] [address], [address] . tel:[phone] [facility], [address], [place], [address] , [place] tel: [phone] [facility] No Information 5 Mary Wood. [address] [place] [address], [id number], [place]. tel:[phone] [facility], [address], [place], [place], [address] , tel: [phone] [facility] No Information 5 Angel Merida. [address] [place] [address], [id number], [place]. tel:[phone] Referring Provider: Carlos Keene, [address] [place] [address], [address]. tel:[phone] OFFICE AZPIP-KSQ-VJ TAILED [facility], [address], [place], [place], [address] , [place] tel: [phone] [facility] GI (chief complaint)C hronic Conditions (chief complaint)c hronic conditions (chief complaint) Body mass index [BMI] 28.0-28.9, adultAbdominal pain, unspecified abdominal locationDiarrhea , unspecified typeEssential (primary) hypertensionGast ro-esophageal reflux disease without esophagitisType 2 diabetes mellitus with other circulatory complicationsLeu faye in urineColon cancer screening 5 Jassi Carlos. [address] [place] [address], [address], [place]. tel:[phone] Kvng Sheridan.Refer ring Provider: Nina Pennington, [address] [place] [address], [address] . tel:[phone] [facility], [address], [place], [place], [address] , [place] tel: [phone] [facility] [place] No Information 5 Mary Wood. [address] [place] [address], [id number], [place]. tel:[phone] [facility], [address], [place], [place], [address] , [place] tel: [phone] [facility] No Information 4 Angel Merida. [address], [id number], [place]. tel:[phone] Referring Provider: Nina Pennington, [address] [place] [address], [address] . tel:[phone] [facility]ICE [facility], [address], [place], [place], [address] , [phone] [facility] 3-4 month appt (chief complaint)C hronic Conditions (chief complaint)c hronic conditions (chief complaint) Body mass index [BMI] 28.0-28.9, adultEssential (primary) hypertensionAthe rosclerotic heart disease of [place] coronary artery with other forms of angina pectorisGastro-e sophageal reflux disease without esophagitisType 2 diabetes mellitus with other circulatory complicationsPai n in unspecified knee 0- 4 Mary Wood. [address] [place] [address], [id number], . tel:[phone] Specialist : Kvng Sheridan, [address] [place] [address], [address]. tel:[phone] cialist:, [address] [address], [place], [address]. tel:[phone] erring Provider: Nina Pennington, [address] [place] [address], [address] . tel:[phone] OFFICE WOTOB-SXQ-DC [facility], [address], [place], [place], [address] , [phone] [facility] ER fu (chief complaint) Body mass index [BMI] 29.0-29.9, adultAtheroscler otic heart disease of [place] coronary artery with other forms of angina pectorisEssentia l (primary) hypertensionChes t pain, unspecified typeCervical radiculopathy - 4 Jassi [facility]. [address] [place] [address], [address], . tel:[phone] Referring Provider: Nina Pennington, [address] [place] [address], [address] . tel:[phone] [facility], [address], [place], [address] , [place] tel: [phone] [facility] No Information 4 Mary Wood. [address] [place] [address], [id number], [place]. tel: [phone] Referring Provider: Nina Pennington, [address] [place] [address], [address] . tel:[phone] [facility], [address], [place], [place], [address] , [place] tel:[phone] [facility] No Information 4 Mary Matosa. [address] [place] [address], [id number], [place]. tel:[phone] [facility], [address], [place], [place], [address] , [place] tel: [phone] [facility] No Information 4 Mary Wood. [address] [place] [address], [id number], [place]. tel:[phone] [facility], [address], [place], [place], [address] , [place] tel: [phone] [facility] No Information 0 4 Angel Merida. [address] [place] [address], [id number], . [phone] Referring Provider: Nina Pennington, [address] [place] [address], [address] . tel:[phone] [facility], [address], [place], [place], [address] , [place] tel: [phone] [facility] Medicare preventive (chief complaint)6 month appt (chief complaint)c hronic conditions (chief complaint)C hronic Conditions (chief complaint) Encntr for general adult medical exam w/o abnormal findingsType 2 diabetes mellitus with other circulatory complicationsEss ential (primary) hypertensionAthe rosclerotic heart disease of [place] coronary artery with other forms of angina pectorisSecondar y hyperparathyroid ism, not elsewhere classifiedGastro -esophageal reflux disease without esophagitisVitam in D deficiency, unspecifiedMyalg ia, other sitePost-traumat ic stress disorder, acute 4 Mary Wood. [address] [place] [address], [id number], [place]. tel:[phone] Kvng Sheridan.Refer ring Provider: Nina Pennington, [address] [place] [address], [address] . tel:[phone] [facility], [address], [place], [place], [address] , [place] tel: [phone] [facility] No Information 4 Mary Wood. [address] [place] [address], [id number], [place]. tel:[phone] OFFICE WDRGX-ZYR-NT PANDED [facility], [address], [place], [place], [address] , [place] tel: [phone] [facility] ER f/u (chief complaint) Body mass index [BMI] 29.0-29.9, adultDiarrhea, unspecified typeJaw pain 4 Kartik Maldonado. [address] [place] [address], [id number], [place]. tel:[phone] Referring Provider: Nina Pennington, [address] [place] [address], [address] . tel:[phone] [facility], [address], [place], [place], [address] , tel: [phone] [facility] No Information 4 Angel Merida. [address] [facility], [address] [address], [place], [place], [address], [place]. tel:[phone] Referring Provider: Erica Verdugo, [address] [place] [address], [address] . tel:[phone] OFFICE [facility], [address], [place], [place], [address] , [place] tel: [phone] [facility] Chronic Conditions (chief complaint)c hronic conditions (chief complaint) Essential (primary) hypertensionBody mass index [BMI] 29.0-29.9, adultType 2 diabetes mellitus with other circulatory complicationsAth erosclerotic heart disease of [place] coronary artery with other forms of angina pectorisPersonal history of transient ischemic attack (TIA), and cerebral infarction without residual deficitsVitamin D deficiency, unspecifiedInsom jeffrey, unspecified typeUrine leukocytes 4 Kartik Maldonado. [address] [place] [address], [id number], [place]. tel:[phone] Kvng Sheridan.Refer ring Provider: Nina Pennington, [address] [place] [address], [address] . tel:[phone] [facility], [address], [place], [place], [address] , [place] tel:[phone] [facility] No Information 3 Angel Merida. [address] [place] [address], [place], [place], [id number], . tel:[phone] Referring Provider: Carlos Keene, [address] [place] [address], [address]. tel:[phone] OFFICE KBVJH-TUC-LD [facility], [address], [place], [place], [address] , [place] tel: [phone] [facility] 4 mo appt (chief complaint)C hronic Conditions (chief complaint) Body mass index [BMI] 29.0-29.9, adultType 2 diabetes mellitus with other circulatory complicationsAth erosclerotic heart disease of [place] coronary artery with other forms of angina pectorisEssentia l (primary) hypertensionGast ro-esophageal reflux disease without esophagitisSecon johana hyperparathyroid ism, not elsewhere classifiedInsomn ia, unspecified typeAllergic rhinitis, unspecified seasonality, unspecified trigger 3 Jassi Gonzalez. [address] [place] [address], [address], . tel:[phone] Kvng Sheridan.Refer ring Provider: Nina Pennington, [address] [place] [address], [address] . tel:[phone] [facility], [address] [place] [address], [id number] , tel: [phone] [facility] No Information 3 Angel Merida. [address] [place] [address], [id number], . tel:[phone] Referring Provider: Nina Pennington, [address] [place] [address], [address] . tel:[phone] [facility], [address], [place], [place], [address] , [place] tel: [phone] [facility] Marily Essential (primary) hypertensionOthe r chronic cystitis without hematuria 3 Mary Wood. [address] [place] [address], [id number], [place]. tel:[phone] Kvng Sheridan.Refer ring Provider: Nina Pennington, [address] [place] [address], [address] . tel:[phone] [facility], [address] [place] [address], [id number] , tel: [phone] [facility] No Information 3 Angel Merida. [address] [place] [address], [id number], . tel:[phone] Referring Provider: Nina Pennington, [address] [place] [address], [address] . tel:[phone] [facility]ICE [facility], [address], [place], [place], [address] , tel: [phone] [facility] Follow-Up (chief complaint)O ther (chief complaint)C hronic Conditions (chief complaint)c hronic conditions (chief complaint) Atherosclerotic heart disease of [place] coronary artery with other forms of angina pectorisSecondar y hyperparathyroid ism, not elsewhere classifiedVitami n D deficiency, unspecifiedPerso nal history of transient ischemic attack (TIA), and cerebral infarction without residual deficitsType 2 diabetes mellitus with other circulatory complicationsOth er chronic cystitis without hematuria 3 Mary Wood. [address] [place] [address], [id number], [place]. tel:[phone] Specialist : Kvng Sheridan, [address] [place] [address], [address]. tel:[phone] erring Provider: Nina Pennington, [address] [place] [address], [address] . tel:[phone] OFFICE [facility], [address], [place], [place], [address] , tel:[phone] [facility] Chronic Conditions (chief complaint)m usculoskele shabbir pain (chief complaint) Body mass index [BMI] 29.0-29.9, adultPersonal history of transient ischemic attack (TIA), and cerebral infarction without residual deficitsCoronary artery disease of [place] artery of [place] heart with stable angina pectorisHistory of recurrent UTIsAcute pain of right kneeSecondary hyperparathyroid ismEssential (primary) hypertensionType 2 diabetes mellitus with other circulatory complicationsVit rivas D deficiency 2 Kartik Maldonado. [address] [place] [address], [id number], . tel:[phone] Referring Provider: Nina Pennington, [address] [place] [address], [address] . tel:[phone] OFFICE CVDIT-CYI-TD [facility], [address], [place], [place], [address] , tel: [phone] [facility] 4 month appt (chief complaint)O ther (chief complaint)C hronic Conditions (chief complaint) Type 2 diabetes mellitus with other circulatory complicationsEss ential (primary) hypertensionCoro nary artery disease of [place] artery of [place] heart with stable angina pectorisAcute pain of right kneePersonal history of transient ischemic attack (TIA), and cerebral infarction without residual deficitsHistory of recurrent UTIsDysuriaOther disorders of peripheral nervous systemGastro-eso phageal reflux disease without esophagitisSecon johana hyperparathyroid ism Apr0 2 Mary Wood. [address] [place] [address], [place], [place], [id number], . tel:[phone] Referring Provider: Nina Pennington, [address] [place] [address], [place], [address] . tel:[phone] OFFICE DIFOU-EHI-UG [facility] [address], [address], [place], [place], [address] , tel: [phone] [facility] Chronic Conditions (chief complaint) Body mass index [BMI] 30.0-30.9, adultEssential (primary) hypertensionPers onal history of transient ischemic attack (TIA), and cerebral infarction without residual deficitsType 2 diabetes mellitus with other circulatory complicationsCor onary artery disease of [place] artery of [place] heart with stable angina pectorisHistory of recurrent UTIsDiverticulos isAcute pain of right knee 1 Yosef Rosales. [address] [place] [address], [place], [place], [id number], [place]. tel:[phone] Referring Provider: Nina Pennington, [address] [place] [address], [place], [address] . tel:[phone] OFFICE [facility]GM[facility]OS[facility], [address], [place], [place], [address] , tel: [phone] [facility] dysuria (chief complaint) DysuriaBody mass index (BMI) 30.0-30.9, adultHematuria, unspecified type 1 Kartik Erica. [address] [place] [address], [id number], . tel:[phone] Referring Provider: Nina Pennington, [address] [place] [address], [address] . tel:[phone] OFFICE HWUBD-MNA-ZP [facility] [address], [address], [place], [place], [address] , tel: [phone] [facility] Chronic Conditions (chief complaint) Type 2 diabetes mellitus with other circulatory complicationsEss ential (primary) hypertensionPers onal history of transient ischemic attack (TIA), and cerebral infarction without residual deficitsOther disorders of peripheral nervous systemGastro-eso phageal reflux disease without esophagitis 1 Mary Wood. [address] [place] [address], [id number], . tel:[phone] Referring Provider: Nina Pennington, [address] [place] [address], [address] . tel:[phone] OFFICE VSRVZ-JIF-QQ [facility], [address], [place], [place], [address] , tel: [phone] [facility] neuropathy (chief complaint)r james (chief complaint)C hronic Conditions (chief complaint) Body mass index (BMI) 30.0-30.9, adultType 2 diabetes mellitus with other circulatory complicationsEss ential (primary) hypertensionSkin rashNeuropathy 1 Yosef Rosales. [address] [place] [address], [id number], [place]. tel:[phone] Referring Provider: Nina Pennington, [address] [place] [address], [address] . tel:[phone] OFFICE EXLYQ-EPN-BO [facility] [address], [address], [place], [place], [address] , tel: [phone] [facility] dysuria (chief complaint)C hronic Conditions (chief complaint) Body mass index (BMI) 30.0-30.9, adultType 2 diabetes mellitus with other circulatory complicationsEss ential (primary) hypertensionSeco ndary hyperparathyroid ismCoronary artery disease of [place] artery of [place] heart with stable angina pectorisDysuria 1 Eppvivian Rosales. [address] [place] [address], [place], [place], [id number], [place]. tel:[phone] Referring Provider: Nina Pennington, [address] [place] [address], [place], [address] . tel:[phone] OFFICE CZBIU-XDT-UP [facility] [address], [address], [place], [place], [address] , tel: [phone] [facility] Other (chief complaint)a cute visit (chief complaint)C hronic Conditions (chief complaint) Body mass index (BMI) 30.0-30.9, adultType 2 diabetes mellitus with other circulatory complicationsPai n in right footEssential (primary) hypertensionAcut e bilateral low back pain without sciaticaSecondar y hyperparathyroid ism 0 Jassi Gaylin. [address] [place] [address], [place], [address], [place]. tel:[phone] Referring Provider: Nina Pennington, [address] [place] [address], [place], [address] . tel:[phone] [facility], [address], [place], [place], [address] , [place] tel: [phone] [facility] Type 2 diabetes mellitus without complications 0 Arnold Wang. [address], [facility] [address], [place], [place], [address], [place]. [phone] Referring Provider: Nina Pennington, [address] [place] [address], [address] . tel:[phone] OFFICE YPPEJ-PJS-QL [facility], [address], [place], [place], [address] , tel: [phone] [facility] dysuria (chief complaint) Body mass index (BMI) 30.0-30.9, adultDysuriaLeuk ocytes in urine 0 Verdugo Erica. [address] [place] [address], [id number], [place]. [phone] Referring Provider: Nina Pennington, [address] [place] [address], [address] . tel:[phone] [facility], [address], [place], [place], [address] , tel: [phone] [facility] Type 2 diabetes mellitus without complications 0 Arnold Wang. [address] [address], [place], [place], [address], . tel:[phone] Referring Provider: Nina Pennington, [address] [place] [address], [address] . 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 [address] [place] [address], [id number], . [phone] Referring Provider: Nina Pennington, [address] [place] [address], [address] . tel:[phone] OFFICE YSKKR-KYL-YC [facility] [address], [address], [place], [place], [address] , tel: [phone] [facility] Chronic Conditions (chief complaint) Right medial knee painGastroesopha geal reflux disease without esophagitisCoron ar artery disease of [place] artery of [place] heart with stable angina pectorisType 2 diabetes mellitus without complications 9 Mary Wood. [address] [place] [address], [id number], . [phone] Referring Provider: Nina Pennington, [address] [place] [address], [address] . tel:[phone] [facility], [address], [place], [place], [address] , tel: [phone] [facility] No Information 9 Mary Wood. [address] [place] [address], [id number], . tel:[phone] [facility], [address], [place], [place], [address] , tel: [phone] [facility] Dysuria 8 Mary Wood. [address] [place] [address], [id number], . [phone] Referring Provider: Nina Pennington, [address] [place] [address], [address] . tel:[phone] [facility], [address], [place], [place], [address] , tel: [phone] [facility] Body mass index (BMI) 30.0-30.9, adultEssential hypertensionCoro nary artery disease of [place] artery of [place] heart with stable angina pectorisGastroes ophageal reflux disease without esophagitisVitam in D deficiencyType 2 diabetes mellitus without complicationsHis tory of stroke 8 Kartik Maldonado. [address] [place] [address], [id number], [place]. tel:[phone] Referring Provider: Nina Pennington, [address] [place] [address], [place], [address] . tel:[phone] [facility], [address], [place], [place], [address] , [place] tel: [phone] [facility] Body mass index (BMI) 29.0-29.9, adultMedij.[facility] annual [facility], initial 8 Jassi Gonzalez. [address] [place] [address], [address], [place]. tel:[phone] Referring Provider: Nina Pennington, [address] [place] [address], [place], [address] . tel:[phone] [facility], [address], [place], [place], [address] , [place] tel: [phone] [facility] Body mass index (BMI) 29.0-29.9, adultEssential hypertensionAnxi etyDysfunction of left eustachian tube 8 Stephen Garcia. [address] [place] [address], [address], [place], [address], [place]. tel:[phone] Referring Provider: Radha Sam, [address] [place] [address] [address], [place], [facility]. tel:[phone] [facility], [address], [place], [place], [address] , [place] tel: [phone] [facility] Body mass index (BMI) 29.0-29.9, adultAnxietyEsse ntial hypertensionHist ory of strokeScreening for osteoporosisEmbo lism and thrombosis of unspecified artery 8 Stephen Garcia. [address], [address], [place], [address], [place]. tel:[phone] Referring Provider: Radha Sam, [address], [place], [address]. tel:[phone] [facility], [address], [place], [place], [address] , tel: [phone] [facility] Body mass index (BMI) 29.0-29.9, adultEssential hypertensionCoro nary artery disease of [place] artery of [place] heart with stable angina pectorisGastroes ophageal reflux disease without esophagitisHyper glycemiaVivid dreamEncntr screen mammogram for malignant neoplasm of breast Stephen Garcia. [address], [address] [address], [place], [facility], [place]. tel:[phone] Referring Provider: Radha Sam, [address] [place] [address] [address] [facility], [place], [facility]. tel:[phone] [facility], [address], [place], [place], [address] , tel: [phone] [facility] Body mass index (BMI) 29.0-29.9, adultCoronary artery disease of [place] artery of [place] heart with stable angina pectorisEssentia l hypertensionPAD (peripheral artery disease)Atrial tachycardiaMyalg iaHyperglycemia Stephen Garcia. [address] [facility], [address], [facility], [place]. tel:[phone] Referring Provider: Radha Sam, [address] [place] [address], [facility]. tel:[phone] [facility], [address], [place], [place], [address] , [place] tel: [phone] [facility] Annual physical exam Stephen Garcia. [address] [place] [address], [address], [facility], [place]. tel:[phone] Referring Provider: Radha Sam, [address] [place] [address] [address] [facility], [place], [facility]. tel:[phone] [facility], [address], [place], [place], [address] , tel: [phone] [facility] Type 2 diabetes mellitus without complications Stephen Garcia. [address], [address] [facility], [place], [facility], [place]. tel:[phone] [facility], [address], [place], [place], [address] , tel: [phone] [facility] Migraine with aura and with status migrainosus, not intractableEssen tial hypertensionAlle rgic sinusitisHistory of CVA in adulthoodIrritab le bowel syndrome with diarrheaGastroes ophageal reflux disease without esophagitis 5 Stephen Garcia. [address], [address] [facility], [place], [facility], [place]. tel:[phone] Referring Provider: Radha Sam, [address] [facility], [place], [facility]. tel:[phone] [facility], [address], [place], [place], [address] , tel: [phone] [facility] HTNHX TIA/STROKE W/O RESIDDiabetes Mellitus Type 2, UncomplicatedMit ral valve prolapseHistory of chest pain Stephen Garcia. [address], [address], [place], [facility], [place]. tel:[phone] Referring Provider: Radha Sam, [address] [facility], [place], [facility]. tel:[phone] [facility], [address], [place], [place], [address] , tel: [phone] [facility] Diabetes Mellitus Type 2, UncomplicatedHTN HX TIA/STROKE W/O RESID 4 Malcolm Little. [address] [facility], [address], [place], [place], [address]. tel:[phone] Referring Provider: Anabel Fowler, [address] [facility] [address], [place], [address] . tel:[phone] [facility], [address], [place], [place], [address] , tel: [phone] [facility] History of fall/At Risk For FallingDiabetes Mellitus Type 2, UncomplicatedAnx ietyGERDHTNHX TIA/STROKE W/O RESID 4 Malcolm Little. [address] [facility], [address], [place], [place], [address]. tel:[phone] Referring Provider: Anabel Fowler, [address] [facility] [address], [place], [address] . tel:[phone] [facility], [address], [place], [place], [address] , tel: [phone] [facility] HTNIMPAIRED FASTING GLUCOSEPolycythe nikki vera 4 Malcolm Little. [address] [facility], [address], [place], [place], [address]. tel:[phone] [facility], [address], [place], [place], [address] , tel: [phone] [facility] Superficial phlebitis 3 Malcolm Little. [address] [facility], [address], [place], [place], [address]. tel:[phone] Referring Provider: Anabel Fowler, [address] [facility] [address], [place], [address] . tel:[phone] [facility], [address], [place], [place], [address] , tel: [phone] [facility] Unspecified essential hypertensionAnxi ety state, unspecifiedEsoph ageal refluxUnspecifie d transient cerebral ischemiaImpaired fasting glucose 3 Malcolm Little. [address] [facility], [address], [place], [place], [address]. tel:[phone] Referring Provider: Anabel Fowler, [address] [facility] [address], [place], [address] . tel:[phone] [facility], [address], [place], [place], [address] , [place] tel: [phone] [facility] Left shoulder painUnspecified essential hypertensionPoly cythemiaAnxiety state, unspecifiedVitam in d deficiency 3 Malcolm Little. [address] [facility], [address], [place], [place], [address]. tel:[phone] Referring Provider: Anabel Fowler, [address] [facility] [address], [place], [address] . tel:[phone] [facility], [address], [place], [place], [address] , [place] tel: [phone] [facility] Left shoulder painEsophageal refluxUnspecifie d essential hypertensionAnxi ety state, unspecifiedHX TIA/STROKE W/O RESIDHyperglycem ia 3 Mary Wood. [address] [place] [address], [id number], [place]. [phone] Referring Provider: Anabel Fowler, [address] [facility] [address], [place], [address] . tel:[phone] [facility], [address], [place], [place], [address] , [place] tel: [phone] [facility] Unspecified transient cerebral ischemiaUnspecif ied essential hypertensionAnxi ety state, unspecifiedMitra l valve disordersPain in joint/arthralgia Shoulder region 2 Malcolm Little. [address] [facility], [address], [place], [place], [address]. tel:[phone] Referring Provider: Anabel Fowler, [address] [facility] [address], [place], [address] . tel:[phone] [facility], [address], [place], [place], [address] , [place] tel: [phone] [facility] HYPERTENSION NOS Mar-2 1 Malcolm Little. [address] [facility], [address], [place], [place], [address]. tel: [phone] [facility], [address], [place], [place], [address] , tel: [phone] [facility] ACUTE URI NOSTRANS CEREB ISCHEMIA NOS 0-201 0 Malcolm Little. [address] [facility], [address], [place], [place], [address]. tel: [phone] [facility], [address], [place], [place], [address] , [place] tel: [phone] [facility] IMPAIRED FASTING GLUCOSEESOPHAGEA L REFLUX -201 0 Malcolm Little. [address] [facility], [address], [place], [place], [address]. tel: [phone] [facility], [address], [place], [place], [address] , [place] tel: [phone] [facility] MGRN W AURA WO NTR MGRNHX TIA/STROKE W/O RESID 201 0 Malcolm Little. [address] [facility], [address], [place], [place], [address]. tel: [phone] [facility], [address], [place], [place], [address] , [place] tel: [phone] [facility] MITRAL VALVE DISORDER Mar-0 1200 9 Malcolm Little. [address] [facility], [address], [place], [place], [address]. tel: [phone] [facility], [address], [place], [place], [address] , [place] tel: [phone] [facility] HX-CIRCULATORY DIS NECJOINT PAIN-SHLDER Jan-3 0-200 9 Malcolm Little. [address] [facility], [address], [place], [place], [address]. tel: [phone] [facility], [address], [place], [place], [address] , tel: [phone] [facility] ANXIETY STATE NOS 7 Conversion Doctor. [facility] [place], [address], [place]. [facility], [address], [place], [place], [address] , tel: [phone] [facility] No Information 6 Malcolm Little. [address] [facility], [address], [place], [place], [address]. tel: [phone] [facility], [address], [place], [place], [address] , [place] tel: [phone] [facility] DVRTCLO COLON W/O HMRHG 5 Malcolm Anabel. [address] [facility], [address], [place], [place], [address]. tel: [phone] [facility], [address], [place], [place], [address] , tel: [phone] [facility] No Information 5 [facility]zabeth. [address] [facility], [address], [place], [place], [address]. tel: [phone] [facility], [address], [place], [place], [address] , tel: [phone] [facility] CHEST PAIN NOS 3 Conversion Doctor. [facility]4 [facility], [place], [address], [place]. [facility], [address], [place], [place], [address] , [place] tel:[phone] [facility] FAM HX-CARDIOVAS DIS NEC 200 2 Conversion Doctor. [facility] [place], [address], [place]. [facility], [address], [place], [place], [address] , tel: [phone] [facility] FAMILY HX-GI MALIGNANCY 200 1 Conversion Doctor. [facility]4 [place], [address], [place]. Family History Family Member Type Diagnosis Age At Onset Sister Problem (finding) Mother Problem (finding) Father Problem (finding) Father Problem (finding) Heart disease (Cause Of ) Mother Problem (finding) Diabetes, hear t disease and peripheral vascular (Cause Of ) Sister Problem (finding) malignant neop lasm of breast in first degree relative (Cause Of ) Immunizations Vaccine Date Status [...] Cyn rce: Other Provider Pneumococcal conjugate PCV 13 administere d Source: New Immunization Record Pneumococcal [...] party ID Authoriza tion(s) [place] [id number] AARP MDCR SUPPLEMENT ONLY CI [id number] [place] [id number] AARP MDCR SUPPLEMENT ONLY CI [id number] [place] [id number] AARP MDCR SUPPLEMENT ONLY CI [id number] [place] [id number] AARP MDCR SUPPLEMENT ONLY CI [id number] [facility] CI [id number] [facility] CI [id number] [facility] CI [id number] Social History Type Description Quantity Date Captured Comments Alcohol Use Details Unknown Caffeine Use Details Unknown Tobacco Use Status No Information Smoking Status No Information Sex Female Gender Identity Female Chief Complaint And Reason [...] and counseling completed Referral Referred To: [address] [place], [phone] Ordered: CT abdomen and pelvis with IV and oral contrast Appointment date/timeframe: 02/23/2025 ordered Referral Referred To: Wilner eG MD [address] [facility] [address] [place], [phone] Ordered: Referrals: Gastroenterology. Wilner Ge MD. Evaluation/diagnostic/treatment - Level 3 Appointment date/timeframe: 03/14/2025 ordered Referral Ordered: X-RAY SPINE, CERVICAL, 2 Or 3 VIEWS ordered Referral Referred To: [facility] [place] Ordered: Referrals: Physical Therapy. [facility] [place]. Evaluation/diagnostic/treatment - Level 3 ordered Referral Referred To: Antonio Nelson MD [address] [place] [address]
[place], [phone] Ordered: Referrals: Neurology. Antonio Nelson MD. Evaluation/diagnostic/treatment - Level 3 ordered Referral Referred To: [address] [place], [phone] Ordered: Complete x-ray series of right knee Appointment date/timeframe: 06/11/2019 ordered Appointment Emely Menchaca BOOKED Patient Education Neck: Exercises complet ed Patient Education Plantar Fasciitis: Exer cises completed History Of Present Illness Encounter Date Complaint History Of Prese nt Illness 4 month Still having sto mach discomfort. Has had for several weeks. Did have CT scan of the abdomen and pelvis which we reviewed the results today. Showing hepatic steatosis, fat-containing umbilical hernia as well as sigmoid diverticulosis. She has an appointment with GI tomorrow.She has multiple bowel movements through the day which can vary from large to small in amount with intermittent cramping that gets better after she defecates.GI - colonoscopy /u 02/17Notes requested chronic conditions *See Chronic Conditions HPI Chronic Conditions *See Chronic Conditions HPI ER Presented to [facility] on January 14 with lightheadedness and palpitations. Symptoms worsened with standing up. She saw her business ethics professor and she is scheduled for a stress test on the .She also reported having pain in her jaw. Only medication changes were that olmesartan was discontinued by her business ethics professor.She was given IV fluid. No other abnormalities in her blood. Chest x-ray mild atelectasis. EKG without acute STEMI. [place] her palpitations were related to anxiety.She was put back on olmesartan.She gets occasional dizziness. ER thought it was dehydration.She has stress test tomorrow.She continues to have right lower abdominal cramping followed with nausea and loose stool.I saw her in December and ordered CT of abdomen.This was approved and sent to [facility] however she was never notified.Was able to get in with Dr. Gold at [place].scheduled for upper and lower endoscopy on Friday.continues to have abdominal pain.She is having intermittent nausea, heartburn, diarrhea and cramping in her right lower abdomen.no more vomiting.She continues to have frequent loose stool.She tried probiotic but it made her feel gassy. chronic conditions *See Chronic Conditions HPI GI She had food poi soning the [...] has not receivedOutstanding referrals:n/a ER fu To [facility] on August 19 with chest discomfort and pain down her left arm.She had cardiac workup. EKG without any signs of ischemia.1 set of troponins were done. D-dimerLabs were unremarkable.Was discharged home.She was advised to take Tylenol more [id number] to help with her pain. She has [...] never took the medication and alerted her business ethics professor who lowered the atorvastatin.She feels it may have helped. She is not taking [id number] does have coronary artery disease and follows [...] alreadyEye exam - pt denies recent eye [id number] visits:Dr Kvng Sheridan - Cardiology - about [...] for ER follow-up. She was transported to [facility] via EMS on 02/12.She reports taking a [...] was hospitalized earlier this year with syncope. [place] she was dehydrated. Saw cardiology subsequently. no [...] unable to get an appointment with her GROCERY SUPERVISOR so she went to [facility] and was given an additional prescription for [...] HPI Chronic Conditions *See Chronic Conditions HPI acute visit Soreness in righ t heel of foot for three weeks.comes and goesbetter with arch supportDenies injury. Requests a referral to a [employer] Outseamer.Intermittent lower back pain several months.Was sedentary after hysterectomy.Pain was aggravated once she became active again.no bowel or bladder incontinenceno sciatica or weakness Other 08/28/2020 partia l hysterectomy.Will be scheduling an eye exam this year.Had mammogram and breast US at [facility]. Normal results. Will have reports faxed to [...] No Information Instructions Date Instruction Additional Infor socratesmain Pressure stable. No changes Rela vinicio to Essential (primary) hypertension Levels will be checked. Related to Vitamin D deficiency, unspecified Continue on current medication and follow with GI. Related to Gastro-esophageal reflux disease without esophagitis This is related to l ow vitamin D. Levels will be checked. Related to Secondary hyperparathyroidism, not elsewhere classified This was noted on yo ur CT.Stay active and try to avoid a diet heavy and saturated fats. Related to Fatty (change of) liver, not elsewhere classified We will check A1c to day.You are diet controlled. Continue with your exercise regimen Related to Type 2 diabetes mellitus with other circulatory complications This is probably com ing from IBS. We reviewed your CT scan.I will send out an antispasmodic. Keep your scheduled follow-up with GI tomorrowCall with any questions or concernsLabs todayReturn in 4 months Related to Stomach discomfort Continue on current medication and follow with cardiology. I will send the labs Related to Atherosclerotic heart disease of [place] coronary artery with other forms of angina pectoris Giving encouragement to exercise Related to Body mass index (BMI) 29.0-29.9, adult Dietary management e ducation, guidance, and counseling Related to Body mass index (BMI) 29.0-29.9, adult Exercise Disease process As above. We discuss ed getting more fiber in the diet and trying fiber rich foods including plants, legumes, whole grains if tolerated. Follow with GI.Call with any questions or concernsNo labs todayReturn as scheduled Related to Loose stools Stress test tomorrow and follow-up with cardiology. Related to Atherosclerotic heart disease of [place] coronary artery with other forms of angina pectoris Blood pressure is st able. No changes at this time. Related to Essential (primary) hypertension We will recheck ginny george at your next appointment Related to Type 2 diabetes mellitus with other circulatory complications Please call [facility] to schedule the CT scan. Keep your scheduled follow-up for the upper and lower endoscopy and follow with Dr. Rascon. Related to Abdominal pain, unspecified abdominal location Giving encouragement to exercise Related to Body mass index (BMI) 29.0-29.9, adult Dietary management e ducation, guidance, and counseling Related to Body mass index (BMI) 29.0-29.9, adult Disease process I would like you to start on [...] a CT scan to be done at [facility].You are due to have your colonoscopy done. [...] PT Related to Pain in unspecified knee call me if your acid reflux is getting worse Related to Gastro-esophageal reflux disease without esophagitis levels will be checked Related t o Type 2 diabetes mellitus with other circulatory complications keep scheduled follo w up with Dr. Chino Related to Atherosclerotic heart disease of [place] coronary artery with other forms of angina [...] workup was negative.Continue with the Tylenol more [id number]. Related to Chest pain, unspecified type Blood pressure stabl e.Call any questions or concernsNo labs todayReturn as scheduled Related to Essential (primary) hypertension Continue on current medication.You could try taking co-Q10 with the atorvastatin. Related to Atherosclerotic heart disease of [place] coronary artery with other forms of angina [...] are feeling Related to Myalgia, other site call me if you feel your acid reflux is getting worse Related to Gastro-esophageal reflux disease without esophagitis levels will be check Allison would recommend to go back to taking your vitamin D supplementation Related to Secondary hyperparathyroidism, not elsewhere classified levels will be check edcontinue with the current supplement Related to Vitamin D deficiency, unspecified keep scheduled follo w up with cardiologyI will send a copy of the labs checked today Related to Atherosclerotic heart disease of [place] coronary artery with other forms of angina [...] mass index (BMI) 28.0-28.9, adult Urinary Incontinence likely due to TMJCon tinue with the ice packs and Tylenol.Please call us if the jaw pain does not improve Related to Jaw pain Trazodone will be ad ded to your [...] as scheduled Related to Diarrhea, unspecified type Giving encouragement to exercise Related to Body [...] scheduled Related to Atherosclerotic heart disease of [place] coronary artery with other forms of angina [...] mass index (BMI) 29.0-29.9, adult I sent in a nasal sp ray called azelastine.You can use this to help with your symptoms.Please call if you do not get any better.Call with any questions or concernsCBC, CMP, A1c, TSH, intact PTH, vitamin D todayReturn in 4 monthsYou declined vaccines Related to Allergic rhinitis, unspecified seasonality, unspecified trigger Okay to increase the melatonin up to 10 mg.If this does not help then we could consider prescribing trazodone.Please make sure that you are avoiding caffeine after lunch. Try to incorporate exercise. Try not to eat late at night. Related to Insomnia, unspecified type Continue on pantopra zole. Avoid foods that cause problems. Call with any worsening of symptoms. Related to Gastro-esophageal reflux disease without esophagitis Your blood pressure is controlled on current medication Related to Essential (primary) hypertension Is probably related to vitamin D deficiency. We will check levels today. Related to Secondary hyperparathyroidism, not elsewhere classified We will check A1c to day.Please call your eye doctor to schedule diabetic eye exam. Related to Type 2 diabetes mellitus with other circulatory complications Continue on current medication and follow-up with cardiology. Related to Atherosclerotic heart disease of [place] coronary artery with other forms of angina [...] follo w up with Dr. Sheridan your Information Systems Coordinator Related to Atherosclerotic heart disease of [place] coronary artery with other forms of angina pectoris Dietary management e ducation, guidance, and counseling Related to Body mass index (BMI) 29.0-29.9, adult Giving encouragement to exercise Related to Body mass index (BMI) 29.0-29.9, adult Disease process as stated above Related to Vitam in D deficiency Continue with the cu rrent aspirin and Plavix Related to Personal history of transient ischemic attack (TIA), and cerebral infarction without residual deficits This can happen with aging and vitamin d deficiency.We will continue to monitor this with labs.Continue on vitamin d supplementation Related to Secondary hyperparathyroidism You have not had iss ues with recent UTIs.Follow with Dr. Alvarez as scheduled Related to History of recurrent UTIs Your blood pressure is well controlled today.Continue your current medications.We will check routine labs today.CBC, CMP, lipid panel, TSH, A1c, PTH, vitamin D, and urinalysis.Please call the office with any issues, questions, or concerns prior to your next appointment.Follow up again in 6 months Related to Essential (primary) hypertension X-ray 2019 showed mi ld arthritis.You report significant improvement with physical therapy in March.Return to doing her exercises at home and call the office if the pain does not improve.Continue taking Tylenol and applying Aspercreme as needed Related to Acute pain of right knee Your A1c has been we ll controlled with diet.We will recheck this again today.Be sure to schedule your yearly diabetic eye exam with Andres.Foot exam was normal today.Keep up the great [...] identified. Related to Coronary artery disease of [place] artery of [place] heart with stable angina pectoris Medication management Dietary management e ducation, guidance, [...] supplementationI will get your mammogram results from [facility] Related to Secondary hyperparathyroidism CT scan and Ultrasou nd completed per Dr Moran checked todaykeep scheduled follow with urology Related to History of recurrent UTIs continue to monitorn o need for medication Related to Other disorders of peripheral nervous system continue with the cu rrent aspirin and plavix Related to Personal history of transient ischemic attack (TIA), and cerebral infarction without residual deficits see above Related to Dysur ia xray 2019 showed mil d arthritisreferral to physical therapy will be done - they will contact you Related to Acute pain of right knee Watch for chest pain /pressure, heart racing, shortness of breath, nausea, dizziness, sweating; call 911 if you have these symptomsContinue current medicationsStatus: Able to self-manage condition. Goals: Your goal is to reduce risks associated with your heart disease. Barriers: No barriers to goal achievement have been identified. Related to Coronary artery disease of [place] artery of [place] heart with stable angina pectoris blood pressure is st ableno changes Labs todayReturn in 4 monthsCall with any questions or concernsContinue covid precautions - Related to Essential (primary) hypertension check blood sugar at least once a dayyearly eye examcheck your feet dailywe will monitor the blood [id number] todayStatus: Meeting treatment plan goals. Goals: Your [...] on the CT scanalso present on colonoscopy 2014call with any concerns Related to Diverticulosis CT [...] your feet dailywe will monitor the blood efntwqtsy5z todayStatus: Meeting treatment plan goals. Goals: Your [...] identified. Related to Coronary artery disease of [place] artery of [place] heart with stable angina pectoris continue with [...] your feet dailywe will monitor the blood yucklfsyi4d todayStatus: Meeting treatment plan goals. Goals: Your goal is to reduce risks associated with your diabetes. Barriers: You are not sure you understand how to change your habits to achieve your goal. Related to Type 2 diabetes mellitus with other circulatory complications site of pb griggs eleft shouldercall if it gets worsetake benadryl as [...] identified. Related to Coronary artery disease of [place] artery of [place] heart with stable angina pectoris This can happen with aging and vitamin d deficiencywe will monitor this. continue on vitamin d supplementation Related to Secondary hyperparathyroidism Your blood pressure is well controlled todayno change in medications at this timemonitor from home and call if you notice it consistently above 140/90call Friday with update on urinary symptomsreturn as scheduled (6 months from Oct visit)call with questions/concerns AVOID CROWDS - REMAIN 6 FEET APART FROM PEOPLE. WEAR A MASK. AVOID TOUCHING YOUR FACE. AVOID UNNECESSARY TRAVEL. WASH HANDS OFTEN. CALL WITH QUESTIONS/CONCERNS Related to Essential (primary) hypertension Please make sure you see your tongue and groove machine setter for an eye exam once per year. Please schedule this yearFoot care is important. Check your feet every day, and notify us immediately of any problems. The [place] [employer] recommends 30 minutes of exercise [...] foot Please make sure you see your tongue and groove machine setter for an eye exam once per year. Foot care is important. Check your feet every day, and notify us immediately of any problems. The [place] [employer] recommends 30 minutes of exercise [...] neededcall if symptoms worsen Related to Anxiety Watch for chest pain /pressure, heart racing, [...] identified. Related to Coronary artery disease of [place] artery of [place] heart with stable angina pectoris will check levels to for mammogram and DEXA (bone density) - [...] to Type 2 diabetes mellitus without complications avoid fatty, greasy, spicy and acidic food/beveragesavoid late night eatingcontinue Protonixwill send new prescription for Pepcid, this may be on backorder Related to Gastroesophageal reflux disease without esophagitis Disease process stableno change in m edicationkeep yearly appt with cardiologyI will send them a copy of your labs Related to Coronary artery disease of [place] artery of [place] heart with stable angina pectoris continue with [...]
--- OUTSIDE RECORDS SUMMARY | 2025-02-26 18:19 | XMS_ITS | Encounter Summary ---
Author Organization [facility] Healthcare Address [address] [place] [address] Care Team Providers Care Acid Maker Name Role Phone Nina Hernandez Primary Care Provider +1- [phone] Encounter Details Date Type Department Care Team (Late st Contact Info) Description 02/22/2025 Telephone [facility] Medical Group Cardiology [address] [place] [address] Kvng Sheridan MD [address] [id number] Social History Tobacco Use Types Packs/Day Years Used Date Smoking Tobacco: Never Smokeless Tobacco: Never Alcohol Use Standard Drinks/Week Comments No 0 (1 standard drink = 0.6 oz pur e alcohol) Comments No Sex and Gender Information Value Date Recorded Sex Assigned at Not on file 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 Pt described the discomfort as a tightness that lasted about 5 minutes. Pt denies any pain now, but does reports some soreness with movement. Pt advised to go to the ER for any unrelieved chest pain and f/u as scheduled. Pt verbalizes understanding. * Telephone Encounter - Rudy Thompsonnca - 02/22/2025 11:07 AM CDT Pt reports that on Friday while in the car she had tightness in her back and chest that lasted about 5 minutes. States since then she has been sore and feels like she pulled a muscle. She requestedan appt so I scheduled it for the first available which was for this with CT at 3 pm. Contact: documented in this encounter Plan of Treatment Not on file documented as of this encounter Visit Diagnoses Not on filedocumented in this encounter Care Teams Acid Maker Relationship Specialty Start Date End Date Nina Hernandez DO PCP - General Internal Medicine 09/01/18 documented as of this encounter
--- OUTSIDE RECORDS SUMMARY | 2025-02-26 18:19 | XMS_ITS | Encounter Summary ---
Author Organization [facility] Medical Group Address [address] [place] [address] Care Team Providers Care Parts Room Assistant Name Role Phone StephenRadha DO Primary Care Provider [phone]- [phone] Nina Hernandez DO Primary Care Provider [phone]- [phone] Encounter Details Date Type Department Care Team (Late st Contact Info) Description 02/06/2017 Orders Only [facility] ProviderDean MD [address] [place] [address] Social History Tobacco Use Types Packs/Day Years Used Date Smoking Tobacco: Never Assessed Comments Unknown Sex and Gender Information Value Date Recorded Sex Assigned at Not on file 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
--- OUTSIDE RECORDS SUMMARY | 2025-02-26 18:19 | XMS_ITS | Continuity of Care Document ---
Author Organization [facility] Address [address] [place] [address] Phone Care Team Providers Care Permaculture Contractor Name Role Phone [facility] Unavailable Unavail able Sickage, Taty Unavailable Unavailable Procedures Procedure Date Progressive Lens, Polycarb Anti-reflective Coating Frames Deluxe [employer] Tax BF Polycarb Sph [place] To +/- 4d 010 BF Polycarb Sphcyl [place] To +/-4d .12-2d Anti-reflective Coating Miscellaneous Vision [...] Diagnoses Date Provider Providers Copied on Encounter [facility], [address], [place], [place], [id number], [place] tel:[phone] [facility] No Information Aug- 5201 0 [facility] . [address], [address], [place], [place], [address], . tel:[phone] Consulting Provider: Taty Garcia, [address] [place] [address], [address]. tel:[phone] [facility] [place], [address] [place] [address] [address], [place], [place], [id number], [place] tel:[phone] [facility] No Information Sep-1 4-201 0 [facility] . [address], [address], [place], [place], [address], . tel:[phone] Referring Provider: Urbano Pennington, [address], [place], [place], [facility]. tel:[phone] g Provider: Taty Garcia, [address] [place] [address], [facility]. tel:[phone] [facility], [address] [place] [address] [address], [place], [place], [id number], [place] tel:[phone] [facility] No Information Pipo-1 4-201 0 Wisam Clement. [address] , [address], [place], [place], [facility], [place]. tel:[phone] [facility] [place], [address], [place], [place], [address], [place] tel:[phone] [facility] No Information Mar-0 4-200 9 Wisam Clement. [address] , [address], [place], [address], [place]. tel:[phone] [facility] [place], [address] [place] [address] [address], [place], [place], [address], [place] tel:[phone] [facility] No Information Dec-2 6-200 7 Wisam Clement. [address] , [address], [place], [place], [facility], [place]. tel:[phone] Referring Provider: Urbano Pennington [address], [place], [address]. tel:[phone] [facility] [place], [address], [place], [place], [address], [place] tel:[phone] [facility] No Information Dec-2 2-200 6 [facility] . [address], [place], [place], [address], [place]. tel:[phone] Referring Provider: Urbano Pennington [address] [facility] [address], [place], [address]. tel:[phone] wu Provider: Brigida Brooks, [address] [place] [address], [place], [address]. tel:[phone] Family History Family Member Type Diagnosis Age At Onset No Information Payers Payer name Insurance type Covered green party ID Authoriza tion(s) No Information Social [...]
--- OUTSIDE RECORDS SUMMARY | 2025-02-26 18:19 | XMS_ITS | Encounter Summary ---
Author Organization 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 Historical Provider [facility] MONALISA PARIKH Final Result documented in this encounter Visit Diagnoses Not on filedocumented in this encounter Care Teams Cell Tester Relationship Specialty Start Date End Date Radha Mitchell DO PCP - General 02/28/17 08/31/18 Nina Hernandez DO PCP - General Internal Medicine 09/01/18 documented as of this encounter
--- OUTSIDE RECORDS SUMMARY | 2025-02-26 18:19 | XMS_ITS | Encounter Summary ---
Author Organization [facility] Healthcare Address [address] [place] [address] Care Team Providers Care Dispatcher Radio Name Role Phone Nina Hernandez DO Primary Care Provider +1- [phone] Encounter Details Date Type Department Care Team (Late st Contact Info) Description 02/01/2025 Results Follow-Up [facility] Medical Group Cardiology [address] [place] [phone] Kvng Sheridan MD [address] [facility] [address] [place], [place] [id number] Social History Tobacco Use Types Packs/Day Years Used Date Smoking Tobacco: Never Smokeless Tobacco: Never Alcohol Use Standard Drinks/Week Comments No 0 (1 standard drink = 0.6 oz pur e alcohol) Comments No Sex and Gender Information Value Date Recorded Sex Assigned at Not on file 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
--- OUTSIDE RECORDS SUMMARY | 2025-02-26 18:19 | XMS_ITS | Referral Summary ---
Author Organization [facility] [place] [address] [place] [address] [address] [place] [address] Care Team Providers Care Tool Crib Lead Name Role Phone Nina Hernandez DO Primary Care Provider [phone] Encounters Date Type Department Care Team Description 02/24/2025 3:00 PM CDT Office Visit 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 Cardiology [address] [place] [address] [address] [place] [phone] Joana Robb MD 02/01/2025 Results Follow-Up [facility] Cardiology [address] [place] [address] [place] [phone] Joana Robb MD 01/26/2025 9:15 AM SR. PRICING ANALYST Ancillary Procedure [facility] Cardiology [address] [place] [address] [address] [place] [address] Coronary artery disease involving gambell coronary artery of gambell heart without angina pectoris; Status post angioplasty with stent 01/12/2025 9:45 AM SR. PRICING ANALYST Office Visit [facility] Cardiology [address] [place] [address] [address] [place] [phone] Joana Robb MD Coronary artery disease involving gambell coronary artery of gambell heart without angina pectoris (Primary Dx); Status post angioplasty with stent; Orthostatic dizziness; Mitral valve prolapse from Last 3 Months Allergies Active Allergy Reactions Criticality Noted Date Comments Azithromycin Rash Medium 12/17/2004 Chocolate Hives,Rash Medium 09/21/2021 Chocolate Flavor Other (See comments) Low Throat swelling Egg Yolk Anaphylaxis High Erythromycin Rash Medium 12/17/2004 Iodinated Contrast Media Hives Medium 02/16/2025 Iodine And Iodide Containing Products Anaphylaxis High Reaction: Anaphylaxis, Penicillin V Rash Medium 12/17/2004 Penicillins Rash Medium 02/02/2012 Sulfa (Sulfonamide Antibiotics) Rash Medium 09/21/2021 Sulfamethoxazole Rash Medium 04/22/2006 Sulfamethoxazole-Trimetho prim Rash Medium 09/21/2021 Sulfisomidine Unknown 02/19/2018 Sulfites Rash Medium 09/21/2021 Trazodone Diarrhea,Dizziness,H eadache,Nausea & Vomiting,Stomach upset,Sweating Low 02/13/2024 Trimethoprim Rash Medium 04/22/2006 Medications clopidogrel (PLAVIX) 75 mg tablet take 1 tablet by oral route every day [address] (PROTONIX) 40 mg EC tablet [...] MOUTH DAILY 90 tablet 3 4 Active [id number] -Lmfolate-algal 27 mg iron-1.13 mg-581.92 mg capsule Take by mouth Active midodrine (PROAMATINE) 5 mg tabletIndicatio ns:Symptomatic Orthostatic Hypotension Take 1 tablet (5 mg total) by mouth 3 (three) times a day 90 tablet 1 5 Active Additional Information Patient not taking.Reported on 02/24/2025 atorvastatin (LIPITOR) 80 mg tablet Take 1 tablet (80 mg total) by mouth nightly 90 tablet 3 5 Active Additional Information Patient taking differently: 40 mgoralDaily, Reported on 02/24/2025 dicyclomine (BENTYL) 10 mg capsule Take 1 capsule (10 mg total) by mouth 4 (four) times a day before meals and nightly 5 Active olmesartan (BENICAR) 40 mg tablet Take 1 tablet (40 mg total) by mouth daily Active isosorbide mononitrate ER (IMDUR) 30 mg 24 hr tabletIndicatio ns: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 Take 1 tablet (30 mg total) by mouth daily 90 tablet 3 5 026 Active nitroglycerin (NITROSTAT) 0.4 mg SL tabletIndicatio ns: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 Place 1 tablet (0.4 mg total) under the tongue every 5 (five) minutes as needed for chest pain Up to 3 doses, if 3rd dose is needed call 911 25 tablet 3 5 Active cholecalciferol (VITAMIN D3) 2,000 unit tablet take one daily 0 0 7 025 Discontin ued(Patie nt Reported) nitroglycerin (NITROSTAT) 0.[address] 1 tablet (0.4 mg total) under the tongue every 5 (five) minutes as needed for chest pain 025 Discontin ued(Reord er) Active Problems Problem Noted Date Diagnosed Date Visit for wound check 05/01/2021 Cardiomyopathy 02/19/2018 Dyslipidemia 02/19/2018 History of CVA (cerebrovascular accident) 2017 Essential hypertension 09/05/2017 Other insomnia 09/05/2017 Statin intolerance 09/05/2017 Status post placement of implantable loop record er 06/19/2017 Overview (06/19/2017): [employer] Implantable Loop Recorder for Palpitations, DOI 06/11/[address] Ball[address] [facility]. JR Coronary artery disease invo lving gambell coronary artery of gambell heart with angina pectoris 06/06/2017 Hx of [...] on file Legal Sex Female 10:49 PM SR. PRICING ANALYST Gender Identity Not on file Sexual Orientation Not on file Last Filed Vital Signs Vital Sign Reading Time Taken Comments Blood Pressure 126/74 02/24/2025 2:58 PM CDT Pulse 83 02/24/2025 2:58 PM CDT Temperature 36.8 C (98.3 F) 09/22/2021 10:38 AM CDT Respiratory Rate 18 09/22/2021 11:36 AM CDT Oxygen Saturation 98% 02/24/2025 2:58 PM CDT Inhaled Oxygen Concentration - - Weight 73.9 kg (163 lb) 02/24/2025 2:58 PM CDT Height 165.1 cm (5' 5 ) 02/24/2025 2:58 PM CDT Body Mass Index 27.12 02/24/2025 2:58 PM CDT Plan of Treatment Not on file Procedures Procedure Name Priority Date/Time Associated Diagnosis Comments ELECTROCARDIOGRAM REPORT Routine 02/24/2025 4:03 PM CDT 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 PRICING ANALYST Coronary artery disease involving gambell coronary artery of gambell heart without angina pectoris Status post angioplasty with stent POCT LIPID PANEL Routine 01/12/2025 10:40 AM SR. PRICING ANALYST Coronary artery disease involving gambell coronary artery of gambell heart without angina pectoris from Last 3 Months Results * Electrocardiogram Report (02/24/2025 4:03 PM CDT) us Carrie Heller ACCOUNT SERVICES ASSOCIATE ECG ORDERABLES Final Res ult * NM MPI SPECT (Rest and/or Stress) Multiple Studies (01/26/2025 10:36 AM SR. PRICING ANALYST) Anatomical Region Laterality Modality Body N/A Nuclear Medicine 01/26/2025 9:08 AM SR. PRICING ANALYST Narrative 01/27/2025 7:37 AM SR. PRICING ANALYST [facility] Cardiology [address] [facility] [address] [address] [address] [facility] [address], [place] [address] P:[phone] P:[phone] MPI Imaging Report Patient Name: ADRIAN ESQUEDA K : 1950 Study Date: 01/26/2025 9:08:38 AM Gender: F Tech: [facility] Location: [facility] Provider: JOANA ROBB Height(Cm): 165.1 BSA: Weight(Kg): 74.7 BMI: 27.4 Order Provider: JOANA ROBB PHYSICIAN: Referring Physician: Dr. Hernandez. HCG Physician: Joana Robb M.D., F.A.C.C. Interpreting Physician: Bryn Madison M.D.,F.A.C.C. Stress Supervision: Joana Robb M.D., F.A.C.C. PROCEDURES: Pharmacologic SPECT Report: Myocardial perfusion imaging with Tc99M Sestamibi SPECT at rest and stress post regadenoson (Lexiscan) infusion. INDICATIONS: Hypertension, Near Syncope, Diabetes, Family Hx CAD, High Cholesterol, I25.10 Atherosclerotic heart disease of gambell coronary artery without angina pectoris, and Z95.820 Peripheral vascular angioplasty status with implants and grafts. FINDINGS: Procedural Findings: One day rest/stress was used. Tc99m Sestamibi injected IV at rest was 10.4 millicuries 32.6 millicuries of Tc99M Sestamibi injected IV during Lexiscan stress Lexiscan 0.4mg given IV over 10 seconds with low level exercise: 0.8 MPH Patient had no symptoms during stress test. Baseline heart rate was 99 BPM Maximum Heart Rate Achieved was: 146 BPM Baseline blood pressure was 122/80 mmHg Post Stress Blood Pressure was 120/78 mmHg Termination: Protocol complete. Resting ECG: Sinus rhythm. RBBB. Post ECG: Specificity of the observed ST changes is reduced in light of the abnormal resting ECG. Arrhythmia: Frequent PVCs. SVT, which resolved in recovery. Perfusion Findings: A TID of 0.88 was automatically calculated. defect 1: Size is small. Severity is mild to moderate in intensity. Location of defect is in the apex. Reversibility is full. Type of defect is ischemia. LV Function: Global left ventricular function is normal. Left ventricular ejection fraction is 69 %. CONCLUSIONS: Sinus rhythm RBBB, PVC, nonspecific ST-T abnormality. Specificity of the observed ST changes is reduced in light of the abnormal resting ECG. Correlate with SPECT. Global left ventricular function is normal. Left ventricular ejection fraction is 69 %. Size is small. Severity is mild to moderate in intensity. Location of defect is in the apex. Reversibility is full. Type of defect is ischemia. Abnormal but low risk MPI as ischemic burden is small. Electronically Signed By: Joana Robb MD, [facility] 01/26/2025 3:35:02 PM SR. PRICING ANALYST Electronically Signed By: Bryn Madison MD, [facility] 01/27/2025 7:37:07 AM SR. PRICING ANALYST Procedure Note Bryn Madison MD - 02/27/2025 [facility] Cardiology [address], [place] [address] [address] [facility] [address], [place] [address] P:[phone] P:[phone] MPI Imaging Report Patient Name: ADRIAN ESQUEDA K : 1950 Study Date: 01/26/2025 9:08:38 AM Gender: F Tech: [facility] Location: [facility] Provider: JOANA ROBB Height(Cm): 165.1 BSA: Weight(Kg): 74.7 BMI: 27.4 Order Provider: JOANA ROBB PHYSICIAN: Referring Physician: Dr. Hernandez. HCG Physician: Joana Robb M.D., F.A.CMaicolC. Interpreting Physician: Bryn Madison M.D.,F.A.C.CMaicol Stress Supervision: Joana Robb M.D., F.A.CMaicolC. PROCEDURES: Pharmacologic SPECT Report: Myocardial perfusion imaging with Tc99M Sestamibi SPECT at rest and stresspost regadenoson (Lexiscan) infusion. INDICATIONS: Hypertension, Near Syncope, Diabetes, Family Hx CAD, High Cholesterol,I25.10 Atherosclerotic heart disease of gambell coronary artery without anginapectoris, and Z95.820 Peripheral vascular angioplasty status with implants and grafts. FINDINGS: Procedural Findings: One day rest/stress was used. Tc99m Sestamibi injected IV at rest was 10.4 millicuries 32.6 millicuries of Tc99M Sestamibi injected IV during Lexiscan stress Lexiscan 0.4mg given IV over 10 seconds with low level exercise: 0.8MPH Patient had no symptoms during stress test. Baseline heart rate was 99 BPM Maximum Heart Rate Achieved was: 146 BPM Baseline blood pressure was 122/80 mmHg Post Stress Blood Pressure was 120/78 mmHg Termination: Protocol complete. Resting ECG: Sinus rhythm. RBBB. Post ECG: Specificity of the observed ST changes is reduced in light of the abnormalresting ECG. Arrhythmia: Frequent PVCs. SVT, which resolved in recovery. Perfusion Findings: A TID of 0.88 was automatically calculated. defect 1: Size is small. Severity is mild to moderate in intensity. Location ofdefect is in the apex. Reversibility is full. Type of defect is ischemia. LV Function: Global left ventricular function is normal. Left ventricular ejectionfraction is 69 %. CONCLUSIONS: Sinus rhythm RBBB, PVC, nonspecific ST-T abnormality. Specificity of the observed ST changes is reduced in light of the abnormalresting ECG. Correlate with SPECT. Global left ventricular function is normal. Left ventricular ejectionfraction is 69 %. Size is small. Severity is mild to moderate in intensity. Location ofdefect is in the apex. Reversibility is full. Type of defect is ischemia. Abnormal but low risk MPI as ischemic burden is small. Electronically Signed By: Joana Robb MD, [facility] 01/26/2025 3:35:02 PM SR. PRICING ANALYST Electronically Signed By: Bryn Madison MD, [facility] 01/27/2025 7:37:07 AM SR. PRICING ANALYST Result [facility]b [facility]ED[facility] Final Result * POCT lipid panel (01/12/2025 10:40 AM SR. PRICING ANALYST) Cholesterol, POC 158 mg/dL Comment:GLU = 198 HDL, POC 31 mg/dL Triglycerides, POC 135 mg/dL LDL Cholesterol POC 100 mg/dL Chol/HDL Ratio, POC 3.2 Non-HDL Cholesterol, POC 127 mg/dL Cholesterol Total, POC 158 mg/dL Capillary blood 01/12/2025 1 0:40 AM SR. PRICING ANALYST Result [facility] Joana Robb MD POINT OF CARE TEST ORDERABLES Fi nal Result from Last 3 Months Insurance [facility] MEDICARE MEDICARE [facility] Care Teams Tool Crib Lead Relationship Specialty Start Date End Date Nina Hernandez DO PCP - General Internal Medicine 09/01/18
--- OUTSIDE RECORDS SUMMARY | 2025-02-26 18:19 | XMS_ITS | Clinical Summary ---
Author Organization [facility] [address] Address [address] [place] [address] Care Team Providers Care Lead Refiner Name Role Phone Nina Hernandez DO Primary Care Provider +1- [phone] Allergies Active Allergy Reactions Criticality Noted Date [...] MOUTH DAILY 90 tablet 3 4 Active [id number] -Lmfolate-algal 27 mg iron-1.13 mg-581.92 mg capsule [...] 24 hr tabletIndicatio ns:Coronary artery disease of wainwright artery of wainwright heart with stable angina pectoris Take 1 tablet (30 mg total) by mouth daily 90 tablet 3 5 026 Active nitroglycerin (NITROSTAT) 0.4 mg SL tabletIndicatio ns:Coronary artery disease of wainwright artery of wainwright heart with stable angina pectoris Place 1 [...] implantable loop record er 06/19/2017 Overview (06/19/2017): [employer] Implantable Loop Recorder for Palpitations, DOI 06/11/[address] Ball[address] [employer] remote home monitoring. JR Coronary artery disease invo lving wainwright coronary artery of wainwright heart with angina pectoris 06/06/2017 Hx of heart artery stent 06/06/2017 Palpitations 06/06/2017 Prominent abdominal aortic pulsation 06/06/2017 Preoperative state 03/28/2017 Overview (04/25/2017): Preoperative cardiovascular examination Mitral valve prolapse 03/28/2017 Overview (04/25/2017): Mitral valve prolapse Disorder of uterus 03/28/2017 Overview (04/25/2017): Uterine mass Encounters Date Type Department Care Team Description 02/24/2025 3:00 PM CDT Office Visit [facility]iology [address] [facility] [address] [place] [phone] Carrie Heller NP Coronary artery disease of wainwright artery of wainwright heart with stable angina pectoris (Primary Dx) 02/22/[address] [facility] Cardiology [address] [facility] [address] [place] [phone] Joana Robb MD 02/01/2025 Results Follow-Up [facility] Cardiology [address] [place] [address] [address] [place] [phone] Joana Robb MD 01/26/2025 9:15 AM BRINE PLANT OPERATOR Ancillary Procedure [facility] Cardiology [address] [place] [address] Coronary artery disease involving wainwright coronary artery of wainwright heart without angina pectoris; Status post angioplasty with stent 01/12/2025 9:45 AM BRINE PLANT OPERATOR Office Visit [facility] Cardiology [address] [place] [address] Joana Robb MD Coronary artery disease involving wainwright coronary artery of wainwright heart without angina pectoris (Primary Dx); Status [...] Hypertension Hypertension Coronary artery disease invo lving wainwright coronary artery of wainwright heart with angina pectoris 06/06/2017 Hx of heart artery stent 06/06/2017 Palpitations 06/06/2017 Prominent abdominal aortic pulsation 06/06/2017 Other insomnia 09/05/2017 Statin intolerance 09/05/2017 GERD (gastroesophageal reflux disease) Arthritis Migraines Heart disease 1980s Stroke (HCC) 2001 Diabetes [...] on file Legal Sex Female 10:49 PM BRINE PLANT OPERATOR Gender Identity Not on file Sexual Orientation [...] 02/24/2025 2:58 PM CDT Plan of Treatment Health Maintenance Due Date Last Done Comments Colon Cancer Screening-Colonoscopy 1950 Depression Screening 1950 Fall Risk Assessment 1950 Hepatitis C Screening 1950 Osteoporosis Screening-Bone Density Scan 1950 DTaP/Tdap/Td Vaccine (1 - Tdap) 1961 Hepatitis B Screening 1968 Pneumococcal vaccine 65+ (1 of 2 - PCV) 1969 Zoster Vaccine (1 of 2) 2000 Well Visit 65+ 2015 Influenza Vaccine (#1) 2024 Procedures Procedure Name Priority Date/Time Associated Diagnosis Comments ELECTROCARDIOGRAM REPORT Routine 02/24/2025 4:03 PM CDT Coronary artery disease of wainwright artery of wainwright heart with stable angina pectoris NM MPI SPECT (REST AND/OR STRESS) MULTIPLE STUDIES Schedule Routine, Read Routine (OP Routine) 01/26/2025 10:36 AM BRINE PLANT OPERATOR Coronary artery disease involving wainwright coronary artery of wainwright heart without angina pectoris Status post angioplasty with stent POCT LIPID PANEL Routine 01/12/2025 10:40 AM BRINE PLANT OPERATOR Coronary artery disease involving wainwright coronary artery of wainwright heart without angina pectoris from Last 3 Months Results * Electrocardiogram Report (02/24/2025 4:03 PM CDT) us Carrie Heller MERARY ECG ORDERABLES Final Res ult * NM MPI SPECT (Rest and/or Stress) Multiple Studies (01/26/2025 10:36 AM BRINE PLANT OPERATOR) Anatomical Region Laterality Modality Body N/A Nuclear Medicine 01/26/2025 9:08 AM BRINE PLANT OPERATOR Narrative 01/27/2025 7:37 AM BRINE PLANT OPERATOR [facility] Cardiology [address] [facility] [address] [address] [address] [facility] [address], [place] [address] P:[phone] P:[phone] MPI Imaging Report Patient Name: ADRIAN ESQUEDA K : 1950 Study Date: 01/26/2025 9:08:38 AM Gender: F Tech: [facility] Location: [facility] Provider: JOANA ROBB Height(Cm): 165.1 BSA: Weight(Kg): 74.7 BMI: 27.4 Order Provider: JOANA ROBB PHYSICIAN: Referring Physician: Dr. Hernandez. HCG Physician: Joana Robb M.D., F.A.CMaicolC. Interpreting Physician: Bryn Madison M.D.,F.A.CMaicolC. Stress Supervision: Joana Robb M.D., F.A.CMaicolC. PROCEDURES: Pharmacologic SPECT Report: Myocardial perfusion imaging with Tc99M Sestamibi SPECT at rest and stress post regadenoson (Lexiscan) infusion. INDICATIONS: Hypertension, Near Syncope, Diabetes, Family Hx CAD, High Cholesterol, I25.10 Atherosclerotic heart disease of wainwright coronary artery without angina pectoris, and Z95.820 [...] small. Electronically Signed By: Joana Robb MD, [facility] 01/26/2025 3:35:02 PM BRINE PLANT OPERATOR Electronically Signed By: Bryn Madison MD, [facility] 01/27/2025 7:37:07 AM BRINE PLANT OPERATOR Procedure Note Bryn Madison MD - 01/27/2025 [facility] Cardiology [address] [facility] [address], [place] [address] [address] [facility] [address], [place] [address] P:[phone] P:[phone] MPI Imaging Report Patient Name: ADRIAN ESQUEDA K : 1950 Study Date: 01/26/2025 9:08:38 AM Gender: F Tech: [facility] Location: [facility] Provider: JOANA ROBB Height(Cm): 165.1 BSA: Weight(Kg): 74.7 BMI: 27.4 Order Provider: JOANA ROBB PHYSICIAN: Referring Physician: Dr. Hernandez. HCG Physician: Joana Robb M.D., FMaicolA.CMaicolCMaicol Interpreting Physician: Bryn Madison M.D.,F.A.CMaicolCMaicol Stress Supervision: Joana Robb M.D., F.A.CMaicolC. PROCEDURES: Pharmacologic SPECT Report: Myocardial perfusion imaging with Tc99M Sestamibi SPECT at rest and stresspost regadenoson (Lexiscan) infusion. INDICATIONS: Hypertension, Near Syncope, Diabetes, Family Hx CAD, High Cholesterol,I25.10 Atherosclerotic heart disease of wainwright coronary artery without anginapectoris, and Z95.820 Peripheral [...] small. Electronically Signed By: Joana Robb MD, [facility] 01/26/2025 3:35:02 PM BRINE PLANT OPERATOR Electronically Signed By: Bryn Madison MD, [facility] 01/27/2025 7:37:07 AM BRINE PLANT OPERATOR Result [facility] Joana Robb MD IM NM PROCEDURES Final Result * POCT lipid panel (01/12/2025 10:40 AM BRINE PLANT OPERATOR) Cholesterol, POC 158 mg/dL Comment:GLU = 198 HDL, POC 31 mg/dL Triglycerides, POC 135 mg/dL LDL Cholesterol POC 100 mg/dL Chol/HDL Ratio, POC 3.2 Non-HDL Cholesterol, POC 127 mg/dL Cholesterol Total, POC 158 mg/dL Capillary blood 01/12/2025 1 0:40 AM BRINE PLANT OPERATOR Joana Robb MD POINT OF CARE TEST ORDERABLES Fi nal Result from Last 3 Months Insurance [facility] MEDICARE MEDICARE [facility] Care Teams Lead Refiner Relationship Specialty Start Date End Date Nina Hernandez DO PCP - General Internal Medicine 09/01/18
--- OUTSIDE RECORDS SUMMARY | 2025-02-26 18:19 | XMS_ITS | Clinical Summary ---
Author Organization [facility] [employer] Address [address] [facility] [place] [address] Care Team Providers Care Knitting Tester Name Role Phone Nina Hernandez MD Primary Care Provider [phone] Source Comments [facility] [employer],non-owned Affiliates and Associated Physician Practices is amultiple site organization consisting of ambulatory clinics and hospital sitesin [place], [place], [place] and [place]. This disclosure is being madepursuant to the Care Everywhere program and may not contain all information available regarding this patient. Last updated 18.[facility] [employer] Allergies Active Allergy Reactions Criticality Noted Date [...] FLEX SIG - COLON CA SCREENING 1950 MAMMOGRAM 1950 MEDICARE AWV 12 MONTHS [...] yrs (1 - 1-dose 75+ series) 2025 LIPID TESTING 02/01/2026 02/01/2021, 05/08/2020 HEPATITIS B VACCINE Aged Out No longe r eligible based on patient's age to complete this topic HIB VACCINE Aged Out No longer eligi ble based on patient's age to complete this topic HPV VACCINE Aged Out No longer eligi ble based on patient's age to complete this topic MENINGOCOCCAL (Group B) VACCINE SHARED DECISION-MAKING Aged Out No longer eligible based on patient's age to complete this topic MENINGOCOCCAL GROUPS A/C/Y/W VACCINE Aged Out No longer eligible b ased on patient's age to complete this topic Care Teams Knitting Tester Relationship Specialty Start Date End Date Nina Hernandez MD [address] [place] [id number] PCP - General Family Medicine 09/21/21
[2025-02-26 18:20] LABS: Alanine Aminotransferase 20 U/L (6-35); Albumin Level 4.5 g/dL (3.5-5.1); Alkaline Phosphatase 143 U/L (38-126); Anion Gap 13 mmol/L (4-12); Aspartate Amino Transferase 19 U/L (14-36); Bilirubin,Total 0.6 mg/dL (0.2-1.3); Blood Urea Nitrogen 14 mg/dL (7-17); Calcium 9.7 mg/dL (8.4-10.2); Carbon Dioxide 24 mmol/L (22-30); Chloride 102 mmol/L (98-107); Estimated CRCL calculation 48 ml/min; Estimated Glomerular Filt Rate > 60; Glucose 136 mg/dL (65-110); Lipase 50 U/L (23-300); Potassium 4.2 mmol/L (3.4-5.0); Sodium 139 mmol/L (137-145)
[2025-02-26 18:29] LABS: INR 0.9; Prothrombin Time 12.9 Seconds (11.1-14.7)
[2025-02-26 18:30] LABS: Partial Thromboplastin Time 26.2 Seconds (22.3-36.8)
[2025-02-26 18:31] LABS: Troponin I < 0.012 ng/mL (0.000-0.034)
[2025-02-26 18:32] VITALS: BP 104/54; PULSE 69; RESP 16; O2SAT 98
[2025-02-26] MEDS: FAMOTIDINE 20 MG/2 ML VIAL IV PUSH (18:40)
[2025-02-26 18:44] LABS: Influenza A QL RT-PCR Negative (Negative); Influenza B QL RT-PCR Negative (Negative); RSV RNA, RT-PCR Negative (Negative); SARS-CoV-2 RNA PCR Negative (Negative)
[2025-02-26 20:39] VITALS: BP 114/55; PULSE 70; RESP 16; O2SAT 96
[2025-02-26 20:42] VITALS: PULSE 67
[2025-02-26 22:10] LABS: Troponin I < 0.012 ng/mL (0.000-0.034)
[2025-02-26 22:14] VITALS: BP 123/63; PULSE 74; RESP 14; O2SAT 97
[2025-02-27] VITALS (26 sets, daily range): BP systolic 105–138; BP diastolic 41–71; PULSE 58–104; RESP 12–17; TEMP 36.3–36.8; O2SAT 94–99; BMI 27.0; BMI 27.1
[2025-02-27] MEDS: ONDANSETRON INJ 4 MG/2 ML VIAL IV PUSH (00:30)
[2025-02-27] MEDS: HYDROmorphone HCL INJ (*CRX) 1 MG/ML SYR 0.5 MG IV PUSH (00:31)
[2025-02-27] MEDS: NITROGLYCERIN OINTMENT 1 INCH DOSE TRANSDERM (00:33)
[2025-02-27] MEDS: ASPIRIN 81 MG CHEWABLE TABLET 324 MG PO (00:36)
[2025-02-27] MEDS: HEPARIN SODIUM 5,000 UNITS/ML VIAL 4000 UNITS IV PUSH ×2 (00:39→14:00)
[2025-02-27] MEDS: HEPARIN SOD/D5W 100 UNITS/ML 25,000 UNITS/250 ML BAG 8 UNITS IV CONT (00:42)
[2025-02-27 00:50] LABS: Basophils Percent Auto 0.3 % (0.2-1.2); Eosinophils Absolute Auto 0.1 K/mm3 (0-0.3); Eosinophils Percent Auto 0.6 % (0-4.4); Hematocrit 37.5 % (37.0-47.0); Hemoglobin 12.3 g/dL (12.0-15.0); Immature Granulocyte Absolute 0.06 K/mm3 (0.00-0.031); Immature Granulocyte Percent A 0.7 % (0-0.5); Lymphocytes Absolute Auto 1.41 K/mm3 (0.9-3.2); Lymphocytes Percent Auto 16.4 % (18.3-44.2); Mean Corpuscular HGB Conc 32.8 g/dl (32-36); Mean Corpuscular Hemoglobin 29.1 pg (26-34); Mean Corpuscular Volume 88.7 fl (80-100); Mean Platelet Volume 9.8 fl (7.4-10.4); Monocytes Absolute Auto 0.7 K/mm3 (0.1-0.6); Monocytes Percent Auto 8.5 % (2.6-8.5); Neutrophils Absolute Auto 6.3 K/mm3 (1.3-6.7); Neutrophils Percent Auto 73.5 % (45.5-73.1); Platelet Count Result 219 k/mm3 (150-375); Red Blood Count 4.23 M/mm3 (4.2-5.4); Red Cell Distribution Width 13.2 % (11.5-14.5); White Blood Count 8.6 K/mm3 (4.5-10.0)
[2025-02-27 01:08] LABS: Partial Thromboplastin Time 24.5 Seconds (22.3-36.8); Prothrombin Time 13.3 Seconds (11.1-14.7)
[2025-02-27 01:18] LABS: Troponin I < 0.012 ng/mL (0.000-0.034)
--- NOTE | 2025-02-27 01:56 | ADMGEN ---
This patient, Emely Womack, was admitted to IMU Room 211-01. Patient/family oriented to hospital policies and general routines including ID bracelet, bed and alarms, visiting hours, pain management, procedures, bathroom and other care routines, personal items, smoking policy, room service/diet, and visiting hours. Information on how to activate the Rapid Response Team has been discussed. Patient/Family are encouraged to report perceived risks to care and to ask questions if they do not understand what they are told or what they should do.
[2025-02-27 06:52] LABS: Basophils Percent Auto 0.6 % (0.2-1.2); Eosinophils Percent Auto 0.6 % (0-4.4); Hematocrit 40.4 % (37.0-47.0); Hemoglobin 13.1 g/dL (12.0-15.0); Immature Granulocyte Absolute 0.04 K/mm3 (0.00-0.031); Immature Granulocyte Percent A 0.6 % (0-0.5); Lymphocytes Absolute Auto 1.73 K/mm3 (0.9-3.2); Lymphocytes Percent Auto 26.3 % (18.3-44.2); Mean Corpuscular HGB Conc 32.4 g/dl (32-36); Mean Corpuscular Hemoglobin 29.4 pg (26-34); Mean Corpuscular Volume 90.6 fl (80-100); Mean Platelet Volume 9.4 fl (7.4-10.4); Monocytes Absolute Auto 0.5 K/mm3 (0.1-0.6); Monocytes Percent Auto 7.3 % (2.6-8.5); Neutrophils Absolute Auto 4.2 K/mm3 (1.3-6.7); Neutrophils Percent Auto 64.6 % (45.5-73.1); Platelet Count Result 222 k/mm3 (150-375); Red Blood Count 4.46 M/mm3 (4.2-5.4); Red Cell Distribution Width 13.2 % (11.5-14.5); White Blood Count 6.6 K/mm3 (4.5-10.0)
[2025-02-27 07:05] LABS: Partial Thromboplastin Time 130.3 Seconds (22.3-36.8)
[2025-02-27] MEDS: ISOSORBIDE MONONITRATE 30 MG TAB.ER.24H PO (10:00)
[2025-02-27] MEDS: CLOPIDOGREL BISULFATE 75 MG TABLET PO (10:00)
[2025-02-27] MEDS: PANTOPRAZOLE 40 MG TABLET PO (10:00)
[2025-02-27] MEDS: METOPROLOL SUCCINATE EXT REL 50 MG TABCR PO (10:01)
--- NOTE | 2025-02-27 10:08 | P.HP_ITS ---
H&P: HPI History of Present Illness Date/Time: 02/27/25 10:08 Chief Complaint: Chest Pain Narrative: Patient is a 75-year-old female who presented to the emergency department with complaints chest pain /chest pressure. patient reports she has had intermittent chest pain for the last week worse with activity and exertion however still present when at rest. Patient states she did have some radiating pain to her left shoulder and lower jaw denied any nausea or vomiting, shortness of breath or diaphoresis with these episodes. 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 patient does have past medical history of CAD and stent to LAD, HTN, CVA, and HLD. patient is troponins x3 negative and EKGs with no ST/ T or significant changes. patient's labs were otherwise unremarkable other than mildly elevated blood sugars chest x-ray with no cardiopulmonary acute findings. patient was then admitted to IMU for further evaluation and treatment of chest pain and started on a heparin GTT for medical management. Review of Systems Review of Systems: All systems reviewed & are unremarkable except as noted in HPI and below PMFSH Past Medical History Medical History History of adenomatous polyp of colon CAD (coronary artery disease) Allergies Recurrent urinary tract infection Migraines Hypertension Pre-diabetes History of basal cell cancer Irritable bowel Stroke Mitral valve disorder Hyperlipidemia Acid reflux Surgical History Surgical History History of coronary artery stent placement x1 2017 History of cholecystectomy H/O: hysterectomy History of removal of cyst H/O dilation and curettage H/O angioplasty History of cryosurgery Cervical Family History Family History Sibling Breast cancer Hypertension Hyperlipidemia Mother Diabetes mellitus Hypertension Heart disease Father Heart disease Grandparent Diabetes mellitus Social History Social History Smoking status: Never smoker Second hand tobacco smoke exposure: No Alcohol intake: never Substance use: never Substance use type: does not use Do You Feel Safe in your Home?: Yes Lack of Transportation: No Lack of Food: Never True Current Housing: I Have Housing Concerned About Future Housing: No Difficulty Paying Gas/Electric Bills: No Difficulty Paying for Meds: No Currently Unemployed: No Education: High School Diploma/GED Difficulty w/ Childcare or Family Care: No Living arrangements: with family Additional living arrangements comments: With Spiritual care concerns: No Meds Home Medications and Allergies Home Medications ?Medication ?Instructions ?Recorded ?Confirmed ?Type clopidogrel 75 mg tablet (Plavix) 75 mg PO DAILY 12/28/19 02/26/25 History pantoprazole 40 mg tablet,delayed 40 mg PO QAM 12/28/19 02/26/25 History release (Protonix) famotidine 40 mg tablet 40 mg PO HS 07/06/20 02/26/25 History olmesartan 40 mg tablet (Benicar) 40 mg PO QPM 08/28/20 02/27/25 History nitroglycerin 0.3 mg sublingual 4 mg sublingual Q5M PRN Chest Pain 05/21/21 02/26/25 History tablet metoprolol succinate 50 mg 50 mg PO DAILY 01/09/23 02/26/25 History tablet,extended release 24 hr dicyclomine 10 mg capsule 10 mg PO BID PRN abdominal pain 02/17/25 02/26/25 Rx #60 caps amlodipine 10 mg tablet 10 mg PO QPM 02/27/25 02/27/25 History atorvastatin 20 mg tablet 40 mg PO QPM 02/27/25 02/27/25 History isosorbide mononitrate 30 mg 30 mg PO QAM 02/27/25 02/27/25 History tablet,extended release 24 hr Allergies Allergy/AdvReac Type Severity Reaction Status Date / Time chocolate Allergy Severe Difficulty Verified 02/26/25 18:09 Breathing egg Allergy Severe DIFFICULTY Verified 02/26/25 18:09 BEATHING iohexol (From contrast - CT, Allergy Severe Hives Verified 02/26/25 18:09 X-RAY) azithromycin Allergy Mild RASH Verified 02/26/25 18:09 erythromycin base Allergy Mild RASH,HIVES Verified 02/26/25 18:09 Penicillins Allergy Mild RASH Verified 02/26/25 18:09 Sulfa (Sulfonamide Allergy Mild RASH Verified 02/26/25 18:09 Antibiotics) trimethoprim Allergy Mild RASH Verified 02/26/25 18:09 sulfite Allergy Unknown Anaphylaxis Verified 02/26/25 18:09 trazodone Allergy Anaphylaxis Verified 02/26/25 18:09 Vital Signs Vital Signs - 24 hr 02/26/25 17:48 02/26/25 18:07 02/26/25 18:07 Temperature 98.1 F Pulse Rate 75 76 Respiratory Rate 18 21 H Blood Pressure 115/61 115/61 Pulse Oximetry 99 99 99 Oxygen Delivery Room Air Room Air 02/26/25 18:32 02/26/25 20:39 02/26/25 20:42 Temperature Pulse Rate 69 70 67 Respiratory Rate 16 16 Blood Pressure 104/54 L 114/55 L Pulse Oximetry 98 96 Oxygen Delivery 02/26/25 22:14 02/27/25 00:49 02/27/25 01:55 Temperature 98.1 F Pulse Rate 74 70 88 Respiratory Rate 14 17 16 Blood Pressure 123/63 138/70 138/68 Pulse Oximetry 97 95 98 Oxygen Delivery 02/27/25 02:00 02/27/25 02:16 02/27/25 04:00 Temperature 98.2 F Pulse Rate 58 L 70 69 Respiratory Rate 17 15 Blood Pressure 138/70 105/41 L Pulse Oximetry 95 97 Oxygen Delivery 02/27/25 04:00 02/27/25 06:00 02/27/25 08:00 Temperature 97.5 F L Pulse Rate 65 76 76 Respiratory Rate 14 Blood Pressure 114/63 Pulse Oximetry 97 Oxygen Delivery Exam Const: General: comfortable and no acute distress HENMT: Mouth: Yes moist mucous membranes Eyes: General: appearance normal, both eyes and all related structures Pupils: Equal, round and reactive pupils present Neck: Neck: supple Resp: Effort & Inspection: normal respiratory effort Auscultation: clear to auscultation bilaterally Cardio: Rate: regular rate Rhythm: regular rhythm GI: GI Palp: Yes Soft to palpation Auscultation: normal bowel sounds Skin: General skin exam: normal color and no rashes or lesions noted Wounds: no wounds Neuro: General: gait normal Speech: normal speech Motor exam (neuro): 5/5 motor strength present throughout Sensory Exam: normal sensation Extrem: General: normal to inspection Psych: Mental Status: mental status grossly normal Affect: normal affect H&P: Results Labs Labs: Short CBC 02/26/25 02/27/25 02/27/25 Range/Units 17:58 00:44 06:45 WBC 10.1 H 8.6 6.6 (4.5-10.0) K/mm3 Hgb 13.3 12.3 13.1 (12.0-15.0) g/dL Hct 40.4 37.5 40.4 (37.0-47.0) % Plt Count 254 219 222 (150-375) k/mm3 BMP 02/26/25 17:58 Sodium 139 Potassium 4.2 Chloride 102 Carbon Dioxide 24 BUN 14 Creatinine 0.88 Glucose 136 H Calcium 9.7 Cardiac Enzymes 02/26/25 02/26/25 02/27/25 Range/Units 17:58 21:30 00:44 Troponin I < 0.012 < 0.012 < 0.012 (0.000-0.034) ng/mL Liver Function 02/26/25 Range/Units 17:58 Total Bilirubin 0.6 (0.2-1.3) mg/dL AST 19 (14-36) U/L ALT 20 (6-35) U/L Alkaline Phosphatase 143 H (38-126) U/L Albumin 4.5 (3.5-5.1) g/dL Imaging Chest x-ray: Radiologist's impression: ECHNIQUE: PA and lateral views of the chest. FINDINGS The cardiomediastinal silhouette is unremarkable. The lungs are clear. Visualized osseous structures and soft tissues are unremarkable. IMPRESSION: No focal infiltrate or effusion. Assessment and Plan Assessment and plan (1) Chest pain: Code(s): R07.9 - Chest pain, unspecified Status: Acute Assessment and Plan: patient has significant history coronary artery disease with previous stent: [facility] 2020:patent previously placed mid LAD stent with minimal irregularities; mild disease proximal segment major diagonal branch; minimal eccentric plaque mid RCA. * LAD had been at 90 occlusion previously * serial troponins x3 q.6 hours have been negative * EKG without ischemic changes q.6 hours * received aspirin 324 emergency department * GI cocktail received with no relief * cardiology consulted * recommended medical management of unstable angina patient started heparin GTT likely require 40 hours * patient on Imdur 30 mg daily recommend increasing to 60 mg * continuous cardiac monitoring * NPO at midnight plan for [facility] in the AM 02/28/2025 (2) Unstable angina: Code(s): I20.0 - Unstable angina Status: Acute Assessment and Plan: See Above #1 (3) CAD (coronary artery disease): Code(s): I25.10 - Atherosclerotic heart disease of [place] coronary artery without angina pectoris Status: Acute Assessment and Plan: * will resume patient's atorvastatin, Plavix start low-dose aspirin 81 (4) Acid reflux: Code(s): K21.9 - Gastro-esophageal reflux disease without esophagitis Status: Acute Assessment and Plan: * patient received GI cocktail emergency department if no relief * resume patient's Protonix (5) Hypertension: Code(s): I10 - Essential (primary) hypertension Status: Acute Assessment and Plan: * BP reviewed stable * will resume her metoprolol, benicar, and amlodipine * BP per unit protocol Plan Code status: Full code per patient DVT prophylaxis: heparin GTT Stress ulcer prophylaxis: Protonix 40 daily PT/OT notes: ambulatory Disposition: patient was admitted to IMU for further evaluation and treatment chest pain with unstable angina, will continue with heparin GTT and NPO after midnight for [facility] in the a.m. Quality VTE Prophylaxis VTE prophylaxis: pharmacologic ordered -Patient's previous records reviewed on admission -ER notes reviewed in detail on admission -discussed all findings and current treatment plan with patient/Family/POA -Consultations reviewed for recommendations -Patient's disposition for safe discharge discussed with case maker Dictation performed by [employer] direct speech recognition software, therefore earth science professor variants and typographical errors may occur. Hospitalist MIPS Advance Care Plan I have confirmed that the patient's Advanced Care Plan is present, code status is documented, or surrogate decision maker is listed in patient medical record.: Yes Medication Reconciliation I have utilized all available resources to obtain, update and review the patients current medications (includes all prescriptions, OTC, herbals, cannabis, and nutritional supplements).: Yes The patient is not eligible for med reconciliation; the patient is in a emergent medical situation where delaying treatment would jeopardize the patients health.: No
--- NOTE | 2025-02-27 10:52 | P.CONCA_ITS ---
Assessment and Plan Assessment and plan (1) Chest pain: Code(s): R07.9 - Chest pain, unspecified Status: Acute Assessment and Plan: Possibly anginal. Somewhat atypical in the sense that she has had hours worth of pain at times without troponin elevation as well as being given sublingual nitroglycerin without significant benefit. However she does have a history of CAD and she states that her chest pains feels similar but slightly different than her previous pain that she had leading to her LAD stent. She also has an abnormal stress test and this point agree with use of heparin. Continue clopidogrel, metoprolol, isosorbide and atorvastatin. Keep NPO after midnight for coronary angiogram tomorrow to define her anatomy. (2) CAD (coronary artery disease): Code(s): I25.10 - Atherosclerotic heart disease of [place] coronary artery without angina pectoris Status: Acute Assessment and Plan: Previous LAD stent. Continue Plavix, isosorbide, metoprolol, statin, amlodipine (3) Hypertension: Code(s): I10 - Essential (primary) hypertension Status: Acute Assessment and Plan: Continue above meds (4) Hyperlipidemia: Code(s): E78.5 - Hyperlipidemia, unspecified Status: Acute Assessment and Plan: Continue atorvastatin History of Present Illness History of Present Illness Consult date/time: 02/27/25 10:52 Requesting physician: Emeka Rush MD Consult reason: chest pain Reason For Visit: Unstable angina Narrative: Date of service 02/27/2025: Reason for consultation: Unstable angina, chest pain Requesting provider: History patient is a 75-year-old female who has history of coronary disease and LAD stent. She has history of hypertension. She follows with Dr. Sheridan. Due to some orthostasis symptoms and the fact she has not had a stress test in several years, stress test was performed again in the office recently. She had a obve-pt-rgorrmsn apical ischemic defect. Last week she started developed some chest pain symptoms. She had an episode of chest tightness that radiated in the back in the chest lasting for about 10 minutes. Over the past weeks had a couple of other episodes of chest tightness burning and a weight on her chest that would radiate into her bilateral jaw. No shortness of breath. Symptoms would last for up to an hour at a time. She saw our nurse practitioner in the office on who started her on isosorbide as well as a prescription for p.r.n. nitroglycerin. Yesterday she took isosorbide for the 1st time. She states that in the morning she thought maybe felt a little bit better but then in the afternoon her symptoms of chest tightness came back and at that point she decided come to the hospital for further evaluation. Troponins are negative. EKG shows no acute ST or T-wave abnormalities. She was given nitroglycerin in the ER which did not seem to help. She was given a pain medication which did seem to help. She is currently pain free. She states that it feels similar but a little different than her previous pain that she had prior to her LAD stent. She has some occasional fluttering in her chest which is not new or different. Otherwise no syncope, paroxysmal nocturnal dyspnea, orthopnea, edema. Review of Systems 2 Review of Systems: All systems reviewed & are unremarkable except as noted in HPI and below Constitutional: Constitutional: Denies body ache(s) Eyes: Eyes: Denies blurry vision ENT: Reports Normal hearing present Cardiovascular: Cardiovascular: Reports chest pain Respiratory: Respiratory: Denies hemoptysis Gastrointestinal: Gastrointestinal: Denies abdominal pain Genitourinary: Genitourinary: Denies hematuria Musculoskeletal: Musculoskeletal: Denies arthralgias Integumentary/Breasts: Skin/Breast: Denies dry skin Neurologic: Denies Abnormal speech present Psychiatric: Psychiatric: Denies anxiety Endocrine: Endocrine: Denies excessive sweating Hematologic/Lymphatic: Hematologic/Lymphatic: Denies easy bleeding Allergic/Immunologic: Allergic/Immunologic: Denies GI upset with certain foods PMFSH Past Medical History Medical History (Updated 02/27/25 @ 11:00 by Don Rhodes MD) History of adenomatous polyp of colon CAD (coronary artery disease) Allergies Recurrent urinary tract infection Migraines Hypertension Pre-diabetes History of basal cell cancer Irritable bowel Stroke Mitral valve disorder Hyperlipidemia Acid reflux Surgical History Surgical History History of coronary artery stent placement x1 2017 History of cholecystectomy H/O: hysterectomy History of removal of cyst H/O dilation and curettage H/O angioplasty History of cryosurgery Cervical Family History Family History Sibling Breast cancer Hypertension Hyperlipidemia Mother Diabetes mellitus Hypertension Heart disease Father Heart disease Grandparent Diabetes mellitus Social History Social History Smoking status: Never smoker Second hand tobacco smoke exposure: No Alcohol intake: never Substance use: never Substance use type: does not use Do You Feel Safe in your Home?: Yes Lack of Transportation: No Lack of Food: Never True Current Housing: I Have Housing Concerned About Future Housing: No Difficulty Paying Gas/Electric Bills: No Difficulty Paying for Meds: No Currently Unemployed: No Education: High School Diploma/GED Difficulty w/ Childcare or Family Care: No Living arrangements: with family Additional living arrangements comments: With Spiritual care concerns: No Meds Home Medications and Allergies Home Medications ?Medication ?Instructions ?Recorded ?Confirmed ?Type clopidogrel 75 mg tablet (Plavix) 75 mg PO DAILY 12/28/19 02/26/25 History pantoprazole 40 mg tablet,delayed 40 mg PO QAM 12/28/19 02/26/25 History release (Protonix) famotidine 40 mg tablet 40 mg PO HS 07/06/20 02/26/25 History olmesartan 40 mg tablet (Benicar) 40 mg PO QPM 08/28/20 02/27/25 History nitroglycerin 0.3 mg sublingual 4 mg sublingual Q5M PRN Chest Pain 05/21/21 02/26/25 History tablet metoprolol succinate 50 mg 50 mg PO DAILY 01/09/23 02/26/25 History tablet,extended release 24 hr dicyclomine 10 mg capsule 10 mg PO BID PRN abdominal pain 02/17/25 02/26/25 Rx #60 caps amlodipine 10 mg tablet 10 mg PO QPM 02/27/25 02/27/25 History atorvastatin 20 mg tablet 40 mg PO QPM 02/27/25 02/27/25 History isosorbide mononitrate 30 mg 30 mg PO QAM 02/27/25 02/27/25 History tablet,extended release 24 hr Allergies Allergy/AdvReac Type Severity Reaction Status Date / Time chocolate Allergy Severe Difficulty Verified 02/26/25 18:09 Breathing egg Allergy Severe DIFFICULTY Verified 02/26/25 18:09 BEATHING iohexol (From contrast - CT, Allergy Severe Hives Verified 02/26/25 18:09 X-RAY) azithromycin Allergy Mild RASH Verified 02/26/25 18:09 erythromycin base Allergy Mild RASH,HIVES Verified 02/26/25 18:09 Penicillins Allergy Mild RASH Verified 02/26/25 18:09 Sulfa (Sulfonamide Allergy Mild RASH Verified 02/26/25 18:09 Antibiotics) trimethoprim Allergy Mild RASH Verified 02/26/25 18:09 sulfite Allergy Unknown Anaphylaxis Verified 02/26/25 18:09 trazodone Allergy Anaphylaxis Verified 02/26/25 18:09 Vital Signs Vital Signs - 24 hr 02/26/25 17:48 02/26/25 18:07 02/26/25 18:07 Temperature 36.7 C Pulse Rate 75 76 Respiratory Rate 18 21 H Blood Pressure 115/61 115/61 Pulse Oximetry 99 99 99 Oxygen Delivery Room Air Room Air 02/26/25 18:32 02/26/25 20:39 02/26/25 20:42 Temperature Pulse Rate 69 70 67 Respiratory Rate 16 16 Blood Pressure 104/54 L 114/55 L Pulse Oximetry 98 96 Oxygen Delivery 02/26/25 22:14 02/27/25 00:49 02/27/25 01:55 Temperature 36.7 C Pulse Rate 74 70 88 Respiratory Rate 14 17 16 Blood Pressure 123/63 138/70 138/68 Pulse Oximetry 97 95 98 Oxygen Delivery 02/27/25 02:00 02/27/25 02:16 02/27/25 04:00 Temperature 36.8 C Pulse Rate 58 L 70 69 Respiratory Rate 17 15 Blood Pressure 138/70 105/41 L Pulse Oximetry 95 97 Oxygen Delivery 02/27/25 04:00 02/27/25 06:00 02/27/25 08:00 Temperature 36.4 C L Pulse Rate 65 76 76 Respiratory Rate 14 Blood Pressure 114/63 Pulse Oximetry 97 Oxygen Delivery Exam 2 Narrative: Awake alert oriented appears stated age Const: General: comfortable and no acute distress HENMT: Ears: TM's normal bilaterally Face/Nose/Sinus: Normal nares present Eyes: General: appearance normal, both eyes and all related structures S clera: sclerae normal Neck: Neck: supple and no JVD Chest: Other: No reproducible chest wall pain to palpation Resp: Effort & Inspection: normal respiratory effort Auscultation: clear to auscultation bilaterally Cardio: Rate: regular rate Rhythm: regular rhythm Heart sounds: no murmurs GI: Inspection: non-distended GI Palp: Yes Soft to palpation A uscultation: normal bowel sounds Skin: General skin exam: normal color Neuro: Speech: normal speech Sensory Exam: normal sensation Extrem: General: normal to inspection Psych: Mental Status: mental status grossly normal Results Labs and Meds 02/27/25 06:45 02/26/25 17:58 Lab results: Cardiac Enzymes 02/26/25 02/26/25 02/27/25 Range/Units 17:58 21:30 00:44 AST 19 (14-36) U/L Troponin I < 0.012 < 0.012 < 0.012 (0.000-0.034) ng/mL Coagulation 02/26/25 02/27/25 02/27/25 Range/Units 17:58 00:44 06:45 PT 12.9 13.3 (11.1-14.7) Seconds APTT 26.2 24.5 130.3 H (22.3-36.8) Seconds CBC 02/26/25 02/27/25 02/27/25 Range/Units 17:58 00:44 06:45 WBC 10.1 H 8.6 6.6 (4.5-10.0) K/mm3 RBC 4.46 4.23 4.46 (4.2-5.4) M/mm3 Hgb 13.3 12.3 13.1 (12.0-15.0) g/dL Hct 40.4 37.5 40.4 (37.0-47.0) % Plt Count 254 219 222 (150-375) k/mm3 Lymph # (Auto) 2.72 1.41 1.73 (0.9-3.2) K/mm3 [place] # (Auto) 0.8 H 0.7 H 0.5 (0.1-0.6) K/mm3 Eos # (Auto) 0.1 0.1 0.0 (0-0.3) K/mm3 Baso # (Auto) 0.0 0.0 0.0 (0.0-0.1) K/mm3 Comprehensive Metabolic Panel 02/26/25 Range/Units 17:58 Sodium 139 (137-145) mmol/L Potassium 4.2 (3.4-5.0) mmol/L Chloride 102 (98-107) mmol/L Carbon Dioxide 24 (22-30) mmol/L BUN 14 (7-17) mg/dL Creatinine 0.88 (0.7-1.0) mg/dL Glucose 136 H (65-110) mg/dL Calcium 9.7 (8.4-10.2) mg/dL AST 19 (14-36) U/L ALT 20 (6-35) U/L Alkaline Phosphatase 143 H (38-126) U/L Total Protein 7.0 (6.3-8.2) g/dL Albumin 4.5 (3.5-5.1) g/dL Intake and Output 02/26/25 02/27/25 02/27/25 23:59 07:59 15:59 Intake Total 53.1 Balance 53.1 Intake: IV 53.1 Heparin Sod/D5w 100 Units/ml 25 53.1 ,000 units In 250 ml @ 800 UNITS/HR 8 mls/hr IV CONT .Q24H [facility] Rx#:[id number] Other: # Unmeasured Voids 1 Patient Weight 02/27/25 23:59 Weight 71.6 kg EKG personally reviewed and independently interpreted showing normal sinus rhythm, right bundle-branch block. Abnormal ECG
[2025-02-27 11:38] LABS: Magnesium 2.2 mg/dL (1.6-2.3)
[2025-02-27 13:49] LABS: Partial Thromboplastin Time 50.3 Seconds (22.3-36.8)
[2025-02-27] MEDS: NITROGLYCERIN SL 0.4 MG TABLET SUBLINGUAL (14:32)
--- NOTE | 2025-02-27 14:51 | ECG_ITS ---
Test Date: 2025-02-27 14:51:58 Measurements Intervals [place] Rate: 75 P: 67 KS: 183 QRS: 40 QRSD: 158 T: -12 QT: 419 QTc: 469 Interpretive Statements SINUS RHYTHM WITH OCCASIONAL VENTRICULAR PREMATURE COMPLEXES INDETERMINATE AXIS RIGHT BUNDLE BRANCH BLOCK [120+ ms QRS DURATION, UPRIGHT V1, 40+ ms S IN I/aVL/V4/V5/V6] Inferior T-wave, consider ischemia ABNORMAL ECG Electronically Signed On 02-28-2025 13:57:33 CDT by Don Rhodes M.D.
[2025-02-27] MEDS: BELLADONNA ALK/PHENOB ELIX 10 ML, MAG HYDROX/ALUMINUM HYD/SIMETH 30 ML, LIDOCAINE 2% VI... PO (14:56)
[2025-02-27 15:27] LABS: Troponin I < 0.012 ng/mL (0.000-0.034)
--- NOTE | 2025-02-27 16:03 | PC.NURSE ---
At approximately 1441 patient had 8 beats of vtach. Upon entering room, she appeared diaphoretic and flush. Patient stated she felt as if she had bad acid reflux VSS. STAT EKG obtained. Destaticizer Feeder notified. New orders for sublingual nitro to be given along with 1inch nitro paste q6prn. Nitro given per order. Patient then began to complain of chest tightness and appeared diaphoretic again. Destaticizer Feeder notified again. New orders for troponin to be drawn, obtain EKG and GI cocktail to be given. Patient then began to complain of chest pressure that felt like something was sitting across her chest vitals remained stable. Physician at bedside to assess patient.
--- NOTE | 2025-02-27 17:21 | P.SEDATION_ITS ---
Moderate Sedation Note-Pt Data Patient Data Allergies Allergy/AdvReac Type Severity Reaction Status Date / Time chocolate Allergy Severe Difficulty Verified 02/26/25 18:09 Breathing egg Allergy Severe DIFFICULTY Verified 02/26/25 18:09 BEATHING iohexol (From contrast - CT, Allergy Severe Hives Verified 02/26/25 18:09 X-RAY) azithromycin Allergy Mild RASH Verified 02/26/25 18:09 erythromycin base Allergy Mild RASH,HIVES Verified 02/26/25 18:09 Penicillins Allergy Mild RASH Verified 02/26/25 18:09 Sulfa (Sulfonamide Allergy Mild RASH Verified 02/26/25 18:09 Antibiotics) trimethoprim Allergy Mild RASH Verified 02/26/25 18:09 sulfite Allergy Unknown Anaphylaxis Verified 02/26/25 18:09 trazodone Allergy Anaphylaxis Verified 02/26/25 18:09 Home Medications ?Medication ?Instructions ?Recorded ?Confirmed ?Type clopidogrel 75 mg tablet (Plavix) 75 mg PO DAILY 12/28/19 02/26/25 History pantoprazole 40 mg tablet,delayed 40 mg PO QAM 12/28/19 02/26/25 History release (Protonix) famotidine 40 mg tablet 40 mg PO HS 07/06/20 02/26/25 History olmesartan 40 mg tablet (Benicar) 40 mg PO QPM 08/28/20 02/27/25 History nitroglycerin 0.3 mg sublingual 4 mg sublingual Q5M PRN Chest Pain 05/21/21 02/26/25 History tablet metoprolol succinate 50 mg 50 mg PO DAILY 01/09/23 02/26/25 History tablet,extended release 24 hr dicyclomine 10 mg capsule 10 mg PO BID PRN abdominal pain 02/17/25 02/26/25 Rx #60 caps amlodipine 10 mg tablet 10 mg PO QPM 02/27/25 02/27/25 History atorvastatin 20 mg tablet 40 mg PO QPM 02/27/25 02/27/25 History isosorbide mononitrate 30 mg 30 mg PO QAM 02/27/25 02/27/25 History tablet,extended release 24 hr Current Medications: Active Medications Acetaminophen (Acetaminophen 325 Mg Tablet) 650 mg PO Q4H PRN PRN Reason: Mild Pain (1-3) or Fever Amlodipine Besylate (Amlodipine Besylate 10 Mg Tablet) 10 mg PO QPM [facility] Atorvastatin Calcium (Atorvastatin 40 Mg Tablet) 40 mg PO QPM [facility] Clopidogrel Bisulfate (Clopidogrel Bisulfate 75 Mg Tablet) 75 mg PO DAILY [facility] Last Admin: 02/27/25 10:00 Dose: 75 mg Dicyclomine HCl (Dicyclomine Hcl 10 Mg Capsule) 10 mg PO BID PRN PRN Reason: abdominal pain Famotidine (Famotidine 20 Mg Tablet) 40 mg PO HS [facility] Heparin Sodium (Porcine) (Heparin Sodium 5,000 Units/Ml Vial) 4,000 units IV PUSH PRN PRN PRN Reason: aPTT less than 55 seconds Last Admin: 02/27/25 14:00 Dose: 4,000 units Heparin Sodium (Porcine) (Heparin Sodium 5,000 Units/Ml Vial) 2,500 units IV PUSH PRN PRN PRN Reason: aPTT 55 - 70 seconds Heparin Sodium/Dextrose (Heparin Sodium/D5w 100 Units/Ml) 25,000 units in 250 mls @ 10 mls/hr IV CONT .Q24H [facility]; Protocol Last Titration: 02/27/25 14:01 Dose: 1,000 units/hr, 10 mls/hr Sodium Chloride (Normal Saline Iv) 1,000 mls @ 125 mls/hr IV CONT .Q8H ONE Stop: 02/28/25 01:19 Isosorbide Mononitrate (Isosorbide Mononitrate 30 Mg Tab.Er.24h) 30 mg PO [facility] Last Admin: 02/27/25 10:00 Dose: 30 mg Metoprolol Succinate (Metoprolol Succinate Ext Rel 50 Mg Tabcr) 50 mg PO DAILY [facility] Last Admin: 02/27/25 10:01 Dose: 50 mg Morphine Sulfate (Morphine Sulfate (*Crx) 2 Mg/Ml Inj) 2 mg IV PUSH Q4H PRN PRN Reason: Pain Rated 7-10 Nitroglycerin (Nitroglycerin Ointment 1 Inch Dose) 1 inch TRANSDERM Q6HR PRN PRN Reason: Chest Pain Olmesartan (Olmesartan Medoxomil 20 Mg Tablet) 40 mg PO QPM [facility] Ondansetron HCl (Ondansetron Inj 4 Mg/2 Ml Vial) 4 mg IV PUSH Q6H PRN PRN Reason: Nausea And Vomiting Pantoprazole Sodium (Pantoprazole 40 Mg Tablet) 40 mg PO QAM [facility] Last Admin: 02/27/25 10:00 Dose: 40 mg Sedation/Anesthesia: No previous sedation/anesthesia problems (including family history). [facility] Past Medical History Medical History History of adenomatous polyp of colon CAD (coronary artery disease) Allergies Recurrent urinary tract infection Migraines Hypertension Pre-diabetes History of basal cell cancer Irritable bowel Stroke Mitral valve disorder Hyperlipidemia Acid reflux Surgical History Surgical History History of coronary artery stent placement x1 2017 History of cholecystectomy H/O: hysterectomy History of removal of cyst H/O dilation and curettage H/O angioplasty History of cryosurgery Cervical Family History Family History Sibling Breast cancer Hypertension Hyperlipidemia Mother Diabetes mellitus Hypertension Heart disease Father Heart disease Grandparent Diabetes mellitus Social History Social History Smoking status: Never smoker Second hand tobacco smoke exposure: No Alcohol intake: never Substance use: never Substance use type: does not use Do You Feel Safe in your Home?: Yes Lack of Transportation: No Lack of Food: Never True Current Housing: I Have Housing Concerned About Future Housing: No Difficulty Paying Gas/Electric Bills: No Difficulty Paying for Meds: No Currently Unemployed: No Education: High School Diploma/GED Difficulty w/ Childcare or Family Care: No Living arrangements: with family Additional living arrangements comments: With Spiritual care concerns: No Mod Sed Physical Exam Physical Exam Pre Procedural Exam: Normal: Lungs, Heart Rate and Heart Rhythm Hours since solid foods: 8 Hours since liquid intake: 8 Mallampati Classification: class II Internal Medicine - PN: Obj Da Vital Signs Vital Signs: Vital Signs - 24 hr 02/26/25 17:48 02/26/25 18:07 02/26/25 18:07 Temperature 36.7 C Pulse Rate 75 76 Respiratory Rate 18 21 H Blood Pressure 115/61 115/61 Pulse Oximetry 99 99 99 Oxygen Delivery Room Air Room Air 02/26/25 18:32 02/26/25 20:39 02/26/25 20:42 Temperature Pulse Rate 69 70 67 Respiratory Rate 16 16 Blood Pressure 104/54 L 114/55 L Pulse Oximetry 98 96 Oxygen Delivery 02/26/25 22:14 02/27/25 00:49 02/27/25 01:55 Temperature 36.7 C Pulse Rate 74 70 88 Respiratory Rate 14 17 16 Blood Pressure 123/63 138/70 138/68 Pulse Oximetry 97 95 98 Oxygen Delivery 02/27/25 02:00 02/27/25 02:16 02/27/25 04:00 Temperature 36.8 C Pulse Rate 58 L 70 69 Respiratory Rate 17 15 Blood Pressure 138/70 105/41 L Pulse Oximetry 95 97 Oxygen Delivery 02/27/25 04:00 02/27/25 06:00 02/27/25 08:00 Temperature 36.4 C L Pulse Rate 65 76 76 Respiratory Rate 14 Blood Pressure 114/63 Pulse Oximetry 97 Oxygen Delivery 02/27/25 08:00 02/27/25 08:00 02/27/25 10:00 Temperature Pulse Rate 71 96 Respiratory Rate Blood Pressure Pulse Oximetry Oxygen Delivery Room Air 02/27/25 11:58 02/27/25 12:00 02/27/25 12:00 Temperature 36.7 C Pulse Rate 101 H 102 H Respiratory Rate 16 Blood Pressure 124/71 Pulse Oximetry 97 Oxygen Delivery Room Air 02/27/25 14:00 02/27/25 16:00 02/27/25 16:00 Temperature 36.6 C Pulse Rate 104 H 75 91 Respiratory Rate 14 Blood Pressure 115/49 L Pulse Oximetry 96 Oxygen Delivery 02/27/25 16:00 Temperature Pulse Rate Respiratory Rate Blood Pressure Pulse Oximetry Oxygen Delivery Room Air Intake/Output Intake/Output: Intake & Output 02/24/25 02/25/25 02/26/25 02/27/25 23:59 23:59 23:59 23:59 Intake Total 99.9 Balance 99.9 Meds/Results Medications: Active Medications Generic Name Dose Route Start Last Admin Trade Name Freq PRN Reason Stop Dose Admin Acetaminophen 650 mg 02/27/25 10:03 Acetaminophen 325 Mg Tablet PO Q4H PRN Mild Pain (1-3) or Fever Amlodipine Besylate 10 mg 02/27/25 18:00 Amlodipine Besylate 10 Mg Tablet PO QPM [facility] Atorvastatin Calcium 40 mg 02/27/25 18:00 Atorvastatin 40 Mg Tablet PO QPM [facility] Clopidogrel Bisulfate 75 mg 02/27/25 09:00 02/27/25 10:00 Clopidogrel Bisulfate 75 Mg Tablet PO 75 mg DAILY [facility] Administration Dicyclomine HCl 10 mg 02/27/25 05:10 Dicyclomine Hcl 10 Mg Capsule PO BID PRN abdominal pain Famotidine 40 mg 02/27/25 21:00 Famotidine 20 Mg Tablet PO HS [facility] Heparin Sodium (Porcine) 4,000 units 02/26/25 23:18 02/27/25 14:00 Heparin Sodium 5,000 Units/Ml Vial IV PUSH 4,000 units PRN PRN Administration aPTT less than 55 seconds Heparin Sodium (Porcine) 2,500 units 02/26/25 23:18 Heparin Sodium 5,000 Units/Ml Vial IV PUSH PRN PRN aPTT 55 - 70 seconds Heparin Sodium/Dextrose 25,000 units in 250 mls @ 10 mls/hr 02/26/25 23:20 02/27/25 14:01 Heparin Sodium/D5w 100 Units/Ml IV CONT 1,000 units/hr .Q24H [facility] 10 mls/hr Titration Protocol 1,000 UNITS/HR Sodium Chloride 1,000 mls @ 125 mls/hr 02/27/25 17:20 Normal Saline Iv IV CONT 02/28/25 01:19 .Q8H ONE Isosorbide Mononitrate 30 mg 02/27/25 09:00 02/27/25 10:00 Isosorbide Mononitrate 30 Mg Tab.Er.24h PO 30 mg QAM [facility] Administration Metoprolol Succinate 50 mg 02/27/25 09:00 02/27/25 10:01 Metoprolol Succinate Ext Rel 50 Mg Tabcr PO 50 mg DAILY [facility] Administration Morphine Sulfate 2 mg 02/27/25 10:03 Morphine Sulfate (*Crx) 2 Mg/Ml Inj IV PUSH Q4H PRN Pain Rated 7-10 Nitroglycerin 1 inch 02/27/25 14:23 Nitroglycerin Ointment 1 Inch Dose TRANSDERM Q6HR PRN Chest Pain Olmesartan 40 mg 02/27/25 18:00 Olmesartan Medoxomil 20 Mg Tablet PO QPM [facility] Ondansetron HCl 4 mg 02/27/25 10:03 Ondansetron Inj 4 Mg/2 Ml Vial IV PUSH Q6H PRN Nausea And Vomiting Pantoprazole Sodium 40 mg 02/27/25 09:00 02/27/25 10:00 Pantoprazole 40 Mg Tablet PO 40 mg QAM [facility] Administration Radiology Results: ITS Impressions Chest X-Ray 02/26/25 19:55 IMPRESSION: No focal infiltrate or effusion. Labs 02/27/25 06:45 02/26/25 17:58 Labs: Laboratory Results - last 24 hr 02/26/25 02/26/25 02/26/25 17:58 18:03 21:30 WBC 10.1 H RBC 4.46 Hgb 13.3 Hct 40.4 MCV 90.6 MCH 29.8 MCHC 32.9 RDW 13.1 Plt Count 254 MPV 9.5 Immature Gran % (Auto) 0.6 H Neut % (Auto) 63.5 Lymph % (Auto) 27.0 [place] % (Auto) 7.7 Eos % (Auto) 0.8 Baso % (Auto) 0.4 Lymph # (Auto) 2.72 [place] # (Auto) 0.8 H Eos # (Auto) 0.1 Baso # (Auto) 0.0 Abs Immat Gran (auto) 0.06 H Absolute Neuts (auto) 6.4 Absolute Nucleated RBC 0.000 Nucleated RBC % 0.0 PT 12.9 INR 0.9 APTT 26.2 Sodium 139 Potassium 4.2 Chloride 102 Carbon Dioxide 24 Anion Gap 13 H BUN 14 Creatinine 0.88 Estim Creat Clear Calc 48 Estimated GFR > 60 Glucose 136 H Calcium 9.7 Magnesium Total Bilirubin 0.6 AST 19 ALT 20 Alkaline Phosphatase 143 H Troponin I < 0.012 < 0.012 Total Protein 7.0 Albumin 4.5 Lipase 50 Influenza A (RT-PCR) Negative Influenza B (RT-PCR) Negative RSV (RT-PCR) Negative SARS-CoV-2 RNA (RT-PCR) Negative 02/27/25 02/27/25 02/27/25 00:44 06:38 06:45 WBC 8.6 6.6 RBC 4.23 4.46 Hgb 12.3 13.1 Hct 37.5 40.4 MCV 88.7 90.6 MCH 29.1 29.4 MCHC 32.8 32.4 RDW 13.2 13.2 Plt Count 219 222 MPV 9.8 9.4 Immature Gran % (Auto) 0.7 H 0.6 H Neut % (Auto) 73.5 H 64.6 Lymph % (Auto) 16.4 L 26.3 [place] % (Auto) 8.5 7.3 Eos % (Auto) 0.6 0.6 Baso % (Auto) 0.3 0.6 Lymph # (Auto) 1.41 1.73 [place] # (Auto) 0.7 H 0.5 Eos # (Auto) 0.1 0.0 Baso # (Auto) 0.0 0.0 Abs Immat Gran (auto) 0.06 H 0.04 H Absolute Neuts (auto) 6.3 4.2 Absolute Nucleated RBC 0.000 0.000 Nucleated RBC % 0.0 0.0 PT 13.3 INR 1.0 APTT 24.5 130.3 H Sodium Potassium Chloride Carbon Dioxide Anion Gap BUN Creatinine Estim Creat Clear Calc Estimated GFR Glucose Calcium Magnesium 2.2 Total Bilirubin AST ALT Alkaline Phosphatase Troponin I < 0.012 Total Protein Albumin Lipase Influenza A (RT-PCR) Influenza B (RT-PCR) RSV (RT-PCR) SARS-CoV-2 RNA (RT-PCR) 02/27/25 02/27/25 13:16 14:57 WBC RBC Hgb Hct MCV MCH MCHC RDW Plt Count MPV Immature Gran % (Auto) Neut % (Auto) Lymph % (Auto) [place] % (Auto) Eos % (Auto) Baso % (Auto) Lymph # (Auto) [place] # (Auto) Eos # (Auto) Baso # (Auto) Abs Immat Gran (auto) Absolute Neuts (auto) Absolute Nucleated RBC Nucleated RBC % PT INR APTT 50.3 H Sodium Potassium Chloride Carbon Dioxide Anion Gap BUN Creatinine Estim Creat Clear Calc Estimated GFR Glucose Calcium Magnesium Total Bilirubin AST ALT Alkaline Phosphatase Troponin I < 0.012 Total Protein Albumin Lipase Influenza A (RT-PCR) Influenza B (RT-PCR) RSV (RT-PCR) SARS-CoV-2 RNA (RT-PCR) ASA Classification/Sedation ASA Classification/Sedation ASA Class: III Emergent: No Risks: Risks, benefits and alternatives explained and patient/family accepted plan for sedation. Patient re-evaluated immediately prior to sedation.
--- NOTE | 2025-02-27 17:21 | WPDHPUPDATE1 ---
History and Physical Update Update Date/Time: 02/27/25 16:51 History and Physical has been reviewed, including an updated exam of the patient. There are NO changes in the patient's condition. Risks, benefits, and alternatives have been discussed and questions answered. Patient agrees to proceed with procedure.
--- NOTE | 2025-02-27 17:22 | P.PCNCC_ITS ---
Cardiac Cath Procedure Note Date of procedure:: 02/27/25 Performing physician:: CATHETERIZATION LABORATORY REPORT Procedure Date: 02/27/2025 Referring Physician: Dr. Rhodes Anesthesia: Versed and Fentanyl were ordered and given in my presence at 1650, procedure ended at 1706. Supervision of nurse, Pako Saavedra monitored moderate sedation with 2mg Versed and 100mcg Fentanyl was provided for 16 minutes. Pre-op Diagnosis: Unstable angina Post-op Diagnosis: Stable angina Procedure(s): Left heart catheterization with coronary angiography Access Site: Right common femoral artery Brief History and Clinical Indications: 75-year-old woman with CAD status post PCI to LAD with recent abnormal nuclear stress test in the apex suggestive of ischemia presented to the emergency room with chest discomfort whose clinical presentation was concerning for unstable angina for which she was urgently brought to the cardiac catheterization laboratory to define her coronary anatomy with possible PCI. All risks, benefits and alternatives to left heart catheterization with or without percutaneous coronary intervention was discussed at length with the patient. Risk of complications including but not limited to bleeding, infection, arrhythmia, stroke, worsening kidney function, blood loss, groin hematoma, limb loss, emergency coronary artery bypass grafting, and even were discussed with the patient and all questions were answered. The patient understood and wished to proceed. Time out called, patient name, date of , medical record number, allergies, procedure performed, identify Fish And Wildlife Technician, patient and staff member concurred with accurate data, procedure carried on. Findings: LEFT HEART CATHETERIZATION FINDINGS: 1. Left main: The left main coronary artery is widely patent without any significant obstructive disease. 2. Left anterior descending: The LAD gives off 2 main diagonal branches. The LAD in its mid body has patent stent and the remainder of the vessel has luminal irregularities. The ostium of the 1st diagonal branch has calcific 30-40% stenosis. 3. Left circumflex: The left circumflex artery is a moderate caliber vessel that supplies 1 OM branch. This system is angiographically free of disease. 4. Right coronary artery: The RCA is a large dominant vessel with a RPDA branch that reaches the apex. The mid body of the RCA has diffuse 10-20% stenosis. The remainder of the vessel and its branches have luminal irregularities. 5. Left ventricle: A. End-diastolic pressure 8 mmHg. B. LV gram deferred. C. No significant gradient across aortic valve on catheter pullback. 6. Opening AO pressure 129/57 and closing AO pressure 133/55 7. Right iliofemoral angiogram: The visualized portions of the right common femoral artery, right SFA, right profundus, right external iliac artery, and right internal iliac artery are angiographically free of high-grade stenosis. The access site is immediately above the bifurcation in the common femoral artery the patient has a low inferior epigastric artery takeoff however the puncture site is between the bifurcation and the inferior epigastric artery. Description of Procedure: Informed consent signed and placed in the chart. Patient transferred to field laboratory operator room. Prepped and draped in usual sterile fashion. 2% lidocaine in right groin area. Micropuncture needle used to access right common femoral artery with Seldinger technique under fluoroscopic guidance. J wire advanced, micropuncture cannula placed. Right iliofemoral angiogram performed, access confirmed and micropuncture cannula exchanged for 6-FR sheath. 5F JL4 diagnostic catheter engaged Left Main Coronary Artery. 5F JR4 diagnostic catheter engaged Right Coronary Artery. Multiple orthogonal angiogram obtained and reviewed 5F Pigtail diagnostic catheter crossed aortic valve to obtain LVEDP, LV angiogram deferred. Hemostasis was achieved by manual pressure. Assessment: Mild coronary artery disease. Post Operative Condition: Stable No significant blood loss Disposition: Floor Plan: Continue Plavix 75 mg p.o. daily, atorvastatin 40 mg every evening, amlodipine 10 mg p.o. daily, metoprolol succinate 50 mg daily, and olmesartan 40 mg p.o. daily Can continue Imdur 30 mg p.o. daily Monitor overnight if no acute issues and feeling better, patient can be discharged to follow-up with her outpatient field marketing associate. Sam Rubio Interventional Cardiology
[2025-02-27 18:05] LABS: Hemoglobin A1C 6.3 % (<5.7)
[2025-02-27] MEDS: SODIUM CHLORIDE 0.9% IV 1,000 ML 125 ML IV CONT (18:43)
[2025-02-27] MEDS: ATORVASTATIN 40 MG TABLET PO (18:44)
[2025-02-27] MEDS: OLMESARTAN MEDOXOMIL 20 MG TABLET 40 MG PO (18:44)
[2025-02-27] MEDS: amLODIPine BESYLATE 10 MG TABLET PO (18:44)
[2025-02-27] MEDS: FAMOTIDINE 20 MG TABLET 40 MG PO (20:52)
[2025-02-28] VITALS (12 sets, daily range): BP systolic 111–142; BP diastolic 45–64; PULSE 58–103; RESP 14–16; TEMP 36.5–36.7; O2SAT 97–100
[2025-02-28 04:44] LABS: Hemoglobin 12.4 g/dL (12.0-15.0); Immature Granulocyte Absolute 0.05 K/mm3 (0.00-0.031); Immature Granulocyte Percent A 0.8 % (0-0.5); Lymphocytes Absolute Auto 0.71 K/mm3 (0.9-3.2); Lymphocytes Percent Auto 10.9 % (18.3-44.2); Mean Corpuscular HGB Conc 31.8 g/dl (32-36); Mean Corpuscular Hemoglobin 28.8 pg (26-34); Mean Corpuscular Volume 90.7 fl (80-100); Mean Platelet Volume 9.5 fl (7.4-10.4); Monocytes Absolute Auto 0.1 K/mm3 (0.1-0.6); Monocytes Percent Auto 1.8 % (2.6-8.5); Neutrophils Absolute Auto 5.6 K/mm3 (1.3-6.7); Neutrophils Percent Auto 86.5 % (45.5-73.1); Platelet Count Result 237 k/mm3 (150-375); Red Cell Distribution Width 13.2 % (11.5-14.5); White Blood Count 6.5 K/mm3 (4.5-10.0)
[2025-02-28 05:17] LABS: Alanine Aminotransferase 18 U/L (6-35); Alkaline Phosphatase 100 U/L (38-126); Anion Gap 11 mmol/L (4-12); Aspartate Amino Transferase 18 U/L (14-36); Bilirubin,Total 0.5 mg/dL (0.2-1.3); Blood Urea Nitrogen 13 mg/dL (7-17); Calcium 9.7 mg/dL (8.4-10.2); Carbon Dioxide 24 mmol/L (22-30); Chloride 107 mmol/L (98-107); Estimated CRCL calculation 50 ml/min; Estimated Glomerular Filt Rate > 60; Glucose 166 mg/dL (65-110); Potassium 5.3 mmol/L (3.4-5.0); Sodium 142 mmol/L (137-145)
[2025-02-28] MEDS: METOPROLOL SUCCINATE EXT REL 50 MG TABCR PO (08:06)
[2025-02-28] MEDS: PANTOPRAZOLE 40 MG TABLET PO (08:07)
[2025-02-28] MEDS: ISOSORBIDE MONONITRATE 30 MG TAB.ER.24H PO (08:07)
[2025-02-28] MEDS: CLOPIDOGREL BISULFATE 75 MG TABLET PO (08:07)
[2025-02-28] MEDS: SODIUM ZIRCONIUM CYCLOSILICATE 10 GM POWD.PACK PO (10:33)
--- NOTE | 2025-02-28 12:42 | P.PNCA_ITS ---
Progress Note: A&P Assessment and Plan (1) Hypertension: Code(s): I10 - Essential (primary) hypertension Status: Acute (2) CAD (coronary artery disease): Code(s): I25.10 - Atherosclerotic heart disease of [place] coronary artery without angina pectoris Status: Acute (3) Chest pain: Code(s): R07.9 - Chest pain, unspecified Status: Acute (4) Hyperlipidemia: Code(s): E78.5 - Hyperlipidemia, unspecified Status: Acute Plan 75-year-old woman with CAD status post PCI presented with chest discomfort concerning for unstable angina Chest pain -no significant coronary artery disease on cardiac catheterization -can continued isosorbide mononitrate 30 mg p.o. daily for now to be re- evaluated outpatient -overall resolve and can be discharged follow-up with Dr. Sheridan outpatient Coronary artery disease status post PCI -continue Plavix 75 mg p.o. daily -continue metoprolol succinate 50 mg p.o. daily Hypertension -continue amlodipine 10 mg p.o. daily Hyperlipidemia -continue atorvastatin 40 mg every evening PVCs -continue beta-everette and outpatient evaluation Patient can be discharged from cardiac perspective to follow up with Dr. Sheridan in clinic Subjective Date/time seen: 02/28/25 12:42 Interval history: She feels well today with no complaints. No chest pain. Review of Systems Cardiovascular: Cardiovascular: Reports as per HPI Respiratory: Respiratory: Reports as per HPI Exam Const: General: comfortable HENMT: Mouth: Yes moist mucous membranes Eyes: EOM: EOMs intact bilaterally Neck: Neck: no JVD Resp: Effort & Inspection: normal respiratory effort Auscultation: clear to auscultation bilaterally Cardio: Rate: regular rate Rhythm: regular rhythm GI: GI Palp: Yes Soft to palpation Extrem: General: no pedal edema Objective Data Vital Signs Vital Signs: Vital Signs - 24 hr 02/27/25 14:00 02/27/25 16:00 02/27/25 16:00 Temperature 36.6 C Pulse Rate 104 H 75 91 Pulse Rate [Right Pedal (Dorsalis Pedis) Palpation] Respiratory Rate 14 Blood Pressure 115/49 L Pulse Oximetry 96 Oxygen Delivery 02/27/25 16:00 02/27/25 17:50 02/27/25 17:50 Temperature Pulse Rate 74 74 Pulse Rate [Right Pedal (Dorsalis Pedis) Palpation] Respiratory Rate 12 12 Blood Pressure 114/59 L 114/59 L Pulse Oximetry 95 95 Oxygen Delivery Room Air 02/27/25 18:00 02/27/25 18:00 02/27/25 18:05 Temperature Pulse Rate 74 76 71 Pulse Rate [Right Pedal (Dorsalis Pedis) Palpation] Respiratory Rate 14 14 Blood Pressure 116/59 L 118/59 L Pulse Oximetry 96 94 Oxygen Delivery 02/27/25 18:15 02/27/25 18:30 02/27/25 18:45 Temperature Pulse Rate 73 71 70 Pulse Rate [Right Pedal (Dorsalis Pedis) Palpation] Respiratory Rate 12 12 15 Blood Pressure 121/63 119/59 L 123/63 Pulse Oximetry 96 97 95 Oxygen Delivery 02/27/25 19:11 02/27/25 19:20 02/27/25 20:00 Temperature 36.3 C L 36.3 C L Pulse Rate 73 73 66 Pulse Rate [Right Pedal (Dorsalis Pedis) Palpation] 73 Respiratory Rate 14 14 16 Blood Pressure 119/55 L 119/55 L Pulse Oximetry 99 99 97 Oxygen Delivery Room Air 02/27/25 20:00 02/27/25 20:20 02/27/25 21:00 Temperature 36.7 C 36.8 C Pulse Rate 66 71 93 Pulse Rate [Right Pedal (Dorsalis Pedis) Palpation] Respiratory Rate 16 16 Blood Pressure 115/53 L 109/59 L Pulse Oximetry 95 97 Oxygen Delivery 02/27/25 21:56 02/27/25 22:00 02/27/25 23:00 Temperature 36.7 C 36.7 C Pulse Rate 75 82 81 Pulse Rate [Right Pedal (Dorsalis Pedis) Palpation] Respiratory Rate 14 14 Blood Pressure 113/54 L 126/58 L Pulse Oximetry 95 95 Oxygen Delivery 02/28/25 00:00 02/28/25 00:00 02/28/25 00:00 Temperature 36.7 C Pulse Rate 70 75 75 Pulse Rate [Right Pedal (Dorsalis Pedis) Palpation] Respiratory Rate 14 14 Blood Pressure 117/45 L Pulse Oximetry 97 97 Oxygen Delivery Room Air 02/28/25 02:00 02/28/25 04:00 02/28/25 04:00 Temperature 36.5 C Pulse Rate 62 58 L 58 L Pulse Rate [Right Pedal (Dorsalis Pedis) Palpation] Respiratory Rate 14 14 Blood Pressure 111/46 L Pulse Oximetry 97 97 Oxygen Delivery Room Air 02/28/25 04:00 02/28/25 06:00 02/28/25 07:53 Temperature 36.6 C Pulse Rate 58 L 76 103 H Pulse Rate [Right Pedal (Dorsalis Pedis) Palpation] Respiratory Rate 16 Blood Pressure 142/64 H Pulse Oximetry 100 Oxygen Delivery 02/28/25 08:00 02/28/25 08:06 02/28/25 10:00 Temperature Pulse Rate 79 103 H 75 Pulse Rate [Right Pedal (Dorsalis Pedis) Palpation] Respiratory Rate Blood Pressure Pulse Oximetry Oxygen Delivery 02/28/25 11:00 02/28/25 11:01 02/28/25 11:01 Temperature 36.7 C Pulse Rate 72 82 85 Pulse Rate [Right Pedal (Dorsalis Pedis) Palpation] Respiratory Rate 16 Blood Pressure 123/45 L 131/64 136/64 Pulse Oximetry 97 Oxygen Delivery 02/28/25 11:02 02/28/25 12:00 Temperature 36.7 C Pulse Rate 82 70 Pulse Rate [Right Pedal (Dorsalis Pedis) Palpation] Respiratory Rate 16 Blood Pressure 131/64 Pulse Oximetry 97 Oxygen Delivery Intake/Output Intake/Output: Intake & Output 02/25/25 02/26/25 02/27/25 02/28/25 23:59 23:59 23:59 23:59 Intake Total 339.9 1967 Output Total 500 900 Balance -160.1 1067 Meds/Results Medications: Active Medications Generic Name Dose Route Start Last Admin Trade Name Freq PRN Reason Stop Dose Admin Acetaminophen 650 mg 02/27/25 10:03 Acetaminophen 325 Mg Tablet PO Q4H PRN Mild Pain (1-3) or Fever Amlodipine Besylate 10 mg 02/27/25 18:00 02/27/25 18:44 Amlodipine Besylate 10 Mg Tablet PO 10 mg QPM ERICH Administration Atorvastatin Calcium 40 mg 02/27/25 18:00 02/27/25 18:44 Atorvastatin 40 Mg Tablet PO 40 mg QPM ERICH Administration Clopidogrel Bisulfate 75 mg 02/27/25 09:00 02/28/25 08:07 Clopidogrel Bisulfate 75 Mg Tablet PO 75 mg DAILY ERICH Administration Dicyclomine HCl 10 mg 02/27/25 05:10 Dicyclomine Hcl 10 Mg Capsule PO BID PRN abdominal pain Famotidine 40 mg 02/27/25 21:00 02/27/25 20:52 Famotidine 20 Mg Tablet PO 40 mg HS ERICH Administration Isosorbide Mononitrate 30 mg 02/27/25 09:00 02/28/25 08:07 Isosorbide Mononitrate 30 Mg Tab.Er.24h PO 30 mg QAM ERICH Administration Metoprolol Succinate 50 mg 02/27/25 09:00 02/28/25 08:06 Metoprolol Succinate Ext Rel 50 Mg Tabcr PO 50 mg DAILY ERICH Administration Morphine Sulfate 2 mg 02/27/25 10:03 Morphine Sulfate (*Crx) 2 Mg/Ml Inj IV PUSH Q4H PRN Pain Rated 7-10 Olmesartan 40 mg 02/27/25 18:00 02/27/25 18:44 Olmesartan Medoxomil 20 Mg Tablet PO 40 mg QPM ERICH Administration Ondansetron HCl 4 mg 02/27/25 10:03 Ondansetron Inj 4 Mg/2 Ml Vial IV PUSH Q6H PRN Nausea And Vomiting Pantoprazole Sodium 40 mg 02/27/25 09:00 02/28/25 08:07 Pantoprazole 40 Mg Tablet PO 40 mg QAM ERICH Administration Radiology Results: ITS Impressions Chest X-Ray 02/26/25 19:55 IMPRESSION: No focal infiltrate or effusion. Labs Labs: Laboratory Results - last 24 hr 02/27/25 02/27/25 02/27/25 06:45 13:16 14:57 WBC RBC Hgb Hct MCV MCH MCHC RDW Plt Count MPV Immature Gran % (Auto) Neut % (Auto) Lymph % (Auto) [place] % (Auto) Eos % (Auto) Baso % (Auto) Lymph # (Auto) [place] # (Auto) Eos # (Auto) Baso # (Auto) Abs Immat Gran (auto) Absolute Neuts (auto) Absolute Nucleated RBC Nucleated RBC % APTT 50.3 H Sodium Potassium Chloride Carbon Dioxide Anion Gap BUN Creatinine Estim Creat Clear Calc Estimated GFR Glucose Hemoglobin A1c 6.3 H Calcium Total Bilirubin AST ALT Alkaline Phosphatase Troponin I < 0.012 Total Protein Albumin 02/28/25 04:18 WBC 6.5 RBC 4.30 Hgb 12.4 Hct 39.0 MCV 90.7 MCH 28.8 MCHC 31.8 L RDW 13.2 Plt Count 237 MPV 9.5 Immature Gran % (Auto) 0.8 H Neut % (Auto) 86.5 H Lymph % (Auto) 10.9 L [place] % (Auto) 1.8 L Eos % (Auto) 0.0 Baso % (Auto) 0.0 L Lymph # (Auto) 0.71 L [place] # (Auto) 0.1 Eos # (Auto) 0.0 Baso # (Auto) 0.0 Abs Immat Gran (auto) 0.05 H Absolute Neuts (auto) 5.6 Absolute Nucleated RBC 0.000 Nucleated RBC % 0.0 APTT Sodium 142 Potassium 5.3 H Chloride 107 Carbon Dioxide 24 Anion Gap 11 BUN 13 Creatinine 0.83 Estim Creat Clear Calc 50 Estimated GFR > 60 Glucose 166 H Hemoglobin A1c Calcium 9.7 Total Bilirubin 0.5 AST 18 ALT 18 Alkaline Phosphatase 100 Troponin I Total Protein 7.0 Albumin 4.0
--- NOTE | 2025-02-28 13:27 | P.DS_ITS ---
DS: Admitting Diagnosis Discharge Date 02/28/2025 Admitting Diagnosis Chest Pain DS: Discharge Diagnosis Discharge Diagnosis (1) Chest pain: Code(s): R07.9 - Chest pain, unspecified Status: Acute Assessment and Plan: * LHC showed mild CAD * continue Imdur * Follow-up with Cardiology (2) Unstable angina: Code(s): I20.0 - Unstable angina Status: Acute (3) CAD (coronary artery disease): Code(s): I25.10 - Atherosclerotic heart disease of [place] coronary artery without angina pectoris Status: Acute Assessment and Plan: * Continued Plavix and metoprolol (4) Acid reflux: Code(s): K21.9 - Gastro-esophageal reflux disease without esophagitis Status: Acute (5) Hypertension: Code(s): I10 - Essential (primary) hypertension Status: Acute Assessment and Plan: * Continue amlodipine and metoprolol Plan Disposition: Discharge to home DS: Summary Hospital Course Reason for hospitalization: Chest Pain Hospital Course: Patient is a 75-year-old female who presented to the emergency department with complaints chest pain /chest pressure. patient reports she has had intermittent chest pain for the last week worse with activity and exertion however still present when at rest. Patient states she did have some radiating pain to her left shoulder and lower jaw denied any nausea or vomiting, shortness of breath or diaphoresis with these episodes. 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 patient does have past medical history of CAD and stent to LAD, HTN, CVA, and HLD. patient is troponins x3 negative and EKGs with no ST/ T or significant changes. patient's labs were otherwise unremarkable other than mildly elevated blood sugars chest x-ray with no cardiopulmonary acute findings. patient was then admitted to IMU for further evaluation and treatment of chest pain and started on a heparin GTT for medical management. Patient had an episode of CP at which time it was reported she had sharp pain and became diaphoretic with a run of VTACH. This had been called to Cardiology at which time they recommended patient go to [facility] today rather than waiting until the next morning. LHC showed mild CAD, patient tolerated procedure well. Patient seen the next with no further complaints of chest pain recommended she continue her Imdur and can follow-up O/P. Patient did have hyperglycemia and A1c came back elevated at 6.3 patient this time would like to attempt diet changes and increased activity plan to follow-up with primary care physician will need follow-up A1c and 3 months. Patient with no further complaints catheterization site checked with no hematoma or bleeding reviewed post catheterization instructions with patient and when to seek medical attention patient acknowledged agree with discharge plan and patient was discharged home with family. Status at Discharge Functional status at discharge: independent ambulation Overall status at discharge: patient is back to baseline Time Spent with Patient Time attestation: Total time spent providing and/or coordinating discharge services: Time spent: Greater than 30 minutes Exam Const: General: comfortable and no acute distress HENMT: Mouth: Yes moist mucous membranes Eyes: General: appearance normal, both eyes and all related structures Pupils: Equal, round and reactive pupils present Neck: Neck: supple Resp: Effort & Inspection: normal respiratory effort Auscultation: clear to auscultation bilaterally Cardio: Rate: regular rate Rhythm: regular rhythm GI: Auscultation: normal bowel sounds Skin: General skin exam: normal color and no rashes or lesions noted Wounds: no wounds Neuro: General: gait normal Cranial nerves: Yes Equal, round and reactive pupils present Speech: normal speech Motor exam (neuro): 5/5 motor strength present throughout Sensory Exam: normal sensation Extrem: General: normal to inspection Psych: Mental Status: mental status grossly normal Affect: normal affect DS: Data Data Completed and Pending Labs on day of discharge: Labs from last 24 hours 02/28/25 02/27/25 02/27/25 04:18 14:57 13:16 WBC 6.5 RBC 4.30 Hgb 12.4 Hct 39.0 MCV 90.7 MCH 28.8 MCHC 31.8 L RDW 13.2 Plt Count 237 MPV 9.5 Immature Gran % (Auto) 0.8 H Neut % (Auto) 86.5 H Lymph % (Auto) 10.9 L [place] % (Auto) 1.8 L Eos % (Auto) 0.0 Baso % (Auto) 0.0 L Lymph # (Auto) 0.71 L [place] # (Auto) 0.1 Eos # (Auto) 0.0 Baso # (Auto) 0.0 Abs Immat Gran (auto) 0.05 H Absolute Neuts (auto) 5.6 Absolute Nucleated RBC 0.000 Nucleated RBC % 0.0 APTT 50.3 H Sodium 142 Potassium 5.3 H Chloride 107 Carbon Dioxide 24 Anion Gap 11 BUN 13 Creatinine 0.83 Estim Creat Clear Calc 50 Estimated GFR > 60 Glucose 166 H Hemoglobin A1c Calcium 9.7 Total Bilirubin 0.5 AST 18 ALT 18 Alkaline Phosphatase 100 Troponin I < 0.012 Total Protein 7.0 Albumin 4.0 02/27/25 06:45 WBC RBC Hgb Hct MCV MCH MCHC RDW Plt Count MPV Immature Gran % (Auto) Neut % (Auto) Lymph % (Auto) [place] % (Auto) Eos % (Auto) Baso % (Auto) Lymph # (Auto) [place] # (Auto) Eos # (Auto) Baso # (Auto) Abs Immat Gran (auto) Absolute Neuts (auto) Absolute Nucleated RBC Nucleated RBC % APTT Sodium Potassium Chloride Carbon Dioxide Anion Gap BUN Creatinine Estim Creat Clear Calc Estimated GFR Glucose Hemoglobin A1c 6.3 H Calcium Total Bilirubin AST ALT Alkaline Phosphatase Troponin I Total Protein Albumin Imaging Radiologist's impression: Findings: LEFT HEART CATHETERIZATION FINDINGS: 1. Left main: The left main coronary artery is widely patent without any significant obstructive disease. 2. Left anterior descending: The LAD gives off 2 main diagonal branches. The LAD in its mid body has patent stent and the remainder of the vessel has luminal irregularities. The ostium of the 1st diagonal branch has calcific 30-40% stenosis. 3. Left circumflex: The left circumflex artery is a moderate caliber vessel that supplies 1 OM branch. This system is angiographically free of disease. 4. Right coronary artery: The RCA is a large dominant vessel with a RPDA branch that reaches the apex. The mid body of the RCA has diffuse 10-20% stenosis. The remainder of the vessel and its branches have luminal irregularities. 5. Left ventricle: A. End-diastolic pressure 8 mmHg. B. LV gram deferred. C. No significant gradient across aortic valve on catheter pullback. 6. Opening AO pressure 129/57 and closing AO pressure 133/55 7. Right iliofemoral angiogram: The visualized portions of the right common femoral artery, right SFA, right profundus, right external iliac artery, and right internal iliac artery are angiographically free of high-grade stenosis. The access site is immediately above the bifurcation in the common femoral artery the patient has a low inferior epigastric artery takeoff however the puncture site is between the bifurcation and the inferior epigastric artery. Discharge Plan Discharge Attending physician on discharge: Michael Calderon Consulting providers: Sam Rubio; Mignon Segal Discharging Clinician: Mignon Segal Anticipated Discharge Date/Time: 02/28/25 13:17 Patient Disposition: Home, Self-Care Activity: other - see discharge instructions Diet: heart healthy Discharge Instructions: Attached are after care instructions for cardiac Catheterization please follow activity guidelines and risk. * Resume current medications as indicated * Follow-up with Cardiology as scheduled * can continued isosorbide mononitrate 30 mg p.o. daily for now to be re- evaluated outpatient * Please seek medical attention if chest pain returns. * Your A1C for diabetes was elevated at 6.3 please follow-up with your primary care physician recommend diabetic diet and increasing activity How can you care for yourself at home? ? Keep track of any new symptoms or changes in your symptoms. ? Rest until you feel better. ? Be safe with medicines. Take your medicines exactly as prescribed. Call your doctor if you think you are having a problem with your medicine. ? Do not drive after taking a prescription pain medicine. ? Ensure to follow-up with primary care physician as indicated and provide updated medication list provided to you at discharge. When should you call for help? Call 911 anytime you think you may need emergency care. For example, call if: ? You passed out (lost consciousness). Call your doctor now or seek immediate medical care if: ? You have new symptoms like fever, difficulty breathing, Chest pain, vomiting, or rash. ? You have new or different pain. ? You are confused and are having trouble thinking clearly. ? Your symptoms are getting worse. Watch closely for changes in your health, and be sure to contact your doctor if: ? You do not get better as expected. Patient Instructions: Antibiotic Form, Angina (DC), Heart Catheterization (DC), Coronary Artery Disease in Women (DC), Left Heart Catheterization (DC) Patient Language: Danish Stand Alone Forms: General Discharge Information Follow-up/Referrals: Natalia,Nina Domínguez DO [Primary Care Provider] - 2 Weeks Sam Rubio MD [Physician] - Keep Reg. Scheduled Appt. Discharge Medications: Continued clopidogrel [Plavix] 75 mg Tablet 75 mg PO DAILY pantoprazole [Protonix] 40 mg Tablet,Delayed Release (Dr/Ec) 40 mg PO QAM dicyclomine 10 mg capsule 10 mg PO BID PRN (Reason: abdominal pain) Qty: 60 5RF famotidine 40 mg tablet 40 mg PO HS olmesartan [Benicar] 40 mg Tablet 40 mg PO QPM metoprolol succinate 50 mg tablet extended release 24 hr 50 mg PO DAILY nitroglycerin 0.3 mg Tablet, Sublingual 4 mg SUBLINGUAL Q5M PRN (Reason: Chest Pain) amlodipine 10 mg tablet 10 mg PO QPM atorvastatin 20 mg tablet 40 mg PO QPM isosorbide mononitrate 30 mg tablet extended release 24 hr 30 mg PO QAM Date of admission: 02/26/25 23:36 Primary Care Provider: NataliaNina Admitting Provider: Stella Mcpherson Attending physician on admission: Stella Mcpherson Condition: Stable Quality VTE Prophylaxis VTE prophylaxis: pharmacologic ordered -Patient's previous records reviewed on admission -ER notes reviewed in detail on admission -discussed all findings and current treatment plan with patient/Family/POA -Consultations reviewed for recommendations -Patient's disposition for safe discharge discussed with outsole caser Dictation performed by [employer] direct speech recognition software, therefore pipe fitter helper variants and typographical errors may occur. Hospitalist MIPS Heart Failure (Exclusion) Patient has history of Heart Transplant or Left Ventricular Assistive Device?: No IF YES, STOP HERE Heart Failure (Qualifier) Patient has current or prior documentation of LVEF less than or equal to 40%, or mod/servere depressed LVSF?: No IF NO, STOP HERE
== END 2025-02-28 13:58 | disposition home or self-care (01) | DRG 287 ==
LOC: ANHED 20:11 → ANHIMU 02-27 01:47
PROVIDERS: Emergency Medicine; Internal Medicine; Internal Medicine Cardiovascular Disease; Admitting Provider Internal Medicine; Emergency Provider Student in an Organized Health Care Education/Training Program; PCP Internal Medicine; Visit Provider Nurse Practitioner Family
PROC: 4A023N7 Measurement of Cardiac Sampling and Pressure, Left Heart, Percutaneous Approach (ICD-10-PCS; CPT 93452; principal; 2025-02-27 16:30)
DX: R07.89 Other chest pain (principal); I47.20 Ventricular tachycardia, unspecified; I25.10 Atherosclerotic heart disease of native coronary artery without angina pectoris; I10 Essential (primary) hypertension; R73.03 Prediabetes; K21.9 Gastro-esophageal reflux disease without esophagitis; Z95.5 Presence of coronary angioplasty implant and graft; Z20.822 Contact with and (suspected) exposure to COVID-19
CPT/HCPCS: 36415; 71046; 80053; 83036; 83690; 83735; 84484; 85025; 85610; 85730; 87637; 93005; 93458; 96374; 96375; 99285; A9270; C1887; C1894; J1171; J1200; J1644; J2003; J2250; J2305; J2405; J2919; J3010; J7030; J7040

== ENCOUNTER 2025-05-06 11:18 | Outpatient (CLI) | payer MEDICARE, SELFPAY ==
--- NOTE | ~2025-05-06 | MM_ITS ---
EXAMINATION: MM screening lexis BI w damien HISTORY: Screening TECHNIQUE: Craniocaudal and mediolateral oblique 3-D tomosynthesis images were obtained and synthetic 2-D images were generated. CAD analysis was submitted and interpreted. COMPARISON: 01/20/2024 through 06/26/2020. BREAST PARENCHYMAL COMPOSITION: Breast composed of scattered areas of fibroglandular density. FINDINGS: There is no evidence of suspicious mass, calcification, or architectural distortion to sugg est malignancy in either breast. There has been no suspicious interval change. IMPRESSION: 1. No mammographic evidence of malignancy. 2. Recommend routine screening mammography in one year. BI-RADS Category 1: Negative Reviewed, dictated and finalized at location B.
== END 2025-05-06 11:19 | disposition home or self-care (01) ==
LOC: MICIMG 11:18
PROVIDERS: PCP Internal Medicine; Visit Provider Nurse Practitioner Obstetrics & Gynecology
DX: Z12.31 Encounter for screening mammogram for malignant neoplasm of breast (principal)
CPT/HCPCS: 77063; 77067

== ENCOUNTER 2025-07-15 11:56 | Outpatient (CLI) | payer MEDICARE, SELFPAY ==
--- NOTE | ~2025-07-15 | XR_ITS ---
[id number] 07/15/2025 12:13 Indication: Right knee pain Procedure: 2 views right knee Comparison: No prior studies for comparison. Findings: Mild patellofemoral compartment osteoarthritis. Mild joint space narrowing of the medial co mpartment. No significant joint effusion. No foreign bodies. No fracture or traumatic malalignment. Impression: 1: Mild osteoarthritis of the right knee. Reviewed, dictated and finalized at location A. Impression: 1: Mild osteoarthritis of the right knee.
== END 2025-07-15 11:57 | disposition home or self-care (01) ==
LOC: MICIMG 11:58
PROVIDERS: PCP Nurse Practitioner Adult Health; Visit Provider Nurse Practitioner Adult Health
DX: M17.11 Unilateral primary osteoarthritis, right knee (principal)
CPT/HCPCS: 73560